=== PATIENT | female | born 1950 | race Caucasian/White ===

== ENCOUNTER → 2019-04-03 11:53 | Outpatient (CLI) | payer MEDICARE, OTHER, SELFPAY ==
--- NOTE | ~2019-04-03 | MM_ITS ---
EXAMINATION: MM screening clemente BI w alonzo HISTORY: Screening mammogram TECHNIQUE: Craniocaudal and mediolateral oblique 3-D tomosynthesis images were obtained and synthetic 2-D images were generated. CAD analysis was submitted and interpreted. COMPARISON: 08/08/2017, 06/14/2016, 12/18/2013 by lateral digital screening mammogram examinations BREAST PARENCHYMAL COMPOSITION: There are scattered areas of fibroglandular density. FINDINGS: There is no evidence of suspicious mass, calcification, or architectural distortion to sugg est malignancy in either breast. There has been no suspicious interval change. IMPRESSION: 1. No mammographic evidence of malignancy. 2. Recommend routine screening mammography in one year. BI-RADS Category 1: Negative Reviewed, dictated and finalized at location A. STFEEDING PEER COUNSELOR
--- NOTE | ~2019-04-03 | DEXA_ITS ---
Bone Density Report Name: Claire Herrera Age: 69 Sex: Female Ethnicity: White Date of : 1950 Indication: osteopenia; monitoring treatment; height loss; hysterectomy; postmenopausal Referring Provider: HANNAH, MATHIEU Study: Bone densitometry was performed. Exam Date: April 03, 2019 Accession number: [id number] Bone Density: Region BMD T-score Z-score Classification AP Spine (L1-L4) 0.882 -1.5 0.7 Osteopenia Femoral Neck (Left) 0.659 -1.7 0.2 Osteopenia Total Hip (Left) 0.811 -1.1 0.5 Osteopenia Femoral Neck (Right) 0.772 -0.7 1.2 Normal Total Hip (Right) 0.858 -0.7 0.9 Normal Total Hip Mean 0.835 -0.9 0.7 Normal World Health Organization criteria for BMD impression classify patients as: Normal (T-score at or above -1.0), Osteopenia (T-score between -1.0 and -2.5), or Osteoporosis (T-score at or below -2.5). 10-year Fracture Risk: FRAX not reported because: Treated for osteoporosis Previous Exams: Region Exam Age BMD T-score BMD Change BMD Change Date g/cm2 vs Baseline vs Previous AP Spine(L1-L4) 04/03/2019 69 0.882 -1.5 0.000 0.000 10/09/2010 60 0.882 -1.5 Total Hip(Left) 04/03/2019 69 0.811 -1.1 -0.032* 0.011 06/14/2016 66 0.800 -1.2 -0.043* -0.004 12/18/2013 63 0.804 -1.1 -0.039* -0.021 10/09/2010 60 0.825 -1.0 -0.018 -0.018 09/13/2007 57 0.843 -0.8 Total Hip(Right) 04/03/2019 69 0.858 -0.7 -0.025 -0.015 06/14/2016 66 0.872 -0.6 -0.010 -0.029* 12/18/2013 63 0.902 -0.3 0.019 0.019 10/09/2010 60 0.883 -0.5 0.000 0.000 09/13/2007 57 0.883 -0.5 *Denotes significance at 95% confidence level, LSC for AP Spine = 0.022 g/cm2, LSC for Total Hip = 0.027 g/cm2 Clinical Information Provided by Patient: Is being treated for osteoporosis Has used the following medications: Evista (i.e. raloxifene), Vitamin D, levothyroxine Has the following medical conditions: Hysterectomy, Stage 3 kidney disease Patient maximum height was 63.0 Menopause Age: 38 No regular weight bearing exercise Drinks caffeinated beverages Onset of menses at age 11 Number of children 2 Impression: The patient has low bone mass, based on the Left Femoral Neck T-score. No significant bone loss was observed. Discussion: PATIENT UNDER TREATMENT WI
== END ==
PROVIDERS: PCP Family Medicine; Visit Provider Nurse Practitioner
DX: Z12.31 Encounter for screening mammogram for malignant neoplasm of breast (principal); M85.88 Other specified disorders of bone density and structure, other site; M85.852 Other specified disorders of bone density and structure, left thigh
CPT/HCPCS: 77063; 77067; 77080

== ENCOUNTER 2019-08-26 12:22 | Emergency (ER) | payer MEDICARE, OTHER, SELFPAY ==
[2019-08-26 12:48] VITALS: BP 139/68; PULSE 89; RESP 20; TEMP 36.8; O2SAT 89
--- NOTE | 2019-08-26 13:17 | ED.WOUNDLAC ---
HPI - Wound/Laceration General Chief Complaint: Wound/Laceration Stated Complaint: cat bite right hand Time Seen by Provider: 08/26/19 13:17 Source: patient Mode of arrival: ambulatory Limitations: no limitations History of Present Illness HPI narrative: Claire Herrera is a 69 yo female with R hand swelling due to cat scratch by own cat on - decreased pain since yesterday but hard to grasp Related Data Home Medications Medication Instructions Recorded Confirmed ergocalciferol (vitamin D2) 1,250 50,000 unit PO 2XW cap 12/28/18 08/26/19 mcg (50,000 unit) capsule gabapentin 600 mg tablet 600 mg PO TID 12/28/18 08/26/19 lovastatin 40 mg tablet 80 mg PO DAILY tablet 12/28/18 08/26/19 melatonin 10 mg capsule PO 12/28/18 metformin 1,000 mg tablet 1,000 mg PO BID tablet 12/28/18 08/26/19 raloxifene 60 mg tablet 60 mg PO DAILY 12/28/18 Allergies Allergy/AdvReac Type Severity Reaction Status Date / Time alendronate sodium Allergy Severe TONGUE Verified 08/26/19 13:26 SWELLING atorvastatin Allergy Unknown Muscle Pain Verified 08/26/19 13:26 fenofibrate Allergy Unknown Muscle Pain Verified 08/26/19 13:26 gemfibrozil Allergy Unknown Muscle Pain Verified 08/26/19 13:26 Penicillins Allergy Unknown Hives Verified 08/26/19 13:26 rosuvastatin Allergy Unknown Muscle Pain Verified 08/26/19 13:26 Review of Systems Review of Systems: Narrative: CONSTITUTIONAL: Denies fever, chills, sweats. EYES: Denies visual changes, redness, discharge. ENT: Denies rhinorrhea, congestion, sore throat, otalgia. CARDIOVASCULAR: Denies chest pain, palpitations, edema. RESPIRATORY: Denies dyspnea, wheezing, cough GASTROINTESTINAL: Denies abdominal pain, nausea, vomiting, diarrhea. GENITOURINARY: Denies dysuria, hematuria, abnormal discharge SKIN: Denies rash or itching. Swollen R hand with redness at sites of puncture NEUROLOGIC: Denies numbness, or focal weakness. PSYCHIATRIC: Denies anxiety or depression. [facility] Past Medical History Medical History CKD (chronic kidney disease), stage III DM renal manif type II Hypertensive chronic kidney disease with stage 1 through stage 4 chronic kidney disease, or unspecified chronic kidney disease Mild episode of recurrent major depressive disorder Mixed hyperlipidemia Mixed hyperlipidemia Transient alteration of awareness UTI (urinary tract infection) Surgical History Surgical History History of bilateral tubal ligation S/P carpal tunnel release S/P cholecystectomy S/P discectomy S/P hysterectomy S/P tonsillectomy Status post Kevin fundoplication Family History Family History Father Family history of obesity Hypertension Family history of allergic disorder Cerebrovascular accident Family history of diabetes mellitus in first degree relative Family history of primary malignant neoplasm of liver Patient's father is Diabetes mellitus Family history of cardiovascular disease Mother Family history of obesity Hypertension Family history of osteoarthritis Patient's mother is in good health Sibling Hypertension Patient's brother is in good health Family history of diabetes mellitus in first degree relative Family history of lymphoma Diabetes mellitus Family history of cardiovascular disease Grandparent Asthma Carcinoma of colon Social History Social History Smoking status: Never smoker Alcohol intake: current Comments At time of signature, I agree with nursing past medical, surgical, social and family history. There is no relevant family history pertinent to the presenting complaint. Exam Narrative: Exam Narrative: GENERAL: This is a well-nourished, well-developed patient, in moderate distress. HEAD: normocephali
[2019-08-26] MEDS: TETANUS,DIPHTHERIA,AC PERTUSSIS ADULT (0.5 ML) BOOSTRIX IM (13:30)
== END 2019-08-26 13:51 | disposition home or self-care (01) ==
PROVIDERS: Emergency Provider Nurse Practitioner; PCP Family Medicine
DX: L08.9 Local infection of the skin and subcutaneous tissue, unspecified (principal); N18.3 Chronic kidney disease, stage 3 (moderate); E11.22 Type 2 diabetes mellitus with diabetic chronic kidney disease; I12.9 Hypertensive chronic kidney disease with stage 1 through stage 4 chronic kidney disease, or unspecified chronic kidney disease; Z79.84 Long term (current) use of oral hypoglycemic drugs; E11.42 Type 2 diabetes mellitus with diabetic polyneuropathy
CPT/HCPCS: 90471; 90715; 99213; G0463

== ENCOUNTER 2019-09-04 12:35 | Outpatient (CLI) | payer MEDICARE, OTHER, SELFPAY ==
--- NOTE | ~2019-09-04 | US_ITS ---
EXAMINATION: US carotid duplex BI DATE: 09/04/2019 14:01 INDICATION: Transient cerebral ischemic attack TECHNIQUE: Grayscale, color Doppler, and pulsed Doppler images of the cervical carotid arteries were obtained. The degree of vessel stenosis is placed in one of the following categories: normal, <50%, 5 0-69%, >=70% but less than near-occlusion, near-occlusion, or total occlusion. Note that percent sten osis relative to normal distal artery lumen diameter is indirectly measured from velocity measurement s as described by Ahmet, et al. Radiology 2003; 229:340-346. Notes: Normal: Peak systolic velocity <125 centimeters/sec and no plaque <50%. Peak systolic velocity <125 ( EDV <40; ICA/CCA PSV ratio <2.0; used these factors only a tandem lesions or low cardiac output or co ntralateral disease) 50-69 %: PSV 125-230 (EDV 40-100; ratio 2-4) >= 70% but less than near occlusion: PSV greater than 230 (EDV > 100; ratio> 4.0) Near Occlusion: PSV that is variable; markedly narrowed lumen Occlusion: Absent flow on color/spectral Doppler and no lumen on carty scale. COMPARISON: None. FINDINGS: RIGHT: The right common carotid artery (CCA) peak systolic velocity (PSV) is 80 cm/s. The right internal car otid artery (ICA) PSV is 200 cm/s. The right ICA end-diastolic velocity (EDV) is 47 cm/s. The right I CA/CCA PSV ratio is 2.5. The external carotid artery (ECA) PSV is 110 cm/s. There is antegrade flow i n the right vertebral artery. LEFT: The left CCA PSV is 100 cm/s. The left ICA PSV is 480 cm/s. The left ICA EDV is 102 cm/s. The left IC A/CCA PSV ratio is 4.8. The ECA PSV is 203 cm/s. There is antegrade flow in the left vertebral arter y. IMPRESSION: 1. 50-69% stenosis in the right internal carotid artery by sonographic criteria. 2. Greater than or equal to 70% stenosis in the left internal carotid artery by sonographic criteria. Reviewed, dictated and finalized at location B. IMPRESSION: 1. 50-69% stenosis in the right internal carotid artery by sonographic criteria . 2. Greater than or equal to 70% stenosis in the left internal carotid artery by sonographic criteria.
--- NOTE | ~2019-09-04 | CT_ITS ---
EXAMINATION: CT brain wo con DATE: 09/04/2019 14:07 INDICATION: Transient alteration of awareness. Dizziness. History of transient ischemic attack 3 week s ago. TECHNIQUE: Computed tomography (CT) of the head was performed without intravenous contrast. The mA wa s adjusted according to patient size. Iterative reconstruction technique was employed. Exam dose: 52 9.67 mGy-cm total exam DLP. COMPARISON: None FINDINGS: No intracranial mass lesion or hemorrhage or cerebrovascular accident. No midline shift or mass effect. No subdural or epidural hematoma. Bilateral carotid siphon internal carotid artery calcifications. There is nonspecific diminished atte nuation of cerebral white matter, likely due to chronic small vessel ischemic changes. No fracture or bone destruction of the cranial vault. The mastoid air cells and included paranasal si nuses are normally developed and aerated. IMPRESSION: Cerebral atherosclerosis and chronic small vessel ischemic changes of the cerebral white matter No acute intracranial finding Reviewed, dictated and finalized at Location A. Reviewed, dictated and finalized at location A.
== END 2019-09-04 12:36 | disposition home or self-care (01) ==
LOC: ANHIMG 12:36
PROVIDERS: PCP Family Medicine; Visit Provider Physician Assistant
DX: R40.4 Transient alteration of awareness (principal); I67.2 Cerebral atherosclerosis; I65.23 Occlusion and stenosis of bilateral carotid arteries
CPT/HCPCS: 70450; 93880

== ENCOUNTER 2019-10-01 01:39 | Outpatient (CLI) | payer MEDICARE, OTHER, SELFPAY ==
[2019-10-01 18:20] LABS: SARS-CoV-2 RNA PCR Negative
== END 2019-10-01 01:40 | disposition home or self-care (01) ==
LOC: ANHCOVIDDT 01:39
PROVIDERS: PCP Family Medicine; Visit Provider Internal Medicine Gastroenterology
DX: Z01.812 Encounter for preprocedural laboratory examination (principal); Z11.59 Encounter for screening for other viral diseases
CPT/HCPCS: 87635; C9803; U0003

== ENCOUNTER 2019-10-03 01:47 | Day surgery (SDC) | payer MEDICARE, OTHER, SELFPAY ==
[2019-09-25 14:56] VITALS: BMI 28.6
[2019-10-03 10:59] VITALS: BP 80/56; PULSE 110; RESP 20; TEMP 36.4; O2SAT 100
--- NOTE | 2019-10-03 11:06 | SUR.PREOP ---
PT AND SPOUSE NOTIFIED THAT DR PRESCOTT WILL BE APPROXIMATELY 1 HR LATE
[2019-10-03 11:24] LABS: Glucose Point of Care 105 (65-105)
[2019-10-03] MEDS: SODIUM CHLORIDE 0.9% IV 500 ML 10 ML IV CONT (11:31)
--- NOTE | 2019-10-03 12:00 | WPDANESEPPF ---
Anes - Initial Pre Proc Eval Procedure: Operation Date: 10/03/19 12:00 Proposed Procedures p Screening Colonoscopy - Lino Castaneda DO Date/Time: 10/03/19 12:00 Surgeon: Lino Castaneda DO Pre Op Diagnosis: Neoplasm Screening Patient Data Age: 69 Gender: F Height: 5 ft 2 in Weight: 69.2 kg Last Vital Signs Temp 97.6 F 10/03/19 10:59 Pulse 110 H 10/03/19 10:59 Resp 20 10/03/19 10:59 BP 80/56 L 10/03/19 10:59 Pulse Ox 100 10/03/19 10:59 Allergies Allergy/AdvReac Type Severity Reaction Status Date / Time alendronate sodium Allergy Severe TONGUE Verified 10/03/19 10:57 SWELLING atorvastatin Allergy Unknown Muscle Pain Verified 10/03/19 10:57 fenofibrate Allergy Unknown Muscle Pain Verified 10/03/19 10:57 gemfibrozil Allergy Unknown Muscle Pain Verified 10/03/19 10:57 Penicillins Allergy Unknown Hives Verified 10/03/19 10:57 rosuvastatin Allergy Unknown Muscle Pain Verified 10/03/19 10:57 Home Medications Medication Instructions Recorded Confirmed Type ergocalciferol (vitamin D2) 1,250 50,000 unit PO [id number] cap 12/28/18 10/03/19 History mcg (50,000 unit) capsule gabapentin 600 mg tablet 600 mg PO TID 12/28/18 10/03/19 History lovastatin 40 mg tablet 80 mg PO DAILY tablet 12/28/18 10/03/19 History melatonin 10 mg capsule 10 mg PO HS 12/28/18 10/03/19 History metformin 1,000 mg tablet 1,000 mg PO BID tablet 12/28/18 10/03/19 History raloxifene 60 mg tablet 60 mg PO DAILY 12/28/18 10/03/19 History bupropion HCl 300 mg 24 hr tablet, 300 mg PO QAM #90 tablet 01/08/19 10/03/19 Rx extended release omeprazole 40 mg capsule,delayed 40 mg PO DAILY #90 cap 02/12/19 10/03/19 Rx release levothyroxine 75 mcg tablet 75 mcg PO DAILY #90 tablet 07/31/19 10/03/19 Rx lisinopril 10 mg tablet 10 mg PO DAILY #90 tablet 07/31/19 10/03/19 Rx lisinopril 5 mg tablet 5 mg PO DAILY #90 tablet 07/31/19 10/03/19 Rx duloxetine 60 mg capsule,delayed See Rx Instructions .ROUTE 08/30/19 10/03/19 Rx release .COMPLEX #90 cap aspirin [Ecotrin] 325 mg PO DAILY 09/25/19 10/03/19 History lactobacillus combination no.8 3,000 mmu cells PO DAILY 09/25/19 10/03/19 History [Adult Probiotic] Laboratory Tests 10/03/19 11:22 POC Capillary Glucose 105 mg/dl mg/dl (65-105) Patient hx anesthesia problems: none Family hx anesthesia problems: none [facility] Past Medical History Medical History (Updated 09/04/19 @ 16:33 by Cheryl Valadez PA-C) Cerebral atherosclerosis CKD (chronic kidney disease), stage III DM renal manif type II Hypertensive chronic kidney disease with stage 1 through stage 4 chronic kidney disease, or unspecified chronic kidney disease Mild episode of recurrent major depressive disorder Mixed hyperlipidemia Mixed hyperlipidemia Transient alteration of awareness UTI (urinary tract infection) Surgical History Surgical History History of bilateral tubal ligation S/P carpal tunnel release S/P cholecystectomy S/P discectomy S/P hysterectomy S/P tonsillectomy Status post Kevin fundoplication Social History Social History Smoking status: Never smoker Alcohol intake: current Anes - Eval Final PreProcedure Day of Procedure 10/03/19 12:00 Patient weight: normal Heart: regular rate and rhythm Lungs: clear to auscultation Airway: Mallampati scale class II Neurological: alert and oriented Last oral intake: >/= 8 hours ASA classification: III Emergent: no Anesthetic plan: proceed Anesthesia type and monitoring: general GIVS and standard monitoring Informed Consent: The patient's anesthetic plan and its attendant risks and benefits were discussed with the patient/family/POA. Questions were solicited and answers provided to the satisfaction of the patient/family/POA.
--- NOTE | 2019-10-03 13:00 | PM.IMHP ---
H&P: [facility] History of Present Illness Date/Time: 10/03/19 13:00 Chief complaint: Neoplasm Screening Narrative: Reason for visit colonoscopy. This very pleasant lady seen in consultation request of the primary. Impression: Your very pleasant lady that has a history of colon polyps. She is here for screening and surveillance colonoscopy. GERD well controlled on medication. Recommendation: Colonoscopy. history: This very pleasant lady's here for screening and surveillance colonoscopy. She has a history of colon polyps. GI review systems negative. Physical examination: General: very pleasant patient in no acute distress. HEENT: Head was normocephalic sclerae is clear mouth without masses neck was supple. Heart: Rate rhythm regular without S3 or S4. Lungs: CTA. Abdomen: Soft with no guarding or rigidity. Bowel sounds were active. Neurologic: Cranial nerves 2 through 12 intact. No focal defects. No clonus. Musculoskeletal system: Revealed no joint tenderness or swelling no muscle atrophy. Extremities: Reveal no significant edema. Skin: Warm and dry with normal turgor. Mental status: intact. Patient is alert and oriented. Review of Systems Review of Systems: All systems reviewed & are unremarkable except as noted in HPI and below [facility] Past Medical History Medical History (Updated 10/03/19 @ 13:00 by Lino Castaneda DO) Adenomatous colon polyp Anxiety Carotid artery disease Cerebral atherosclerosis CKD (chronic kidney disease) CKD (chronic kidney disease), stage III DM renal manif type II GERD (gastroesophageal reflux disease) HTN (hypertension) Hypothyroid Mild episode of recurrent major depressive disorder Mixed hyperlipidemia Transient alteration of awareness UTI (urinary tract infection) Surgical History Surgical History History of bilateral tubal ligation S/P carpal tunnel release S/P cholecystectomy S/P discectomy S/P hysterectomy S/P tonsillectomy Status post Kevin fundoplication Social History Social History Smoking status: Never smoker Alcohol intake: current Meds Home Medications and Allergies Home Medications Medication Instructions Recorded Confirmed Type ergocalciferol (vitamin D2) 1,250 50,000 unit PO [id number] cap 12/28/18 10/03/19 History mcg (50,000 unit) capsule gabapentin 600 mg tablet 600 mg PO TID 12/28/18 10/03/19 History lovastatin 40 mg tablet 80 mg PO DAILY tablet 12/28/18 10/03/19 History melatonin 10 mg capsule 10 mg PO HS 12/28/18 10/03/19 History metformin 1,000 mg tablet 1,000 mg PO BID tablet 12/28/18 10/03/19 History raloxifene 60 mg tablet 60 mg PO DAILY 12/28/18 10/03/19 History bupropion HCl 300 mg 24 hr tablet, 300 mg PO QAM #90 tablet 01/08/19 10/03/19 Rx extended release omeprazole 40 mg capsule,delayed 40 mg PO DAILY #90 cap 02/12/19 10/03/19 Rx release levothyroxine 75 mcg tablet 75 mcg PO DAILY #90 tablet 07/31/19 10/03/19 Rx lisinopril 10 mg tablet 10 mg PO DAILY #90 tablet 07/31/19 10/03/19 Rx lisinopril 5 mg tablet 5 mg PO DAILY #90 tablet 07/31/19 10/03/19 Rx duloxetine 60 mg capsule,delayed See Rx Instructions .ROUTE 08/30/19 10/03/19 Rx release .COMPLEX #90 cap aspirin [Ecotrin] 325 mg PO DAILY 09/25/19 10/03/19 History lactobacillus combination no.8 3,000 mmu cells PO DAILY 09/25/19 10/03/19 History [Adult Probiotic] Allergies Allergy/AdvReac Type Severity Reaction Status Date / Time alendronate sodium Allergy Severe TONGUE Verified 10/03/19 10:57 SWELLING atorvastatin Allergy Unknown Muscle Pain Verified 10/03/19 10:57 fenofibrate Allergy Unknown Muscle Pain Verified 10/03/19 10:57 gemfibrozil Allergy Unknown Muscle Pain Verified 10/03/19 10:57 Penicillins Allergy Unknown Hives Verified 10/03/19 10:57 rosuvastatin Allergy Unknown Muscle Pain Verified 10/03/19 10:57 Vital Sig
[2019-10-03 13:35] VITALS: BP 80/49; PULSE 115; RESP 26; O2SAT 100
[2019-10-03 13:45] VITALS: BP 88/54; PULSE 99; RESP 18; O2SAT 100
[2019-10-03 13:55] VITALS: BP 88/55; PULSE 101; RESP 21; O2SAT 99
== END 2019-10-03 14:04 | disposition home or self-care (01) ==
PROVIDERS: PCP Family Medicine; Visit Provider Internal Medicine Gastroenterology
PROC: 0DJD8ZZ Inspection of Lower Intestinal Tract, Via Natural or Artificial Opening Endoscopic (ICD-10-PCS; CPT 45378; principal; 2019-10-03 12:00)
DX: Z12.11 Encounter for screening for malignant neoplasm of colon (principal); D12.8 Benign neoplasm of rectum; K57.30 Diverticulosis of large intestine without perforation or abscess without bleeding; K21.9 Gastro-esophageal reflux disease without esophagitis; I12.9 Hypertensive chronic kidney disease with stage 1 through stage 4 chronic kidney disease, or unspecified chronic kidney disease; E11.22 Type 2 diabetes mellitus with diabetic chronic kidney disease; N18.3 Chronic kidney disease, stage 3 (moderate); E03.9 Hypothyroidism, unspecified; E78.2 Mixed hyperlipidemia; I25.10 Atherosclerotic heart disease of native coronary artery without angina pectoris; F41.9 Anxiety disorder, unspecified; F33.0 Major depressive disorder, recurrent, mild; Z86.73 Personal history of transient ischemic attack (TIA), and cerebral infarction without residual deficits; Z79.84 Long term (current) use of oral hypoglycemic drugs; Z79.82 Long term (current) use of aspirin
CPT/HCPCS: 45380; 88305; J2704; J7040

== ENCOUNTER 2020-01-08 12:59 | Outpatient (CLI) | payer MEDICARE, OTHER, SELFPAY ==
--- NOTE | ~2020-01-08 | CT_ITS ---
EXAMINATION: CT brain wo con DATE: 01/08/2020 13:45 INDICATION: Left facial droop. History of transient ischemic attack. TECHNIQUE: Computed tomography (CT) of the head was performed without intravenous contrast. The mA wa s adjusted according to patient size. Iterative reconstruction technique was employed. Exam dose: 60 5.33 mGy-cm total exam DLP. COMPARISON: 09/04/2019 CT brain FINDINGS: There are bilateral carotid siphon and supraclinoid internal carotid artery calcifications. There is nonspecific diminished attenuation of the cerebral white matter, likely due to chronic smal l vessel ischemic changes. No intracranial mass lesion or hemorrhage or cerebrovascular accident is evident. There is no midline shift or mass effect. No subdural or epidural hematoma. There is mild to moderate cerebral and cerebellar volume loss. No fracture or bone destruction of the cranial vault. The mastoid air cells and included paranasal si nuses are normally developed and aerated. IMPRESSION: Cerebral atherosclerosis and chronic small vessel ischemic changes of the cerebral white matter Reviewed, dictated and finalized at Location A. Reviewed, dictated and finalized at location B. ICIAN PRACTICE COORDINATOR
--- NOTE | ~2020-01-08 | US_ITS ---
EXAMINATION: US art doppler w press UE BI EXAM DATE: 01/08/2020 13:41 INDICATION: I25.10 - Atherosclerotic heart disease of [place] coronary artery without angina pectoris . Hypertension. Neuropathy, arm numbness. TECHNIQUE: Segmental pressures and plethysmographic and Doppler waveforms of the upper extremity mohit mercedes were obtained. There is no prior study for comparison. FINDINGS: Right and left brachial artery pressures of 123 mm Hg and 89 mm Hg, respectively, are discordant (nor mal difference <= 30 mmHg), could indicate left subclavian arterial stenosis. RIGHT: Right ulnar/brachial arterial Doppler ratio 1.03 (127 mmHg). Right radial/brachial arterial Doppler ratio 1.02 (125 mmHg). Right index finger 120 mmHg. The waveforms are biphasic. LEFT: Left ulnar/brachial arterial Doppler ratio 0.83 (74 mmHg). Left radial/brachial arterial ratio 0.81 (72 mmHg). Left index finger 73 mmHg. The waveforms are monophasic. IMPRESSION: Brachial arterial discrepancy indicating possible left subclavian arterial stenosis. Mon ophasic left-sided waveforms throughout. Reviewed, dictated and finalized at location A. FIC CONTROL FLAGGER IMPRESSION: Brachial arterial discrepancy indicating possible left subclavian arterial stenosis. Monophasic left-sided waveforms throughout.
== END 2020-01-08 13:00 | disposition home or self-care (01) ==
PROVIDERS: PCP Family Medicine; Visit Provider Nurse Practitioner Family
DX: R29.810 Facial weakness (principal); I25.10 Atherosclerotic heart disease of native coronary artery without angina pectoris; R93.1 Abnormal findings on diagnostic imaging of heart and coronary circulation; I67.2 Cerebral atherosclerosis; R09.89 Other specified symptoms and signs involving the circulatory and respiratory systems; R42 Dizziness and giddiness; Z86.73 Personal history of transient ischemic attack (TIA), and cerebral infarction without residual deficits
CPT/HCPCS: 70450; 93923

== ENCOUNTER 2020-01-16 12:19 | Outpatient (CLI) | payer MEDICARE, OTHER, SELFPAY ==
--- NOTE | ~2020-01-16 | CT_ITS ---
EXAMINATION: CTA neck DATE: 01/16/2020 12:54 INDICATION: Subclavian arterial stenosis. TECHNIQUE: Computed tomographic angiography (CTA) of the neck was performed with 100 mL Omnipaque-350 intravenous contrast. Automated exposure control and iterative reconstruction technique were employe d. The dose-length product was 461.41 mGy-cm. Maximum intensity projection 3D-reconstructions were cr eated by the technologist on a separate workstation. COMPARISON: Ultrasound 09/04/2019 FINDINGS: There are no pathologically enlarged lymph nodes. There are nodules in the thyroid measurin g up to 8 mm, likely not clinically significant. There is severe stenosis of proximal left subclavian artery. There is no significant stenosis of the vertebral arteries, which are codominant. There is p laque in the proximal right internal carotid artery. There is 25% stenosis of the proximal right inte rnal carotid artery relative to normal distal artery lumen diameter (NASCET criteria). There are lik jarad changes of left-sided carotid endarterectomy. There is 0% stenosis of the proximal left internal carotid artery relative to normal distal artery lumen diameter. 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 There is severe cervical spondylosis. IMPRESSION: 1. 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 2. 25% stenosis of the proximal right internal carotid artery relative to normal distal artery lumen diameter (NASCET criteria). 3. Left internal carotid artery with changes of endarterectomy and dissecting aneurysm. Reviewed, dictated and finalized at location A. NSTRATOR SALES IMPRESSION: 1. 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 2. 25% stenosis of the proximal right internal carotid artery relative to fernanda l distal artery lumen diameter (NASCET criteria). 3. Left internal carotid artery with changes of endarterectomy and dissecting a neurysm.
[2020-01-16 12:47] LABS: Estimated Glomerular Filt Rate 37
== END 2020-01-16 12:20 | disposition home or self-care (01) ==
PROVIDERS: PCP Family Medicine; Visit Provider Internal Medicine Cardiovascular Disease
DX: I77.1 Stricture of artery (principal); I65.21 Occlusion and stenosis of right carotid artery; Z98.890 Other specified postprocedural states
CPT/HCPCS: 70498; Q9967

== ENCOUNTER 2020-05-07 15:37 | Outpatient (CLI) | payer MEDICARE, OTHER, SELFPAY ==
[2020-05-07 16:10] LABS: Basophils Absolute Auto 0.1 K/mm3 (0.0-0.1); Basophils Percent Auto 0.5 % (0.2-1.2); Eosinophils Absolute Auto 0.3 K/mm3 (0-0.3); Eosinophils Percent Auto 2.7 % (0-4.4); Hematocrit 34.4 % (37.0-47.0); Hemoglobin 10.3 g/dL (12.0-15.0); Immature Granulocyte Absolute 0.03 K/mm3 (0.00-0.031); Immature Granulocyte Percent A 0.3 % (0-0.5); Lymphocytes Absolute Auto 2.33 K/mm3 (0.9-3.2); Lymphocytes Percent Auto 23.6 % (18.3-44.2); Mean Corpuscular HGB Conc 29.9 g/dl (32-36); Mean Corpuscular Hemoglobin 22.4 pg (26-34); Mean Corpuscular Volume 74.9 fl (80-100); Mean Platelet Volume 9.2 fl (7.4-10.4); Monocytes Absolute Auto 0.9 K/mm3 (0.1-0.6); Monocytes Percent Auto 8.7 % (2.6-8.5); Neutrophils Absolute Auto 6.4 K/mm3 (1.3-6.7); Neutrophils Percent Auto 64.2 % (45.5-73.1); Platelet Count Result 270 k/mm3 (150-375); Red Blood Count 4.59 M/mm3 (4.2-5.4); Red Cell Distribution Width 17.5 % (11.5-14.5); White Blood Count 9.9 K/mm3 (4.5-10.0)
[2020-05-07 16:19] LABS: Prothrombin Time 13.8 Seconds (11.1-14.7)
[2020-05-07 16:24] LABS: Alanine Aminotransferase 15 U/L (4-35); Albumin Level 4.4 g/dL (3.5-5.1); Alkaline Phosphatase 80 U/L (38-126); Anion Gap 8 mmol/L (8-16); Aspartate Amino Transferase 31 U/L (14-36); Bilirubin,Total 0.2 mg/dL (0.2-1.3); Blood Urea Nitrogen 19 mg/dL (7-17); Calcium 9.5 mg/dL (8.4-10.2); Carbon Dioxide 25 mmol/L (22-30); Chloride 107 mmol/L (98-107); Estimated Glomerular Filt Rate 24; Glucose 93 mg/dL (65-105); Potassium 3.8 mmol/L (3.4-5.0); Sodium 140 mmol/L (137-145)
[2020-05-07 16:43] LABS: Platelet Estimate Adequate (Adequate)
[2020-05-07 16:44] LABS: Anisocytosis 2+ (NORMAL); Hypochromasia 1+ (NORMAL)
== END 2020-05-07 15:38 | disposition home or self-care (01) ==
PROVIDERS: PCP Family Medicine; Visit Provider Internal Medicine Cardiovascular Disease
DX: Z01.810 Encounter for preprocedural cardiovascular examination (principal); G45.8 Other transient cerebral ischemic attacks and related syndromes
CPT/HCPCS: 36415; 80053; 85025; 85610

== ENCOUNTER 2020-09-17 14:05 | Outpatient (CLI) | payer MEDICARE, OTHER, SELFPAY ==
--- NOTE | ~2020-09-17 | XR_ITS ---
EXAMINATION: XR abdomen/kub 1V INDICATION: Fecal incontinence TECHNIQUE: Supine views of the abdomen were obtained on 2 radiographs. COMPARISON: None FINDINGS: A large volume of colonic stool is present. There are no dilated loops of bowel. Phlebolith s are noted in the pelvis. There is mild osteoarthritis of the hips. IMPRESSION: 1. Constipation. Reviewed, dictated and finalized at location A. IMPRESSION: 1. Constipation.
== END 2020-09-17 14:06 | disposition home or self-care (01) ==
LOC: ANHIMG 14:10
PROVIDERS: PCP Family Medicine; Visit Provider Physician Assistant
DX: R15.9 Full incontinence of feces (principal); K56.609 Unspecified intestinal obstruction, unspecified as to partial versus complete obstruction
CPT/HCPCS: 74018

== ENCOUNTER 2021-01-26 13:56 | Outpatient (CLI) | payer MEDICARE, OTHER, SELFPAY ==
--- NOTE | ~2021-01-26 | US_ITS ---
EXAMINATION: US carotid duplex BI DATE: 01/26/2021 16:25 INDICATION: Carotid atherosclerosis and stenosis TECHNIQUE: Grayscale, color Doppler, and pulsed Doppler images of the cervical carotid arteries were obtained. The degree of vessel stenosis is placed in one of the following categories: normal, <50%, 5 0-69%, >=70% but less than near-occlusion, near-occlusion, or total occlusion. Note that percent sten osis relative to normal distal artery lumen diameter is indirectly measured from velocity measurement s as described by Ahmet, et al. Radiology 2003; 229:340-346. COMPARISON: 09/04/2019 FINDINGS: RIGHT: The right common carotid artery (CCA) peak systolic velocity (PSV) is 89 cm/s. The right internal car otid artery (ICA) PSV is 221 cm/s. The right ICA end-diastolic velocity (EDV) is 57 cm/s. The right I CA/CCA PSV ratio is 2.5. Grayscale and color Doppler images yield an estimate of 50-69% diameter redu ction from plaque in the ICA. The external carotid artery (ECA) PSV is 120 cm/s. There is antegrade f low in the right vertebral artery. LEFT: The left CCA PSV is 106 cm/s. The left ICA PSV is 98 cm/s. The left ICA EDV is 32 cm/s. The left ICA/ CCA PSV ratio is 0.9. Grayscale and color Doppler images yield an estimate of <50% diameter reduction from plaque in the ICA. The ECA PSV is 98 cm/s. There is retrograde flow in the left vertebral arter y. IMPRESSION: 1. 50-69% stenosis in the right internal carotid artery. 2. <50% stenosis in the left internal carotid artery. 3. Retrograde flow in the left vertebral artery consistent with severe stenosis versus occlusion in t he left subclavian artery proximal to the takeoff of the vertebral artery. A near complete occlusion stenosis seen at this location on prior CT dated 01/16/2020 . Reviewed, dictated and finalized at location B. WEIGH OPERATOR IMPRESSION: 1. 50-69% stenosis in the right internal carotid artery. 2. <50% stenosis in the left internal carotid artery. 3. Retrograde flow in the left vertebral artery consistent with severe stenosis versus occlusion in the left subclavian artery proximal to the takeoff of the vertebral artery. A near complete occlusion stenosis seen at this location on p rior CT dated 01/16/2020 .
[2021-01-26 14:33] LABS: Estimated Glomerular Filt Rate 22
== END 2021-01-26 13:57 | disposition home or self-care (01) ==
PROVIDERS: PCP Family Medicine; Visit Provider Internal Medicine Cardiovascular Disease
DX: I65.23 Occlusion and stenosis of bilateral carotid arteries (principal)
CPT/HCPCS: 93880

== ENCOUNTER 2021-02-19 10:44 | Outpatient (CLI) | payer MEDICARE, OTHER, SELFPAY ==
--- NOTE | ~2021-02-19 | US_ITS ---
EXAMINATION: US renal BI EXAM DATE: 02/19/2021 11:09 INDICATION: CKD Stage 3 . TECHNIQUE: Multiple grayscale and Doppler images of the kidneys were obtained (by a technologist who performed the scan) and subsequently reviewed. Comparison is made to prior examination from 11/02/2013 . FINDINGS: Right kidney: There is normal contour and echogenicity. It measures 7.8 x 3.4 x 3.7 centimeters. Ane choic lesion consistent with cyst measuring 2 cm. There is no hydronephrosis. Left kidney: There is normal contour and echogenicity. It measures 9.2 x 4.1 x 5.4 centimeters. The re are no focal renal lesions identified. There is no hydronephrosis. Bladder unremarkable. Bilateral ureteral jets were confirmed. IMPRESSION: 1. Development of mild right renal atrophy. Reviewed, dictated and finalized at location A. T BAILIFF
== END 2021-02-19 10:45 | disposition home or self-care (01) ==
LOC: ANHIMG 10:48
PROVIDERS: PCP Family Medicine; Visit Provider Internal Medicine Nephrology
DX: N18.32 Chronic kidney disease, stage 3b (principal); N26.1 Atrophy of kidney (terminal)
CPT/HCPCS: 76775

== ENCOUNTER 2021-08-05 14:32 | Outpatient (CLI) | payer MEDICARE, SELFPAY ==
--- NOTE | ~2021-08-05 | XR_ITS ---
EXAMINATION: XR ankle LT min 3V DATE: 08/05/2021 15:01 INDICATION: Left ankle pain and swelling. Fall. TECHNIQUE: 4 views of left ankle were obtained. COMPARISON: Left foot radiographs 05/05/2021 FINDINGS: There are transverse fractures of the bases of the second-fourth metatarsals better seen on today's foot radiographs. There is mild ankle joint osteoarthritis. There is an enthesophyte at plan tar aspect of calcaneal tuberosity. Ankle soft tissue swelling is noted. IMPRESSION: 1. Transverse fractures of the bases of the second-fourth metatarsals better seen on today's foot rad iographs. Reviewed, dictated and finalized at location B. IMPRESSION: 1. Transverse fractures of the bases of the second-fourth metatarsals better se en on today's foot radiographs.
--- NOTE | ~2021-08-05 | XR_ITS ---
EXAMINATION: XR foot LT min 3V DATE: 08/05/2021 15:01 INDICATION: Left foot pain. TECHNIQUE: 4 views of left foot were obtained. COMPARISON: None. FINDINGS: There is a transverse fracture of base of second metatarsal in near-anatomic alignment. The re is a transverse fracture of base of third metatarsal with 3 mm lateral displacement of the distal fracture fragment. There is a transverse fracture of base of fourth metatarsal with 2 mm lateral disp lacement of the distal fracture fragment. There is severe osteoarthritis of first metatarsophalangeal joint. There is moderate to moderate osteoarthritis of some of the midfoot joints and interphalangea l joints. There is severe osteoarthritis of second and third tarsometatarsal joints. There is an enth esophyte at plantar aspect of calcaneus. IMPRESSION: 1. Transverse fractures of the bases of the second-fourth metatarsals. 2. Polyarticular osteoarthritis. Reviewed, dictated and finalized at location B.
== END 2021-08-05 14:33 | disposition home or self-care (01) ==
PROVIDERS: PCP Family Medicine; Visit Provider Nurse Practitioner Family
DX: M19.072 Primary osteoarthritis, left ankle and foot (principal)
CPT/HCPCS: 73610; 73630

== ENCOUNTER 2021-09-17 14:41 | Outpatient (CLI) | payer MEDICARE, SELFPAY ==
--- NOTE | ~2021-09-17 | CT_ITS ---
EXAMINATION: CT brain wo con DATE: 09/17/2021 15:01 INDICATION: Dizziness TECHNIQUE: Computed tomography (CT) of the head was performed without intravenous contrast. The dose- length product was 529.67 mGy-cm. Automated exposure control and iterative reconstruction technique w ere employed. COMPARISON: CT dated 01/08/2020 FINDINGS: Mild generalized atrophy. There are scattered mild periventricular and subcortical white ma tter changes, most likely related to small vessel ischemic disease (microangiopathy). There is intrac ranial atherosclerosis. Paranasal sinuses and mastoids are pneumatized. No depressed skull fractures. IMPRESSION: 1. No acute intracranial abnormality. 2: Chronic age-related findings. Reviewed, dictated and finalized at location A.
== END 2021-09-17 14:42 | disposition home or self-care (01) ==
PROVIDERS: PCP Family Medicine; Visit Provider Physician Assistant
DX: R42 Dizziness and giddiness (principal); R41.0 Disorientation, unspecified; G45.9 Transient cerebral ischemic attack, unspecified; W19.XXXA Unspecified fall, initial encounter
CPT/HCPCS: 70450

== ENCOUNTER 2021-10-30 13:56 | Outpatient (CLI) | payer MEDICARE, SELFPAY ==
--- NOTE | ~2021-10-30 | CT_ITS ---
EXAMINATION: CTA brain carotid DATE: 10/30/2021 15:22 INDICATION: Dizziness. TECHNIQUE: Computed tomographic angiography (CTA) of the head was performed without and with 100 mL O mnipaque-350 intravenous contrast. CTA of the neck was performed with intravenous contrast. Automated exposure control and iterative reconstruction technique were employed. The dose-length product was 1 495.68 mGy-cm. Maximum intensity projection and volume rendered 3D-reconstructions were created by elinor flood technologist on a separate workstation. COMPARISON: Head CT 09/17/2021, neck CTA 01/16/20 FINDINGS: HEAD CTA: There are scattered areas of low attenuation in the cerebral white matter, which is within normal limits for the patient's age. There is no intracranial hemorrhage, acute infarction, or abnorm al intracranial mass lesion. The ventricles are normal in size. There are likely changes of ocular le ns replacement surgeries. There is mild mucosal thickening in the ethmoid sinuses. The mastoid air ce lls are normal. Right vertebral artery is dominant. There is no significant stenosis of basilar arter y or the posterior cerebral arteries. The posterior communicating arteries are normal. There is no si gnificant stenosis of the intracranial internal carotid arteries or anterior or middle cerebral arter ies. Anterior communicating artery is normal. There is no aneurysm. NECK CTA: There are nodules in the thyroid measuring up to 5 mm, likely not clinically significant. T here are no pathologically enlarged lymph nodes. There is a stent in proximal left subclavian artery. There is crimping of the stent resulting in moderate to severe stenosis. There is no significant hayde nosis of the vertebral arteries. There is plaque in the proximal internal carotid arteries. There are surgical clips around left cervical carotid artery, likely from carotid endarterectomy. There is 14% stenosis of the proximal right internal carotid artery relative to normal distal artery lumen diamet er (NASCET criteria). There is 0% stenosis of the proximal left internal carotid artery relative to n ormal distal artery lumen diameter. There is severe cervical spondylosis. IMPRESSION: 1. Normal aging brain. 2. No aneurysm or significant intracranial arterial stenosis. 3. 14% stenosis of the proximal right internal carotid artery relative to normal distal artery lumen diameter (NASCET criteria). 4. 0% stenosis of the proximal left internal carotid artery relative to normal distal artery lumen di ameter. 5. Stent in proximal left subclavian artery with crimping of the stent resulting in moderate to sever e stenosis. Reviewed, dictated and finalized at location A. IMPRESSION: 1. Normal aging brain. 2. No aneurysm or significant intracranial arterial stenosis. 3. 14% stenosis of the proximal right internal carotid artery relative to fernanda l distal artery lumen diameter (NASCET criteria). 4. 0% stenosis of the proximal left internal carotid artery relative to normal distal artery lumen diameter. 5. Stent in proximal left subclavian artery with crimping of the stent resultin g in moderate to severe stenosis.
[2021-10-30 15:04] LABS: Estimated Glomerular Filt Rate 34
== END 2021-10-30 13:57 | disposition home or self-care (01) ==
PROVIDERS: PCP Family Medicine; Visit Provider Psychiatry & Neurology Neurology
DX: R42 Dizziness and giddiness (principal); I65.21 Occlusion and stenosis of right carotid artery; Z95.828 Presence of other vascular implants and grafts
CPT/HCPCS: 70496; 70498; Q9967

== ENCOUNTER 2021-12-10 09:00 | Outpatient (CLI) | payer MEDICARE, SELFPAY ==
--- NOTE | 2021-12-10 11:30 | NEURO_ITS ---
Impression: # Complains of numbness of lower extremities. # Asymmetrical sensory neuropathy. # Normal needle/EMG exam. # Clinical correlation recommended. Nerve Conduction Studies Anti Sensory Summary Table Stim Site NR Peak (ms) P-T Amp (?V) Site1 Site2 Delta-P (ms) Dist (cm) Jhonny (m/s) Left Sup Fibular Anti Sensory (Ant Lat Mall) 14 cm 3.7 7.6 14 cm Ant Lat Mall 3.7 16.0 43 Right Sup Fibular Anti Sensory (Ant Lat Mall) NO RESPONSE 14 cm NR 14 cm Ant Lat Mall 16.0 Left Sural Anti Sensory (Lat Mall) Calf 3.9 7.9 Calf Lat Mall 3.9 16.0 41 Right Sural Anti Sensory (Lat Mall) Calf 3.4 4.8 Calf Lat Mall 3.4 16.0 47 Motor Summary Table Stim Site NR Onset (ms) O-P Amp (mV) Site1 Site2 Delta-0 (ms) Dist (cm) Jhonny (m/s) Left Peroneal Motor (Vastus Med) Ankle 4.1 0.9 Popit Ankle 8.4 37.0 44 Popit 12.5 0.8 Right Peroneal Motor (Vastus Med) Ankle 4.2 1.5 Popit Ankle 7.2 33.0 46 Popit 11.4 1.1 Left Tibial Motor (Abd Ro Brev) Ankle 4.5 0.8 Knee Ankle 8.8 38.0 43 Knee 13.3 0.9 Right Tibial Motor (Abd Ro Brev) Ankle 4.4 3.7 Knee Ankle 8.5 38.0 45 Knee 12.9 2.4 F Wave Studies NR F-Lat (ms) L-R F-Lat (ms) Left Peroneal (Mrkrs) (EDB) 52.90 0.39 Right Peroneal (Mrkrs) (EDB) 53.28 0.39 Left Tibial (Mrkrs) (Abd Hallucis) 52.97 0.94 Right Tibial (Mrkrs) (Abd Hallucis) 53.91 0.94 EMG Side Muscle Nerve Root Ins Act Fibs Amp Dur Recrt Comment Right AntTibialis Dp Br Fibular L4-5 Nml Nml Nml Nml Nml Right Gastroc Tibial S1-2 Nml Nml Nml Nml Nml Right Fibularis Long Sup Br Fibular L5-S1 Nml Nml Nml Nml Nml Right Flex Dig Long Tibial L5-S2 Nml Nml Nml Nml Nml Right Ext Dig Brev Dp Br Fibular L5, S1 Nml Nml Nml Nml Nml Left AntTibialis Dp Br Fibular L4-5 Nml Nml Nml Nml Nml Left Gastroc Tibial S1-2 Nml Nml Nml Nml Nml Left Fibularis Long Sup Br Fibular L5-S1 Nml Nml Nml Nml Nml Left Flex Dig Long Tibial L5-S2 Nml Nml Nml Nml Nml Left Ext Dig Brev Dp Br Fibular L5, S1 Nml Nml Nml Nml Nml MTDD
== END 2021-12-10 09:01 | disposition home or self-care (01) ==
PROVIDERS: PCP Family Medicine; Visit Provider Psychiatry & Neurology Neurology
DX: R42 Dizziness and giddiness (principal); W19.XXXA Unspecified fall, initial encounter; G62.9 Polyneuropathy, unspecified
CPT/HCPCS: 95886; 95910

== ENCOUNTER → 2021-12-11 10:07 | Outpatient (CLI) | payer MEDICARE, SELFPAY ==
--- NOTE | ~2021-12-11 | DEXA_ITS ---
Bone Density Report Name: SHAHZAD GHOSH Age: 71 Sex: Female Ethnicity: White Date of : 1950 Indication: osteopenia; height loss; hysterectomy; Referring Provider: Keith Foreman Study: Bone densitometry was performed. Exam Date: December 11, 2021 Accession number: [id number] Bone Density: Region BMD T-score Z-score Classification AP Spine (L1-L4) 0.862 -1.7 0.6 Osteopenia Femoral Neck (Left) 0.633 -1.9 0.1 Osteopenia Total Hip (Left) 0.785 -1.3 0.4 Osteopenia Femoral Neck (Right) 0.703 -1.3 0.7 Osteopenia Total Hip (Right) 0.787 -1.3 0.4 Osteopenia Total Hip Mean 0.786 -1.3 0.4 Osteopenia World Health Organization criteria for BMD impression classify patients as: Normal (T-score at or above -1.0), Osteopenia (T-score between -1.0 and -2.5), or Osteoporosis (T-score at or below -2.5). 10-year Fracture Risk(1): Major Osteoporotic Fracture 13% Hip Fracture 2.9% Reported Risk Factors: [place] (), Neck BMD=0.633, BMI=25.2 (1) FRAX(R) Version 3.08. Fracture probability calculated for an untreated patient. Fracture probability may be lower if the patient has received treatment. Previous Exams: Region Exam Age BMD T-score BMD Change BMD Change Date g/cm2 vs Baseline vs Previous AP Spine(L1-L4) 12/11/2021 71 0.862 -1.7 -0.020 -0.020 04/03/2019 69 0.882 -1.5 0.000 0.000 10/09/2010 60 0.882 -1.5 Total Hip(Left) 12/11/2021 71 0.785 -1.3 -0.058* -0.026 04/03/2019 69 0.811 -1.1 -0.032* 0.011 06/14/2016 66 0.800 -1.2 -0.043* -0.004 12/18/2013 63 0.804 -1.1 -0.039* -0.021 10/09/2010 60 0.825 -1.0 -0.018 -0.018 09/13/2007 57 0.843 -0.8 Total Hip(Right) 12/11/2021 71 0.787 -1.3 -0.095* -0.071* 04/03/2019 69 0.858 -0.7 -0.025 -0.015 06/14/2016 66 0.872 -0.6 -0.010 -0.029* 12/18/2013 63 0.902 -0.3 0.019 0.019 10/09/2010 60 0.883 -0.5 0.000 0.000 09/13/2007 57 0.883 -0.5 *Denotes significance at 95% confidence level, LSC for AP Spine = 0.022 g/cm2, LSC for Total Hip = 0.027 g/cm2 Clinical Information Provided by Patient: Has used the following medications: Vitamin D, levothyroxine Has the following medical conditions: Hysterectomy, Stage 3 kidney disease Patient maximum height was 63.0 Menopause Age: 38 No
== END ==
PROVIDERS: PCP Family Medicine; Visit Provider Family Medicine
DX: Z78.0 Asymptomatic menopausal state (principal); M85.88 Other specified disorders of bone density and structure, other site; M85.852 Other specified disorders of bone density and structure, left thigh; M85.851 Other specified disorders of bone density and structure, right thigh
CPT/HCPCS: 77080

== ENCOUNTER 2022-01-02 14:28 | Emergency (ER) | payer MEDICARE, SELFPAY ==
[2022-01-02 14:34] VITALS: BP 164/72; PULSE 88; RESP 18; TEMP 37.2; O2SAT 100
--- NOTE | 2022-01-02 14:41 | ED.URI ---
HPI - URI/Sore Throat General Chief Complaint: Upper Respiratory Infection Stated Complaint: cough,shortness of breath Time Seen by Provider: 01/02/22 14:41 Source: patient, RN notes reviewed and old records reviewed Mode of arrival: ambulatory Limitations: no limitations History of Present Illness HPI Narrative: 71-year-old female presents to [facility] with complaints of cough and intermittent shortness of breath for at least 1 week most likely 10 days. Patient denies fevers. Patient has a history of AFib and diabetes. MD elicited complaint: cough Related Data Home Medications Medication Instructions Recorded Confirmed melatonin 10 mg capsule 10 mg PO HS 12/28/18 01/02/22 metformin 1,000 mg tablet See Rx Instructions .Route .COMPLEX 10/19/21 01/02/22 tramadol 50 mg tablet 50 mg PO Q6H PRN Pain 10/19/21 01/02/22 lisinopril 10 mg tablet 10 mg PO DAILY 01/02/22 01/02/22 Allergies Allergy/AdvReac Type Severity Reaction Status Date / Time alendronate sodium Allergy Severe TONGUE Verified 10/19/21 10:51 SWELLING atorvastatin Allergy Unknown Muscle Pain Verified 10/19/21 10:51 fenofibrate Allergy Unknown Muscle Pain Verified 10/19/21 10:51 gemfibrozil Allergy Unknown Muscle Pain Verified 10/19/21 10:51 Penicillins Allergy Unknown Hives Verified 10/19/21 10:51 rosuvastatin Allergy Unknown Muscle Pain Verified 10/19/21 10:51 Review of Systems Review of Systems: All systems reviewed & are unremarkable except as noted in HPI and below Constitutional: Constitutional: Reports no additional constitutional complaints, Denies chills and Denies fever(s) Eyes: Eyes: Reports no additional eye complaints ENT: Reports system reviewed and no additional complaints, except as documented Cardiovascular: Cardiovascular: Reports no additional cardiovascular complaints Respiratory: Respiratory: Reports as per HPI, Reports chest congestion and Reports cough Gastrointestinal: Gastrointestinal: Reports no additional gastrointestinal complaints Musculoskeletal: Musculoskeletal: Reports no additional musculoskeletal complaints Integumentary/Breasts: Skin/Breast: Reports system reviewed and no additional complaints, except as docu Neurologic: Reports system reviewed and no additional complaints, except as documented Psychiatric: Psychiatric: Reports no additional psychiatric complaints Allergic/Immunologic: Allergic/Immunologic: Reports no additional allergic/immunologic complaints PMFSH Past Medical History Medical History Adenomatous colon polyp Anxiety Arthritis Carotid artery disease Cerebral atherosclerosis CKD (chronic kidney disease), stage III 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 bone of left foot Fx metatarsal-closed GERD (gastroesophageal reflux disease) HTN (hypertension) Hypothyroid Mild episode of recurrent major depressive disorder Mixed hyperlipidemia Sleep apnea Subclavian artery stenosis, left s/p stent UTI (urinary tract infection) Surgical History Surgical History History of bilateral tubal ligation S/P carotid endarterectomy L-sided S/P carpal tunnel release S/P cholecystectomy S/P discectomy S/P hysterectomy S/P tonsillectomy Status post Kevin fundoplication Family History Family History Father Family history of obesity Hypertension Family history of allergic disorder Cerebrovascular accident Family history of diabetes mellitus in first degree relative Family history of primary malignant neoplasm of liver Patient's father is Diabetes mellitus Family history of cardiovascular disease Mother Family history of obesity Hypertension Family history of osteoarthritis Patient's mother is in good health Sibling Hypertension Patient's brother is in good health Family
== END 2022-01-02 15:00 | disposition home or self-care (01) ==
PROVIDERS: Emergency Provider Nurse Practitioner; PCP Family Medicine
DX: J40 Bronchitis, not specified as acute or chronic (principal); M19.90 Unspecified osteoarthritis, unspecified site; I25.10 Atherosclerotic heart disease of native coronary artery without angina pectoris; I13.10 Hypertensive heart and chronic kidney disease without heart failure, with stage 1 through stage 4 chronic kidney disease, or unspecified chronic kidney disease; E11.22 Type 2 diabetes mellitus with diabetic chronic kidney disease; N18.30 Chronic kidney disease, stage 3 unspecified; Z79.84 Long term (current) use of oral hypoglycemic drugs; K21.9 Gastro-esophageal reflux disease without esophagitis; E03.9 Hypothyroidism, unspecified; E78.2 Mixed hyperlipidemia; G47.30 Sleep apnea, unspecified
CPT/HCPCS: 99213; G0463

== ENCOUNTER 2022-01-21 11:10 | Outpatient (CLI) | payer MEDICARE, SELFPAY ==
[2022-01-21 21:02] LABS: Appearance Urine Cloudy (Clear); Bilirubin Urine Negative (Negative); Blood Urine Trace-intact (Negative); Color Urine Yellow (Yellow); Glucose Urine UA Negative (Negative); Ketones Urine Negative (Negative); Leukocyte Esterase Ur 2+ LEU/UL (NEGATIVE); Nitrate Urine Negative (Negative); Protein Urine 2+ mg/dL (Negative); Specific Grav Ur 1.025 (1.001-1.035); Urobilinogen Urine 0.2 mg/dL (<2.0)
[2022-01-21 21:08] LABS: Add Urine Microscopic? YES; Bacteria Urine Trace /hpf; Calcium Oxalate Crystals Urine Present /hpf; Mucus Urine Few /lpf; RBC Urine 21-50 /hpf (0-2); Squamous Epithelial Cell Urine Few /hpf (Few); WBC Urine >75 /hpf (0-3)
[2022-01-22 08:24] LABS: Basophils Percent Auto 0.3 % (0.2-1.2); Eosinophils Absolute Auto 0.2 K/mm3 (0-0.3); Eosinophils Percent Auto 1.2 % (0-4.4); Hematocrit 36.1 % (37.0-47.0); Hemoglobin 9.9 g/dL (12.0-15.0); Immature Granulocyte Absolute 0.04 K/mm3 (0.00-0.031); Immature Granulocyte Percent A 0.3 % (0-0.5); Lymphocytes Absolute Auto 2.08 K/mm3 (0.9-3.2); Lymphocytes Percent Auto 14.3 % (18.3-44.2); Mean Corpuscular HGB Conc 27.4 g/dl (32-36); Mean Corpuscular Hemoglobin 22.2 pg (26-34); Mean Corpuscular Volume 80.9 fl (80-100); Neutrophils Absolute Auto 11.2 K/mm3 (1.3-6.7); Neutrophils Percent Auto 76.9 % (45.5-73.1); Platelet Count Result 236 k/mm3 (150-375); Red Blood Count 4.46 M/mm3 (4.2-5.4); White Blood Count 14.5 K/mm3 (4.5-10.0)
[2022-01-22 08:34] LABS: Iron 48 ug/dL (37-170)
[2022-01-22 08:37] LABS: Hemoglobin A1C 6.1 % (<5.7)
[2022-01-22 08:45] LABS: Percent Iron Saturation 10 % (20-50)
[2022-01-22 09:05] LABS: Thyroid Stimulating Hormone 0.026 uIU/mL (0.465-4.680)
[2022-01-22 09:14] LABS: Ferritin 9.59 ng/mL (11.1-264)
== END 2022-01-21 11:11 | disposition home or self-care (01) ==
LOC: ANHLAB 11:11
PROVIDERS: PCP Family Medicine; Visit Provider Physician Assistant
DX: E78.2 Mixed hyperlipidemia (principal); E11.29 Type 2 diabetes mellitus with other diabetic kidney complication; E11.21 Type 2 diabetes mellitus with diabetic nephropathy; E03.9 Hypothyroidism, unspecified; D64.9 Anemia, unspecified; N18.30 Chronic kidney disease, stage 3 unspecified
CPT/HCPCS: 36415; 81001; 82728; 83036; 83540; 83550; 84443; 85025

== ENCOUNTER 2022-01-22 11:24 | Emergency (ER) | payer MEDICARE, SELFPAY ==
--- NOTE | ~2022-01-22 | XR_ITS ---
XR chest 2V DATE: 01/22/2022 12:09 INDICATION: Cough. Leukocytosis. TECHNIQUE: PA and lateral views COMPARISON: None FINDINGS: Normal heart size. Aortic arch calcification. No hilar or mediastinal enlargement. The lungs are moderately hyperinflated. No pulmonary infiltrate or consolidation, pleural effusion or pulmonary vascular congestion or pneumothorax. Mild levoscoliosis of the thoracic spine. IMPRESSION: No active cardiopulmonary disease Aortic atherosclerosis Reviewed, dictated and finalized at location B. USION DIE REPAIR MANAGER
[2022-01-22 11:32] VITALS: BP 100/48; PULSE 98; RESP 18; TEMP 37.2; O2SAT 100
[2022-01-22] MEDS: SODIUM CHLORIDE 0.9% IV 1,000 ML 999 ML IV CONT (12:43)
[2022-01-22 13:02] LABS: Basophils Percent Auto 0.2 % (0.2-1.2); Eosinophils Absolute Auto 0.1 K/mm3 (0-0.3); Eosinophils Percent Auto 1.2 % (0-4.4); Hematocrit 31.1 % (37.0-47.0); Hemoglobin 9.1 g/dL (12.0-15.0); Immature Granulocyte Absolute 0.03 K/mm3 (0.00-0.031); Immature Granulocyte Percent A 0.3 % (0-0.5); Immature Platelet Fraction Pct 5.6 % (0.9-11.2); Lymphocytes Absolute Auto 2.05 K/mm3 (0.9-3.2); Lymphocytes Percent Auto 18.4 % (18.3-44.2); Mean Corpuscular HGB Conc 29.3 g/dl (32-36); Mean Corpuscular Hemoglobin 22.7 pg (26-34); Mean Corpuscular Volume 77.6 fl (80-100); Mean Platelet Volume 10.9 fl (7.4-10.4); Monocytes Absolute Auto 0.9 K/mm3 (0.1-0.6); Monocytes Percent Auto 8.3 % (2.6-8.5); Neutrophils Percent Auto 71.6 % (45.5-73.1); Platelet Count Result 178 k/mm3 (150-375); Red Blood Count 4.01 M/mm3 (4.2-5.4); Red Cell Distribution Width 18.3 % (11.5-14.5); White Blood Count 11.1 K/mm3 (4.5-10.0)
[2022-01-22 13:05] LABS: Anion Gap 11 mmol/L (8-16); Blood Urea Nitrogen 30 mg/dL (7-17); Calcium 9.8 mg/dL (8.4-10.2); Carbon Dioxide 20 mmol/L (22-30); Chloride 107 mmol/L (98-107); Estimated CRCL calculation 22 ml/min; Estimated Glomerular Filt Rate 29; Glucose 102 mg/dL (65-110); Potassium 3.5 mmol/L (3.4-5.0); Sodium 138 mmol/L (137-145)
--- NOTE | 2022-01-22 13:15 | ED.RECABL ---
HPI - Recheck/Abnormal Lab/Rx General Chief Complaint: Recheck/Abnormal Lab/Rx Stated Complaint: sent in for PCP, elevated WBC Time Seen by Provider: 01/22/22 12:02 History of Present Illness HPI narrative: Patient is a 72-year-old female who presents ER at the recommendation of her PCP. She had outpatient labs drawn yesterday and she was told that she was dehydrated and had abnormal labs that she should come to the ER. It appears there is no BMP ordered so it is possible it hemolyzed. Patient also had an elevated white blood cell count of 14,000. Patient recently treated for bronchitis with doxycycline but no steroids. She has no fevers or chills or sweats. No chest pain or chest pressure. Reports she has had some fatigue for several weeks associated with cough. She denies any urinary frequency urgency or dysuria. No abdominal discomfort or diarrhea. She is without nausea or vomiting. Related Data Home Medications Medication Instructions Recorded Confirmed melatonin 10 mg capsule 10 mg PO HS 12/28/18 01/21/22 metformin 1,000 mg tablet See Rx Instructions .Route .COMPLEX 10/19/21 01/21/22 tramadol 50 mg tablet 50 mg PO Q6H PRN Pain 10/19/21 01/21/22 lisinopril 10 mg tablet 10 mg PO DAILY 01/02/22 01/21/22 aspirin 81 mg tablet,delayed 81 mg PO DAILY 01/21/22 01/21/22 release rosuvastatin 40 mg tablet 40 mg PO DAILY 01/21/22 01/21/22 Allergies Allergy/AdvReac Type Severity Reaction Status Date / Time alendronate sodium Allergy Severe TONGUE Verified 01/22/22 11:25 SWELLING atorvastatin Allergy Unknown Muscle Pain Verified 01/22/22 11:25 fenofibrate Allergy Unknown Muscle Pain Verified 01/22/22 11:25 gemfibrozil Allergy Unknown Muscle Pain Verified 01/22/22 11:25 Penicillins Allergy Unknown Hives Verified 01/22/22 11:25 rosuvastatin Allergy Unknown Muscle Pain Verified 01/22/22 11:25 Review of Systems Review of Systems: All systems reviewed & are unremarkable except as noted in HPI and below Constitutional: Constitutional: Denies chills, Reports fatigue and Denies fever(s) ENT: Denies nasal congestion and Denies sore throat Cardiovascular: Cardiovascular: Denies chest pain and Denies rapid heart rate Respiratory: Respiratory: Reports cough, Denies dyspnea and Denies wheezing Gastrointestinal: Gastrointestinal: Denies abdominal pain, Denies diarrhea, Denies nausea and Denies vomiting Genitourinary: Genitourinary: Denies nocturia, Denies dysuria and Denies flank pain PMF Past Medical History Medical History Adenomatous colon polyp Anxiety Arthritis Carotid artery disease Cerebral atherosclerosis CKD (chronic kidney disease), stage III 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 bone of left foot Fx metatarsal-closed GERD (gastroesophageal reflux disease) HTN (hypertension) Hypothyroid Mild episode of recurrent major depressive disorder Mixed hyperlipidemia Sleep apnea Subclavian artery stenosis, left s/p stent UTI (urinary tract infection) Surgical History Surgical History History of bilateral tubal ligation S/P carotid endarterectomy L-sided S/P carpal tunnel release S/P cholecystectomy S/P discectomy S/P hysterectomy S/P tonsillectomy Status post Kevin fundoplication Family History Family History Father Family history of obesity Hypertension Family history of allergic disorder Cerebrovascular accident Family history of diabetes mellitus in first degree relative Family history of primary malignant neoplasm of liver Patient's father is Diabetes mellitus Family history of cardiovascular disease Mother Family history of obesity Hypertension Family history of osteoarthritis Patient's mother is in good health Sibling Hypertension Patient's brother is in good health Fami
== END 2022-01-22 15:09 | disposition home or self-care (01) ==
PROVIDERS: Emergency Provider Emergency Medicine; PCP Family Medicine
DX: N39.0 Urinary tract infection, site not specified (principal); I25.10 Atherosclerotic heart disease of native coronary artery without angina pectoris; E11.22 Type 2 diabetes mellitus with diabetic chronic kidney disease; I12.9 Hypertensive chronic kidney disease with stage 1 through stage 4 chronic kidney disease, or unspecified chronic kidney disease; N18.30 Chronic kidney disease, stage 3 unspecified; E03.9 Hypothyroidism, unspecified; E78.2 Mixed hyperlipidemia; I67.2 Cerebral atherosclerosis; G47.30 Sleep apnea, unspecified; K21.9 Gastro-esophageal reflux disease without esophagitis; M19.90 Unspecified osteoarthritis, unspecified site; F41.9 Anxiety disorder, unspecified; F33.9 Major depressive disorder, recurrent, unspecified; Z95.5 Presence of coronary angioplasty implant and graft; Z86.010 Personal history of colon polyps; Z90.710 Acquired absence of both cervix and uterus; Z79.84 Long term (current) use of oral hypoglycemic drugs; I70.0 Atherosclerosis of aorta
CPT/HCPCS: 36415; 71046; 80048; 85025; 85055; 96360; 99283; J7030

== ENCOUNTER 2022-05-02 16:23 | Emergency (ER) | payer MEDICARE, SELFPAY ==
[2022-05-02] VITALS (7 sets, daily range): BP systolic 98–163; BP diastolic 58–88; PULSE 85–97; RESP 16–22; TEMP 37.3–38.1; O2SAT 99–100
--- NOTE | ~2022-05-02 | XR_ITS ---
Clinical Indication: Shortness of breath PA and lateral views of the chest: Comparison: 01/22/2022 Findings: The lungs are clear, without evidence of focal consolidation or pleural effusion. Cardiome diastinal silhouette is within normal limits. Stable vascular stent oriented vertically just superior to the aortic arch. Bones and soft tissues are unremarkable. Impression: Clear lungs. Stable vascular stent, as above. Reviewed, dictated and finalized at location M. Impression: Clear lungs. Stable vascular stent, as above.
--- NOTE | 2022-05-02 16:38 | ECG_ITS ---
Measurements Intervals [place] Rate: 90 P: 37 AK: 158 QRS: 25 QRSD: 82 T: 62 QT: 390 QTc: 479 Interpretive Statements SINUS RHYTHM POSSIBLE LEFT ATRIAL ENLARGEMENT DELAYED PRECORDIAL R/S TRANSITION BORDERLINE ST-T WAVE ABNORMALITY- LAT/HIGH LAT LEADS BORDERLINE ECG NO PREVIOUS ECG AVAILABLE FOR COMPARISON Electronically Signed On 05-02-2022 20:33:27 CDT by Gilberto Soares D.O.
[2022-05-02 17:15] LABS: Basophils Percent Auto 0.1 % (0.2-1.2); Eosinophils Absolute Auto 0.1 K/mm3 (0-0.3); Eosinophils Percent Auto 1.2 % (0-4.4); Hematocrit 34.9 % (37.0-47.0); Hemoglobin 11.2 g/dL (12.0-15.0); Immature Granulocyte Absolute 0.02 K/mm3 (0.00-0.031); Immature Granulocyte Percent A 0.2 % (0-0.5); Lymphocytes Absolute Auto 0.84 K/mm3 (0.9-3.2); Mean Corpuscular HGB Conc 32.1 g/dl (32-36); Mean Corpuscular Hemoglobin 25.5 pg (26-34); Mean Corpuscular Volume 79.5 fl (80-100); Mean Platelet Volume 10.2 fl (7.4-10.4); Monocytes Absolute Auto 1.1 K/mm3 (0.1-0.6); Neutrophils Absolute Auto 8.5 K/mm3 (1.3-6.7); Neutrophils Percent Auto 80.5 % (45.5-73.1); Platelet Count Result 197 k/mm3 (150-375); Red Blood Count 4.39 M/mm3 (4.2-5.4); White Blood Count 10.5 K/mm3 (4.5-10.0)
[2022-05-02 17:24] LABS: Alanine Aminotransferase 23 U/L (6-35); Albumin Level 4.3 g/dL (3.5-5.1); Alkaline Phosphatase 81 U/L (38-126); Anion Gap 11 mmol/L (8-16); Aspartate Amino Transferase 36 U/L (14-36); Bilirubin,Total 0.5 mg/dL (0.2-1.3); Blood Urea Nitrogen 17 mg/dL (7-17); Calcium 9.7 mg/dL (8.4-10.2); Carbon Dioxide 19 mmol/L (22-30); Chloride 104 mmol/L (98-107); Estimated CRCL calculation 30 ml/min; Estimated Glomerular Filt Rate 44; Glucose 100 mg/dL (65-110); Potassium 3.9 mmol/L (3.4-5.0); Sodium 134 mmol/L (137-145)
[2022-05-02 17:52] LABS: Influenza A QL RT-PCR Negative (Negative); Influenza B QL RT-PCR Negative (Negative); SARS-CoV-2 RNA PCR Positive
--- NOTE | 2022-05-02 20:46 | ED.SOB ---
HPI - SOB/Dyspnea General Chief Complaint: Shortness of Breath/Dyspnea <Cecilia Pabon PA-C - Last Filed: 05/02/22 21:43> Stated Complaint: SOB, covid + at home <Cecilia Pabon PA-C - Last Filed: 05/02/22 21:43> Time Seen by Provider: 05/02/22 20:28 <Cecilia Pabon PA-C - Last Filed: 05/02/22 21:43> History of Present Illness HPI Narrative: Patient is a 72-year-old female here with her 's over concerns of being positive for COVID. Patient states that her only complaint was being restless last night. She took a COVID test because her tested positive and she was positive at home. She states that she was not sure what to do so she came to the ED. She denies any shortness of breath, cough or congestion, fevers or chills, nausea or vomiting. She has been in contact with her primary care doctor who advised her to stay in the ER. No history of respiratory issues. <NIELS Allen Last Filed: 05/02/22 21:43> Related Data Home Medications: Home Medications Medication Instructions Recorded Confirmed melatonin 10 mg capsule 10 mg PO HS 12/28/18 04/13/22 tramadol 50 mg tablet 50 mg PO Q6H PRN Pain 10/19/21 04/13/22 aspirin 81 mg tablet,delayed 81 mg PO DAILY 01/21/22 04/13/22 release rosuvastatin 40 mg tablet 40 mg PO DAILY 01/21/22 04/13/22 amlodipine 10 mg tablet 10 mg PO DAILY 03/15/22 04/13/22 carvedilol 6.25 mg tablet 6.25 mg PO Q12H 03/15/22 04/13/22 <INELS Allen Last Filed: 05/02/22 21:43> Allergies/Adverse Reactions: Allergies Allergy/AdvReac Type Severity Reaction Status Date / Time alendronate sodium Allergy Severe TONGUE Verified 05/02/22 16:25 SWELLING atorvastatin Allergy Unknown Muscle Pain Verified 05/02/22 16:25 fenofibrate Allergy Unknown Muscle Pain Verified 05/02/22 16:25 gemfibrozil Allergy Unknown Muscle Pain Verified 05/02/22 16:25 Penicillins Allergy Unknown Hives Verified 05/02/22 16:25 rosuvastatin Allergy Unknown Muscle Pain Verified 05/02/22 16:25 <Cecilia Pabon PA-C - Last Filed: 05/02/22 21:43> Review of Systems Review of Systems: Gen.: Reports restlessness Eyes: Denies eye pain or visual change ENT: Denies congestion Respiratory: Denies shortness of breath or cough CV: Denies chest pain or palpitations GI: Denies abdominal pain nausea, emesis or diarrhea denies burning, urgency, frequency or hematuria Musculoskeletal: Denies back pain or muscle pain Neuro: Denies numbness, tingling, weakness or focal weakness Skin: Denies rash Except as documented, all other systems reviewed and negative <Cecilia Pabon PA-C - Last Filed: 05/02/22 21:43> [facility] Past Medical History Medical History: Medical History Adenomatous colon polyp Anxiety Arthritis Carotid artery disease Cerebral atherosclerosis CKD (chronic kidney disease), stage III 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 bone of left foot Fx metatarsal-closed GERD (gastroesophageal reflux disease) HTN (hypertension) Hypothyroid Mild episode of recurrent major depressive disorder Mixed hyperlipidemia Sleep apnea Subclavian artery stenosis, left s/p stent UTI (urinary tract infection) <Cecilia Pabon PA-C - Last Filed: 05/02/22 21:43> Surgical History Surgical History: Surgical History History of bilateral tubal ligation S/P carotid endarterectomy L-sided S/P carpal tunnel release S/P cholecystectomy S/P discectomy S/P hysterectomy S/P tonsillectomy Status post Kevin fundoplication <Cecilia Pabon PA-C - Last Filed: 05/02/22 21:43> Family History Family History: Family History Father Family history of obesity Hypertension Family history of allergic diso
[2022-05-02] MEDS: ACETAMINOPHEN 325 MG TABLET 650 MG PO (20:54)
== END 2022-05-02 22:20 | disposition home or self-care (01) ==
PROVIDERS: Emergency Medicine; Emergency Provider Physician Assistant; PCP Family Medicine
DX: U07.1 COVID-19 (principal); I12.9 Hypertensive chronic kidney disease with stage 1 through stage 4 chronic kidney disease, or unspecified chronic kidney disease; E11.22 Type 2 diabetes mellitus with diabetic chronic kidney disease; N18.30 Chronic kidney disease, stage 3 unspecified; E03.9 Hypothyroidism, unspecified; E78.2 Mixed hyperlipidemia; I25.10 Atherosclerotic heart disease of native coronary artery without angina pectoris
CPT/HCPCS: 36415; 71046; 80053; 85025; 87636; 93005; 99283; A9270

== ENCOUNTER 2022-05-06 15:58 | Inpatient (IN) | payer MEDICARE, SELFPAY ==
[2022-05-06] VITALS (27 sets, daily range): BP systolic 110–153; BP diastolic 63–111; PULSE 65–112; RESP 12–26; TEMP 35.6–36.1; O2SAT 93–100; BMI 21.9
--- NOTE | ~2022-05-06 | CT_ITS ---
EXAMINATION: CT chest abdomen pelvis wo con DATE: 05/06/2022 18:47 CDT INDICATION: Altered mental status. History of stage III kidney disease. Patient unresponsive. TECHNIQUE: Computed tomography (CT) of the chest, abdomen, and pelvis was performed without intraveno us contrast. The dose-length product was 660.07 mGy-cm. Automated exposure control and iterative jerri nstruction technique were employed. COMPARISON: Ultrasound dated 02/19/2021 FINDINGS: CHEST CT: There is atherosclerosis of the aorta and coronary arteries. No thoracic lymphadenopathy. No signific ant pleural or pericardial effusion. Heart size is normal. No focal airspace consolidation. Mildly elevated left diaphragm. Left basilar atelectasis. No focal p neumonia. No pneumothorax. No suspicious pulmonary nodules or masses. No endobronchial lesions. ABDOMEN/PELVIS CT: There is a 2.8 cm right renal cyst. There is a small subcentimeter exophytic lesion of the left kidne y, too small to characterize, although statistically most likely benign cysts. The liver, spleen, cosby creas, adrenal glands are unremarkable. Gallbladder is not visualized, possibly surgically absent. No abnormal pelvic masses or fluid collections. There is atherosclerosis of the aorta without aneurysm. No free air or free fluid. There is moderate-severe lower lumbar spondylosis with grade 1 spondyloli sthesis at L5-S1. There is levoscoliosis of the lumbar spine. IMPRESSION: 1. No acute abnormality of the chest, abdomen or pelvis. Reviewed, dictated and finalized at location A.
--- NOTE | ~2022-05-06 | XR_ITS ---
XR chest 1V portable 05/06/2022 17:04 Indication: Covid infection Procedure: AP portable chest Comparison: 05/02/2022 Findings: Borderline heart size. Vascular stent position is stable. No focal air space disease, pulmo nary edema, pleural effusion or suspected pneumothorax. No acute osseous abnormality. Impression: 1: No acute cardiopulmonary disease. Reviewed, dictated and finalized at location A. Impression: 1: No acute cardiopulmonary disease.
--- NOTE | ~2022-05-06 | MR_ITS ---
EXAMINATION: MR brain/brain stem wo/w con DATE: 05/07/2022 12:32 INDICATION: Altered mental status. TECHNIQUE: Magnetic resonance imaging (MRI) of the brain and brainstem was performed without and with 11 mL MultiHance intravenous contrast. COMPARISON: Head CT 05/06/2022 FINDINGS: There are scattered areas of nonspecific increased T2-weighted signal intensity in the cere bral white matter. There is a small old infarct in left occipital lobe. There is no intracranial hemo rrhage, acute infarction, or abnormal intracranial mass lesion. The ventricles are normal in size. Th ere is mucosal thickening in the paranasal sinuses and dependent fluid in the maxillary sinuses. The orbits are normal. The mastoid air cells are normal. IMPRESSION: 1. 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 2. Mild nonspecific cerebral white matter disease, which likely represents chronic small vessel ische mode disease. Reviewed, dictated and finalized at location A. IMPRESSION: 1. 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 2. 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
--- NOTE | ~2022-05-06 | CT_ITS ---
EXAMINATION: CT brain wo con DATE: 05/06/2022 17:35 INDICATION: Altered mental status TECHNIQUE: Computed tomography (CT) of the head was performed without intravenous contrast. The dose- length product was 1362.00 mGy-cm. Automated exposure control and iterative reconstruction technique were employed. COMPARISON: CT dated 10/30/2021 FINDINGS: Study limited by motion artifact. Mild generalized atrophy. There are scattered mild perive ntricular and subcortical white matter changes, most likely related to small vessel ischemic disease (microangiopathy). There is air-fluid levels with mucosal thickening in the maxillary, frontal and et hmoid sinuses. Mastoids are pneumatized. No depressed skull fractures. No acute intracranial hemorrha ge, infarction, mass or mass effect. No ventriculomegaly or midline shift. Basilar cisterns are paten t. IMPRESSION: 1. No acute intracranial abnormality. 2: Moderate sinusitis, likely acute. Reviewed, dictated and finalized at location A.
--- NOTE | 2022-05-06 16:03 | ECG_ITS ---
Measurements Intervals [place] Rate: 83 P: 42 IN: 164 QRS: 48 QRSD: 96 T: 24 QT: 438 QTc: 515 Interpretive Statements SINUS RHYTHM NONSPECIFIC ST & T-WAVE ABNORMALITY- DIFFUSE LEADS PROLONGED QT INTERVAL BASELINE ARTIFACT- I, II, III, AVR, AVL, V3-V6 ABNORMAL ECG COMPARED TO ECG 05/02/2022 16:44:17 PROLONGED QT INTERVAL NOW PRESENT Electronically Signed On 05-06-2022 16:16:16 CDT by Gilberto Soares D.O.
--- NOTE | 2022-05-06 16:05 | ED.AMS ---
HPI - Altered Mental Status General Chief Complaint: Altered Mental Status Stated Complaint: altered , found on floor Time Seen by Provider: 05/06/22 16:03 Source: EMS Mode of arrival: EMS Limitations: altered mental status and clinical condition History of Present Illness HPI narrative: Patient is a 72-year-old female with a history of hypertension, hyperlipidemia, hypothyroidism, type 2 diabetes, presenting to the emergency department for evaluation of altered mental status. Patient reportedly with recent COVID diagnosis per who called EMS. Patient was found next to bed, with altered mental status, minimally responsive. Patient transported via EMS with stable vital signs including glucose 143. At the time of my assessment, patient is confused, unable to state her name. She is moving all extremities spontaneously, sitting up and then falling back down onto the bed. History is limited secondary to her confusion. Per , he last saw his act normally on Tuesday, 05/02. Patient did have a prescription for ativan filled by her PCP and was told to take half a tablet daily. Patient's daughter states that each day she would call and she would state she was tired on the phone and would want to get off the phone. Yesterday, patient's daughter states that she was sleeping peacefully. Today, patient's daughter found her confused, laying on the ground next to the bed. Patient's daughter states that last week patient had an episode of manic behavior per family. Patient's daughter states that they took the lorazepam pill bottle yesterday afternoon so she did not have access to those today. Related Data Home Medications Medication Instructions Recorded Confirmed melatonin 10 mg capsule 10 mg PO HS 12/28/18 04/13/22 tramadol 50 mg tablet 50 mg PO Q6H PRN Pain 10/19/21 04/13/22 aspirin 81 mg tablet,delayed 81 mg PO DAILY 01/21/22 04/13/22 release amlodipine 10 mg tablet 10 mg PO DAILY 03/15/22 04/13/22 carvedilol 6.25 mg tablet 6.25 mg PO Q12H 03/15/22 04/13/22 Allergies Allergy/AdvReac Type Severity Reaction Status Date / Time alendronate sodium Allergy Severe TONGUE Verified 05/02/22 16:25 SWELLING atorvastatin Allergy Unknown Muscle Pain Verified 05/02/22 16:25 fenofibrate Allergy Unknown Muscle Pain Verified 03/12/23 16:25 gemfibrozil Allergy Unknown Muscle Pain Verified 05/02/22 16:25 Penicillins Allergy Unknown Hives Verified 05/02/22 16:25 rosuvastatin Allergy Unknown Muscle Pain Verified 05/02/22 16:25 Review of Systems Review of Systems: ROS unobtainable: Yes unobtainable due to medical condition and unobtainable due to mental status PMFSH Past Medical History Medical History Adenomatous colon polyp Anxiety Arthritis Carotid artery disease Cerebral atherosclerosis CKD (chronic kidney disease), stage III 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 bone of left foot Fx metatarsal-closed GERD (gastroesophageal reflux disease) HTN (hypertension) Hypothyroid Mild episode of recurrent major depressive disorder Mixed hyperlipidemia Sleep apnea Subclavian artery stenosis, left s/p stent UTI (urinary tract infection) Surgical History Surgical History History of bilateral tubal ligation S/P carotid endarterectomy L-sided S/P carpal tunnel release S/P cholecystectomy S/P discectomy S/P hysterectomy S/P tonsillectomy Status post Kevin fundoplication Family History Family History Father Family history of obesity Hypertension Family history of allergic disorder Cerebrovascular accident Family history of diabetes mellitus in first degree relative Family history of primary malignant neoplasm of liver Patient's father is Diabetes mellitus Family history of cardiovascular disease Mother
[2022-05-06] MEDS: LORazepam INJ (*CRX) 2 MG/ML VIAL 1 MG IV PUSH ×2 (16:26→19:17)
[2022-05-06] MEDS: diphenhydrAMINE HCl INJ 50 MG/ML VIAL IV PUSH (16:27)
[2022-05-06] MEDS: SODIUM CHLORIDE 0.9% IV 1,000 ML 999 ML IV CONT ×3 (16:28→18:59)
[2022-05-06] MEDS: MAGNESIUM SULF 2 GM/WATER 50ML 2 GM/50 ML BAG IVPB (16:29)
[2022-05-06 16:43] LABS: Alveolar/Arterial O2 Gradient 10.8 mmHg; Device ROOM AIR; Fractional Inspired Oxygen 21 %; HCO3 ABG 23.4 mEq/l (22.0-26.0); Modified Allen's Test Pass; Oxygen Content ABG 16.1 %vol (16.0-22.0); Oxygen Saturation ABG 96.4 % (95.0-100.0); Oxyhemoglobin 92.3 % THb (90.0-100.0); PCO2 ABG 42.5 mmHg (35.0-45.0); PO2 FiO2 Ratio Arterial Blood 4.19 %; Site Drawn RIGHT RADIAL; Total Hemoglobin 12.3 g/dL (12.0-18.0); pH ABG 7.359 (7.350-7.450)
[2022-05-06 16:48] LABS: Basophils Percent Auto 0.2 % (0.2-1.2); Eosinophils Absolute Auto 0.3 K/mm3 (0-0.3); Eosinophils Percent Auto 2.5 % (0-4.4); Hematocrit 40.7 % (37.0-47.0); Hemoglobin 12.9 g/dL (12.0-15.0); Immature Granulocyte Absolute 0.03 K/mm3 (0.00-0.031); Immature Granulocyte Percent A 0.3 % (0-0.5); Lymphocytes Absolute Auto 3.03 K/mm3 (0.9-3.2); Lymphocytes Percent Auto 30.8 % (18.3-44.2); Mean Corpuscular HGB Conc 31.7 g/dl (32-36); Mean Corpuscular Hemoglobin 24.9 pg (26-34); Mean Corpuscular Volume 78.6 fl (80-100); Mean Platelet Volume 9.8 fl (7.4-10.4); Monocytes Absolute Auto 0.9 K/mm3 (0.1-0.6); Monocytes Percent Auto 8.9 % (2.6-8.5); Neutrophils Absolute Auto 5.6 K/mm3 (1.3-6.7); Neutrophils Percent Auto 57.3 % (45.5-73.1); Platelet Count Result 265 k/mm3 (150-375); Red Blood Count 5.18 M/mm3 (4.2-5.4); Red Cell Distribution Width 22.2 % (11.5-14.5); White Blood Count 9.8 K/mm3 (4.5-10.0)
--- NOTE | 2022-05-06 16:50 | PC.NURSE ---
pt still agitated after given 1mg of Ativan and 50mg of Benadryl. EDGregg Galindo made aware. gave 2mg of Haldol per CAROLINA Galindo. VORB.
[2022-05-06] MEDS: HALOPERIDOL LACTATE 5 MG/ML VIAL 2 MG IV PUSH (16:54)
[2022-05-06 16:58] LABS: Lactic Acid Reflex 2.6 mmol/L (0.7-2.0)
[2022-05-06 16:59] LABS: Partial Thromboplastin Time 25.1 SECONDS (22.3-36.8); Prothrombin Time 12.7 Seconds (11.1-14.7)
[2022-05-06 17:01] LABS: Glucose Point of Care 170 mg/dl (65-105)
[2022-05-06 17:02] LABS: Appearance Urine Clear (Clear); Bilirubin Urine Negative (Negative); Blood Urine Negative (Negative); Color Urine Yellow (Yellow); Glucose Urine UA Negative (Negative); Ketones Urine Negative (Negative); Leukocyte Esterase Ur Negative LEU/UL (Negative); Nitrate Urine Negative (Negative); Protein Urine Negative (Negative); Specific Grav Ur 1.011 (1.001-1.035); Urobilinogen Urine 0.2 mg/dL (<2.0)
[2022-05-06 17:04] LABS: Anisocytosis 1+ (NORMAL); Ovalocytes 1+ (NORMAL); Platelet Estimate Adequate (Adequate); Schistocytes None Seen (NORMAL)
[2022-05-06 17:06] LABS: Alanine Aminotransferase 20 U/L (6-35); Albumin Level 4.5 g/dL (3.5-5.1); Alkaline Phosphatase 96 U/L (38-126); Anion Gap 15 mmol/L (8-16); Aspartate Amino Transferase 37 U/L (14-36); Bilirubin,Total 0.5 mg/dL (0.2-1.3); Blood Urea Nitrogen 31 mg/dL (7-17); Calcium 9.7 mg/dL (8.4-10.2); Carbon Dioxide 23 mmol/L (22-30); Chloride 101 mmol/L (98-107); Creatine Kinase 32 U/L (30-135); Estimated CRCL calculation 23 ml/min; Estimated Glomerular Filt Rate 29; Glucose 158 mg/dL (65-110); Magnesium 2.1 mg/dL (1.6-2.3); Phosphorus 4.8 mg/dL (2.5-4.5); Potassium 3.6 mmol/L (3.4-5.0); Sodium 139 mmol/L (137-145)
[2022-05-06 17:11] LABS: Add Urine Microscopic? NO
--- NOTE | 2022-05-06 17:15 | PC.NURSE ---
pt taken to CT scan. pt still agitated and will not remain still for scan. EDP Josie made aware. 2mg of Ativan given IV per Dr. Galindo. VORB.
[2022-05-06 17:17] LABS: Acetaminophen < 10 ug/mL (10-30); Ethanol < 10 mg/dL (<10); Salicylate < 1.0 mg/dL (2-20)
[2022-05-06 17:18] LABS: Troponin I < 0.012 ng/mL (0.000-0.034)
[2022-05-06] MEDS: LORazepam INJ (*CRX) 2 MG/ML VIAL IV PUSH (17:20)
[2022-05-06 17:24] LABS: Amphetamine Screen Urine Negative (Negative); Barbiturate Screen Urine Negative (Negative); Benzodiazepines Screen Urine Positive (Negative); Cannabinoid Screen Urine Negative (Negative); Cocaine Screen Urine Negative (Negative); Methadone Screen Urine Negative (Negative); Opiate Screen Urine Negative (Negative); Phencyclidine Screen Urine Negative (Negative)
[2022-05-06 17:37] LABS: Thyroid Stimulating Hormone 0.236 uIU/mL (0.465-4.680)
[2022-05-06 18:14] LABS: Ammonia < 9 umol/L (9-30)
--- NOTE | 2022-05-06 19:15 | PC.NURSE ---
CAROLINA Galindo at bedside for lumbar puncture. pt agitated. gave 1mg of Ativan per CAROLINA Galindo. VORB.
[2022-05-06 19:42] LABS: Reflex Lactic Acid Yes or No Add Lactic
--- NOTE | 2022-05-06 20:03 | PM.IMHP ---
H&P: HPI History of Present Illness Date/Time: 05/06/22 20:03 Chief Complaint: Altered mental status Narrative: This is a 72-year-old female patient who has a history of hypertension, hyperlipidemia hypothyroidism diabetes type 2. The patient came to the emergency room with altered mental status. She and her were recently diagnosed with COVID this last week. The patient was found next to the bed and was minimally responsive. The patient was transported to the emergency room and her blood sugar was found to be 143. The patient was confused and combative. Her stated that she was acting normally on Tuesday which was 05/02. The daughter would check in on her and the patient was stated that she is tired and needed to get off the phone. Yesterday the patient's daughter stated that the patient was sleeping peacefully. However today the patient was more confused and was laying on the ground next to the bed. The patient does take lorazepam at home and the daughter feared that the patient would take too much so the daughter took the pill bottle yesterday afternoon so that the patient would not have access to it. According to the the patient has not been acting herself the last year since her mother has . The patient was given IV fluids, magnesium, Ativan, Benadryl, Haldol, cefepime, and vancomycin. ABGs were performed which were within normal limits. BUN is 31 creatinine 1.7 previously her creatinine was 1.2 and 1.67. Her blood sugar 170 lactic acid was 2.6 now 1.2. Troponin nonreactive x2. Urine was negative. Tylenol level was negative patient was positive for benzodiazepines but she does take Ativan at home. The patient had a positive COVID test on 05/02/2022. Chest abdominal pelvis CT was read as no acute abnormality of the chest abdomen or pelvis. Head CT was read as no acute intracranial abnormality moderate sinusitis likely acute. Chest x-ray read as no acute cardiopulmonary disease. Neurology has been consulted. Lumbar puncture was performed in the emergency room. The patient is being admitted to inpatient status on the date of service of 05/06/2022. Review of Systems Review of Systems: Patient unable to answer due to her confusion All systems reviewed & are unremarkable except as noted in HPI and below Constitutional: Constitutional: Reports as per HPI and Reports no additional constitutional complaints Eyes: Eyes: Reports as per HPI and Reports no additional eye complaints ENT: Reports system reviewed and no additional complaints, except as documented and Reports Normal hearing present Cardiovascular: Cardiovascular: Reports no additional cardiovascular complaints Respiratory: Respiratory: Reports no additional respiratory complaints and Reports no additional respiratory complaints Gastrointestinal: Gastrointestinal: Reports as per HPI and Reports no additional gastrointestinal complaints Musculoskeletal: Musculoskeletal: Reports no additional musculoskeletal complaints Integumentary/Breasts: Skin/Breast: Reports system reviewed and no additional complaints, except as docu and Reports as per HPI Neurologic: Reports system reviewed and no additional complaints, except as documented, Reports as per HPI and Reports Normal hearing present Psychiatric: Psychiatric: Reports no additional psychiatric complaints and Reports as per HPI Endocrine: Endocrine: Reports no additional endocrine complaints Hematologic/Lymphatic: Hematologic/Lymphatic: Reports no additional hematologic/lymphatic complaints Allergic/Immunologic: Allergic/Immunologic: Reports no additional allergic/immunologic complaints [facility] Past Medical History Medical History Adenomatous colon polyp Anxiety Arthritis Carotid artery disease Cerebral atherosclerosis CKD (chronic kidney disease), stage III 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
--- NOTE | 2022-05-06 21:00 | PC.NURSE ---
patient woke up 2100 rolling around in the bed, she was able to state her name and that she needed to pee, but would not used the bed cosby patient continued to roll in the bed. bedside with patient until able to admit
[2022-05-06 21:01] LABS: Lactic Acid 1.2 mmol/L (0.7-2.0)
[2022-05-06 21:14] LABS: Troponin I < 0.012 ng/mL (0.000-0.034)
--- NOTE | 2022-05-06 22:07 | ADMGEN ---
This patient, Claire Herrera, was admitted to IMU Room 205-02. Patient/family oriented to hospital policies and general routines including ID bracelet, bed and alarms, visiting hours, pain management, procedures, bathroom and other care routines, personal items, smoking policy, room service/diet, and visiting hours. Information on how to activate the Rapid Response Team has been discussed. Patient/Family are encouraged to report perceived risks to care and to ask questions if they do not understand what they are told or what they should do.
[2022-05-07] VITALS (13 sets, daily range): BP systolic 112–152; BP diastolic 53–78; PULSE 61–84; RESP 14–18; TEMP 36.1–36.4; O2SAT 98–100
[2022-05-07 00:15] LABS: Glucose Point of Care 292 mg/dl (65-105)
[2022-05-07] MEDS: INSULIN ASPART (*BKC) 100 UNITS/ML SUB-Q (00:30)
[2022-05-07] MEDS: LACTATED RINGERS 1,000 ML 75 ML IV CONT ×2 (02:54→23:34)
[2022-05-07 05:11] LABS: Basophils Percent Auto 0.1 % (0.2-1.2); Eosinophils Absolute Auto 0.1 K/mm3 (0-0.3); Eosinophils Percent Auto 1.1 % (0-4.4); Hematocrit 37.4 % (37.0-47.0); Hemoglobin 11.6 g/dL (12.0-15.0); Immature Granulocyte Absolute 0.03 K/mm3 (0.00-0.031); Immature Granulocyte Percent A 0.4 % (0-0.5); Lymphocytes Absolute Auto 1.44 K/mm3 (0.9-3.2); Lymphocytes Percent Auto 20.5 % (18.3-44.2); Mean Corpuscular Hemoglobin 25.2 pg (26-34); Mean Corpuscular Volume 81.3 fl (80-100); Mean Platelet Volume 9.8 fl (7.4-10.4); Monocytes Absolute Auto 0.7 K/mm3 (0.1-0.6); Monocytes Percent Auto 10.1 % (2.6-8.5); Neutrophils Absolute Auto 4.7 K/mm3 (1.3-6.7); Neutrophils Percent Auto 67.8 % (45.5-73.1); Platelet Count Result 223 k/mm3 (150-375); Red Cell Distribution Width 21.2 % (11.5-14.5)
[2022-05-07 05:32] LABS: Ammonia < 9 umol/L (9-30)
[2022-05-07 05:34] LABS: Estimated CRCL calculation 38 ml/min; Estimated Glomerular Filt Rate 54
[2022-05-07 05:37] LABS: Alanine Aminotransferase 20 U/L (6-35); Albumin Level 3.9 g/dL (3.5-5.1); Alkaline Phosphatase 71 U/L (38-126); Anion Gap 8 mmol/L (8-16); Aspartate Amino Transferase 35 U/L (14-36); Bilirubin,Total 0.4 mg/dL (0.2-1.3); Blood Urea Nitrogen 18 mg/dL (7-17); Calcium 8.7 mg/dL (8.4-10.2); Carbon Dioxide 24 mmol/L (22-30); Chloride 111 mmol/L (98-107); Estimated CRCL calculation 38 ml/min; Estimated Glomerular Filt Rate 54; Glucose 62 mg/dL (65-110); Lactate Dehydrogenase 246 U/L (120-246); Magnesium 2.9 mg/dL (1.6-2.3); Potassium 3.3 mmol/L (3.4-5.0); Sodium 143 mmol/L (137-145)
[2022-05-07 06:07] LABS: Hemoglobin A1C 5.6 % (<5.7)
[2022-05-07] MEDS: LEVOTHYROXINE SODIUM INJ 100 MCG/5 ML VIAL 44 MCG IV PUSH (06:53)
[2022-05-07 10:21] LABS: Total Triiodothyronine (T3) 0.85 NG/ML (0.97-1.69)
[2022-05-07] MEDS: POTASSIUM CHLORIDE 20 MEQ TABLET 40 MEQ PO (10:45)
[2022-05-07] MEDS: FAMOTIDINE 20 MG/2 ML VIAL IV PUSH ×2 (10:46→21:01)
[2022-05-07] MEDS: ASPIRIN 81 MG ENTERIC TABLET PO (10:59)
--- NOTE | 2022-05-07 11:52 | WPDNEURCNPN ---
Assessment and Plan Assessment and plan (1) Altered mental status: Code(s): R41.82 - Altered mental status, unspecified Status: Acute (2) Polypharmacy: Code(s): Z79.899 - Other mcc (current) drug therapy Status: Acute Plan Claire Herrera is a 72 year old female with a history of hypertension, hyperlipidemia, hypothyroidism, diabetes mellitus presenting due to encephalopathy. MRI brain was negative. Patient reports she is back to baseline and her agrees as well. AMS was likely due to medication effect. No further neurological work-up needed unless there are recurrent changes in mental status. Consult date: 05/07/22 Reason for consult: Altered mental status HPI: Claire Herrera is a 72 year old female with a history of hypertension, hyperlipidemia, hypothyroidism, diabetes mellitus presenting due to encephalopathy. Patient was recently diagnosed with COVID in the past week. Patient was found yesterday minimally responsive, on the ground next to her bed. Patient was taken to [place] ED where she was confused and combative. Patient took 's Ativan on 05/02 due to stress surrounding her son. The daughter had some concerns that patient had been taking too much Ativan, so she took the bottle from her over 12 hours before presentation. In the ED patient had a CT head that was negative. UDS was positive for benzodiazepine. Her UA was not concerning for infection. Labs were significant for DANETTE. Lumbar puncture was attempted in the ED but unsuccessful due to history of prior lumbar surgery with hardware. Patient was given Ativan, Benadryl, Haldol, and antibiotics in the ED. Patient feels that she is back to baseline. Her MRI brain is normal. Review of Systems Constitutional: Constitutional: Reports no additional constitutional complaints Eyes: Eyes: Reports no additional eye complaints ENT: Reports system reviewed and no additional complaints, except as documented Cardiovascular: Cardiovascular: Reports no additional cardiovascular complaints Respiratory: Respiratory: Reports no additional respiratory complaints Gastrointestinal: Gastrointestinal: Reports diarrhea Genitourinary: Genitourinary: Reports no additional female genitourinary complaints Musculoskeletal: Musculoskeletal: Reports arthralgias Integumentary/Breasts: Skin/Breast: Reports system reviewed and no additional complaints, except as docu Neurologic: Reports as per HPI and Reports confusion Psychiatric: Psychiatric: Reports anxiety and Reports confusion [facility] Past Medical History Medical History Adenomatous colon polyp Anxiety Arthritis Carotid artery disease Cerebral atherosclerosis CKD (chronic kidney disease), stage III 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 bone of left foot Fx metatarsal-closed GERD (gastroesophageal reflux disease) HTN (hypertension) Hypothyroid Mild episode of recurrent major depressive disorder Mixed hyperlipidemia Sleep apnea Subclavian artery stenosis, left s/p stent UTI (urinary tract infection) Surgical History Surgical History History of bilateral tubal ligation S/P carotid endarterectomy L-sided S/P carpal tunnel release S/P cholecystectomy S/P discectomy S/P hysterectomy S/P tonsillectomy Status post Kevin fundoplication Family History Family History Father Family history of obesity Hypertension Family history of allergic disorder Cerebrovascular accident Family history of diabetes mellitus in first degree relative Family history of primary malignant neoplasm of liver Patient's father is Diabetes mellitus Family history of cardiovascular disease Mother Family history of obesity Hypertension Family history of osteoarthritis Patient's mother is in good h
[2022-05-07 13:29] LABS: Glucose Point of Care 116 mg/dl (65-105)
[2022-05-07] MEDS: CEFEPIME 1 GM in DEXTROSE 5% IN WATER 50 ML IVPB (17:45)
[2022-05-07 17:53] LABS: Glucose Point of Care 93 mg/dl (65-105)
--- NOTE | 2022-05-07 18:06 | PM.IMPN ---
Progress Note: A&P Assessment and Plan (1) Delirium due to general medical condition: Code(s): F05 - Delirium due to known physiological condition Status: Acute Assessment and Plan: The patient was given Ativan multiple times in the emergency room. The last time she was seen as normal was on Tuesday05/02/2022 per her . The patient was taking Ativan at home and was fearful that the patient may have been taking too much. Her daughter took the bottle yesterday so that she could not get herself anymore Ativan. A spinal tap was performed in the emergency room. The patient was empirically started on vancomycin and cefepime. The patient did test positive on Tuesday for COVID as well as her . The patient has been combative today. She also got Haldol in the emergency room. CT scan shows no acute intracranial abnormality. The patient may just be confused due to COVID. Toxicology was only positive for the benzodiazepines. She had been taking Ativan at home that was prescribed to her. Neurology has been consulted MRI of the brain has been ordered. Labs are pending from her spinal tap. The patient was empirically started on vancomycin and cefepime per ED provider wean off of antibiotics when feasible 05/07/2022 interval history: 72-year-old female presented with complaint shortness of breath and encephalopathy most likely secondary COVID, MRI of the brain is essentially normal, patient's is CC feeling much better compared to when she arrived, her is present in the room and states patient is now her baseline mentally and not requiring any oxygen on room air will continue to monitor (2) Acute kidney injury: Code(s): N17.9 - Acute kidney failure, unspecified Status: Acute Assessment and Plan: Her creatinine is 1.7 Tuesday was 1.2 but previously was 1.67. GFR is 29 previously it had been 44 in 32. The patient has been on IV fluids. I did decrease her rate is she does have COVID. Consider taking her IV fluids off when she is more awake and able to tolerate p.o. fluids. (3) Anxiety: Code(s): F41.9 - Anxiety disorder, unspecified Status: Acute Assessment and Plan: IV Ativan. (4) Osteopenia: Code(s): M85.80 - Other specified disorders of bone density and structure, unspecified site Status: Acute Assessment and Plan: Patient is NPO at this time and will not be taking any medications. (5) TIA (transient ischemic attack): Code(s): G45.9 - Transient cerebral ischemic attack, unspecified Status: Acute Assessment and Plan: May consider rectal aspirin as she had been on p.o. aspirin. CT of the brain shows nothing acute MRI has been ordered Neurology has been consulted. (6) Type 2 diabetes with nephropathy: Code(s): E11.21 - Type 2 diabetes mellitus with diabetic nephropathy Status: Acute Assessment and Plan: Accu-Cheks every 6 hours with sliding scale insulin and hypoglycemic protocol. Check A1c. (7) Mixed hyperlipidemia: Code(s): E78.2 - Mixed hyperlipidemia Status: Acute Assessment and Plan: The patient is NPO at this time (8) Hypothyroidism, unspecified: Code(s): E03.9 - Hypothyroidism, unspecified Status: Acute Assessment and Plan: The patient is given half of the oral dose per IV. Subjective Date/time seen: 05/07/22 18:06 HPI-Narrative: This is a 72-year-old female patient who has a history of hypertension, hyperlipidemia hypothyroidism diabetes type 2.? The patient came to the emergency room with altered mental status.? She and her were recently diagnosed with COVID this last week.? The patient was found next to the bed and was minimally responsive.? The patient was transported to the emergency room and her blood sugar was found to be 143.? The patient was confused and combative.? Her stated that she was acting normally on Tuesday which was 05/02.? The daughter paramjit
[2022-05-07 21:21] LABS: Glucose Point of Care 101 mg/dl (65-105)
[2022-05-08] VITALS (11 sets, daily range): BP systolic 128–187; BP diastolic 43–92; PULSE 78–134; RESP 14–17; TEMP 36.4–37.1; O2SAT 98–100
--- NOTE | 2022-05-08 03:05 | PC.NURSE ---
Patient took keyboard action assembler off. Refused to put it back on, stated there is nothing wrong with her, We have been here for 6 hours. I want to go home. The only reason we are here is he is afraid he is going to . Patient states she went home from the hospital last night. She states she was at Dr. Villarreal office today and he said she was fine. terminal clerk memory intact. Called daughter, America, who states patient called family members earlier in the evening saying things that weren't true. Mrs. Herrera talked to her daughter on the phone and was more cooperative. sports analyst put back on.
[2022-05-08] MEDS: LEVOTHYROXINE SODIUM INJ 100 MCG/5 ML VIAL 44 MCG IV PUSH (06:06)
[2022-05-08 07:30] LABS: Estimated CRCL calculation 38 ml/min; Estimated Glomerular Filt Rate 54
[2022-05-08 08:27] LABS: Glucose Point of Care 115 mg/dl (65-105)
[2022-05-08] MEDS: ASPIRIN 81 MG ENTERIC TABLET PO (08:39)
[2022-05-08] MEDS: FAMOTIDINE 20 MG/2 ML VIAL IV PUSH ×2 (08:39→20:02)
--- NOTE | 2022-05-08 11:00 | PM.IMPN ---
Progress Note: A&P Assessment and Plan (1) Delirium due to general medical condition: Code(s): F05 - Delirium due to known physiological condition Status: Acute Assessment and Plan: The patient was given Ativan multiple times in the emergency room. The last time she was seen as normal was on Tuesday05/02/2022 per her . The patient was taking Ativan at home and was fearful that the patient may have been taking too much. Her daughter took the bottle yesterday so that she could not get herself anymore Ativan. A spinal tap was performed in the emergency room. The patient was empirically started on vancomycin and cefepime. The patient did test positive on Tuesday for COVID as well as her . The patient has been combative today. She also got Haldol in the emergency room. CT scan shows no acute intracranial abnormality. The patient may just be confused due to COVID. Toxicology was only positive for the benzodiazepines. She had been taking Ativan at home that was prescribed to her. Neurology has been consulted MRI of the brain has been ordered. Labs are pending from her spinal tap. The patient was empirically started on vancomycin and cefepime per ED provider wean off of antibiotics when feasible 05/08/2022 interval history: 72-year-old female presented with complaint shortness of breath and encephalopathy most likely secondary COVID, MRI of the brain was essentially normal, patient's is feeling much better compared to when she arrived, her is present in the room and states patient is now her baseline mentally and not requiring any oxygen on room air, plan was to discharge patient today however patient became agitated and aggressive toward her and staff, will give the patient Zyprexa 5 mg IM x1 will monitor patient overnight and further recommendation to follow. (2) Acute kidney injury: Code(s): N17.9 - Acute kidney failure, unspecified Status: Acute Assessment and Plan: Her creatinine is 1.7 Tuesday was 1.2 but previously was 1.67. GFR is 29 previously it had been 44 in 32. The patient has been on IV fluids. I did decrease her rate is she does have COVID. Consider taking her IV fluids off when she is more awake and able to tolerate p.o. fluids. (3) Anxiety: Code(s): F41.9 - Anxiety disorder, unspecified Status: Acute Assessment and Plan: IV Ativan. (4) Osteopenia: Code(s): M85.80 - Other specified disorders of bone density and structure, unspecified site Status: Acute Assessment and Plan: Patient is NPO at this time and will not be taking any medications. (5) TIA (transient ischemic attack): Code(s): G45.9 - Transient cerebral ischemic attack, unspecified Status: Acute Assessment and Plan: May consider rectal aspirin as she had been on p.o. aspirin. CT of the brain shows nothing acute MRI has been ordered Neurology has been consulted. (6) Type 2 diabetes with nephropathy: Code(s): E11.21 - Type 2 diabetes mellitus with diabetic nephropathy Status: Acute Assessment and Plan: Accu-Cheks every 6 hours with sliding scale insulin and hypoglycemic protocol. Check A1c. (7) Mixed hyperlipidemia: Code(s): E78.2 - Mixed hyperlipidemia Status: Acute Assessment and Plan: The patient is NPO at this time (8) Hypothyroidism, unspecified: Code(s): E03.9 - Hypothyroidism, unspecified Status: Acute Assessment and Plan: The patient is given half of the oral dose per IV. Subjective Date/time seen: 05/08/22 11:00 The patient was given Ativan multiple times in the emergency room. The last time she was seen as normal was on Tuesday05/02/2022 per her . The patient was taking Ativan at home and was fearful that the patient may have been taking too much. Her daughter took the bottle yesterday so that she could not get herself anymore Ativan. A spinal tap was performed in
--- NOTE | 2022-05-08 11:50 | PC.NURSE ---
Pt informed of discharge plan for tomorrow and started yelling at staff and . Pt became very aggressive both verbally and physically and was exhibiting nonsensical speech. Pt then began to throw objects and yelling at . Informed MD of change in status, order for Zyprexa placed.
[2022-05-08] MEDS: OLANZapine 10 MG INJ VIAL 5 MG IM ×2 (12:20→17:52)
[2022-05-08] MEDS: LORazepam INJ (*CRX) 2 MG/ML VIAL 1 MG IV PUSH ×2 (15:27→22:28)
[2022-05-08 17:07] LABS: Glucose Point of Care 110 mg/dl (65-105)
[2022-05-08] MEDS: CEFEPIME 1 GM in DEXTROSE 5% IN WATER 50 ML IVPB (17:49)
[2022-05-08] MEDS: QUEtiapine FUMARATE 25 MG TABLET PO (20:02)
--- NOTE | 2022-05-08 21:13 | PC.NURSE ---
This patient, Claire Herrera, was transferred to room 246 on 05/08/22 at 2113. Personal belongings sent with patient. Report given to SHANKAR Barrientos. Appropriate documentation sent with patient.
--- NOTE | 2022-05-08 21:15 | PC.NURSE ---
05/08/22 @ 2108- Unsuccessful attempts x2 to reinsert 16F bautista catheter. After second attempt Pt refused staff to continue to try to continue to reinsert bautista.
[2022-05-08 23:33] LABS: Glucose Point of Care 134 mg/dl (65-105)
[2022-05-09] MEDS: OLANZapine 5 MG, WATER, STERILE FOR INJECTION 2.1 ML IM (01:03)
[2022-05-09] MEDS: OLANZapine 10 MG, WATER, STERILE FOR INJECTION 2.1 ML IM (01:03)
[2022-05-09 05:50] VITALS: BP 136/65; PULSE 123; RESP 20; TEMP 36.8; O2SAT 96
[2022-05-09 08:14] LABS: Glucose Point of Care 112 mg/dl (65-105)
[2022-05-09] MEDS: ASPIRIN 81 MG ENTERIC TABLET PO (08:52)
[2022-05-09] MEDS: FAMOTIDINE 20 MG/2 ML VIAL IV PUSH (08:54)
[2022-05-09 12:23] LABS: Glucose Point of Care 123 mg/dl (65-105)
--- NOTE | 2022-05-09 12:43 | PM.DS ---
DS: Admitting Diagnosis Discharge Date 05/09/2022 Admitting Diagnosis AMS DS: Discharge Diagnosis Discharge Diagnosis (1) Delirium due to general medical condition: Code(s): F05 - Delirium due to known physiological condition Status: Acute Assessment and Plan: The patient was given Ativan multiple times in the emergency room. The last time she was seen as normal was on Tuesday05/02/2022 per her . The patient was taking Ativan at home and was fearful that the patient may have been taking too much. Her daughter took the bottle yesterday so that she could not get herself anymore Ativan. A spinal tap was performed in the emergency room. The patient was empirically started on vancomycin and cefepime. The patient did test positive on Tuesday for COVID as well as her . The patient has been combative today. She also got Haldol in the emergency room. CT scan shows no acute intracranial abnormality. The patient may just be confused due to COVID. Toxicology was only positive for the benzodiazepines. She had been taking Ativan at home that was prescribed to her. Neurology has been consulted MRI of the brain has been ordered. Labs are pending from her spinal tap. The patient was empirically started on vancomycin and cefepime per ED provider wean off of antibiotics when feasible 05/08/2022 interval history: 72-year-old female presented with complaint shortness of breath and encephalopathy most likely secondary COVID, MRI of the brain was essentially normal, patient's is feeling much better compared to when she arrived, her is present in the room and states patient is now her baseline mentally and not requiring any oxygen on room air, plan was to discharge patient today however patient became agitated and aggressive toward her and staff, will give the patient Zyprexa 5 mg IM x1 will monitor patient overnight and further recommendation to follow. (2) Acute kidney injury: Code(s): N17.9 - Acute kidney failure, unspecified Status: Acute Assessment and Plan: Her creatinine is 1.7 Tuesday was 1.2 but previously was 1.67. GFR is 29 previously it had been 44 in . The patient has been on IV fluids. I did decrease her rate is she does have COVID. Consider taking her IV fluids off when she is more awake and able to tolerate p.o. fluids. (3) Anxiety: Code(s): F41.9 - Anxiety disorder, unspecified Status: Acute Assessment and Plan: IV Ativan. (4) Osteopenia: Code(s): M85.80 - Other specified disorders of bone density and structure, unspecified site Status: Acute Assessment and Plan: Patient is NPO at this time and will not be taking any medications. (5) TIA (transient ischemic attack): Code(s): G45.9 - Transient cerebral ischemic attack, unspecified Status: Acute Assessment and Plan: May consider rectal aspirin as she had been on p.o. aspirin. CT of the brain shows nothing acute MRI has been ordered Neurology has been consulted. (6) Type 2 diabetes with nephropathy: Code(s): E11.21 - Type 2 diabetes mellitus with diabetic nephropathy Status: Acute Assessment and Plan: Accu-Cheks every 6 hours with sliding scale insulin and hypoglycemic protocol. Check A1c. (7) Mixed hyperlipidemia: Code(s): E78.2 - Mixed hyperlipidemia Status: Acute Assessment and Plan: The patient is NPO at this time (8) Hypothyroidism, unspecified: Code(s): E03.9 - Hypothyroidism, unspecified Status: Acute Assessment and Plan: The patient is given half of the oral dose per IV. DS: Summary Hospital Course Reason for hospitalization: Altered mental status Narrative: This is a 72-year-old female patient who has a history of hypertension, hyperlipidemia hypothyroidism diabetes type 2.? The patient came to the emergency room with altered mental status.? She and her were recently diagnosed with C
== END 2022-05-09 13:25 | disposition home or self-care (01) | DRG 178 ==
LOC: ANHED 19:24 → ANHIMU 21:08 → ANH2MED 05-08 21:29
PROVIDERS: Nurse Practitioner; Admitting Provider Internal Medicine; Emergency Provider Emergency Medicine; PCP Family Medicine; Visit Provider Family Medicine
DX: U07.1 COVID-19 (principal); F05 Delirium due to known physiological condition; N17.9 Acute kidney failure, unspecified; G93.49 Other encephalopathy; E03.9 Hypothyroidism, unspecified; E78.2 Mixed hyperlipidemia; E11.21 Type 2 diabetes mellitus with diabetic nephropathy; M85.80 Other specified disorders of bone density and structure, unspecified site; F41.9 Anxiety disorder, unspecified; Z79.899 Other long term (current) drug therapy
CPT/HCPCS: 36415; 36600; 62270; 70450; 70553; 71045; 71250; 74176; 80053; 80307; 81003; 82140; 82550; 82565; 82805; 82948; 83036; 83605; 83615; 83735; 84100; 84439; 84443; 84480; 84484; 85025; 85610; 85730; 87040; 93005; 96365; 96375; 96376; 99285; A9270; A9577; J0692; J1200; J1630; J1815; J2060; J3370; J3411; J3475; J7030; J7120; J7121

== ENCOUNTER 2022-06-17 01:07 | Day surgery (SDC) | payer MEDICARE, SELFPAY ==
[2022-06-10 15:45] VITALS: BMI 39.3
--- NOTE | 2022-06-16 20:29 | PM.HPGS ---
History of Present Illness History of Present Illness Consent: Risks, benefits, and alternatives have been discussed and questions answered. Patient agrees to proceed with procedure. Chief complaint: anemia, rectal bleed Narrative: Claire Herrera is a 72 year old female who was found to be nemic, Hbg 11.6 with heme + stool during recent hospitalization. Her Hg was as low as 8.7 in the past 12 months. She does not see blood her stools. She has taking iron but only for a few weeks. Review of Systems Review of Systems: All systems reviewed & are unremarkable except as noted in HPI and below PMFSH Past Medical History Medical History Adenomatous colon polyp Anxiety Arthritis Carotid artery disease Cerebral atherosclerosis CKD (chronic kidney disease), stage III 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 bone of left foot Fx metatarsal-closed GERD (gastroesophageal reflux disease) HTN (hypertension) Hypothyroid Mild episode of recurrent major depressive disorder Mixed hyperlipidemia Sleep apnea Subclavian artery stenosis, left s/p stent UTI (urinary tract infection) Surgical History Surgical History History of bilateral tubal ligation S/P carotid endarterectomy L-sided S/P carpal tunnel release S/P cholecystectomy S/P discectomy S/P hysterectomy S/P tonsillectomy Status post Kevin fundoplication Family History Family History Father Family history of obesity Hypertension Family history of allergic disorder Cerebrovascular accident Family history of diabetes mellitus in first degree relative Family history of primary malignant neoplasm of liver Patient's father is Diabetes mellitus Family history of cardiovascular disease Mother Family history of obesity Hypertension Family history of osteoarthritis Patient's mother is in good health Sibling Hypertension Patient's brother is in good health Family history of diabetes mellitus in first degree relative Family history of lymphoma Diabetes mellitus Family history of cardiovascular disease Grandparent Asthma Carcinoma of colon Social History Social History Social History: The patient is and has 2 children. She retired from [employer] Code status full code Smoking status: Never smoker Second hand tobacco smoke exposure: Yes Alcohol intake: current Drinks per week: 3 Alcohol use details: BEERS Substance use: never Substance use type: does not use Lack of Transportation: No Lack of Food: Never True Current Housing: I Have Housing Concerned About Future Housing: No Difficulty Paying Gas/Electric Bills: No Difficulty Paying for Meds: No Currently Unemployed: No Education: High School Diploma/GED Difficulty w/ Childcare or Family Care: No Living arrangements: with family Occupation/Education: retired Gender identity (if verbalized by the patient): Female Sexual Orientation (if Verbalized by the Patient): Straight or Heterosexual Spiritual care concerns: No Meds Home Medications and Allergies Home Medications Medication Instructions Recorded Confirmed Type melatonin 10 mg capsule 10 mg PO HS 12/28/18 06/10/22 History blood sugar diagnostic (Contour #100 ea 02/29/20 06/08/22 Rx Next Test Strips) blood-glucose meter (Contour Meter #1 ea 02/29/20 06/08/22 Rx kit) lancets #200 ea 02/29/20 06/08/22 Rx blood-glucose meter (Blood Glucose #1 ea 03/06/20 06/08/22 Rx Monitoring kit) clopidogrel 75 mg tablet (Plavix) 75 mg PO DAILY #1 tablet 07/09/20 06/17/22 Rx levothyroxine 88 mcg tablet 88 mcg PO DAILY #90 tabs 12/07/21 06/10/22 Rx aspirin 81 mg tablet,delayed 81 mg PO HS 01/21/22 06/10/22 History release am
[2022-06-17 11:05] VITALS: BP 111/65; PULSE 87; RESP 20; TEMP 36.6; O2SAT 100
--- NOTE | 2022-06-17 11:16 | WPDANESEPPF ---
Anes - Initial Pre Proc Eval Procedure: Operation Date: 06/17/22 12:30 Proposed Procedures p Esophagogastroduodenoscopy & Colonoscopy - Seth Mendosa MD Date/Time: 06/17/22 11:16 Surgeon: Seth Mendosa MD Pre Op Diagnosis: anemia, rectal bleed Patient Data Age: 72 Gender: F Height: 1.6 m Weight: 53.9 kg Last Vital Signs Temp 36.6 C 06/17/22 11:05 Pulse 87 06/17/22 11:05 Resp 20 06/17/22 11:05 BP 111/65 06/17/22 11:05 Pulse Ox 100 06/17/22 11:05 O2 Del Method Room Air 06/17/22 11:05 Allergies Allergy/AdvReac Type Severity Reaction Status Date / Time alendronate sodium Allergy Severe TONGUE Verified 06/17/22 11:03 SWELLING Penicillins Allergy Severe Hives Verified 06/17/22 11:03 atorvastatin Allergy Intermediate Muscle Pain Verified 06/17/22 11:03 fenofibrate Allergy Intermediate Muscle Pain Verified 06/17/22 11:03 gemfibrozil Allergy Intermediate Muscle Pain Verified 06/17/22 11:03 rosuvastatin Allergy Intermediate Muscle Pain Verified 06/17/22 11:03 Home Medications Medication Instructions Recorded Confirmed Type melatonin 10 mg capsule 10 mg PO HS 12/28/18 06/10/22 History blood sugar diagnostic (Contour #100 ea 02/29/20 06/08/22 Rx Next Test Strips) blood-glucose meter (Contour Meter #1 ea 02/29/20 06/08/22 Rx kit) lancets #200 ea 02/29/20 06/08/22 Rx blood-glucose meter (Blood Glucose #1 ea 03/06/20 06/08/22 Rx Monitoring kit) clopidogrel 75 mg tablet (Plavix) 75 mg PO DAILY #1 tablet 07/09/20 06/17/22 Rx levothyroxine 88 mcg tablet 88 mcg PO DAILY #90 tabs 12/07/21 06/10/22 Rx aspirin 81 mg tablet,delayed 81 mg PO HS 01/21/22 06/10/22 History release amlodipine 10 mg tablet 10 mg PO HS 03/15/22 06/10/22 History carvedilol 6.25 mg tablet 6.25 mg PO Q12H 03/15/22 06/10/22 History icosapent ethyl 1 gram capsule 2 g PO BID 30 days #120 caps 03/30/22 06/10/22 Rx (Vascepa) omeprazole 40 mg capsule,delayed 40 mg PO DAILY #90 caps 04/19/22 06/10/22 Rx release gabapentin 600 mg tablet 600 mg PO QHS #90 tabs 06/08/22 06/10/22 Rx midodrine 5 mg tablet 5 mg PO TID #90 tabs 06/08/22 06/10/22 Rx buspirone 15 mg tablet 15 mg PO HS 06/10/22 06/10/22 History diphenhydramine 25 1 tablet PO HS 06/10/22 06/10/22 History mg-acetaminophen 500 mg tablet (Tylenol PM Extra Strength) metformin 1,000 mg tablet 1,000 mg PO DAILY 06/10/22 06/10/22 History rosuvastatin 40 mg tablet 40 mg PO HS 06/10/22 06/10/22 History Patient hx anesthesia problems: none Family hx anesthesia problems: none Results Review: All pre-operative results and documents have been reviewed as part of the pre-operative evaluation. [facility] Past Medical History Medical History Adenomatous colon polyp Anxiety Arthritis Carotid artery disease Cerebral atherosclerosis CKD (chronic kidney disease), stage III 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 bone of left foot Fx metatarsal-closed GERD (gastroesophageal reflux disease) HTN (hypertension) Hypothyroid Mild episode of recurrent major depressive disorder Mixed hyperlipidemia Sleep apnea Subclavian artery stenosis, left s/p stent UTI (urinary tract infection) Surgical History Surgical History History of bilateral tubal ligation S/P carotid endarterectomy L-sided S/P carpal tunnel release S/P cholecystectomy S/P discectomy S/P hysterectomy S/P tonsillectomy Status post Kevin fundoplication Family History Family History Father Family history of obesity Hypertension Family history of allergic disorder Cerebrovascular accident Family history of diabetes mellitus in first degree relative Family history of primary malignant neoplasm of liver Patient's father is Diabetes mellitus Family history of cardi
[2022-06-17] MEDS: LACTATED RINGERS 1,000 ML 150 ML IV CONT (11:25)
[2022-06-17 11:28] LABS: Glucose Point of Care 78 mg/dl (65-105)
--- NOTE | 2022-06-17 12:15 | SUR.OPER ---
EGD: START 1209, END 1212. COLONOSCOPY: START 1229
[2022-06-17 12:33] VITALS: BP 103/49; PULSE 78; RESP 18; O2SAT 100
[2022-06-17 12:43] VITALS: BP 108/52; PULSE 73; RESP 15; O2SAT 100
[2022-06-17 12:53] VITALS: BP 123/60; PULSE 79; RESP 18; O2SAT 100
== END 2022-06-17 13:04 | disposition home or self-care (01) ==
PROVIDERS: PCP Family Medicine; Visit Provider Internal Medicine Gastroenterology
PROC: 0DJ08ZZ Inspection of Upper Intestinal Tract, Via Natural or Artificial Opening Endoscopic (ICD-10-PCS; CPT 43235; principal; 2022-06-17 12:30)
DX: R19.5 Other fecal abnormalities (principal); D50.9 Iron deficiency anemia, unspecified; K57.30 Diverticulosis of large intestine without perforation or abscess without bleeding; K21.9 Gastro-esophageal reflux disease without esophagitis; I12.9 Hypertensive chronic kidney disease with stage 1 through stage 4 chronic kidney disease, or unspecified chronic kidney disease; E11.22 Type 2 diabetes mellitus with diabetic chronic kidney disease; N18.30 Chronic kidney disease, stage 3 unspecified; I25.10 Atherosclerotic heart disease of native coronary artery without angina pectoris; E78.2 Mixed hyperlipidemia; G47.30 Sleep apnea, unspecified; F33.0 Major depressive disorder, recurrent, mild; F41.9 Anxiety disorder, unspecified; Z79.02 Long term (current) use of antithrombotics/antiplatelets; Z79.82 Long term (current) use of aspirin; Z79.84 Long term (current) use of oral hypoglycemic drugs
CPT/HCPCS: 45378; 43239; 82948; 87081; 88305; J2704; J7120

== ENCOUNTER 2023-02-03 15:49 | Outpatient (CLI) | payer MEDICARE, SELFPAY ==
--- NOTE | ~2023-02-03 | XR_ITS ---
EXAMINATION: XR chest 2V DATE: 02/03/2023 16:08 INDICATION: Cough. Upper back pain. TECHNIQUE: Frontal and lateral views of the chest were obtained. COMPARISON: Chest single view 05/06/2022 FINDINGS: There is no pneumonia, pleural effusion, or pneumothorax. The heart size is normal. IMPRESSION: 1. No acute cardiopulmonary disease. Reviewed, dictated and finalized at location A. UNITY PLANNING TECHNICIAN
[2023-02-03 16:57] LABS: Influenza A QL RT-PCR Negative (Negative); Influenza B QL RT-PCR Negative (Negative); RSV RNA, RT-PCR Positive (Negative); SARS-CoV-2 RNA PCR Negative (Negative)
== END 2023-02-03 15:50 | disposition home or self-care (01) ==
PROVIDERS: PCP Family Medicine; Visit Provider Physician Assistant
DX: R05.9 Cough, unspecified (principal); Z20.822 Contact with and (suspected) exposure to COVID-19
CPT/HCPCS: 71046; 87637

== ENCOUNTER → 2023-03-21 10:09 | Outpatient (CLI) | payer MEDICARE, SELFPAY ==
--- NOTE | ~2023-03-21 | MR_ITS ---
MRI of the lumbar spine Clinical History: Radiculopathy Technique: Axial T2-weighted images, and sagittal T1-weighted, T2-weighted, and T2 fat-sat images wer e acquired. Findings: No acute fracture seen. There is 5 mm retrolisthesis of L2 over L3, with reactive marrow si gnal changes about this disc space. There are probable bilateral L5 pars interarticularis defects, wi th 7 mm anterolisthesis of L5 over S1. At L1-L2, there is minimal disc bulge and minimal facet arthropathy. No central canal stenosis or def inite neural foraminal narrowing. At L2-L3, there is severe degenerative disc narrowing. Disc bulge and facet arthropathy result in mod erate to severe spinal canal stenosis/thecal sac compression. There is moderate left neural foraminal narrowing, and severe right neural foraminal narrowing. At L3-L4, there is diffuse disc bulge with mild facet arthropathy. There is mild central canal stenos is. There is mild bilateral neural foraminal narrowing. At L4-L5, there is advanced degenerative disc narrowing. There is mild disc bulge with moderate facet arthropathy. No central canal stenosis. There is no significant neural foraminal narrowing. At L5-S1, there is diffuse disc bulge/uncovering with moderate to advanced facet arthropathy. No cent ral canal stenosis. There is severe bilateral neural foraminal compromise. Paravertebral soft tissues are unremarkable. Impression: Bilateral L5 pars interarticularis defects, with 7 mm anterolisthesis of L5 over S1. 5 mm retrolisthesis of L2 over L3. Severe degenerative spondylosis at L2-L3, as detailed above. Moderate to severe degenerative spondylosis at L5-S1, as detailed above. Additional mild degenerative changes, as above. Reviewed, dictated and finalized at [facility]. 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 5 mm retrolisthesis of L2 over L3. Severe degenerative spondylosis at L2-L3, as detailed above. Moderate to severe degenerative spondylosis at L5-S1, as detailed above. Additional mild degenerative changes, as above.
--- NOTE | ~2023-03-21 | XR_ITS ---
XR sacroiliac joints min 3V DATE: 03/21/2023 10:56 INDICATION: Pain. Sacroiliitis. TECHNIQUE: AP and bilateral oblique views COMPARISON: 05/06/2022 CT chest abdomen pelvis FINDINGS: The pubic symphysis and sacroiliac joints are intact. No erosive change or ankylosis is not ed at the sacroiliac joints. Prominent degenerative disc disease and anterolisthesis of L5-S1, based upon correlation with CT ches t abdomen pelvis examination. IMPRESSION: No significant abnormality of sacroiliac joints Degenerative disc disease and anterolisthesis at L5-S1 Reviewed, dictated and finalized at [facility]. Reviewed, dictated and finalized at location [facility]. 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
--- NOTE | ~2023-03-21 | XR_ITS ---
XR hip RT min 2V DATE: 03/21/2023 10:55 INDICATION: Right hip pain TECHNIQUE: AP and lateral views COMPARISON: None FINDINGS: No fracture or dislocation, avascular necrosis or bone destruction is detected. Right hip j oint space appears relatively well preserved. The pubic symphysis and right sacroiliac joint are included and appear unremarkable. Mild rotatory levoscoliosis and degenerative change of the lumbar spine. IMPRESSION: No significant abnormality of the right hip Reviewed, dictated and finalized at location [facility]. 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
== END ==
PROVIDERS: PCP Family Medicine; Visit Provider Anesthesiology Pain Medicine
DX: M46.1 Sacroiliitis, not elsewhere classified (principal); M25.551 Pain in right hip; M54.9 Dorsalgia, unspecified; M54.16 Radiculopathy, lumbar region; M51.37 Other intervertebral disc degeneration, lumbosacral region; M43.17 Spondylolisthesis, lumbosacral region
CPT/HCPCS: 72148; 72202; 73502

== ENCOUNTER 2023-03-23 12:30 | Outpatient (RCR) | payer MEDICARE, SELFPAY ==
--- NOTE | 2023-02-23 10:48 | OPREHPOC ---
Outpatient Therapy Plan of Care This is a Multidisciplinary Plan of Care that may contain components documented by all disciplines (PT, OT, and ST.) PT Problem 1 PT Problem #1 Knowledge Deficit PT Goal 1 Goal Pt to be IND with issued HEP Target Visit 4 PT Problem 2 PT Problem #2 Pain PT Goal 1 Goal Pt to report pain no greater than 3/10 in the last week Target Visit 4 PT Problem 3 PT Problem #3 Impaired Functional Mobil PT Goal 1 Goal Pt to be able to lift 20lb from ground level without an increase in pain Target Visit 4 PT Goal 2 Goal Pt to be able to stand for 1 hour without an increase in pain PT Problem 4 PT Problem #4 Impaired Functional Mobil PT Goal 1 Goal Pt to be able to vacuum without an increase in pain Target Visit 4
--- NOTE | 2023-02-23 10:48 | PTOPEVAL1 ---
Assessment and note entered by Juana Tristan, PT, DPT Evaluation Information Assessment Status Evaluation Diagnosis R sided lumbar radiculopathy Onset June Subjective Information Pt states her hip started hurting in June, she states since then it feels like she is falling apart she states she knows it is her sciatic nerve. She reports not having any pain currently but states she is taking hydrocodone and just finished a round of prednisone. She states she has the most pain when she is carrying something heavy , she states she does not notice per pain when prolonged sitting or standing. She states she has limited her morbility to avoid causing pain. Pt has had a discectomy in the past. Reported Pain Level Pain Score 0: Self Report Assessment PT Clinical Summary Claire presents to therapy today for her initial evaluation with a diagnosis of R lumbar radiculopathy. Today she demonstrates lumbar mobility, impaired body mechanics with functional mobility, gait deviations, and felipe hip strength. Skilled therapy services are indicated to address the deficits noted above, to manage pain , and to improve functionale mobility. Plan of Care Interventions Electrical Stimulation,Gait Training,Hot Pack/Cold Pack,Manual Therapy,Neuro Re-education,Patient/ Caregiver Educati,Therapeutic Activities, Therapeutic Exercise PT Services Indicated Yes Treatment Frequency and 1x/wk for 4 visits Duration These treatments will address the objective and functional deficits as defined above. The patient will be advanced safely and appropriately in order for the patient to progress towards his/her prior level of function. Additional exercises will be introduced and as well as a comprehensive home exercise program upon discharge, if needed, ?to ensure carryover of functional gains achieved in the clinic. This treatment plan has been reviewed and agreement upon by the patient.
--- NOTE | 2023-03-10 15:08 | PCPTNOTE ---
Patient did not show up for scheduled appointment this date. Called and LVM with next appointment times.
--- NOTE | 2023-03-23 16:39 | PTOPPROG ---
Assessment and note entered by Juana Tristan, PT, DPT Evaluation Information Assessment Status Progress Diagnosis R sided lumbar radiculopathy Onset May Subjective Information Pt states she has not seen any favorable changes since starting therapy. She states she is pretty sore after therapy and it takes almost the whole evening to feel better. She states her sciatic nerve has not been bothering her like if used to. She feels like maybe her back is getting more mobile, but she also feels like she is moving really guarded. Assessment PT Clinical Summary Claire presents to therapy today for her progress report following 5 visits of skilled therapy to treat her diagnosis of R lumbar radiculopathy. Today she demonstrates improve LE strength, improved body awareness, and better lifting mechanics. She is making progress towards her therapy goals. Pt would like to continue her HEP and follow up in one month. Plan of Care Interventions Electrical Stimulation,Gait Training,Hot Pack/Cold Pack,Manual Therapy,Neuro Re-education,Patient/ Caregiver Educati,Therapeutic Activities, Therapeutic Exercise PT Services Indicated Yes Treatment Frequency and follow up in 1 month Duration These treatments will address the objective and functional deficits as defined above. The patient will be advanced safely and appropriately in order for the patient to progress towards his/her prior level of function. Additional exercises will be introduced and as well as a comprehensive home exercise program upon discharge, if needed, ?to ensure carryover of functional gains achieved in the clinic. This treatment plan has been reviewed and agreement upon by the patient.
--- NOTE | 2023-04-25 10:15 | PTOPDC ---
Assessment and note entered by Juana Tristan, PT, DPT Evaluation Information Assessment Status Discharge - Pt Not Present Diagnosis R sided lumbar radiculopathy Onset May Subjective Information Called and follow-up with pt. It has been a month that she has been working on her exercises IND. She states she is continuing to improve and notices herself being able to tolerant more activity. She states she does not need additional therapy at this time. Assessment PT Clinical Summary Claire completed 5 visits of skilled therapy from 02/23/23 to 03/23/23. She will be discharged at this time per pt request.
== END 2023-04-25 10:28 | disposition home or self-care (01) ==
LOC: ANHGOSHPT 12:30
PROVIDERS: PCP Family Medicine; Visit Provider Anesthesiology Pain Medicine
DX: M25.551 Pain in right hip (principal); M54.9 Dorsalgia, unspecified; M54.16 Radiculopathy, lumbar region
CPT/HCPCS: 97110; 97140; 97161; 97530; 99199

== ENCOUNTER 2023-06-16 13:58 | Outpatient (CLI) | payer MEDICARE, SELFPAY ==
--- NOTE | ~2023-06-16 | XR_ITS ---
EXAMINATION: XR chest 2V 06/16/2023 16:12 INDICATION: Hypertension. Chronic kidney disease stage I. PROCEDURE: 2 view chest COMPARISON: Comparison to multiple prior studies sequentially, with oldest reviewed study dated 03/2021. FINDINGS: The lungs are clear. The cardiomediastinal silhouette is within normal limits. There are no pleural effusions. There is no pneumothorax suspected. IMPRESSION: 1: NO ACUTE CARDIOPULMONARY DISEASE. Reviewed, dictated and finalized at location [facility].
[2023-06-16 14:25] LABS: Hematocrit 34.8 % (37.0-47.0); Hemoglobin 10.8 g/dL (12.0-15.0); Mean Corpuscular Hemoglobin 27.8 pg (26-34); Mean Corpuscular Volume 89.5 fl (80-100); Mean Platelet Volume 10.7 fl (7.4-10.4); Platelet Count Result 190 k/mm3 (150-375); Red Blood Count 3.89 M/mm3 (4.2-5.4); Red Cell Distribution Width 13.2 % (11.5-14.5); White Blood Count 6.4 K/mm3 (4.5-10.0)
[2023-06-16 14:36] LABS: INR 0.9; Prothrombin Time 12.8 Seconds (11.1-14.7)
[2023-06-16 14:40] LABS: Alanine Aminotransferase 16 U/L (6-35); Albumin Level 4.4 g/dL (3.5-5.1); Alkaline Phosphatase 118 U/L (38-126); Anion Gap 8 mmol/L (4-12); Aspartate Amino Transferase 30 U/L (14-36); Bilirubin,Total 0.4 mg/dL (0.2-1.3); Blood Urea Nitrogen 28 mg/dL (7-17); Calcium 9.5 mg/dL (8.4-10.2); Carbon Dioxide 25 mmol/L (22-30); Chloride 107 mmol/L (98-107); Estimated Glomerular Filt Rate 27; Glucose 102 mg/dL (65-110); Potassium 4.8 mmol/L (3.4-5.0); Sodium 140 mmol/L (137-145)
--- NOTE | 2023-06-16 14:52 | ECG_ITS ---
SEE SCANNED COPY FOR CONFIRMED REPORT MTDD
== END 2023-06-16 13:59 | disposition home or self-care (01) ==
LOC: ANHLAB 14:05
PROVIDERS: PCP Family Medicine; Visit Provider Anesthesiology Pain Medicine
DX: I67.2 Cerebral atherosclerosis (principal); I65.22 Occlusion and stenosis of left carotid artery; D64.9 Anemia, unspecified; Z79.01 Long term (current) use of anticoagulants; M48.062 Spinal stenosis, lumbar region with neurogenic claudication; E11.21 Type 2 diabetes mellitus with diabetic nephropathy; I12.9 Hypertensive chronic kidney disease with stage 1 through stage 4 chronic kidney disease, or unspecified chronic kidney disease
CPT/HCPCS: 36415; 71046; 80053; 85027; 85610; 93005

== ENCOUNTER 2023-06-23 13:43 | Outpatient (CLI) | payer MEDICARE, SELFPAY ==
[2023-06-23 14:29] LABS: Partial Thromboplastin Time 26.3 Seconds (22.3-36.8)
== END 2023-06-23 13:44 | disposition home or self-care (01) ==
LOC: ANHSURGERY 13:52
PROVIDERS: Anesthesiology; PCP Family Medicine; Visit Provider Anesthesiology Pain Medicine
DX: Z01.818 Encounter for other preprocedural examination (principal); N18.32 Chronic kidney disease, stage 3b
CPT/HCPCS: 36415; 85730

== ENCOUNTER 2023-06-27 00:26 | Day surgery (SDC) | payer MEDICARE, SELFPAY ==
[2023-06-23 10:51] VITALS: BMI 22.5
--- NOTE | 2023-06-23 11:05 | PC.NURSE ---
PRE-OP INSTRUCTIONS, PLEASE READ CAREFULLY Report to the Outpatient Waiting Room, entrance under the green pavilion located off [facility], at time _1130_ on date _06/27/23_. Planned Procedure Time: _1:30 PM_. Time changes happen often and if your time is changed the preop area will call you the afternoon before. - You and your visitor will be asked to self-screen and do not enter if you have any COVID symptoms. - A mask is optional within the hospital at this time. Patients may have clear liquids (water, carbonated beverages, clear teas, apple juice) until 3 hours prior to surgery (1030 AM) with a maximum of 20 ounces. - No food from midnight until time of surgery Take the following medications with a SIP of water the morning of surgery: _BUPROPION, BUSPIRONE, CARVEDILOL, LEVOTHYROXINE, MIDODRINE_ DO NOT STOP ANY OF YOUR OTHER PRESCRIPTION MEDICATIONS PRIOR TO SURGERY ?EXCEPT THE FOLLOWING Medications to discontinue - _PT STATES MAY CONTINUE ASPIRIN PER DR. SALINAS & TO STOP PLAVIX 7 DAYS PRIOR TO SURGERY, Date to take last dose 06/19/23 (CONFIRMED WITH PATIENT)_ Please no make-up, nail ivorian, hairspray, perfume, deodorant, or body powder the day of surgery. No jewelry (including any body piercings) or valuables the day of surgery, leave them at home. Please take a shower or bath the night before, or the morning of, surgery with an antibacterial soap. Wear comfortable, loose fitting clothing. - Jewelry must be removed prior to entering the operating room. Rings and piercings that are not removed may be cut off. - The hospital will not accept responsibility for valuables. - Please leave all valuables, including medications, at home the day of surgery. If you are going home after surgery, a licensed petrol tanker driver must drive you home. - NO public transportation without another adult if you receive anesthesia. - We recommend that an adult stay with you for 24 hours following discharge. - We also recommend that you do not drive, make important decision, drink alcoholic beverages, or take any drugs that were not prescribed by your health care provider for at least 24 hours after your discharge time. Follow any additional instructions given to you from your surgeon. If you or anyone in your household have experienced Covid symptoms in the past week, please notify your surgeon or the nurse liaison at the phone number below for possible testing. Telephone instructions given to _PATIENT_and asked if any additional questions and then verbalized understanding. Patient advised to call surgeon office or pre surgery nurse liaison [phone] if any additional questions.
--- NOTE | 2023-06-23 11:55 | PC.NURSE ---
PRE-OP INSTRUCTIONS, PLEASE READ CAREFULLY Report to the Outpatient Waiting Room, entrance under the green pavilion located off [facility], at time _1130_ on date _06/27/23_. Planned Procedure Time: _1:30PM_. Time changes happen often and if your time is changed the preop area will call you the afternoon before. - You and your visitor will be asked to self-screen and do not enter if you have any COVID symptoms. - A mask is optional within the hospital at this time. No food/fluids from midnight until time of surgery Take the following medications with a SIP of water the morning of surgery: _BUPROPION, BUSPIRONE, CARVEDILOL, LEVOTHYROXINE, MIDODRINE_ DO NOT STOP ANY OF YOUR OTHER PRESCRIPTION MEDICATIONS PRIOR TO SURGERY ?EXCEPT THE FOLLOWING Medications to discontinue per - _PATIENT STATES MAY CONTINUE ASPIRIN PER DR. SALINAS & TO STOP PLAVIX 7 DAYS PRIOR TO SURGERY, Date to take last dose 06/19/23 (CONFIRMED WITH PT)_ Please no make-up, nail namibian, hairspray, perfume, deodorant, or body powder the day of surgery. No jewelry (including any body piercings) or valuables the day of surgery, leave them at home. Please take a shower or bath the night before, or the morning of, surgery with an antibacterial soap. Wear comfortable, loose fitting clothing. - Jewelry must be removed prior to entering the operating room. Rings and piercings that are not removed may be cut off. - The hospital will not accept responsibility for valuables. - Please leave all valuables, including medications, at home the day of surgery. If you are going home after surgery, a licensed road train driver must drive you home. - NO public transportation without another adult if you receive anesthesia. - We recommend that an adult stay with you for 24 hours following discharge. - We also recommend that you do not drive, make important decision, drink alcoholic beverages, or take any drugs that were not prescribed by your health care provider for at least 24 hours after your discharge time. Follow any additional instructions given to you from your surgeon. If you or anyone in your household have experienced Covid symptoms in the past week, please notify your surgeon or the nurse liaison at the phone number below for possible testing. Telephone instructions given to _PATIENT_and asked if any additional questions and then verbalized understanding. Patient advised to call surgeon office or pre surgery nurse liaison [phone] if any additional questions.
[2023-06-27] VITALS (9 sets, daily range): BP systolic 92–163; BP diastolic 51–96; PULSE 57–66; RESP 14–22; TEMP 36.7; O2SAT 97–100; BMI 23.8
--- NOTE | ~2023-06-27 | XR_ITS ---
EXAMINATION: XR fluoroscopy no charge DATE: 06/27/2023 13:22 INDICATION: Lumbar decompression. TECHNIQUE: 23 intraoperative fluoroscopic views of the lumbar spine were obtained. I was not present. Fluoroscopy exposure time was 5 minutes 33 seconds. COMPARISON: Lumbar spine MRI 03/21/2023 FINDINGS: There is severe lumbar spondylosis. Images demonstrate instruments overlying the posterior elements at multiple locations in lower lumbar spine. IMPRESSION: 1. Severe lumbar spondylosis. Reviewed, dictated and finalized at location A.
[2023-06-27] MEDS: LACTATED RINGERS 1,000 ML 30 ML IV CONT ×2 (10:50→14:04)
--- NOTE | 2023-06-27 11:03 | WPDANESEPPF ---
Anes - Initial Pre Proc Eval Procedure: Operation Date: 06/27/23 12:00 Proposed Procedures p Minimally Invasive Lumbar Decompression Bilaterally at L2-3, L3-4 Under Fluoroscopic Guidance with Possible Epidurogram - Deven Tomlin MD Date/Time: 06/27/23 11:03 Surgeon: Deven Tomlin MD Pre Op Diagnosis: Spinal Stenosis Lumbar Region with Patient Data Age: 73 Gender: F Height: 1.59 m Weight: 56.81 kg Allergies Allergy/AdvReac Type Severity Reaction Status Date / Time alendronate sodium Allergy Severe TONGUE Verified 06/27/23 10:59 SWELLING Penicillins Allergy Severe Hives - Verified 06/27/23 10:59 AGE 18 atorvastatin Allergy Intermediate Muscle Pain Verified 06/27/23 10:59 fenofibrate Allergy Intermediate Muscle Pain Verified 06/27/23 10:59 gemfibrozil Allergy Intermediate Muscle Pain Verified 06/27/23 10:59 rosuvastatin Allergy Intermediate Muscle Pain Verified 06/27/23 10:59 Home Medications Medication Instructions Recorded Confirmed Type melatonin 10 mg capsule 10 mg PO HS 12/28/18 06/23/23 History blood sugar diagnostic (Contour #100 ea 02/29/20 06/23/23 Rx Next Test Strips) blood-glucose meter (Contour Meter #1 ea 02/29/20 06/23/23 Rx kit) lancets #200 ea 02/29/20 06/23/23 Rx blood-glucose meter (Blood Glucose #1 ea 03/06/20 06/23/23 Rx Monitoring kit) clopidogrel 75 mg tablet (Plavix) 75 mg PO DAILY #1 tablet 07/09/20 06/23/23 Rx aspirin 81 mg tablet,delayed 81 mg PO HS 01/21/22 06/23/23 History release carvedilol 6.25 mg tablet 6.25 mg PO Q12H 03/15/22 06/23/23 History midodrine 5 mg tablet 5 mg PO TID #90 tabs 06/08/22 06/23/23 Rx diphenhydramine 25 1 tablet PO HS 06/10/22 06/23/23 History mg-acetaminophen 500 mg tablet (Tylenol PM Extra Strength) gabapentin 600 mg tablet 600 mg PO QHS #90 tabs 09/21/22 06/23/23 Rx metformin 1,000 mg tablet 1,000 mg PO DAILY #90 tabs 12/21/22 06/23/23 Rx omeprazole 40 mg capsule,delayed 40 mg PO DAILY #90 caps 01/24/23 06/23/23 Rx release bupropion HCl 150 mg 24 hr tablet, 150 mg PO QAM #90 tabs 03/17/23 06/23/23 Rx extended release ergocalciferol (vitamin D2) 1,250 See Rx Instructions .Route 04/05/23 06/23/23 Rx mcg (50,000 unit) capsule .COMPLEX #10 caps buspirone 10 mg tablet 10 mg PO TID #90 tabs 04/25/23 06/23/23 Rx icosapent ethyl 1 gram capsule 2 g PO BID 30 days #120 caps 05/27/23 06/23/23 Rx (Vascepa) levothyroxine 75 mcg tablet 75 mcg PO DAILY #30 tabs 06/11/23 06/23/23 Rx rosuvastatin 40 mg tablet 40 mg PO DAILY #90 tabs 06/24/23 Rx Patient hx anesthesia problems: none Family hx anesthesia problems: none Results Review: All pre-operative results and documents have been reviewed as part of the pre-operative evaluation. [facility] Past Medical History Medical History Adenomatous colon polyp Arthritis Carotid artery disease Cerebral atherosclerosis COVID-19 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 bone of left foot Fx metatarsal-closed GERD (gastroesophageal reflux disease) HTN (hypertension) Hypothyroid Mild episode of recurrent major depressive disorder Mixed hyperlipidemia Sleep apnea Subclavian artery stenosis, left s/p stent UTI (urinary tract infection) Surgical History Surgical History History of bilateral tubal ligation S/P carotid endarterectomy L-sided S/P carpal tunnel release S/P cholecystectomy S/P discectomy S/P hysterectomy S/P tonsillectomy Status post Kevin fundoplication Family History Family History Father Family history of obesity Hypertension Family history of allergic disorder Cerebrovascular accident Family history of diabetes mellitus in first degree relative Family history of primary malignant neoplasm of liver Patient's father is Diabetes mellitus
[2023-06-27 11:22] LABS: Glucose Point of Care 89 mg/dl (65-105)
--- NOTE | 2023-06-27 11:54 | PM.HPGS ---
History of Present Illness History of Present Illness Consent: Risks, benefits, and alternatives have been discussed and questions answered. Patient agrees to proceed with procedure. Chief complaint: Spinal Stenosis Lumbar Region with Narrative: Claire Herrera is a 73 year old female with chronic, recalcitrant and disabling low back and lower extremity pain secondary to degenerative spondylosis, spinal stenosis with ligamentum flavum hypertrophy and intermittent neurogenic claudication with failure to respond to aggressive conservative measures including PT, oral and topical analgesics, opioid and nonopioid analgesics, rest, time and activity/behavioral modification over the past 1-2 years who presents for minimally invasive lumbar decompression bilaterally at L2-3, L3-4 under fluoroscopic guidance. Review of Systems Review of Systems: Patient denies any new infectious, allergic, cardiopulmonary, neurologic or constitutional symptoms or changes in activity tolerance or exercise capacity including new or progressive SOB/ARGUETA, peripheral edema, productive cough, dysuria, nausea/vomiting, diarrhea, weight change, fevers/chills/night sweats, new or progressive neurologic deficit, cognitive or mood changes since last seen, except as documented in the HPI. All systems reviewed & are unremarkable except as noted in HPI and below PMFSH Past Medical History Medical History Adenomatous colon polyp Arthritis Carotid artery disease Cerebral atherosclerosis COVID-19 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 bone of left foot Fx metatarsal-closed GERD (gastroesophageal reflux disease) HTN (hypertension) Hypothyroid Mild episode of recurrent major depressive disorder Mixed hyperlipidemia Sleep apnea Subclavian artery stenosis, left s/p stent UTI (urinary tract infection) Surgical History Surgical History History of bilateral tubal ligation S/P carotid endarterectomy L-sided S/P carpal tunnel release S/P cholecystectomy S/P discectomy S/P hysterectomy S/P tonsillectomy Status post Kevin fundoplication Family History Family History Father Family history of obesity Hypertension Family history of allergic disorder Cerebrovascular accident Family history of diabetes mellitus in first degree relative Family history of primary malignant neoplasm of liver Patient's father is Diabetes mellitus Family history of cardiovascular disease Mother Family history of obesity Hypertension Family history of osteoarthritis Patient's mother is in good health Sibling Hypertension Patient's brother is in good health Family history of diabetes mellitus in first degree relative Family history of lymphoma Diabetes mellitus Family history of cardiovascular disease Grandparent Asthma Carcinoma of colon Social History Social History Social History: The patient is and has 2 children. She retired from [employer] Code status full code Smoking status: Never smoker Second hand tobacco smoke exposure: No Alcohol intake: former Drinks per week: 3 Alcohol use details: STATES VERY SELDOME DRANK AND JUST STOPPED 2021~ Substance use: never Substance use type: does not use Do You Feel Safe in your Home?: Yes Lack of Transportation: No Lack of Food: Never True Current Housing: I Have Housing Concerned About Future Housing: No Difficulty Paying Gas/Electric Bills: No Difficulty Paying for Meds: No Currently Unemployed: No Education: High School Diploma/GED Difficulty w/ Childcare or Family Care: No Living arrangements: alone Occupation/Education: retired Gender identity (if verbalized by the patient): Female Sexual Orientatio
--- NOTE | 2023-06-27 11:59 | WPDHPUPDATE1 ---
History and Physical Update Update Date/Time: 06/27/23 11:59 History and Physical has been reviewed, including an updated exam of the patient. There are NO changes in the patient's condition. Risks, benefits, and alternatives have been discussed and questions answered. Patient agrees to proceed with procedure.
--- NOTE | 2023-06-27 12:00 | WPDHPUPDATE1 ---
History and Physical Update Update Date/Time: 06/27/23 12:00 History and Physical has been reviewed, including an updated exam of the patient. There are NO changes in the patient's condition. Risks, benefits, and alternatives have been discussed and questions answered. Patient agrees to proceed with procedure.
--- NOTE | 2023-06-27 12:01 | W.PM.PROC2 ---
Procedure Note - Detailed Date of Procedure 06/27/23 Pre-op Diagnosis Spinal Stenosis Lumbar Region with INC. Chronic Pain Post-op Diagnosis Same Procedure Performed Minimally Invasive Lumbar Decompression (MILD) bilateally at L2-3, L3-4 under fluoroscopic guidance. Surgeon Deven Tomlin MD Anesthesia MAC and Local Description of Procedure INFORMED CONSENT: Risks, benefits, and alternatives to the procedure were discussed in detail with the patient who expressed explicit understanding and consent to proceed. Risks discussed with the patient included but were not limited to risk of serious local or systemic infection, bleeding/bruising, epidural hematoma, dural puncture or tear resulting in CSF leak and acute or chronic post-dural puncture headache, scarring/deformity, immediate or delayed allergic reaction, decreased mobility, failure to treat pain, inadvertent neurologic injury resulting in increased pain, weakness/paralysis or numbness, inadvertent organ injury, need for additional surgery, allergic reaction, heart attack, stroke, seizure, coma, . Anesthetic risks were also briefly discussed by myself and the rod welder. The patient expressed understanding and consent to proceed, agreeing that potential benefits outweigh risk of harm. All materials required for the procedure were immediately available prior to procedure start. Site and side were confirmed with the patient, compared carefully to the patient chart and consent, and marked prior to transport to the operating room. Appropriate time out procedure was performed per protocol prior to procedure start. PROCEDURE IN DETAIL: The patient was brought to the operative suite and placed in the prone position. Appropriate ASA standard monitors were attached. Anesthesia was initiated without difficulty or event. Eyes were protected. Pressure points were padded with joints in neutral position. When appropriate, breasts and genitals were evaluated and protected. Eyes were checked and were free from undue pressure. Skin overlying the procedure site was marked with sterile marker. Surgical area was prepared in a typical sterile fashion with ChloraPrep and allowed to dry for at least 3 minutes prior to sterilely draping the surgical site. The lumbar spine was identified in the AP fluoroscopic view with slight cephalad tilt perfectly aligning the endplates at the targeted levels with spinous processes bisecting the transpedicular plane. After identifying the intended incision site approximately 1.5 levels inferior to the level of interest, the area was anesthetized by infiltration with no more than 10ml of a 1:1 admixture of 0.5% PF bupivacaine with epinephrine and 2% PF lidocaine with epinepherine via a 27-gauge needle after negative aspiration. A 22-gauge spinal needle was used to provide additional and adequate local anesthesia to the level of the interspinous ligament, ligamentum flavum and the periosteum of the lamina at the intended treatment levels. In the AP view, a #11 scalpel blade was used to create a single stab incision at the intended incision site on the targeted side. The Vertos MILD kit was opened and the included cannula and trocar assembly was advanced through the incision to contact the midportion of the right lamina just adjacent to the spinous process at L4. Once seated, the lateral view was used to gauge depth demonstrating the most anterior tip of the trocar posterior to the epidural space at all times. The finishing area operator-provided cannula stabilizer was placed over the trocar flush to the patient's lumbar flank. Cannula obturator with handle was removed. Included depth guide was then attached to the insertion port on the cannula and set to an intial depth of 15 mm. The bone rongeur was advanced to the depth of the lumbar lamina at the targeted level. Depth gauge was then adjusted allowing rongeur tip to advance in the contralateral oblique view to the anterior border of the superi
[2023-06-27] MEDS: ceFAZolin 2 GM/D5W 50 ML 2 GM/50 ML BAG IVPB (12:33)
[2023-06-27] MEDS: BUPIVACAINE/EPINEPHRINE 0.5% 50 ML VIAL 10 ML INFILTRATE (12:47)
[2023-06-27] MEDS: LIDOCAINE HCL 1% LOCAL INJ 20 ML VIAL 10 ML INFILTRATE (12:48)
[2023-06-27] MEDS: fentaNYL CITRATE INJ (*CRX) 100 MCG/2 ML VIAL 25 MCG IV PUSH ×7 (13:34→13:54)
[2023-06-27 13:58] LABS: Glucose Point of Care 97 mg/dl (65-105)
[2023-06-27] MEDS: HYDROmorphone HCL INJ (*CRX) 1 MG/ML SYR 0.5 MG IV PUSH ×3 (14:02→14:43)
[2023-06-27] MEDS: KETOROLAC 30 MG/ML VIAL (*BKC) IV PUSH (15:19)
[2023-06-27] MEDS: dexAMETHasone SOD PHOS INJ 10 MG/ML 1 ML VIAL IV PUSH (15:27)
[2023-06-27] MEDS: ONDANSETRON INJ 4 MG/2 ML VIAL IV PUSH (15:32)
[2023-06-27] MEDS: HYDROcodone/acetaminophen (*CRX) 5-325 MG TABLET 1 TAB PO (16:38)
== END 2023-06-27 16:50 | disposition home or self-care (01) ==
PROVIDERS: PCP Family Medicine; Visit Provider Anesthesiology Pain Medicine
DX: M48.062 Spinal stenosis, lumbar region with neurogenic claudication (principal); G89.29 Other chronic pain; Z00.6 Encounter for examination for normal comparison and control in clinical research program; I25.10 Atherosclerotic heart disease of native coronary artery without angina pectoris; I67.2 Cerebral atherosclerosis; E11.9 Type 2 diabetes mellitus without complications; K21.9 Gastro-esophageal reflux disease without esophagitis; I10 Essential (primary) hypertension; E03.9 Hypothyroidism, unspecified; F33.9 Major depressive disorder, recurrent, unspecified; E78.2 Mixed hyperlipidemia; G47.30 Sleep apnea, unspecified; I77.1 Stricture of artery; Z79.02 Long term (current) use of antithrombotics/antiplatelets; Z79.82 Long term (current) use of aspirin; Z79.84 Long term (current) use of oral hypoglycemic drugs; Z98.890 Other specified postprocedural states; Z90.49 Acquired absence of other specified parts of digestive tract; Z95.5 Presence of coronary angioplasty implant and graft; Z86.010 Personal history of colon polyps; Z80.0 Family history of malignant neoplasm of digestive organs; Z80.7 Family history of other malignant neoplasms of lymphoid, hematopoietic and related tissues; Z82.49 Family history of ischemic heart disease and other diseases of the circulatory system
CPT/HCPCS: 0275T; 36415; 82948; 85730; 99199; A9270; C1889; J0690; J1100; J1170; J1885; J2250; J2371; J2405; J2704; J3010; J7120; Q9965

== ENCOUNTER 2023-08-02 09:36 | Day surgery (SDC) | payer MEDICARE, SELFPAY ==
[2023-07-22 14:25] VITALS: BMI 23.8
--- NOTE | ~2023-08-02 | XR_ITS ---
EXAMINATION: XR fluoroscopy no charge DATE: 08/02/2023 11:20 CDT INDICATION: DIAG/THERAP INTRA-ARTICULAR STEROID INJ,RIGHT SI JT . TECHNIQUE: 4 fluoroscopic images of the right SI joint were obtained during diagnostic/therapeutic ri ght SI joint injection, performed by Deven Tomlin MD. I was not present during the procedure. Flu oroscopy exposure time was 7.3 seconds. Air Kerma 1.64 mGy. COMPARISON: None FINDINGS/IMPRESSION: Fluoroscopic documentation of diagnostic/therapeutic right SI joint injection. Please refer to the op erative note for complete procedural details . Reviewed, dictated and finalized at location K.
[2023-08-02 10:25] VITALS: BP 186/103; PULSE 71; RESP 15; O2SAT 100
--- NOTE | 2023-08-02 11:10 | WPDHPUPDATE1 ---
History and Physical Update Update Date/Time: 08/02/23 11:10 History and Physical has been reviewed, including an updated exam of the patient. There are NO changes in the patient's condition. Risks, benefits, and alternatives have been discussed and questions answered. Patient agrees to proceed with procedure.
--- NOTE | 2023-08-02 11:11 | W.PM.PROC2 ---
Procedure Note - Detailed Date of Procedure 08/02/23 Pre-op Diagnosis Sacroiliitis, Chronic Low Back Pain Post-op Diagnosis Same Procedure Performed right Sacroiliac Joint Steroid Injection under Fluoroscopic Guidance and with Contrast Control. Surgeon Deven Tomlin MD Anesthesia Local Description of Procedure INFORMED CONSENT: Risks, benefits and alternatives to the procedure were discussed in detail with the patient who expressed explicit understanding and consent to proceed. Patient was informed verbally and in written form regarding the risks associated with the procedure including the low risk of serious infection, bleeding/bruising, allergic reaction, nerve or organ injury, paralysis, procedural site pain or discomfort, worsening pain and/or mobility, failure to treat and/or disfigurement. The patient expressed explicit understanding and consent to proceed. All materials required for the procedure were available prior to procedure start. Site and side were marked prior to procedure and confirmed in the presence of the patient. PROCEDURE IN DETAIL: The patient was brought to the procedural suite and placed in the prone position. Patient was made comfortable with use of pillows under the head/chest, hips and ankles. Skin overlying the injection site on the affected side(s) was prepared broadly with ChloraPrep applicator and draped in a sterile manner. Aseptic technique was used throughout. The SI joint was identified in the AP view and contralateral oblique angulation with caudal tilt was utilized to optimize visualization of the inferior and medial joint line representing the posterior portion of the joint. Local anesthesia was established by infiltration with approximately 5 mL of 2% lidocaine via a 1-1/2 inch 27-gauge needle. A 22-gauge 3.5 inch Quincke spinal needle was advanced until the needle entered the inferior third of the joint space approximately 1cm cephalad from its most inferior point. In the AP view, 0.5 mL of Omnipaque 300 contrast medium was injected after negative aspiration for CSF, blood or other bodily fluid, showing appropriate intra-articular spread of contrast without evidence of intravascular, perineural or intrathecal placement. A 1.5 mL solution containing 6 mg of betamethasone in 0.5% PF bupivacaine was injected after repeat negative aspiration. Appropriate spread of the injectate was confirmed with washout of previous injected contrast. No parasthesias were elicited. Needle was removed completely intact without difficulty. Images were saved and documented in the patient chart. Patient's skin was cleansed and sterile bandage applied. The patient tolerated the procedure well. The patient was transported to the recovery area in stable condition where they were observed for an appropriate amount of time prior to discharge, without evidence of complication. The patient was instructed to avoid excessive activity for the next 48 hours, including climbing and frequent use of stairs. Showers only for 48 hours. They were instructed not to drive or operate heavy machinery for 24 hours. They are to monitor for severe headaches, fevers, chills, night sweats, erythema/swelling at the site or any other signs of infection, bleeding/bruising, bowel or bladder changes as well as new pain, weakness or numbness in the upper or lower extremity. Should they notice these changes, they are instructed to call our office immediately or report directly to the nearest Emergency Department if no answer or if after posted office hours. COMPLICATIONS: None COMMENTS: None CONTRAST WASTED: 29.5mL Omnipaque 300. Complications No immediate complications Condition Stable Disposition Same day [facility] Billing Surgery - Charge Forward: Surgery Billing
[2023-08-02 11:24] VITALS: BP 187/87; PULSE 72; RESP 11; O2SAT 100
[2023-08-02] MEDS: LIDOCAINE HCL 1% PF INJ 5 ML VIAL 1 ML INFILTRATE (11:31)
[2023-08-02] MEDS: BETAMETHASONE SODIUM PHOSPHATE PF INJ 6 MG/ML VIAL INFILTRATE (11:33)
[2023-08-02] MEDS: BUPivacaine HCL 0.5% 10 ML AMP INFILTRATE (11:33)
[2023-08-02 11:36] VITALS: BP 170/95; PULSE 70; RESP 20; O2SAT 100
== END 2023-08-02 11:47 | disposition home or self-care (01) ==
PROVIDERS: PCP Family Medicine; Visit Provider Anesthesiology Pain Medicine
PROC: (CPT 27096; principal; 2023-08-02 10:30)
DX: M46.1 Sacroiliitis, not elsewhere classified (principal); M54.59 Other low back pain
CPT/HCPCS: 27096; 99199; G0260

== ENCOUNTER 2023-10-14 10:43 | Outpatient (CLI) | payer MEDICARE, SELFPAY ==
--- NOTE | ~2023-10-14 | MM_ITS ---
EXAMINATION: MM screening clemente BI w alonzo HISTORY: Screening TECHNIQUE: Craniocaudal and mediolateral oblique 3-D tomosynthesis images were obtained and synthetic 2-D images were generated. CAD analysis was submitted and interpreted. COMPARISON: Comparison to multiple prior studies sequentially, with oldest reviewed study dated 11/22. BREAST PARENCHYMAL COMPOSITION: Not dense: There are scattered areas of fibroglandular density. FINDINGS: There is no evidence of suspicious mass, calcification, or architectural distortion to sugg est malignancy in either breast. There has been no suspicious interval change. IMPRESSION: 1. No mammographic evidence of malignancy. 2. Recommend routine screening mammography in one year. BI-RADS Category 1: Negative Reviewed, dictated and finalized at location B.
== END 2023-10-14 10:44 ==
LOC: MICIMG 10:44
PROVIDERS: PCP Family Medicine; Visit Provider Family Medicine
DX: Z12.31 Encounter for screening mammogram for malignant neoplasm of breast (principal)
CPT/HCPCS: 77063; 77067

== ENCOUNTER 2023-10-19 10:44 | Outpatient (CLI) | payer MEDICARE, SELFPAY ==
--- NOTE | ~2023-10-19 | XR_ITS ---
EXAMINATION: XR toe 1st RT min 2V DATE: 10/19/2023 11:04 INDICATION: Pain in unspecified toe. Injury. TECHNIQUE: 4 views of right great toe were obtained. COMPARISON: Right foot radiographs 06/23/2006 FINDINGS: There is a nondisplaced oblique intra-articular fracture of first distal phalanx. There is severe osteoarthritis of first tarsometatarsal joint and first metatarsophalangeal joint and mild ost eoarthritis of first interphalangeal joint. IMPRESSION: 1. Nondisplaced intra-articular fracture of first distal phalanx. 2. Polyarticular osteoarthritis. Reviewed, dictated and finalized at location A.
== END 2023-10-19 10:45 | disposition home or self-care (01) ==
LOC: ANHIMG 10:47
PROVIDERS: PCP Family Medicine; Visit Provider Family Medicine
DX: S92.534A Nondisplaced fracture of distal phalanx of right lesser toe(s), initial encounter for closed fracture (principal); M15.9 Polyosteoarthritis, unspecified; T14.90XA Injury, unspecified, initial encounter
CPT/HCPCS: 73660

== ENCOUNTER 2023-12-06 06:06 | Day surgery (SDC) | payer MEDICARE, SELFPAY ==
--- NOTE | ~2023-12-06 | XR_ITS ---
EXAMINATION: XR fluoroscopy no charge DATE: 12/06/2023 08:54 INDICATION: Lumbosacral spondylosis. TECHNIQUE: 74 intraoperative fluoroscopic views of the lumbar spine were obtained. I was not present. Fluoroscopy exposure time was 48 seconds. COMPARISON: None. FINDINGS: There is severe lumbar spondylosis. Multiple needles overlie the spine bilaterally. IMPRESSION: 1. Severe lumbar spondylosis. Reviewed, dictated and finalized at location A.
--- NOTE | 2023-12-06 06:17 | WPDHPUPDATE1 ---
History and Physical Update Update Date/Time: 12/06/23 06:17 History and Physical has been reviewed, including an updated exam of the patient. There are NO changes in the patient's condition. Risks, benefits, and alternatives have been discussed and questions answered. Patient agrees to proceed with procedure.
--- NOTE | 2023-12-06 06:18 | W.PM.PROC2 ---
Procedure Note - Detailed Date of Procedure 12/06/23 Pre-op Diagnosis Lumbosacral Spondylosis Post-op Diagnosis Same Procedure Performed Diagnostic bilateral Lumbar Medial Branch/Dorsal Ramus Blocks at L2, L3, L4, L5 Treating the bilateral L3-4, L4-5, L5-S1 Facet Joints Under Fluoroscopic Guidance and with Contrast Control. ( 6 levels blocked). Surgeon Deven Tomlin MD Mapping Supervisor None. Anesthesia Local Description of Procedure INFORMED CONSENT: Risks, benefits and alternatives to the procedure were discussed in detail with the patient who expressed explicit understanding and consent to proceed. Patient was informed verbally and in written form regarding the risks associated with the procedure including the low risk of serious infection, bleeding/bruising, allergic reaction, nerve or organ injury, paralysis, procedural site pain or discomfort, worsening pain and/or mobility, failure to treat and/or disfigurement. The patient expressed explicit understanding and consent to proceed. All materials required for the procedure were available prior to procedure start. Site and side were marked prior to procedure and confirmed in the presence of the patient. PROCEDURE IN DETAIL: The patient was brought to the procedural suite and placed in the prone position. Patient was made comfortable with use of pillows under the head/chest, hips and ankles. Skin overlying the injection site on the affected side(s) was prepared broadly with ChloraPrep applicator and draped in a sterile manner. Aseptic technique was used throughout. The endplates of the vertebral bodies at the site(s) of interest were aligned in the AP view. Ipsilateral oblique angulation was utilized to optimize visualization of the intersection between the superior articulating process and transverse process at each target site. Local anesthesia was established by infiltration with approximately 5 mL of 1% lidocaine via a 1-1/2 inch 27-gauge needle. A 25-gauge 3.5 inch Quincke spinal needle was advanced until the needle tip contacted periosteum at the target site, right L2. Lateral view was utilized to confirm the appropriate placement of the needle tip just anterior to the facet line and superior to the pedicle. In the Lateral view, 0.25 mL of Omnipaque 300 contrast medium was injected after negative aspiration for CSF, blood or other bodily fluid, showing appropriate extra-articular spread of contrast without evidence of intravascular, foraminal or intrathecal placement. A 0.5 mL solution of 0.5% PF bupivacaine was injected after negative repeat aspiration. Appropriate spread of the injectate was confirmed with washout of previously injected contrast. No parasthesias were elicited. Needle was removed completely intact without difficulty. The same exact procedure was repeated for all remaining levels on the ipsilateral side, right L3, L4, L5 medial branches/ dorsal ramus, modified as necessary to accommodate for the new target location with identical findings and results and no evidence of complication. The same exact procedure was repeated for all remaining levels on the contralateral side, left L2, L3, L4, L5 medial branches/dorsal ramus, modified as necessary to accommodate for the new target location with identical findings and results and no evidence of complication. Images were saved and documented in the patient chart. Patient's skin was cleaned and sterile bandage applied. The patient tolerated the procedure well. The patient was transported to the recovery area in stable condition where they were observed for an appropriate amount of time prior to discharge, without evidence of complication. Patient was instructed on the appropriate completion of a pain diary over the next 12-24 hours. The patient was instructed to avoid excessive activity for the next 48 hours, including climbing and frequent use of stairs. Showers only for 48 hours. They were instructed not to drive or operate heavy machinery for
[2023-12-06 08:03] VITALS: BP 139/66; PULSE 73; RESP 15; TEMP 36.8; O2SAT 100
[2023-12-06 08:35] VITALS: BP 140/63; PULSE 71; RESP 12; O2SAT 99
[2023-12-06 08:40] VITALS: BP 127/60; PULSE 70; RESP 14; O2SAT 98
[2023-12-06 08:45] VITALS: BP 137/61; PULSE 68; RESP 12; O2SAT 97
[2023-12-06] MEDS: BUPivacaine HCL 0.5% 10 ML AMP 5 ML INFILTRATE (08:50)
[2023-12-06] MEDS: LIDOCAINE HCL 1% PF INJ 5 ML VIAL INFILTRATE (08:51)
[2023-12-06 08:56] VITALS: BP 158/83; PULSE 76; RESP 16; O2SAT 100
== END 2023-12-06 09:11 | disposition home or self-care (01) ==
PROVIDERS: PCP Family Medicine; Visit Provider Anesthesiology Pain Medicine
PROC: (CPT 64493; principal; 2023-12-06 08:30)
DX: M47.817 Spondylosis without myelopathy or radiculopathy, lumbosacral region (principal)
CPT/HCPCS: 64493 ×2; 64494 ×2; 64495 ×2; 99199

== ENCOUNTER 2024-04-16 11:55 | Outpatient (CLI) | payer MEDICARE, SELFPAY ==
[2024-04-16 12:44] LABS: Influenza A QL RT-PCR Negative (Negative); Influenza B QL RT-PCR Negative (Negative); RSV RNA, RT-PCR Negative (Negative); SARS-CoV-2 RNA PCR Negative (Negative)
--- OUTSIDE RECORDS SUMMARY | 2024-04-16 13:42 | XMS_ITS | CONTINUITY OF CARE DOCUMENT ---
Author Name yudelka jha Address Unknown Organization [facility] Address [address] [place] [address] Phone [phone] Care Team Providers Care Group Home Manager Name Role Phone Braeden RODGERS, Britta Unavailable GRISEL UNGER MD Unavailable GRISEL UNGER MD Unavailable [phone] PROBLEMS Condition Status Date Provider Notes HYPOTHYROIDISM active ? Noe Urena MD HYPERCHOLESTEROLEMIA active ? Noe Urena MD HTN ESSENTIAL-12/01 ECHO EF 60 active ? Saman portillo RN ABNORMAL ELECTROCARDIOGRAM active ? Noe garcia MD SHORTNESS OF BREATH active Noe Urena MD ENCOUNTERS Date Type Provider Location Encounter Diag nosis - In-person encounter Office Visit Noe Urena MD [facility] - In-person encounter Office Visit Noe Urean MD [facility] HYPOTHYROIDISMHYPERCHOLESTEROLEMIAHTN ESSENTIAL-12/01 ECHO EF 60ABNORMAL ELECTROCARDIOGRAMSHORTNESS OF BREATH VITAL SIGNS Date Observation Value Provider blood pressure, diastolic 68 mm[Hg] Jessica Duvall blood pressure, systolic 124 mm[Hg] Saman Johnson RN pulse rate 86 /min John Duvall oxygen saturation, oximetry 98 % John Duvall respiratory rate E&M 16 /min John Duvall weight E&M 173 [lb_av] John Duvall blood pressure, diastolic 100 mm[Hg] Jl Johnson RN blood pressure, systolic 158 mm[Hg] Saman Johnson RN pulse rate 95 /min Saman Johnson RN oxygen saturation, oximetry 96 % Saman Johnson RN respiratory rate E&M 18 /min Saman Anne pabon RN weight E&M 168 [lb_av] Saman Johnson RN RESULTS Date Observation Value Provider Reference Range Interpretation Location prothrombin time (patient) 10.6 s Alissa Linares PTT patient 30 s Alissa Linares international normalized ratio (INR) 1.0 Alissa Linares albumin/globulin ratio, serum 1.6 [facility] protein, total, serum 7.0 g/dL [facility] albumin, serum 4.3 g/dL [facility] bilirubin, serum, total 0.3 mg/dL [facility] alkaline phosphatase, serum 77 1/L [facility] alanine aminotransferase (SGPT), serum 23 1/L [facility] aspartate aminotransferase (SGOT), serum 25 1/L [facility] calcium, serum 9.3 mg/dL [facility] blood glucose, fasting 102 mg/dL [facility] creatinine, serum 1.12 mg/dL [facility] urea nitrogen, blood 18 mg/dL [facility] carbon dioxide, serum, total 21 mmol/L [facility] chloride, serum 107 mmol/L [facility] potassium, serum 4.4 mmol/L [facility] sodium, serum 139 mmol/L [facility] globulins, serum, total 2.7 g/dL [facility] thyroid stimulating hormone, serum 3.84 u[IU]/mL [facility] Estimated Glomerular Filtration Rate (calc) 53 mL/min/{1 .73_m2} [facility] cholesterol/HDL ratio, serum 3.5 Alissa Linares triglyceride, serum, fasting 161 mg/dL Alissa Linares HDL cholesterol, serum 44 mg/dL Alissa Linares LDL cholesterol, serum 104 mg/dL Alissa Linares cholesterol, serum 190 mg/dL Alissa Linares platelet count 183 10*3/uL Alissa Linares red blood cell distribution width 14.0 % Alissa Linares mean corpuscular hemoglobin concentration, RBC 34.1 g/dL Alissa Linares mean corpuscular hemoglobin, RBC 31.6 pg Alissa Linares mean corpuscular volume, RBC 93.3 fL Alissa Linares hematocrit, blood 41.7 % Alissa Linares hemoglobin, blood 14.2 g/dL Alissa Linares erythrocyte (RBC) count 4.47 10*6/mm3 Alissa Linares leukocyte count, blood 8.9 10*3/mm3 Alissa Linares HISTORY OF MEDICATION USE Medication Status Instructions Dates Provider Indications Com ments DICLOFENAC SODIUM 75 MG ORAL TABLET DELAYED RELEASE active 1 tablet by moutht wice daily as needed John Duvall HYDROCODONE-ACETA MINOPHEN 5-325 MG ORAL TABLET active 1-2 tablets by mouth every 4 hours as needed John Duvall METHOCARBAMOL 750 MG ORAL TABLET active 1 tablet by mouth ever 6 hours as needed John Duvall COREG 6.25 MG ORAL TABLET completed ONE TAB. TWICE DAILY - 1 John Duvall MELATONIN 3 MG ORAL TABLET active 3-5 tablets by mouth at bedtime John Duvall IBUPROFEN PM 200-38 MG ORAL TABLET active 2 tablets by mouth at bedtime John Duvall VITAMIN D (ERGOCALCIFEROL) 99565 UNIT ORAL CAPSULE active 1 capsule by mouth once per week John Duvall ESTRADIOL 1 MG ORAL TABLET active 1 tablet by mouth daily John Duvall LOVASTATIN 20 MG ORAL TABLET active 1 ablet by mouth daily John Duvall CELEBREX 200 MG ORAL CAPSULE active 1 capsule by mouth daily John Duvall LEVOTHYROXINE SODIUM 75 MCG ORAL TABLET active 1 tablet by mouth daily John Duvall SOCIAL HISTORY Date Observation Value Provider social history reviewed E&M reviewed Saman Johnson RN social history E&M L naif with family/friends E thnicity: Saman Johnson RN social history reviewed E&M reviewed Saman Johnson RN physical exercise, f requency, days per week yes [employer] caffeine use, averag e drinks per day yes [employer] alcohol use, average drinks per day social basis only [employer] number of years as a smoker less than 10 years [employer] smoking status Quit [facility] MENTAL STATUS Date Observation Value Provider assessment of judgme nt and insight E&M Alert and oriented to time, place and person. Mood and affect are normal. Saman Johnson RN assessment of judgme nt and insight E&M Alert and oriented to time, place and person. Mood and affect are normal. Saman Johnson RN INSURANCE PROVIDERS Payer name Policy type / Coverage type [place] [employer] ID [facility] [id number] TREATMENT PLAN Date Name Performer Follow-up on Echo re sult: H er updated medication list for this problem includes: Levothyroxine Sodium 75 Mcg Tabs (Levothyroxine sodium) ..... 1 tablet by mouth daily Labs Reviewed: TSH: 3.84 (11/23/2010) C hol: 190 (11/23/2010) HDL: 44 (11/23/2010) LDL: 104 (11/23/2010) T (11/23/2010) Noe Urena MD Follow-up on Echo re sult: H er updated medication list for this problem includes: Lovastatin 20 Mg Tabs (Lovastatin) ..... 1 ablet by mouth daily BP today: 112/68 Prior BP: 158/100 (11/26/2010) C HOL: 190 (11/23/2010) LDL: 104 (11/23/2010) HDL: 44 (11/23/2010) T (11/23/2010) Noe Urena MD Follow-up on Echo re sult: T he following medications were removed from the medication list: Coreg 6.25 Mg Tabs (Carvedilol) ..... One tab. twice daily BP today: 112/68 P rior BP: 158/100 (11/26/2010) Labs Reviewed: C reat: 1.12 (11/23/2010) C hol: 190 (11/23/2010) HDL: 44 (11/23/2010) LDL: 104 (11/23/2010) T (11/23/2010) Noe Urena MD Follow-up on Echo re sult: T he following medications were removed from the medication list: Coreg 6.25 Mg Tabs (Carvedilol) ..... One tab. twice daily BP today: 112/68 Prior BP: 158/100 (11/26/2010) H gb: 14.2 (11/23/2010) HCT: 41.7 (11/23/2010) RBC: 4.47 (11/23/2010) WBC: 8.9 (11/23/2010) B UN: 18 (11/23/2010) Creat: 1.12 (11/23/2010) Glucose: 102 (11/23/2010) N a+: 139 (11/23/2010) K+: 4.4 (11/23/2010) Cl: 107 (11/23/2010) Calcium: 9.3 (11/23/2010) TSH: 3.84 (11/23/2010) Echocardiogram: Normal left ventricular systolic function. Normal left ventricular size. Normal left ventricular wall thickness. There is E to A wave reversal consistent with impaired LV relaxation. Normal E/E` 12.0. Left ventricular ejection fraction is estimated at 60%. There is mild enlargement of the left atrium. There is non-specific thickening of the mitral valve leaflets. There is trace physiologic mitral valve regurgitation. - GC (12/02/2010) Noe Urena MD Follow-up on Echo re sult: T he following medications were removed from the medication list: Coreg 6.25 Mg Tabs (Carvedilol) ..... One tab. twice daily BP today: 112/68 Prior BP: 158/100 (11/26/2010) E chocardiogram: Normal left ventricular systolic function. Normal left ventricular size. Normal left ventricular wall thickness. There is E to A wave reversal consistent with impaired LV relaxation. Normal E/E` 12.0. Left ventricular ejection fraction is estimated at 60%. There is mild enlargement of the left atrium. There is non-specific thickening of the mitral valve leaflets. There is trace physiologic mitral valve regurgitation. - GC (12/02/2010) H gb: 14.2 (11/23/2010) HCT: 41.7 (11/23/2010) RBC: 4.47 (11/23/2010) WBC: 8.9 (11/23/2010) B UN: 18 (11/23/2010) Creat: 1.12 (11/23/2010) Glucose: 102 (11/23/2010) N a+: 139 (11/23/2010) K+: 4.4 (11/23/2010) Cl: 107 (11/23/2010) SGOT (AST): 25 (11/23/2010) SGPT (ALT): 23 (11/23/2010) TSH: 3.84 (11/23/2010) Noe Urena MD surgical clearance : has prolonged qt s he is clear to have her back surgery and is low risk w ill however check an echo to ensure her lv function is fine as she c/o sob on exertion. Noe Urena MD surgical clearance : Please adjust cholesterol medication to keep LDL less than 70 and HDL greater than 50 H er updated medication list for this problem includes: Lovastatin 20 Mg Tabs (Lovastatin) ..... 1 ablet by mouth daily Noe Urena MD surgical clearance : H er updated medication list for this problem includes: Levothyroxine Sodium 75 Mcg Tabs (Levothyroxine sodium) ..... 1 tablet by mouth daily Noe Urena MD Date Name Complete Echo
--- OUTSIDE RECORDS SUMMARY | 2024-04-16 13:43 | XMS_ITS | Referral Summary ---
Author Organization [facility] [employer] Address [address] [address] Care Team Providers Care Product Development Technician Name Role Phone Robert Donaldson Source Comments [facility],non-owned Affiliates and Associated Physician Practices is amultiple site organization consisting of ambulatory clinics and hospital sitesin [place], [place], [place] and [place]. This disclosure is being madepursuant to the Care Everywhere program and may not contain all information available regarding this patient. Last updated 17.[facility] [employer] Allergies Active Allergy Reactions Criticality Noted Date Comments Penicillins Rash Low 11/16/2010 Medications * Be aware that medications may not be up to date on this document. Alwaysverify current medications with the patient. Medication Sig Dispensed Refills Start Date End Date Status levothyroxine (SYNTHROID) 75 MCG tablet once daily. Active lovastatin (MEVACOR) 20 MG tablet 20 mg at bedtime. Activ e estradiol (ESTRACE) 1 MG tablet once daily. Active vitamin D2 (ERGOCALCIFEROL) 85187 UNIT capsule every 7 days. Act claritza carvedilol (COREG) 6.25 MG tablet Take 6.25 mg by mouth 2 times daily with breakfast and dinner. Active methocarbamol (ROBAXIN) 750 MG tablet Take 1 Tab by mouth every 6 hours as needed for Muscle Spasms. 40 Tab 1 12/08/2010 Active fentaNYL (DURAGESIC) 12 MCG/HR patch Apply 1 Patch to skin every 3 days. 10 Patch 0 02/17/2011 Active oxycodone, immediate release, (ROXICODONE) 5 MG tablet Take 1 Tab by mouth every 6 hours as needed for Pain. 30 Tab 0 02/17/2011 Active oxyCODONE CR 12hr (OXYCONTIN) 40 MG tablet Take 1 Tab by mouth every 12 hours. 120 0 02/17/2011 Active ibuprofen (MOTRIN) 600 MG tablet Take 1 Tab by mouth 3 times daily. 30 Tab 0 02/17/2011 Active diazepam (VALIUM) 5 MG tablet Take 1 Tab by mouth 3 times daily as needed for Anxiety. Prn for anxiety and muscle spasms. 30 Tab 0 02/17/2011 Active citalopram (CELEXA) 20 MG tablet Take 1 Tab by mouth once daily. 30 0 02/17/2011 Active bisacodyl (DULCOLAX) 10 MG suppository Insert 1 Suppository into the rectum once daily as needed for Constipation. 30 0 02/17/2011 Active polyethylene glycol 3350 (MIRALAX) packet Take 17 g by mouth 2 times daily as needed for Constipation. 7 Packet 1 02/17/2011 Active senna-docusate (SENOKOT-S) 8.6-50 MG tablet Take 1 Tab by mouth 2 times daily. 30 Tab 0 02/17/2011 Active baclofen (LIORESAL) 10 MG tablet Take 1 Tab by mouth at bedtime. 30 Tab 0 02/17/2011 Active baclofen (LIORESAL) 10 MG tablet Take 0.5 Tabs by mouth 2 times daily as needed (for muscle spasm/pain). 30 Tab 0 02/17/2011 Active omeprazole (PRILOSEC) 20 MG capsule Take 1 Cap by mouth daily before breakfast. 30 Cap 0 02/17/2011 Active Active Problems Problem Noted Date Diagnosed Date Follow-up examination, following other surgery 1 02/27/2010 Displacement of lumbar inter vertebral disc without myelopathy 11/17/2010 Social History Tobacco Use Types Packs/Day Years Used Date Smoking Tobacco: Former Smokeless Tobacco: Never Tobacco Cessation:Counseling Given: No Comments:quit 15 yrs ago Alcohol Use Standard Drinks/Week Comments Yes 0 (1 standard drink = 0.6 oz pur e alcohol) occasional Sex and Gender Information Value Date Recorded Sex Assigned at Not on file Gender Identity Not on file Sexual Orientation Not on file Last Filed Vital Signs Vital Sign Reading Time Taken Comments Blood Pressure 90/46 02/17/2011 3:50 PM [employer] Pulse 63 02/17/2011 3:50 PM [employer] Temperature 36.8 C (98.3 F) 02/17/2011 3:50 PM [employer] Respiratory Rate 18 02/17/2011 3:50 PM [employer] Oxygen Saturation 97% 02/17/2011 3:50 PM [employer] Inhaled Oxygen Concentration - - Weight 70.3 kg (155 lb) 03/24/2011 10:09 AM [employer] Height 160 cm (5' 3 ) 03/24/2011 10:09 AM [employer] Body Mass Index 27.46 03/24/2011 10:09 AM [employer] Plan of Treatment Not on file Advance Directives * FULL RESUSCITATION (Latest Code Status on File) Date Activated Date Inactivated Comments 01/30/2011 4:53 PM 02/18/2011 5:21 AM * FULL RESUSCITATION Date Activated Date Inactivated Comments 01/30/2011 4:24 PM 01/30/2011 4:53 PM * FULL RESUSCITATION Date Activated Date Inactivated Comments 12/08/2010 2:39 PM 12/09/2010 11:23 PM Care Teams Product Development Technician Relationship Specialty Start Date End Date Robret Donaldson [address] [id number] Orthopedic 11/16/10
--- OUTSIDE RECORDS SUMMARY | 2024-04-16 13:43 | XMS_ITS | Clinical Summary ---
Author Organization [facility] Address [address], [address] [address] Phone Care Team Providers Care Packing Floor Worker Name Role Phone Keith Foreman MD Primary Care Provider Delphine Hahn MD Unavailable [phone] Pihl Rosales MD Unavailable [phone] Lino Castaneda DO Unavailable [phone] Allergies Active Allergy Reactions Criticality Noted Date Comments Ciprofloxacin Vomiting 08/29/2009 Penicillins Unknown 07/11/2015 Medications polyethylene glycol (MIRALAX) Powder Mix the entire bottle with 64 oz of a clear liquid. Use as directed by the office for colonoscopy prep. 255 g 0 6 Active Additional Information Patient not taking.Reported on 09/13/2019 buPROPion (WELLBUTRIN) 75 MG Tablet Take 75 mg by mouth daily. 2 TABS Active DULoxetine (CYMBALTA) [address] Particles Take 60 mg by mouth daily. Active levothyroxine (SYNTHROID) 75 MCG Tablet Take 75 mcg by mouth daily. Active lovastatin (MEVACOR) 40 MG Tablet Take 40 mg by mouth daily. Active metFORMIN (GLUCOPHAGE) 1000 MG Tablet Take 1,000 mg by mouth 2 times daily (with meals). Active pioglitazone (ACTOS) 30 MG Tablet Take 30 mg by mouth every morning. Active metoprolol Succinate (TOPROL-XL) 50 MG TABLET SR 24 HR Take 50 mg by mouth nightly. Active Cholecalciferol (VITAMIN D PO) Take 50,000 Units by mouth once a week. Tuesday Active cyclobenzaprine (FLEXERIL) 10 MG Tablet Take 10 mg by mouth 3 times daily as needed for Muscle spasms. Active melatonin 3 MG TabletIndicatio ns:Insomnia Take 10 mg by mouth nightly. 10MG HS PRN Indications: Trouble Sleeping Active Multiple Vitamin (MULTI-VITAMIN) Tablet Take 1 Tab by mouth daily. Active lisinopril (PRINIVIL, ZESTRIL) 5 MG Tablet TK 1 T PO D. TK WITH 10MG T 0 Active lisinopril (PRINIVIL, ZESTRIL) 10 MG Tablet TK 1 T PO Q DAY 9 Active GABAPENTIN PO Take by mouth. Take by mouth Active Probiotic Product (PROBIOTIC-10 PO) Take by mouth. Activ e RALOXIFENE HCL PO Take by mouth. Activ e OMEPRAZOLE PO Take by mouth. 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 Immunizations Immunization Administration Dates Next Due Covid-19, Mrna, Lnp-s, PF, 1 00 mcg/0.5 mL Dose (Moderna) 04/25/2020,03/28/2020 Influenza, high-dose, trivalent, PF 12/18/2018 Family History Medical History Relation Name Comments Colon Cancer Brother Cancer Father liver Colon Cancer Other niece 15 yo Colon Cancer Paternal Aunt Colon Cancer Paternal Grandmother Relation Name Status Comments Brother Father Alive Mother Alive Other Paternal Aunt Paternal Grandmother Social History Tobacco Use Types Packs/Day Years Used Date Smoking Tobacco: Never Smokeless Tobacco: Never Tobacco Cessation:Counseling Given: No Alcohol Use Standard Drinks/Week Comments Yes 0 (1 standard drink = 0.6 oz pur e alcohol) on occasion Comments No Sex and Gender Information Value Date Recorded Sex Assigned at Not on file Legal Sex Female 8:59 PM CDT Gender Identity Not on file Sexual Orientation Not on file Occupation Industry Job Start Date Job End Date Retired Not on file Not on file Not on file Last Filed Vital Signs Vital Sign Reading Time Taken Comments Blood Pressure 122/74 09/13/2019 12:35 PM CDT Pulse 93 09/13/2019 12:35 PM CDT Temperature 36 C (96.8 F) 09/13/2019 12:35 PM CDT Respiratory Rate 18 09/13/2019 12:35 PM CDT Oxygen Saturation 96% 09/13/2019 12:35 PM CDT Inhaled Oxygen Concentration - - Weight 69.4 kg (153 lb) 09/13/2019 12:35 PM CDT Height 157.5 cm (5' 2 ) 09/13/2019 12:35 PM CDT Body Mass Index 27.98 09/13/2019 12:35 PM CDT Plan of Treatment Health Maintenance Due Date Last Done Comments DEXA Bone Density 1948 Diabetes: Eye Exam 1948 Diabetes: Foot Exam 1948 Diabetes: Hemoglobin A1c 1950 Hepatitis C Virus (HCV) Screening 1950 TdaP Immunization 1950 Diabetes: Nephropathy Screening 01/22/1966 Zoster Immunization (1 of 2) 01/22/1998 Pneumococcal Immunization (50+ years) (2 of 2 - PPSV23) 03/29/2016 02/02/2016 Respiratory Syncytial Virus (RSV) Immunization (Adult) (1 - 1-dose 75+ series) 01/22/2023 Influenza Immunization (#1) 10/23/202301/21, 12/18/2018, 10/31/2017, Additional history exists SARS-COV-2 Immunization ( season) 2023 07/28/2021, 12/24/2020, 04/25/2020, Additional history exists Pneumococcal Immunization Combined Discontinued 02/02/2016 Colonoscopy High Risk Discontinued 10/03/2019, 016 Colonoscopy Discontinued 10/03/2019, 07/11/2015 Colorectal Cancer Screening Discontinued Cologuard Discontinued Hepatitis B Immunization Aged Out No longer eligible based on patient's age to complete this topic Immunochemical Fecal Occult Blood Discontinued Meningococcal Immunization (ACWY) Aged Out No longer eligible based on patient's age to complete this topic Rotavirus Immunization Aged Out No lo nger eligible based on patient's age to complete this topic Procedures Procedure Name Priority Date/Time Associated Diagnosis Comments HM COLONOSCOPY Routine 10/03/2019 from Last 3 Months or Most Recently Relevant to Health Maintenance Results * HM COLONOSCOPY (10/03/2019) Lino Castaneda DO PROCEDURE/MINOR SURGICAL ORDERA BLES Final Result from Last 3 Months or Most Recently Relevant to Health Maintenance Insurance MEDICARE Care Teams Packing Floor Worker Relationship Specialty Start Date End Date Keith Foreman MD [address] [place] [address] PCP - General Family Medicine 07/31/19 Delphine Hahn MD [address] [place] [address] Obstetrics & Gynecology 09/13/19 Phil Rosales MD [address] [place] [address] Consulting Physician Nephrology 09/13/19 Lino Castaneda DO [address] [address] Consulting Physician Gastroenterology 09/13/19
--- OUTSIDE RECORDS SUMMARY | 2024-04-16 13:43 | XMS_ITS | Patient Health Summary ---
Author Organization [facility] Address [address] [place] [address] Care Team Providers Care Pig Machine Crane Operator Name Role Phone Robert Donaldson Note from [facility],non-owned Affiliates and Associated Physician Practices is amultiple site organization consisting of ambulatory clinics and hospital sitesin [place], [place], [place] and [place]. This disclosure is being madepursuant to the Care Everywhere program and may not contain all information available regarding this patient. Last updated 17.[facility] Allergies * Penicillins(Rash) -Low Criticality Medications * Be aware that medications may not be up to date on this document. Alwaysverify current medications with the patient. * levothyroxine (SYNTHROID) 75 MCG tablet once daily. * lovastatin (MEVACOR) 20 MG tablet 20 mg at bedtime. * estradiol (ESTRACE) 1 MG tablet once daily. * vitamin D2 (ERGOCALCIFEROL) 28637 UNIT capsule every 7 days. * carvedilol (COREG) 6.25 MG tablet Take 6.25 mg by mouth 2 times daily with breakfast and dinner. * methocarbamol (ROBAXIN) 750 MG tablet(Started 12/08/2010) Take 1 Tab by mouth every 6 hours as needed for Muscle Spasms. 1 refill left * fentaNYL (DURAGESIC) 12 MCG/HR patch(Started 02/17/2011) Apply 1 Patch to skin every 3 days. * oxycodone, immediate release, (ROXICODONE) 5 MG tablet(Started 02/17/2011) Take 1 Tab by mouth every 6 hours as needed for Pain. * oxyCODONE CR 12hr (OXYCONTIN) 40 MG tablet(Started 02/17/2011) Take 1 Tab by mouth every 12 hours. * ibuprofen (MOTRIN) 600 MG tablet(Started 02/17/2011) Take 1 Tab by mouth 3 times daily. * diazepam (VALIUM) 5 MG tablet(Started 02/17/2011) Take 1 Tab by mouth 3 times daily as needed for Anxiety. Prn for anxiety and muscle spasms. * citalopram (CELEXA) 20 MG tablet(Started 02/17/2011) Take 1 Tab by mouth once daily. * bisacodyl (DULCOLAX) 10 MG suppository(Started 02/17/2011) Insert 1 Suppository into the rectum once daily as needed for Constipation. * polyethylene glycol 3350 (MIRALAX) packet(Started 02/17/2011) Take 17 g by mouth 2 times daily as needed for Constipation. 1 refill left * senna-docusate (SENOKOT-S) 8.6-50 MG tablet(Started 02/17/2011) Take 1 Tab by mouth 2 times daily. * baclofen (LIORESAL) 10 MG tablet(Started 02/17/2011) Take 1 Tab by mouth at bedtime. * baclofen (LIORESAL) 10 MG tablet(Started 02/17/2011) Take 0.5 Tabs by mouth 2 times daily as needed (for muscle spasm/pain). * omeprazole (PRILOSEC) 20 MG capsule(Started 02/17/2011) Take 1 Cap by mouth daily before breakfast. Active Problems Problem Noted Date Diagnosed Date [...] Comments Blood Pressure 90/46 02/17/2011 3:50 PM DRY CELL ASSEMBLY SUPERVISOR Pulse 63 02/17/2011 3:50 PM DRY CELL ASSEMBLY SUPERVISOR Temperature 36.8 C (98.3 F) 02/17/2011 3:50 PM DRY CELL ASSEMBLY SUPERVISOR Respiratory Rate 18 02/17/2011 3:50 PM DRY CELL ASSEMBLY SUPERVISOR Oxygen Saturation 97% 02/17/2011 3:50 PM DRY CELL ASSEMBLY SUPERVISOR Inhaled Oxygen Concentration - - Weight 70.3 kg (155 lb) 03/24/2011 10:09 AM DRY CELL ASSEMBLY SUPERVISOR Height 160 cm (5' 3 ) 03/24/2011 10:09 AM DRY CELL ASSEMBLY SUPERVISOR Body Mass Index 27.46 03/24/2011 10:09 AM DRY CELL ASSEMBLY SUPERVISOR Procedures * MRI LUMBAR SPINE WWO CONTRAST(Performed 03/24/2011) Performed for Other postoperative infection * CREATININE BLOOD - POINT OF CARE (IP)(Performed 03/24/2011) * CK + CKMB PANEL(Performed 02/17/2011) * BASIC METABOLIC PANEL (CALCIUM TOTAL)(Performed 02/16/2011) * CBC W AUTO DIFFERENTIAL(Performed 02/16/2011) * BASIC METABOLIC PANEL (CALCIUM TOTAL)(Performed 02/16/2011) * CBC W AUTO DIFFERENTIAL(Performed 02/16/2011) * BASIC METABOLIC PANEL (CALCIUM TOTAL)(Performed 02/15/2011) * CBC W AUTO DIFFERENTIAL(Performed 02/15/2011) * BASIC METABOLIC PANEL (CALCIUM TOTAL)(Performed 02/14/2011) * CBC W AUTO DIFFERENTIAL(Performed 02/14/2011) * BASIC METABOLIC PANEL (CALCIUM TOTAL)(Performed 02/13/2011) * CBC W AUTO DIFFERENTIAL(Performed 02/13/2011) * CK + CKMB PANEL(Performed 02/13/2011) * IP CONSULT TO HOME HEALTH CARE(Performed 02/12/2011) * BASIC METABOLIC PANEL (CALCIUM TOTAL)(Performed 02/12/2011) * CBC W AUTO DIFFERENTIAL(Performed 02/12/2011) * BASIC METABOLIC PANEL (CALCIUM TOTAL)(Performed 02/11/2011) * CBC W AUTO DIFFERENTIAL(Performed 02/11/2011) * BASIC METABOLIC PANEL (CALCIUM TOTAL)(Performed 02/10/2011) * CBC W AUTO DIFFERENTIAL(Performed 02/10/2011) * MRI LUMBAR SPINE WWO CONTRAST(Performed 02/09/2011) Performed for Low back pain, Lumbar back pain, Displacement of lumbar intervertebral disc without myelopathy, Bacteremia, Follow-up examination, following other surgery * CBC W AUTO DIFFERENTIAL(Performed 02/08/2011) * BASIC METABOLIC PANEL (CALCIUM TOTAL)(Performed 02/08/2011) * CBC W AUTO DIFFERENTIAL(Performed 02/07/2011) * BASIC METABOLIC PANEL (CALCIUM TOTAL)(Performed 02/07/2011) * BASIC METABOLIC PANEL (CALCIUM TOTAL)(Performed 02/06/2011) * CBC W AUTO DIFFERENTIAL(Performed 02/06/2011) * MAGNESIUM BLOOD(Performed 02/05/2011) * BASIC METABOLIC PANEL (CALCIUM TOTAL)(Performed 02/05/2011) * BASIC METABOLIC PANEL (CALCIUM TOTAL)(Performed 02/05/2011) * CBC W AUTO DIFFERENTIAL(Performed 02/05/2011) * XR CHEST 1VW(Performed 02/04/2011) Performed for Status post PICC central line placement * IP CONSULT TO VASCULAR ACCESS NURSE(Performed 02/04/2011) * CK + CKMB PANEL(Performed 02/04/2011) * C-REACTIVE PROTEIN(Performed 02/04/2011) * BASIC METABOLIC PANEL (CALCIUM TOTAL)(Performed 02/04/2011) * CBC W AUTO DIFFERENTIAL(Performed 02/04/2011) * VANCOMYCIN LEVEL TROUGH(Performed 02/03/2011) * BASIC METABOLIC PANEL (CALCIUM TOTAL)(Performed 02/03/2011) * CBC W AUTO DIFFERENTIAL(Performed 02/03/2011) * CULTURE BLOOD(Performed 02/02/2011) * MRI HIP RIGHT WO CONTRAST(Performed 02/02/2011) Performed for Lumbar back pain * MRI LUMBAR SPINE WWO CONTRAST(Performed 02/02/2011) Performed for Lumbar back pain * ECHOCARDIOGRAM 2D WITH DOPPLER(Performed 02/02/2011) Performed for Lumbar back pain * BASIC METABOLIC PANEL (CALCIUM TOTAL)(Performed 02/02/2011) * CBC W AUTO DIFFERENTIAL(Performed 02/02/2011) * CT ABDOMEN PELVIS W CONTRAST(Performed 02/02/2011) Performed for Low back pain, Lumbar back pain, Bacteremia * BASIC METABOLIC PANEL (CALCIUM TOTAL)(Performed 02/01/2011) Performed for Low back pain * CBC W AUTO DIFFERENTIAL(Performed 02/01/2011) Performed for Low back pain * XR CHEST 1VW PORTABLE(Performed 01/31/2011) Performed for Displacement of lumbar intervertebral disc without myelopathy * ERYTHROCYTE SEDIMENTATION RATE(Performed 01/31/2011) Performed for Low back pain * C-REACTIVE PROTEIN(Performed 01/31/2011) Performed for Low back pain * TSH(Performed 01/31/2011) Performed for Hypothyroidism * BASIC METABOLIC PANEL (CALCIUM TOTAL)(Performed 01/31/2011) Performed for Displacement of lumbar intervertebral disc without myelopathy * CBC W AUTO DIFFERENTIAL(Performed 01/31/2011) Performed for Displacement of lumbar intervertebral disc without myelopathy * CULTURE BLOOD(Performed 01/31/2011) Performed for Low back pain * CULTURE BLOOD(Performed 01/31/2011) Performed for Low back pain * URINALYSIS REFLEX MICROSCOPIC REFLEX CULTURE(Performed 01/31/2011) Performed for Displacement of lumbar intervertebral disc without myelopathy * COMPREHENSIVE METABOLIC PANEL(Performed 01/30/2011) Performed for Displacement of lumbar intervertebral disc without myelopathy * CBC W AUTO DIFFERENTIAL(Performed 01/30/2011) Performed for Displacement of lumbar intervertebral disc without myelopathy * XR LUMBAR SPINE 2 OR 3VW(Performed 01/30/2011) Performed for Low back pain * XR SPINE 1 VIEW(Performed 12/08/2010) Performed for Pain Results * MRI SPINE LUMBAR WITH AND WITHOUT CONTRAST (03/24/2011 11:11 AM DRY CELL ASSEMBLY SUPERVISOR) Only the most recent of3 resultswithin the time period is included. Anatomical Region Laterality Modality Spine Magnetic Resonan ce Angiography 03/24/2011 1:02 PM DRY CELL ASSEMBLY SUPERVISOR Impressions 03/24/2011 1:02 PM DRY CELL ASSEMBLY SUPERVISOR Increased vertebral body and disc space signal change and enhancement at L4-L5 however decreased epidural enhancement and mass effect. No encroachment upon neural canal. Narrative 03/24/2011 1:02 PM DRY CELL ASSEMBLY SUPERVISOR MRI Lumbar spine with and without contrast Clinical: Followup lumbar osteomyelitis Technique: Multiplanar and multisequential images were obtained through the lumbar spine with and without 20cc omniscan Findings: Comparison is made with 02/09/2011. Signal abnormality and enhancement involving the inferior aspect of L4 in the superior aspect of L5 has increased slightly. There is no vertebral body compression. Abnormal signal and enhancement in the right epidural region is less pronounced. The neural canal at this level is widely patent. Left-sided ligamentum flavum hypertrophy and mild disc bulging persists narrowing the space around the left L5 nerve root as it exit the thecal sac but there is no significant nerve compression. Remainder of the lumbar vertebral bodies are unchanged. Scattered hemangiomas are present. Alignment is normal. Mild degenerative changes throughout the remainder of the lumbar spine are stable. The conus appears normal. Procedure Note Teresa Jerome MD - 03/24/2011 MRI Lumbar spine with and without contrast Clinical: Followup lumbar osteomyelitis Technique: Multiplanar and multisequential images were obtained through the lumbar spine with and without 20cc omniscan Findings: Comparison is made with 02/09/2011. Signal abnormality and enhancement involving the inferior aspect of L4 in the superior aspect of L5 has increased slightly. There is no vertebral body compression. Abnormal signal and enhancement in the right epidural region is less pronounced. The neural canal at this level is widely patent. Left-sided ligamentum flavum hypertrophy and mild disc bulging persists narrowing the space around the left L5 nerve root as it exit the thecal sac but there is no significant nerve compression. Remainder of the lumbar vertebral bodies are unchanged. Scattered hemangiomas are present. Alignment is normal. Mild degenerative changes throughout the remainder of the lumbar spine are stable. The conus appears normal. IMPRESSION Increased vertebral body and disc space signal change and enhancement at L4-L5 however decreased epidural enhancement and mass effect. No encroachment upon neural canal. Anjelica Walton MD MR ORDERABLES * CREATININE BLOOD - POINT OF CARE (IP) (03/24/2011 10:08 AM DRY CELL ASSEMBLY SUPERVISOR) Creatinine POCT 0.97 0.7 - 1.2 mg/dL [facility] POCT TEST[facility] QC Verified y Yes [facility] POC T TESTING Blood specimen (specimen) BLOOD SPECIMEN / Unknown 03/24/2011 10:08 AM DRY CELL ASSEMBLY SUPERVISOR Anjelica Walton MD LAB - POINT OF CARE ORDERABLES [place] [address] * CK + CKMB PANEL (02/17/2011 6:15 AM DRY CELL ASSEMBLY SUPERVISOR) Only the most recent of3 resultswithin the time period is included. CK 88 35 - 232 U/L [facility] CK-MB 1.5 0.0 - 5.0 ng/mL [facility] Blood specimen (specimen) BLOOD SPECIMEN / Unknown 02/17/2011 6:15 AM DRY CELL ASSEMBLY SUPERVISOR 02/17/2011 6:19 AM DRY CELL ASSEMBLY SUPERVISOR Anjelica Walton MD LAB - CHEMISTRY ORDE RABLES Performing Organization Address City/[facility]/ZIP Co de Phone Number [facility] [address] [place] [address] * (ABNORMAL) CBC W AUTO DIFFERENTIAL (02/16/2011 9:45 PM DRY CELL ASSEMBLY SUPERVISOR) Only the most recent of18 resultswithin the time period is included. WBC 13.8(DH) 4.0 - 10.0 K/CUMM [facility] RBC 4.37 3.80 - 5.80 M/CUMM [facility] Hemoglobin 12.8 12.0 - 16.0 gm/dL [facility] Hematocrit 37.9 37.0 - 47.0 % [facility] MCV 86.7(DE) 80.0 - 100.0 fl [facility] MCH 29.3 26.0 - 34.0 pg [facility] MCHC 33.8 31.0 - 37.0 gm/dL [facility] Platelet Count 389 150 - 400 K/CUMM [facility] RDW 12.6 11.5 - 14.5 % [facility] Granulocytes % 77.8(DH) 50 - 70 % [facility] Lymphocytes % 15.8(DL) 20 - 40 % [facility] Monocytes % 5.7 0 - 12 % [facility] Eosinophils % 0.1(DE) 0 - 5 % [facility] Basophils % 0.2(DE) 0 - 2 % [facility] Granulocytes Absolute 10.73(H) 2.00 - 7.00 x1000/cmm [facility] Lymphocytes Absolute 2.18 0.80 - 4.00 x1000/cmm [facility] Monocytes Absolute 0.79 0.00 - 1.20 x1000/cmm [facility] Eosinophils Absolute 0.02 0.00 - 0.50 x1000/cmm [facility] Basophils Absolute 0.03 0.00 - 0.20 x1000/cmm [facility] Blood specimen (specimen) BLOOD SPECIMEN / Unknown 02/16/2011 9:45 PM DRY CELL ASSEMBLY SUPERVISOR 02/16/2011 9:49 PM DRY CELL ASSEMBLY SUPERVISOR Candido Barber MD LAB - HEMATOLOGY ABI LIRA [facility] [address] [place] [address] * (ABNORMAL) BASIC METABOLIC PANEL (CALCIUM TOTAL) (02/16/2011 9:45 PM DRY CELL ASSEMBLY SUPERVISOR) Only the most recent of18 resultswithin the time period is included. Sodium 135(DL) 136 - 145 mmol/L [facility] Potassium 3.6 3.5 - 5.1 mmol/L [facility] Chloride 99 98 - 107 mmol/L [facility] BUN 14 7 - 21.0 mg/dl [facility] Creatinine 0.74 0.5 - 1.3 mg/dl [facility] Glucose 132(H) 65 - 105 mg/dl [facility] CO2 26 22 - 30 mmol/L [facility] Calcium 9.3 8.5 - 10.1 mg/dl [facility] eGFR by MDRD >60 >60 mL/min/1.7 3m2 [facility] Comment eGFR [facility] Comment: The eGFR does not apply to patients who are younger than 18 or older than 70. Blood specimen (specimen) BLOOD SPECIMEN / Unknown 02/16/2011 9:45 PM DRY CELL ASSEMBLY SUPERVISOR 02/16/2011 9:49 PM DRY CELL ASSEMBLY SUPERVISOR Candido Barber MD LAB - CHEMISTRY LILY MANN [facility] Organization Address City/State/[facility] Co de Phone Number [facility] [address] [place] [address] * IP CONSULT TO HOME CARE (02/12/2011 5:43 PM DRY CELL ASSEMBLY SUPERVISOR) Narrative Caroline Parson LPN - 02/12/2011 5:43 PM DRY CELL ASSEMBLY SUPERVISOR Caroline aPrson LPN 02/12/2011 5:43 PM Home care orders received. Spoke with patient to verify information and patient agrees to allow [facility] to follow upon discharge. If patient discharges over the weekend, please call [facility] Home Care's after hours/weekend line, ,option 1, PRIOR to discharge. Thank you for this referral. Caroline Parson LPN, Senior Office Support Assistant Sosa, Procedure Note Caroline Parson LPN - 02/12/2011 5:42 PM CST Home care orders received. Spoke with patient to verify information andpatient agrees to allow [facility] to follow upon discharge. If patientdischarges over the weekend, please call [facility] Home Care's afterhours/weekend line, ,option 1, PRIOR to discharge. Thank youfor this referral. Caroline Parson LPN, Senior Office Support Assistant Sosa, Candido Barber MD INPATIENT ANCILLARY CONSULT * MAGNESIUM BLOOD (02/05/2011 3:20 PM DRY CELL ASSEMBLY SUPERVISOR) Magnesium 2.4 1.6 - 2.6 mg/dl [facility] Blood specimen (specimen) BLOOD SPECIMEN / Unknown 02/05/2011 3:20 PM DRY CELL ASSEMBLY SUPERVISOR 02/05/2011 4:27 PM DRY CELL ASSEMBLY SUPERVISOR Candido Barber MD LAB - CHEMISTRY LILY MANN [facility] Organization Address City/State/[facility] Co de Phone Number [facility] [address] [place] [address] * XR CHEST PA OR AP (02/04/2011 10:44 AM DRY CELL ASSEMBLY SUPERVISOR) Anatomical Region Laterality Modality Chest Radio Fluoroscop y 02/04/2011 10:4 2 AM DRY CELL ASSEMBLY SUPERVISOR Impressions 02/04/2011 10:42 AM DRY CELL ASSEMBLY SUPERVISOR 1. Right upper extremity PICC placement per above. Narrative 02/04/2011 10:42 AM DRY CELL ASSEMBLY SUPERVISOR HISTORY: PICC placement. AP chest 02/04/2011 at 1031 hours. FINDINGS: Since 01/31/2011, a right upper extremity PICC is in place with the tip ending near the inferior cavoatrial junction. Recommend withdrawal of the picc 4.0 to 5.0 cm. The lungs are clear. The heart size is unchanged. The mediastinum and bony thorax are unremarkable. Procedure Note Mauricio Reynolds MD - 02/04/2011 HISTORY: PICC placement. AP chest 02/04/2011 at 1031 hours. FINDINGS: Since 01/31/2011, a right upper extremity PICC is in place with the tip ending near the inferior cavoatrial junction. Recommend withdrawal of the picc 4.0 to 5.0 cm. The lungs are clear. The heart size is unchanged. The mediastinum and bony thorax are unremarkable. IMPRESSION 1. Right upper extremity PICC placement per above. Kenji Sheppard MD DIAGNOSTIC IMAGING O RDERABLES * IP CONSULT TO VASCULAR ACCESS NURSE (02/04/2011 8:44 AM DRY CELL ASSEMBLY SUPERVISOR) Mono Dacosta RN - 02/04/2011 8:44 AM DRY CELL ASSEMBLY SUPERVISOR Mono Gomez RN 02/04/2011 8:[address] per request. See doc flowsheet for details. Kenji Sheppard MD INPATIENT ANCILLARY CONSULT * (ABNORMAL) C-REACTIVE PROTEIN (02/04/2011 6:15 AM DRY CELL ASSEMBLY SUPERVISOR) Only the most recent of2 resultswithin the time period is included. Pathologist [facility] [place] C-Reactive Protein 11.0(H) 0.000 - 0.500 mg/dl [facility] Blood specimen (specimen) BLOOD SPECIMEN / Unknown 02/04/2011 6:15 AM DRY CELL ASSEMBLY SUPERVISOR 02/04/2011 6:23 AM DRY CELL ASSEMBLY SUPERVISOR Candido Barber MD LAB - CHEMISTRY LILY MANN Performing Organization Address City/[facility] Co de Phone Number [facility] [address] [place] [id number] * VANCOMYCIN LEVEL TROUGH (02/03/2011 2:30 PM DRY CELL ASSEMBLY SUPERVISOR) Pathologist [facility] [place] Vancomycin Trough 12.2 5.0 - 15.0 ug/ml [facility] Blood specimen (specimen) BLOOD SPECIMEN / Unknown 02/03/2011 2:30 PM DRY CELL ASSEMBLY SUPERVISOR 02/03/2011 2:33 PM DRY CELL ASSEMBLY SUPERVISOR Candido Barber MD LAB - CHEMISTRY LILY MANN Performing Organization Address City/[facility] Co de Phone Number [facility] [address] [place] [address] * CULTURE BLOOD (02/02/2011 5:25 PM DRY CELL ASSEMBLY SUPERVISOR) Only the most recent of3 resultswithin the time period is included. Result [facility] Comment: Final No growth No growth Blood specimen (specimen) PERIPHERAL BLOOD / Unknown 02/02/2011 5:25 PM DRY CELL ASSEMBLY SUPERVISOR 02/02/2011 5:37 PM DRY CELL ASSEMBLY SUPERVISOR Narrative Resulting Agency Comment Performed By [facility];[address];[place] [address] Anjelica Walton MD LAB - MICROBIOLOGY O RDERABLES [facility] [address] [place] [address] * MRI HIP WO CONT RIGHT (02/02/2011 2:25 PM DRY CELL ASSEMBLY SUPERVISOR) Anatomical Region Laterality Modality Magnetic Resonan ce 02/02/2011 4:32 PM DRY CELL ASSEMBLY SUPERVISOR Impressions 02/02/2011 4:46 PM DRY CELL ASSEMBLY SUPERVISOR Normal right hip. Narrative 02/02/2011 4:46 PM DRY CELL ASSEMBLY SUPERVISOR MRI right hip, noncontrast Date: 02/02/2011. INDICATION: Hip pain. Intrinsic abnormality versus radiculopathy. Prior lumbar laminectomy. Technique: Multiplanar, multisequence nonenhanced MRI through the hips and portions of the sacrum. The patient could not tolerate the enhanced portion of the exam due to discomfort. FINDINGS: The hips are symmetric and unremarkable. Joint spaces are preserved and without effusion, mass or avascular necrosis. There is no fracture. The acetabulae and rami are symmetric and normal. There is no bursa effusion. The visualized portions of the sacrum and iliac bones are unremarkable. Procedure Note Angelia Webber MD - 02/02/2011 MRI right hip, noncontrast Date: 02/02/2011. INDICATION: Hip pain. Intrinsic abnormality versus radiculopathy. Prior lumbar laminectomy. Technique: Multiplanar, multisequence nonenhanced MRI through the hips and portions of the sacrum. The patient could not tolerate the enhanced portion of the exam due to discomfort. FINDINGS: The hips are symmetric and unremarkable. Joint spaces are preserved and without effusion, mass or avascular necrosis. There is no fracture. The acetabulae and rami are symmetric and normal. There is no bursa effusion. The visualized portions of the sacrum and iliac bones are unremarkable. IMPRESSION Normal right hip. Candido Barber MD MR ORDERABLES * ECHOCARDIOGRAM 2D WITH DOPPLER (02/02/2011 8:09 AM DRY CELL ASSEMBLY SUPERVISOR) 02/02/2011 8:09 AM DRY CELL ASSEMBLY SUPERVISOR Narrative [facility] - 02/03/2011 8:[address] [address] Transthoracic Echocardiogram 2D, M-mode, Doppler, and Color Doppler Patient: SHAHZAD GHOSH MR number: [id number] Height: 63 in Weight: 169.6 lb BSA: 1.8 m Study date: 02-Feb-2011 : 1950 Age: 61 years Gender: Female Race: Referring Physician: Kenji Sung MD Chemical Unit Operator: Hung Gill [facility] Reading Physician: Luis Mckenna MD Summary: - Clinical question: - LUMBAR BACK PAIN, INFECTION - History: - S/P BACK SURGERY, BLADDER DISEASE, HYOOTHYROID - Left ventricle: - Systolic function was normal. Ejection fraction was estimated in the range of 55 % to 65 %. - There were no regional wall motion abnormalities. - Wall thickness was mildly increased. Indications: LUMBAR BACK PAIN, INFECTION History: Prior history: S/P BACK SURGERY, BLADDER DISEASE, HYOOTHYROID Procedure: The procedure was performed in the echo lab. This was a routine study. ECHO COMPLETE AT 0845 The transthoracic approach was used. The study included complete 2D imaging, M-mode, complete spectral Doppler, and color Doppler. Systolic blood pressure was 135 mmHg. Diastolic blood pressure was 70 mmHg. Images were obtained from the parasternal, apical, subcostal, and suprasternal notch acoustic windows. Left ventricle: Size was normal. Systolic function was normal. Ejection fraction was estimated in the range of 55 % to 65 %. There were no regional wall motion abnormalities. Wall thickness was mildly increased. Doppler: There was an increased relative contribution of atrial contraction to ventricular filling. Aortic valve: The valve was trileaflet. Leaflets exhibited normal thickness and normal cuspal separation. Doppler: There was no stenosis. There was no regurgitation. Aorta: The root exhibited normal size. Mitral valve: Valve structure was normal. There was normal leaflet separation. Doppler: The transmitral velocity was within the normal range. There was no evidence for stenosis. There was no regurgitation. Left atrium: Size was normal. Right ventricle: The size was normal. Systolic function was normal. Wall thickness was normal. Pulmonic valve: Leaflets exhibited normal thickness, no calcification, and normal cuspal separation. Doppler: There was no regurgitation. Pulmonary artery: The size was normal. Doppler: Systolic pressure was within the normal range. Tricuspid valve: The valve structure was normal. There was normal leaflet separation. Doppler: The transtricuspid velocity was within the normal range. There was no evidence for tricuspid stenosis. There was no regurgitation. Right atrium: Size was normal. Pericardium: The pericardium was normal in appearance. System measurement tables 2D IVSd: 1 cm LVOT Diam: 2.1 cm LA Diam: 3 cm LVIDd: 4.5 cm LVIDs: 2.9 cm LVPWd: 1 cm LAESV A-L A2C: 41.9 ml LAESV A-L A4C: 27.9 ml LAESV MOD A2C: 41.8 ml LAESV MOD A4C: 26.6 ml CW AV maxP.7 mmHg AV meanP.8 mmHg AV Vmax: 1.5 m/s PW LEVAR (VTI): 3.1 cm2 LEVAR Vmax: 2.3 cm2 LVOT Vmax: 0.9 m/s LVOT meanP.8 mmHg MV E/A Ratio: 0.5 MV PHT: 125.5 ms Prepared and signed by Luis Mckenna MD Signed 03-Feb-2011 08:48:03 Procedure Note 02/03/2011 [place] [id number] Transthoracic Echocardiogram 2D, M-mode, Doppler, and Color Doppler Patient: SHAHZAD GHOSH MR number: [id number] Height: 63 in Weight: 169.6 lb BSA: 1.8 m Study date: 02-Feb-2011 : 1950 Age: 61 years Gender: Female Race: Referring Physician: Kenji Sung MD Chemical Unit Operator: Hung Gill IRMA Reading Physician: Luis Mckenna MD Summary: - Clinical question: - LUMBAR BACK PAIN, INFECTION - History: - S/P BACK SURGERY, BLADDER DISEASE, HYOOTHYROID - Left ventricle: - Systolic function was normal. Ejection fraction was estimated in the range of 55 % to 65 %. - There were no regional wall motion abnormalities. - Wall thickness was mildly increased. Indications: LUMBAR BACK PAIN, INFECTION History: Prior history: S/P BACK SURGERY, BLADDER DISEASE, HYOOTHYROID Procedure: The procedure was performed in the echo lab. This was a routine study. ECHO COMPLETE AT 0845 The transthoracic approach was used. The study included complete 2D imaging, M-mode, complete spectral Doppler, and color Doppler. Systolic blood pressure was 135 mmHg. Diastolic blood pressure was 70 mmHg. Images were obtained from the parasternal, apical, subcostal, and suprasternal notch acoustic windows. Left ventricle: Size was normal. Systolic function was normal. Ejection fraction was estimated in the range of 55 % to 65 %. There were no regional wall motion abnormalities. Wall thickness was mildly increased. Doppler: There was an increased relative contribution of atrial contraction to ventricular filling. Aortic valve: The valve was trileaflet. Leaflets exhibited normal thickness and normal cuspal separation. Doppler: There was no stenosis. There was no regurgitation. Aorta: The root exhibited normal size. Mitral valve: Valve structure was normal. There was normal leaflet separation. Doppler: The transmitral velocity was within the normal range. There was no evidence for stenosis. There was no regurgitation. Left atrium: Size was normal. Right ventricle: The size was normal. Systolic function was normal. Wall thickness was normal. Pulmonic valve: Leaflets exhibited normal thickness, no calcification, and normal cuspal separation. Doppler: There was no regurgitation. Pulmonary artery: The size was normal. Doppler: Systolic pressure was within the normal range. Tricuspid valve: The valve structure was normal. There was normal leaflet separation. Doppler: The transtricuspid velocity was within the normal range. There was no evidence for tricuspid stenosis. There was no regurgitation. Right atrium: Size was normal. Pericardium: The pericardium was normal in appearance. System measurement tables 2D IVSd: 1 cm LVOT Diam: 2.1 cm LA Diam: 3 cm LVIDd: 4.5 cm LVIDs: 2.9 cm LVPWd: 1 cm LAESV A-L A2C: 41.9 ml LAESV A-L A4C: 27.9 ml LAESV MOD A2C: 41.8 ml LAESV MOD A4C: 26.6 ml CW AV maxP.7 mmHg AV meanP.8 mmHg AV Vmax: 1.5 m/s PW LEVAR (VTI): 3.1 cm2 LEVAR Vmax: 2.3 cm2 LVOT Vmax: 0.9 m/s LVOT meanP.8 mmHg MV E/A Ratio: 0.5 MV PHT: 125.5 ms Prepared and signed by Luis Mckenna MD Signed 03-Feb-2011 08:48:03 Candido Barber MD ECHO ORDERABLES [facility] [address] [place] [address] * CT ABDOMEN AND PELVIS WITH IV CONTRAST (02/02/2011 12:08 AM DRY CELL ASSEMBLY SUPERVISOR) Anatomical Region Laterality Modality Abdomen, Pelvis Computed Tomogra phy 02/02/2011 8:27 AM DRY CELL ASSEMBLY SUPERVISOR Impressions 02/02/2011 8:27 AM DRY CELL ASSEMBLY SUPERVISOR Right L4 laminectomy changes with findings as above suggesting postsurgical abscess. Further evaluation with contrast enhanced MRI of the lumbar spine is recommended. Narrative 02/02/2011 8:27 AM DRY CELL ASSEMBLY SUPERVISOR CT abdomen with contrast CT pelvis with contrast Date: 02/02/2011 History: Lower back pain and elevated white blood cell count. Recent lumbar discectomy performed in November. Technique: Multislice helical. Contrast: 100 cc Omnipaque 350 Abdomen: No prior CT scans are available for comparison. A simple right renal cyst measuring 9 mm is present. The liver, gallbladder, spleen, pancreas, left kidney and adrenal glands are normal. The bowel shows a normal caliber and configuration. No free intraperitoneal air or fluid is seen Limited views through the lung bases reveal bilateral dependent atelectasis. Pelvis: Postsurgical changes associated with a right laminectomy of L4 are seen. Hyperdense material is noted in the central canal at this level with extension to the right paraspinal structures. The central canal appears narrowed evaluation is limited on a CT scan. A subtle rim-enhancing fluid collection measuring 2.3 x 0.7 cm extends along the spinous process of L3 near the surgical site. The pelvic viscera are normal. The urinary bladder is unremarkable. No free pelvic fluid is present. Procedure Note Carroll Riggins MD - 02/02/[address] abdomen with contrast CT pelvis with contrast Date: 02/02/2011 History: Lower back pain and elevated white blood cell count. Recent lumbar discectomy performed in November. Technique: Multislice helical. Contrast: 100 cc Omnipaque 350 Abdomen: No prior CT scans are available for comparison. A simple right renal cyst measuring 9 mm is present. The liver, gallbladder, spleen, pancreas, left kidney and adrenal glands are normal. The bowel shows a normal caliber and configuration. No free intraperitoneal air or fluid is seen Limited views through the lung bases reveal bilateral dependent atelectasis. Pelvis: Postsurgical changes associated with a right laminectomy of L4 are seen. Hyperdense material is noted in the central canal at this level with extension to the right paraspinal structures. The central canal appears narrowed evaluation is limited on a CT scan. A subtle rim-enhancing fluid collection measuring 2.3 x 0.7 cm extends along the spinous process of L3 near the surgical site. The pelvic viscera are normal. The urinary bladder is unremarkable. No free pelvic fluid is present. IMPRESSION Right L4 laminectomy changes with findings as above suggesting postsurgical abscess. Further evaluation with contrast enhanced MRI of the lumbar spine is recommended. Anjelica Walton MD CT ORDERABLES * XR CHEST 1VW PORTABLE (01/31/2011 10:45 AM DRY CELL ASSEMBLY SUPERVISOR) Anatomical Region Laterality Modality Chest Radio Fluoroscop y 01/31/2011 1:41 PM DRY CELL ASSEMBLY SUPERVISOR Impressions 01/31/2011 1:41 PM DRY CELL ASSEMBLY SUPERVISOR Cardiomegaly. Narrative 01/31/2011 1:41 PM DRY CELL ASSEMBLY SUPERVISOR Exam: Chest AP portable Date: 01/31/2011 at 1045 History: Displacement of the lumbar intervertebral disc Findings: The heart is enlarged. No focal lung opacity, pneumothorax, or pleural effusion is seen. Procedure Note Carroll Riggins MD - 01/31/2011 Exam: Chest AP portable Date: 01/31/2011 at 1045 History: Displacement of the lumbar intervertebral disc Findings: The heart is enlarged. No focal lung opacity, pneumothorax, or pleural effusion is seen. IMPRESSION Cardiomegaly. Bud Estrada PALLET STONE POSITIONER-AIR CARGO AGENT DIAGNOSTIC IMAG ING ORDERABLES * (ABNORMAL) SED RATE WESTERGREN AUTO (01/31/2011 4:23 AM DRY CELL ASSEMBLY SUPERVISOR) Erythrocyte Sedimentation Rate Westergren 46(H) 0 - 30 mm/Hr [facility] Hematocrit 38.9 37.0 - 47.0 % [facility] Blood specimen (specimen) BLOOD SPECIMEN / Unknown 01/31/2011 4:23 AM DRY CELL ASSEMBLY SUPERVISOR 01/31/2011 4:45 AM DRY CELL ASSEMBLY SUPERVISOR Bud [facility] LAB - HEMATOLOG Y ORDERABLES Performing Organization Address [facility] Co de Phone Number [facility] [address] [place] [id number] * TSH (01/31/2011 4:23 AM DRY CELL ASSEMBLY SUPERVISOR) Pathologist [facility] [place] TSH 3.32 0.358 - 3.74 uIU/ml [facility] Blood specimen (specimen) BLOOD SPECIMEN / Unknown 01/31/2011 4:23 AM DRY CELL ASSEMBLY SUPERVISOR 01/31/2011 4:45 AM DRY CELL ASSEMBLY SUPERVISOR Bud Estrada [facility] - CHEMISTRY ORDERABLES Performing Organization Address [facility] de Phone Number [facility] [address] [place] [id number] * (ABNORMAL) URINALYSIS ROUTINE W/REFLEX TO CULTURE (01/31/2011 12:00 AM DRY CELL ASSEMBLY SUPERVISOR) Pathologist [facility] [place] Source Catheter [facility] Color UA Yellow [facility] Character UA Clear [facility] Glucose UA NEGATIVE NEGATIVE mg/dl [facility] Bilirubin UA NEGATIVE NEGATIVE [facility] Ketone UA NEGATIVE NEGATIVE mg/dl [facility] Specific [place] UA >=1.030(H) 1.003 - 1.030 [facility] Blood UA NEGATIVE NEGATIVE [facility] pH UA 5.5 5.0 - 9.0 [facility] Protein UA NEGATIVE NEGATIVE-TR AZALEA mg/dl [facility] Urobilinogen UA 0.2 0.2 - 1.0 Obi Units/dl [facility] Nitrite UA NEGATIVE NEGATIVE [facility] Leukocyte UA NEGATIVE NEGATIVE [facility] Urine Culture Culture is not indicated per protocol. [facility] Urine specimen (specimen) URINE SPECIMEN COLLECTION, CATHETERIZED / Unknown 01/31/2011 01/31/2011 1:26 AM DRY CELL ASSEMBLY SUPERVISOR Bud Estrada PALLET STONE POSITIONER-AIR CARGO AGENT LAB - URINALYSI S ORDERABLES Performing Organization Address City/State/[facility] Co de Phone Number [facility] [address] [place] [address] * (ABNORMAL) COMPREHENSIVE METABOLIC PANEL (01/30/2011 5:29 PM DRY CELL ASSEMBLY SUPERVISOR) Sodium 138 136 - 145 mmol/L [facility] Potassium 3.9 3.5 - 5.1 mmol/L [facility] Chloride 103 98 - 107 mmol/L [facility] BUN 16 7 - 21.0 mg/dl [facility] Creatinine 0.77 0.5 - 1.3 mg/dl [facility] Glucose 119(H) 65 - 105 mg/dl [facility] Calcium 8.7 8.5 - 10.1 mg/dl [facility] Alkaline Phosphatase 57 38 - 126 U/L [facility] AST 45(H) 5.0 - 40 U/L [facility] Bilirubin Total 0.4 0.2 - 1.0 mg/dl [facility] Protein Total 7.4 6.4 - 8.2 gm/dl [facility] Albumin 3.2(L) 3.4 - 5.0 gm/dl [facility] CO2 23 22 - 30 mmol/L [facility] ALT 73 12.0 - 78.0 U/L [facility] eGFR by MDRD >60 >60 mL/min/1.7 3m2 [facility] Comment eGFR [facility] Comment: The eGFR does not apply to patients who are younger than 18 or older than 70. Blood specimen (specimen) BLOOD SPECIMEN / Unknown 01/30/2011 5:29 PM DRY CELL ASSEMBLY SUPERVISOR 01/30/2011 5:41 PM DRY CELL ASSEMBLY SUPERVISOR Bud Estrada PALLET STONE POSITIONER-AIR CARGO AGENT LAB - CHEMISTRY ORDERABLES [facility] [address] [place] [address] * XR LUMBAR SPINE TRAUMA 2 OR 3 VW (01/30/2011 9:56 AM DRY CELL ASSEMBLY SUPERVISOR) Anatomical Region Laterality Modality Spine Radiographic Sophia ging 01/30/2011 10:1 3 AM DRY CELL ASSEMBLY SUPERVISOR Narrative 01/30/2011 10:13 AM DRY CELL ASSEMBLY SUPERVISOR Three-view lumbar spine HISTORY: Back pain There is a degenerative change loss of intervertebral disc base height at L4-L5 and L5-S1. No fracture or subluxation or bone destruction is seen. The pedicles are normal. Procedure Note Robert Llanes MD - 01/30/2011 Three-view lumbar spine HISTORY: Back pain There is a degenerative change loss of intervertebral disc base height at L4-L5 and L5-S1. No fracture or subluxation or bone destruction is seen. The pedicles are normal. Alexey Quijano MD DIAGNOSTIC IMAGING ORDERABLES * XR SPINE 1 VIEW (12/08/2010 11:50 AM CDT) Anatomical Region Laterality Modality Spine Radio Fluoroscop y 12/08/2010 12:1 6 PM CDT Narrative 12/08/2010 12:16 PM CDT Single intraoperative view of the lumbar spine HISTORY: Spine surgery There is intraoperative localization posteriorly between the spinous processes of L4 and L5. Procedure Note Robert Llanes MD - 12/08/2010 Single intraoperative view of the lumbar spine HISTORY: Spine surgery There is intraoperative localization posteriorly between the spinous processes of L4 and L5. Kenji Sheppard MD DIAGNOSTIC IMAGING O RDERABLES Care Teams Pig Machine Crane Operator Relationship Specialty Start Date End Date Robert Donaldson [address] [place] [address] Orthopedic 11/16/10
--- OUTSIDE RECORDS SUMMARY | 2024-04-16 13:43 | XMS_ITS | Clinical Summary ---
Author Organization [facility] [employer] Address [address] [place] [address] Care Team Providers Care Electro Mechanical Engineer Name Role Phone Robert Donaldson Source Comments [facility] [employer],non-owned Affiliates and Associated Physician Practices is amultiple site organization consisting of ambulatory clinics and hospital sitesin [place], [place], [place] and [place]. This disclosure is being madepursuant to the Care Everywhere program and may not contain all information available regarding this patient. Last updated 17.[facility] [employer] Allergies Active Allergy Reactions Criticality Noted Date [...] tablet once daily. Active vitamin D2 (ERGOCALCIFEROL) 78869 UNIT capsule every 7 days. 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 11/17/2010 Family History Medical History Relation Name Comments Cancer Father Liver Relation Name Status Comments Father Mother Alive Social History Tobacco Use Types Packs/Day Years [...] Comments Blood Pressure 90/46 02/17/2011 3:50 PM PLATE GLASS INSTALLER Pulse 63 02/17/2011 3:50 PM PLATE GLASS INSTALLER Temperature 36.8 C (98.3 F) 02/17/2011 3:50 PM PLATE GLASS INSTALLER Respiratory Rate 18 02/17/2011 3:50 PM PLATE GLASS INSTALLER Oxygen Saturation 97% 02/17/2011 3:50 PM PLATE GLASS INSTALLER Inhaled Oxygen Concentration - - Weight 70.3 kg (155 lb) 03/24/2011 10:09 AM PLATE GLASS INSTALLER Height 160 cm (5' 3 ) 03/24/2011 10:09 AM PLATE GLASS INSTALLER Body Mass Index 27.46 03/24/2011 10:09 AM PLATE GLASS INSTALLER Plan of Treatment Health Maintenance Due Date Last Done Comments BONE DENSITY TESTING 1950 MEDICARE AWV 12 MONTHS 1950 HEPATITIS C SCREENING 01/18/1966 DTAP/TDAP/TD VACCINES (1 - Tdap) 01/22/1967 PNEUMOCOCCAL VACCINE 50+ (1 of 1 - PCV) 01/22/1998 ZOSTER VACCINE (1 of 2) 01/22/1998 Respiratory Syncytial Virus (RSV) Vaccine Pt: or over 60 yrs (1 - 1-dose 75+ series) 01/22/2023 COVID-19 VACCINE ( - 2023-2 5 season) 2023 INFLUENZA VACCINE (#1) 2023 DEPRESSION SCREENING 02/22/2024 MEDICARE AWV CALENDAR YEAR 2024 HEPATITIS B VACCINE Aged Out No longe r eligible based on patient's age to complete this topic HIB VACCINE Aged Out No longer eligi ble based on patient's age to complete this topic HPV VACCINE Aged Out No longer eligi ble based on patient's age to complete this topic MENINGOCOCCAL (Group B) VACCINE Aged Out No longer eligible based on patient's age to complete this topic MENINGOCOCCAL VACCINE Aged Out No connor roland eligible based on patient's age to complete this topic Advance Directives * FULL RESUSCITATION (Latest Code Status on File) Date Activated Date Inactivated Comments 01/30/2011 4:53 PM 02/18/2011 5:21 AM * FULL RESUSCITATION Date Activated Date Inactivated Comments 01/30/2011 4:24 PM 01/30/2011 4:53 PM * FULL RESUSCITATION Date Activated Date Inactivated Comments 12/08/2010 2:39 PM 12/09/2010 11:23 PM Care Teams Electro Mechanical Engineer Relationship Specialty Start Date End Date Robert Donaldson [address] [place] [address] Orthopedic 11/16/10
--- OUTSIDE RECORDS SUMMARY | 2024-04-16 13:43 | XMS_ITS | Clinical Summary ---
Author Organization [facility] Address [address] [place] [address] Care Team Providers Care Tile Grader Name Role Phone Keith Foreman MD Primary Care Provider [phone] Salinas Brothers MD Unavailable Allergies Active Allergy Reactions Criticality Noted Date Comments Ciprofloxacin Nausea and Vomiting,Vomiting 10/2009 Penicillins Rash,Unknown Low 08/29/2009 Medications VITAMIN D, ERGOCALCIFEROL, OR Take 50,000 Units by mouth every 14 (fourteen) days. Active gabapentin 600 MG tablet Take 1 tablet by mouth 2 (two) times a day. Active omeprazole 40 MG capsule Take 1 capsule by mouth daily. 05/08/2018 Active raloxifene 60 MG tablet Take 1 tablet by mouth daily. 09/21/2019 Active metFORMIN 1000 MG tablet Take 1 tablet by mouth 2 (two) times a day. 07/26/2019 Active Melatonin 10 MG Cap Take 1 tablet by mouth daily. Active lovastatin 40 MG tablet Take 1 tablet by mouth daily. 12/24/2015 Active lisinopril 10 MG tablet Take 1 tablet by mouth daily. 07/31/2019 Active levothyroxine 75 MCG tablet Take 1 tablet by mouth daily. 02/22/2018 Active ibuprofen 600 MG tablet Take 600 mg by mouth every 6 (six) hours as needed. 02/17/2011 Active DULoxetine 60 MG capsule Take 1 capsule by mouth daily. 08/30/2019 Active buPROPion 75 MG tablet Take 1 tablet by mouth daily. 10/25/2013 Active Probiotic Product (PROBIOTIC ADVANCED) Cap Take 1 tablet by mouth daily. Active Active Problems Problem Noted Date Diagnosed Date Left carotid artery stenosis 11/05/2019 Social History Tobacco Use Types Packs/Day Years Used Date Smoking Tobacco: Never Smokeless Tobacco: Never Alcohol Use Standard Drinks/Week Comments Not Currently 0 (1 standard drink = 0.6 oz pur e alcohol) Comments No Sex and Gender Information Value Date Recorded Sex Assigned at Not on file Legal Sex Female 4:26 PM CDT Gender Identity Not on file Sexual Orientation Not on file Last Filed Vital Signs Vital Sign Reading Time Taken Comments Blood Pressure 145/75 11/07/2019 3:00 AM CDT Pulse 89 11/06/2019 3:45 PM CDT Temperature 36.8 C (98.2 F) 11/07/2019 3:00 AM CDT Respiratory Rate 18 11/07/2019 3:00 AM CDT Oxygen Saturation 95% 11/07/2019 3:00 AM CDT Inhaled Oxygen Concentration - - Weight 69.9 kg (154 lb 1.6 oz) 11/06/2019 6:00 A M CDT Height 158.8 cm (5' 2.5 ) 11/05/2019 12:40 PM CD T Body Mass Index 27.74 11/05/2019 12:40 PM CDT Plan of Treatment Health Maintenance Due Date Last Done Comments Hepatitis C 01/22/1966 DTaP, Tdap and Td Vaccines ( 1 - Tdap) 01/22/1967 Zoster Vaccines (1 of 2) 01/22/1998 Annual Medicare Wellness Visit 01/22/2013 Dexa Scan (General) 01/22/2013 Pneumococcal Vaccine: 65+ Years (2 of 2 - PPSV23 or PCV20) 02/01/2017 02/02/2016, 01/22/2013 RSV Immunization or 60+ Years (1 - 1-dose 75+ series) 01/22/2023 COVID-19 Vaccine ( - 2023-2 5 season) 2023 Influenza Adult (#1) 2023 12/18/2018, 10/31/2017, 11/27/2016 Meningococcal B Vaccine Aged Out No l onger eligible based on patient's age to complete this topic Meningococcal Vaccine Aged Out No connor roland eligible based on patient's age to complete this topic RSV Immunizations Under 20 Months Aged Out No longer eligible b ased on patient's age to complete this topic Medical Devices Implanted Type Area Rehabilitation Engineer Device Identifier Shelf Expiration Date Model / Serial / Lot Patch Cv Thk.36mm; Ulthn; Taper 6x.3in Knit; - [id number] Implanted:Qty: 1 on 11/05/2019 by Alexey Zelaya MD at [facility] Left: Carotid [employer] 07/21/2024 [id number] / / [id number] Description:LEFT CAROTID ART SOLIS Insurance MEDICARE [facility] Advance Directives * Full Code (Latest Code Status on File) Date Activated Date Inactivated Comments 11/06/2019 12:25 PM 11/07/2019 12:06 PM Care Teams Tile Grader Relationship Specialty Start Date End Date Keith Foreman MD [address] [place] [address] PCP - General FAMILY PRACTICE 10/30/19 Salinas Brothers MD [address] [facility] [address] [place] [address] CARDIOVASCULAR DISEASE 10/30/19
--- OUTSIDE RECORDS SUMMARY | 2024-04-16 13:43 | XMS_ITS | Encounter Summary ---
Author Organization [facility] Address [address] [place] [address] Care Team Providers Care Electronic Warfare Operator Name Role Phone Keith Foreman MD Primary Care Provider [phone] Salinas Brothers MD Unavailable Encounter Details Date Type Department Care Team (Late st Contact Info) Description 11/02/2019 Prep for Procedure [facility] [place] [address] Alexey Zelaya MD [address] [place] [id number] Social History Tobacco Use Types Packs/Day Years Used Date Smoking Tobacco: Never Smokeless Tobacco: Never Alcohol Use Standard Drinks/Week Comments Not Currently 0 (1 standard drink = 0.6 oz pur e alcohol) Comments No Sex and Gender Information Value Date Recorded Sex Assigned at Not on file Legal Sex Female 4:26 PM CDT Gender Identity Not on file Sexual Orientation Not on file COVID-19 Exposure Response Date Recorded In the last month, have you been in contact with someone who was confirmed or suspected to have Coronavirus / COVID-19? No / Unsure 11/05/2019 5:30 AM CDT documented as of this encounter Functional Status documented as of this encounter Mental Status * Question Answer Entry Date Author Status Because of a physical, mental, or emotional condition, do you have serious difficulty concentrating, remembering, or making decisions? No 11/05/2019 12:53 PM CDT Peri Corley RN Active documented in this encounter Plan of Treatment Not on file documented as of this encounter Results * PRE-SURGICAL/PRE-PROCEDURE CORONAVIRUS (COVID 19) (11/02/2019 12:35 PM CDT) CORONAVIRUS SARS COV 2 PCR (RESP) NOT DETECTED NOT DETECTED 11/03/2019 8:51 PM CDT [facility] Comment: A Not Detected (negative) test result for this test means that SARS- CoV-2 RNA was not present in the specimen above the limit of detection. A negative result does not rule out the possibility of COVID-19 and should not be used as the sole basis for treatment or patient management decisions. If COVID-19 is still suspected, based on exposure history together with other clinical findings, re-testing should be considered in consultation with public health authorities. Laboratory test results should always be considered in the context of clinical observations and epidemiological data in making a final diagnosis and patient management decisions. Please review the Fact Sheets and FDA authorized labeling available for health care providers and patients using the following websites: [email or web address] Vanilla/[email or web address]-19/HCP/QuestIVD/fact- sheet.html [email or web address]://www.[email or web address] Vanilla/home/Covid-19/Patients/ QuestIVD/fact-sheet.html This test has been authorized by the FDA under an Emergency Use Authorization (EUA) for use by authorized laboratories. Due to the current public health emergency, [facility] is receiving a high volume of samples from a wide variety of swabs and media for COVID-19 testing. In order to serve patients during this public health crisis, samples from appropriate clinical sources are being tested. Negative test results derived from specimens received in non-commercially manufactured viral collection and transport media, or in media and sample collection kits not yet authorized by FDA for COVID-19 testing should be cautiously evaluated and the patient potentially subjected to extra precautions such as additional clinical monitoring, including collection of an additional specimen. Methodology: Nucleic Acid Amplification Test (NAAT) includes PCR or TMA Additional information about COVID-19 can be found at the [facility] website: [email or web address] Vanilla/Covid19. Test performed at [facility] [address] [address] Director: NHAN SALCEDO DO,MPH FIRST TEST NO 11/02/2019 2:44 PM CDT [facility] EMPLOYED IN HEALTHCARE NO 11/02/2019 2:44 PM CDT [facility] SYMPTOMATIC DEFINED BY CDC NO 11/02/2019 2:44 PM CDT [facility] DATE OF SYMPTOM ONSET UNKNOWN 11/02/2019 2:47 PM CDT [facility] HOSPITALIZATION STATUS NO 11/02/2019 2:44 PM CDT [facility] PATIENT IN ICU NO 11/02/2019 2:44 PM CDT [facility] NO 11/02/2019 2:44 PM CDT [facility] UNKNOWN 11/02/2019 2:47 PM CDT [facility] PATIENT'S RACE WHITE OR 11/02/2019 2:44 PM CDT [facility] ETHNICITY NONHISPANIC 11/02/2019 2:44 PM CDT [facility] SOURCE (QST) NASOPHARYNGEAL SWAB 11/02/2019 2:44 PM CDT [facility] NASOPHARYNGEAL SWAB / Unknown 11/02/2019 12:35 PM CDT us Alexey Zelaya MD MICROBIOLOGY - GENERAL ORDERABLE S Final Result [facility] [address] [place] [address], [facility] [address] [place], [place] [address] documented in this encounter Visit Diagnoses Diagnosis Preop examination- Primary Preoperative examination, unspecified documented in this encounter Additional Health Concerns Infection Onset Date Last Indicated Resolved Time COVID-19 Rule Out 11/02/2019 11/02/2019 11/03/2019 8:51 PM CDT documented as of this encounter Care Teams Electronic Warfare Operator Relationship Specialty Start Date End Date Keith Foreman MD [address] [place] [address] PCP - General FAMILY PRACTICE 10/30/19 Salinas Brothers MD [address] [place] [address] CARDIOVASCULAR DISEASE 10/30/19 documented as of this encounter
--- OUTSIDE RECORDS SUMMARY | 2024-04-16 13:43 | XMS_ITS | Clinical Summary ---
Author Organization [facility] [address] Address [address] [place] [address] Care Team Providers Care Scooter Mechanic Name Role Phone Keith Foreman MD Primary Care Provider Margo Leon Unavailable Unavailable Allergies Active Allergy Reactions Criticality Noted Date Comments Ciprofloxacin Nausea And Vomiting Low 08/29/2009 Penicillins Rash Medium 08/29/2009 Moderate, immediate reactions: PCN allergy form completed. Has taken PCN on 08/2019 without rash. PCN allergy form filled out Medications melatonin 10 mg capsule Take 10 mg by mouth nightly Active icosapent ethyL (VASCEPA) 1 gram capsule Take 2 capsules (2 g total) by mouth 2 (two) times a day Active omeprazole (PriLOSEC) 40 mg capsule Take 1 capsule (40 mg total) by mouth daily Active rosuvastatin (CRESTOR) 40 mg tablet Take 1 tablet (40 mg total) by mouth daily 03/24/2021 Active busPIRone (BUSPAR) 15 mg tablet Take 1 tablet (15 mg total) by mouth nightly at bedtime 11/11/2021 Active gabapentin 300 mg (9)- 600 mg (24) tablet, Ext Rel 24hr dose pack 03/02/2021 Active levothyroxine (SYNTHROID) 88 mcg tablet Take 1 tablet (88 mcg total) by mouth daily 12/07/2021 Active metFORMIN (GLUCOPHAGE) 1,000 mg tablet Take 1 tablet (1,000 mg total) by mouth nightly 03/02/2021 Active diphenhydrAMINE -acetaminophen (TYLENOL PM) 25-500 mg tablet 03/02/2021 Active aspirin (ASPIR-81 ORAL) 02/09/2022 Act claritza carvediloL (COREG) 6.25 mg tablet TAKE 1 TABLET(6.25 MG) BY MOUTH TWICE DAILY WITH MEALS 60 tablet 11 06/06/2023 Active buPROPion XL (WELLBUTRIN XL) 150 mg 24 hr tablet Take 1 tablet (150 mg total) by mouth every morning 06/28/2023 Active chlorhexidine (PERIDEX) 0.12 % solution 05/04/2023 Active ergocalciferol (VITAMIN D) 50,000 unit capsule TAKE 1 CAPSULE BY MOUTH EVERY 2 WEEKS 06/24/2023 Active HYDROcodone-radha taminophen (NORCO) 5-325 mg per tablet 06/27/2023 Activ e gabapentin (NEURONTIN) 600 mg tablet Take 1 tablet (600 mg total) by mouth 3 (three) times a day Active midodrine (PROAMATINE) 5 mg tablet TAKE 1 TABLET(5 MG) BY MOUTH THREE TIMES DAILY 90 tablet 3 09/23/2023 Active clopidogreL (PLAVIX) 75 mg tablet TAKE 1 TABLET(75 MG) BY MOUTH DAILY 30 tablet 11 11/21/2023 Active Active Problems Problem Noted Date Diagnosed Date S/P angioplasty 04/28/2021 Overview (04/28/2021): Added automatically from request for surgery [id number] HTN (hypertension) 01/29/2021 HLD (hyperlipidemia) 01/29/2021 Stage 3 chronic kidney disease 01/29/2021 DM (diabetes mellitus) 01/29/2021 Hypothyroid 01/29/2021 Anxiety 01/29/2021 Depression 01/29/2021 Vitamin D deficiency 01/29/2021 Neuropathy 01/29/2021 Stenosis of left subclavian artery (CMS/HCC) 08/2020 Overview (01/27/2021): Added automatically from request for surgery [id number] Small bowel obstruction (CMS/HCC) 06/17/2020 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 04/16/2020 Overview (04/16/2020): Added automatically from request for surgery [id number] Osteoarthritis 03/15/2014 Resolved Problems Problem Noted Date Diagnosed Date Resolved Date Iron deficiency anemia 06/18/202001/29 DANETTE (acute kidney injury) ([facility]/HCC) 06/18/2020 01/29/2021 Vocal fold paralysis, 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 1 04/01/2020 Overview (04/02/2020): Added automatically from request for surgery [id number] Dysphonia 02/27/2020 01/29/2021 Overview (02/27/2020): Added automatically from request for surgery [id number] Dysphagia 02/27/2020 01/29/2021 Overview (02/27/2020): Added automatically from request for surgery [id number] Arthralgia of multiple joints 03/17/2014 01/29/2021 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 Surgical History Surgery Date Site/Laterality Comments CHOLECYSTECTOMY CAROTID ENARTERECTOMYY Left GASTRIC FUNDOPLICATION BUNIONECTOMY TONSILLECTOMY SKIN GRAFT Right upper thigh VOCAL CORD INJECTION Left botox DILATION AND CURETTAGE OF UTERUS HYSTERECTOMY + bladder sling; prolapsed uterus BALLOON ANGIOPLASTY, ARTERY Medical History Medical History Date Comments Hypertension Thyroid disease Hyperlipidemia Diabetes mellitus (HCC) Syncope Stroke (HCC) no residual Arthritis Anxiety Type 2 diabetes mellitus (HCC) Hypothyroidism Left carotid stenosis Chronic kidney disease stage 3 History of blood transfusion Cough Back pain Family History Medical History Relation Name Comments Cancer Brother Family history of malignant neoplasm - (Added by TW Conv) Cancer Father Family history of malignant neoplasm - (Added by TW Conv) Diabetes Father Family history of diabetes mellitus - (Added by TW Conv) Gout Father Family history of gout - (Added by TW Conv) Heart disease Father Family history of cardiac disorder - (Added by TW Conv) Hypertension Father Family history of hypertension - (Added by TW Conv) Arthritis Mother Family history of arthritis - (Added by TW Conv) Gout Mother Family history of gout - (Added by TW Conv) Heart disease Mother Family history of cardiac disorder - (Added by TW Conv) Hypertension Mother Family history of hypertension - (Added by TW Conv) Stroke Mother Family history of cerebrovascular accident - (Added by TW Conv) Relation Name Status Comments Brother Father Mother Alive Social History Tobacco Use Types Packs/Day Years Used Date Smoking Tobacco: Never Smokeless Tobacco: Never Tobacco Cessation:Counseling Given: Not Answered Alcohol Use Standard Drinks/Week Comments Never 0 (1 standard drink = 0.6 oz pur e alcohol) AUDIT-C Answer Date Recorded Q1: How often do you have a drink containing alc ohol? Monthly or less 05/26/2021 Q2: How many drinks containi ng alcohol do you have on a typical day when you are drinking? 1 or 2 05/26/2021 Q3: How often do you have si x or more drinks on one occasion? Never 05/26/2021 Comments No Sex and Gender Information Value Date Recorded Sex Assigned at Not on file Legal Sex Female 5:12 AM SHOTBLASTER Gender Identity Not on file Sexual Orientation Not on file Obstetrics History Last Filed Vital Signs Vital Sign Reading Time Taken Comments Blood Pressure 128/80 07/20/2023 9:41 AM CDT Pulse 72 07/20/2023 9:41 AM CDT Temperature 36.8 C (98.2 F) 12/28/2021 11:10 AM SHOTBLASTER Respiratory Rate 12 12/28/2021 11:10 AM SHOTBLASTER Oxygen Saturation 96% 07/20/2023 9:41 AM CDT Inhaled Oxygen Concentration - - Weight 60.1 kg (132 lb 6.4 oz) 07/20/2023 9:41 A M CDT Height 157.5 cm (5' 2 ) 07/20/2023 9:41 AM CDT Body Mass Index 24.22 07/20/2023 9:41 AM CDT Plan of Treatment Health Maintenance Due Date Last Done Comments Albumin Creatinine Ratio, Urine 1948 Depression Screening 1950 Hemoglobin A1C 1948 Hepatitis C Screening 1950 Osteoporosis Screening-Bone Density Scan 1948 Dilated Eye Exam 1948 Foot Exam 1950 DTaP/Tdap/Td Vaccine (1 - Tdap) 01/22/1959 Hepatitis B Screening 01/22/1966 Zoster Vaccine (1 of 2) 01/22/1998 Well Visit 65+ 01/22/2013 Pneumococcal vaccine 65+ (2 of 2 - PPSV23) 03/29/2016 02/02/2016, 01/22/2013 Fall Risk Assessment 05/29/2022 05/29/2021, 10/01/19 20 eGFR 05/29/2022 05/29/2021, 030 02/2021, 02/24/2021, Additional history exists Lipid Panel 09/16/2023 09/15/2022, 03/0 10/2021, 01/21/2021, Additional history exists Covid-19 Vaccine (2023-2 5 season) 2023 12/24/2020, 04/25/2020, 03/28/2020 Influenza Vaccine (#1) 2023 , 02/01/2020, 12/18/2018, Additional history exists Medical Devices Implanted Type Area Front Office Spec Device Identifier Shelf Expiration Date Model / Serial / Lot Medtronic Inc Visi-Pro 7mm 27mm 135cm Radiopaque Balloon Expand Radial Strength - [id number] Implanted:Qty: 1 on 05/08/2020 by Salinas Brothers MD at [facility] Stent Left: Subclavian Medtronic Inc 04/15/2022 [id number] / / [id number] [employer] Rao [id number] Device Closure Angio-Seal Vip Bondek-Plus Polyglyd L70 Cm Od6 Fr Odsec.035 In Vascular - [id number] Implanted:Qty: 1 on 05/08/2020 by Salinas Brothers MD at [facility] Right: Groin [employer] Aro 01/20/2021 [id number] / / [id number] Bard Peripheral Vascular [id number] Lifestream 7mm 26mm 80cm Balloon Expandable Low Profile Cover - [id number] Implanted:Qty: 1 on 05/29/2021 by Salinas Brothers MD at [facility] Peripheral Vascular 01/20/2022 [id number] / / Procedures Procedure Name Priority Date/Time Associated Diagnosis Comments LIPID PANEL Routine 09/15/2022 3:42 PM CDT EGFR Routine 05/29/2021 7:02 AM CDT from Last 3 Months or Most Recently Relevant to Health Maintenance Results * Lipid panel (09/15/2022 3:42 PM CDT) Blood us Historical Provider LAB BLOOD ORDERABLES Zenobia l Result * eGFR (05/29/2021 7:02 AM CDT) eGFR 34 mL/min/1. 73 m2 [facility] Comment: Interpretive Data Reference Interval Normal >/= 90 mL/min/1.73m2 Mildly decreased* 60 - 89 mL/min/1.73m2 Mildly to moderately decreased 45 - 59 mL/min/1.73m2 Moderately to severely decreased 30 - 44 mL/min/1.73m2 Severely decreased 15 - 29 mL/min/1.73m2 Kidney Failure < 15 mL/min/1.73m2 *Relative to young adult level Estimated glomerular filtration rate is determined by the 2020 CKD-EPI equation recommended by the National Kidney Foundation (A Unifying Approach to GFR Estimation: Recommendations of the NKF-ASK Task Force on Reassessing the Inclusion of Race in Diagnosing Kidney Disease, JASN 2020). The CKD-EPI equation should not be used for patients with unstable renal function and has not been validated in children and those over 70. Current interpretive data was last reviewed 2020. Blood 05/29/2021 7:02 AM CDT 05/29/2021 7:12 AM CDT Salinas Brothers MD LAB BLOOD ORDERABLES Final Resul t [facility] [id number] Department [place] [address] from Last 3 Months or Most Recently Relevant to Health Maintenance Insurance MEDICARE SOLUTIONS [facility] Address: [address] [address] [place] [address] [facility] Address: [facility] [address] [place] [address] MEDICARE SOLUTIONS [place] [address] Advance Directives For more information, please contact: [phone] * Full Code (Latest Code Status on File) Date Activated Date Inactivated Comments 06/17/2020 1:01 PM 06/21/2020 7:49 PM Care Teams Scooter Mechanic Relationship Specialty Start Date End Date Keith Foreman MD [address] [facility] [address] [place] [address] PCP - General 06/09/17 Margo Leon Occupational Therapist Occupational Therapy 08/26/17
--- OUTSIDE RECORDS SUMMARY | 2024-04-16 13:43 | XMS_ITS | Referral Summary ---
Author Organization [facility] [address] Address [address] [place] [address] Care Team Providers Care Carriage Operator Name Role Phone Keith Foreman MD [...] (04/28/2021): Added automatically from request for surgery [id number] HTN (hypertension) 01/29/2021 HLD (hyperlipidemia) 01/29/2021 Stage 3 chronic kidney disease 01/29/2021 DM (diabetes mellitus) 01/29/2021 Hypothyroid 01/29/2021 Anxiety 01/29/2021 Depression 01/29/2021 Vitamin D deficiency 01/29/2021 Neuropathy 01/29/2021 Stenosis of left subclavian artery (CMS/HCC) 08/2020 Overview (01/27/2021): Added automatically from request for surgery [id number] Small bowel obstruction (CMS/HCC) 06/17/2020 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 04/16/2020 Overview (04/16/2020): Added automatically from request for surgery [id number] Osteoarthritis 03/15/2014 Resolved Problems Problem Noted Date Diagnosed Date Resolved Date Iron deficiency anemia 06/18/202001/29 DANETTE (acute kidney injury) ([facility]) 06/18/2020 01/29/2021 Vocal fold paralysis, 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 1 04/01/2020 Overview (04/02/2020): Added automatically from request for surgery [id number] Dysphonia 02/27/2020 01/29/2021 Overview (02/27/2020): Added automatically from request for surgery [id number] Dysphagia 02/27/2020 01/29/2021 Overview (02/27/2020): Added automatically from request for surgery [id number] Arthralgia of multiple joints 03/17/2014 01/29/2021 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 Social History Tobacco Use Types Packs/Day Years [...] on file Legal Sex Female 5:12 AM ELECTRICAL EQUIPMENT ASSEMBLER Gender Identity Not on file Sexual Orientation Not on file Last Filed Vital Signs Vital Sign Reading Time Taken Comments Blood Pressure 128/80 07/20/2023 9:41 AM CDT Pulse 72 07/20/2023 9:41 AM CDT Temperature 36.8 C (98.2 F) 12/28/2021 11:10 AM ELECTRICAL EQUIPMENT ASSEMBLER Respiratory Rate 12 12/28/2021 11:10 AM ELECTRICAL EQUIPMENT ASSEMBLER Oxygen Saturation 96% 07/20/2023 9:41 AM CDT Inhaled Oxygen Concentration - - Weight 60.1 kg (132 lb 6.4 oz) 07/20/2023 9:41 A M CDT Height 157.5 cm (5' 2 ) 07/20/2023 9:41 AM CDT Body Mass Index 24.22 07/20/2023 9:41 AM CDT Plan of Treatment Not on file Medical Devices Implanted Type Area Potato Bucker Device Identifier Shelf Expiration Date Model / Serial / Lot Medtronic Inc Visi-Pro 7mm 27mm 135cm Radiopaque Balloon Expand Radial Strength - [id number] Implanted:Qty: 1 on 05/08/2020 by Salinas Brothers MD at [facility] Stent Left: Subclavian Medtronic Inc 04/15/2022 [id number] / / [id number] [employer]ao [id number] Device Closure Angio-Seal Vip Bondek-Plus Polyglyd L70 Cm Od6 Fr Odsec.035 In Vascular - [id number] Implanted:Qty: 1 on 05/08/2020 by Salinas Brothers MD at [facility] Right: Groin [employer] Rao 01/20/2021 [id number] / / [id number] [employer] Peripheral Vascular [id number] Lifestream 7mm 26mm 80cm Balloon Expandable Low Profile Cover - [id number] Implanted:Qty: 1 on 05/29/2021 by Salinas Brothers MD at [facility] Peripheral Vascular 01/20/2022 [id number] / / Procedures Procedure Name Priority [...] 7:02 AM CDT 05/29/2021 7:12 AM CDT us Salinas Brothers MD LAB BLOOD ORDERABLES Final Resul t [facility] [address] Department of Laboratories [place] [phone] from Last 3 Months or Most Recently Relevant to Health Maintenance Insurance MEDICARE SOLUTIONS Member Subscriber Plan / Payer (Ef fective 2021-Present) Name:Claire Herrera Relation to Subscriber:Self Name:Claire Herrera Payer ID:[id number] (NAIC) Type:UHC MEDICARE Address: [place] [id number] MEDICARE SOLUTIONS Member Subscriber Plan / Payer (Ef fective 2022-Present) Name:Claire Herrera Relation to Subscriber:Self Name:Claire Herrera Payer ID:[id number] (NAIC) Type:UHC MEDICARE Address: [place] [id number] [place] [id number] Advance Directives For more information, please contact: [phone] * Full Code (Latest Code Status on File) Date Activated Date Inactivated Comments 06/17/2020 1:01 PM 06/21/2020 7:49 PM Care Teams Carriage Operator Relationship Specialty Start Date End Date Keith Foreman MD [address] [facility] [address] [place] [address] PCP - General 06/09/17 Margo Leon Occupational Therapist Occupational Therapy 08/26/17
--- OUTSIDE RECORDS SUMMARY | 2024-04-16 13:43 | XMS_ITS | Clinical Summary ---
Author Organization [facility] Address [address] [place] [id number] Phone Care Team Providers Care Smoke Room Operator Name Role Phone Keith Foreman MD Primary Care Provider [phone] Allergies Active Allergy Reactions Criticality Noted Date Comments Ciprofloxacin Nausea And Vomiting,Vomiting Low 08/29/2009 Penicillins Rash,Unknown Medium 08/29/2009 Moderate, immediate reactions: PCN allergy form completed. Has taken PCN on 08/2019 without rash. Medications Medication Sig Dispensed Refills Start Date End Date Status aspirin 325 MG tablet 1 at dinner with niacin 05/29/2014 Active ergocalciferol (VITAMIN D-2) 63264 units capsule 1 capsule (50,000 units) orally every 2 weeks 4 10/13/2017 Active gabapentin (NEURONTIN) 600 MG tablet TK 1 T PO QAM AND 2 TS PO QHS 1 03/06/2018 Active omeprazole (PriLOSEC) [address] capsule TK 1 C PO QD BEFORE A MEAL 2 05/08/2018 Active Vascepa 1 g capsule Take 2 capsules by mouth 2 (two) times a day 04/28/2020 Active metFORMIN (GLUCOPHAGE) 1000 MG tablet Take 1,000 mg by mouth 2 (two) times a day 05/01/2020 Active rosuvastatin (CRESTOR) 40 MG tablet Take 40 mg by mouth 1 (one) time each day 07/09/2020 Active senna-docusate (Senokot S) 8.6-50 MG per tablet Take 2 tablets by mouth 02/17/2011 Active Melatonin 10 MG capsule Take 10 mg by mouth daily Active ezetimibe (ZETIA) 10 MG tablet 01/21/2021 Active clopidogrel (PLAVIX) 75 MG tablet 04/24/2021 Active busPIRone (BUSPAR) 15 MG tablet Take 15 mg by mouth every night 11/11/2021 Active levothyroxine (SYNTHROID) 88 MCG tablet 12/07/2021 Active lisinopril (PRINIVIL) 10 MG tablet Take 1 tablet (10 mg total) by mouth 1 (one) time each day 30 tablet 11 12/09/2021 Active Active Problems Problem Noted Date Diagnosed Date Type 2 diabetes mellitus without complication Stage 3b chronic kidney disease 05/29/2014 Other fatigue 02/04/2014 Essential (primary) hypertension 10/29/2013 Pain in joint 10/29/2013 Other and unspecified hyperlipidemia 10/29/2013 Overview (05/06/2018): Converted unresolved ICD9, potential mismatch. Immunizations Name Administration Dates Next Due Influenza Split High Dose Pr eservative Free IM 12/18/2018 Influenza TIV (IM) 12/24/2020 Moderna Sars-cov-2 Vaccination 12/24/2020,2020,03/28/2020 Pneumococcal Conjugate 13-Valent 01/22/2013 Family History Medical History Relation Comments Heart disease Father Malignant neoplastic disease Father Dyslipidemia Mother Hypertensive disorder Mother Diabetes mellitus Sibling Dyslipidemia Sibling Heart disease Sibling Hypertensive disorder Sibling Malignant neoplastic disease Sibling Cerebrovascular accident Neg Hx Kidney disease Neg Hx Kidney stone Neg Hx Relation Status Comments Father Mother Sibling Social History Tobacco Use Types Packs/Day Years Used Date Smoking Tobacco: Never Smokeless Tobacco: Never Sex and Gender Information Value Date Recorded Sex Assigned at Not on file Gender Identity Not on file Sexual Orientation Not on file Last Filed Vital Signs Vital Sign Reading Time Taken Comments Blood Pressure 144/86 12/09/2021 11:07 AM CDT Pulse 84 12/09/2021 11:07 AM CDT Temperature 36.3 C (97.4 F) 12/09/2021 11:07 AM CDT Respiratory Rate - - Oxygen Saturation - - Inhaled Oxygen Concentration - - Weight 63 kg (139 lb) 12/09/2021 11:07 AM CDT Height 160 cm (5' 3 ) 12/09/2021 11:07 AM CDT Body Mass Index 24.62 12/09/2021 11:07 AM CDT Plan of Treatment Health Maintenance Due Date Last Done Comments Pneumococcal PPSV23/PCV13 65 + Years / High and Highest Risk (2 of 4 - PPSV23 or PCV20) 03/19/2013 01/22/2013 Pneumococcal PPSV23/PCV13 65 + Years / Low and Medium Risk (2 of 3 - PPSV23 or PCV20) 01/22/2014 01/22/2013 COVID-19 Vaccine ( season) 2023 12/24/2020, 04/25/2020, 03/28/2020 Influenza Vaccine (#1) 2023 12/24/2020 Care Teams Smoke Room Operator Relationship Specialty Start Date End Date Keith Foreman MD [address] [place] [id number] PCP - General Internal Medicine 05/10/18
== END 2024-04-16 11:56 | disposition home or self-care (01) ==
LOC: ANHLAB 11:56
PROVIDERS: PCP Family Medicine; Visit Provider Family Medicine
DX: J06.9 Acute upper respiratory infection, unspecified (principal)
CPT/HCPCS: 87637

== ENCOUNTER 2024-10-17 11:41 | Inpatient (IN) | payer MEDICARE, SELFPAY ==
--- NOTE | ~2024-10-17 | XR_ITS ---
EXAMINATION: XR chest 2V, 10/17/2024 16:34 CDT HISTORY: cough, poss mass COMPARISON: No comparisons available. Technique: 2 views obtained. Findings: The lungs are clear, no effusion. No pneumothorax. Heart is normal size. Mediastinal and hilar contours are within normal limits. Bony thorax no acute abnormality. Impression: No acute cardiopulmonary abnormality. Reviewed, dictated and finalized at location A. Impression: No acute cardiopulmonary abnormality.
--- NOTE | ~2024-10-17 | US_ITS ---
US renal BI 10/18/2024 14:53 Procedure: Realtime transabdominal ultrasound of the kidneys and bladder. Indication: Acute renal insufficiency Comparison: Ultrasound dated 02/19/2021 Findings: Renal echotexture is normal bilaterally without hydronephrosis, contour deforming mass or renal calculus. There is a right renal cyst measuring 3.9 cm. The right kidney measures 9.3 cm and left kidney measures 9.4 cm. Bladder within normal limits. Impression: 1: Right renal cyst measuring 3.9 cm. Reviewed, dictated and finalized at location O. Impression: 1: Right renal cyst measuring 3.9 cm.
--- NOTE | ~2024-10-17 | CT_ITS ---
EXAMINATION: CT abdomen pelvis wo con DATE: 10/17/2024 13:23 INDICATION: Renal failure, liver failure and weight loss. TECHNIQUE: Computed tomography (CT) of the abdomen and pelvis was performed without intravenous contrast. Automated exposure control and iterative reconstruction technique were employed. The dose-length product was 463.33 mGy-cm. COMPARISON: None FINDINGS: Mild dependent atelectasis in bilateral lower lobes. Heart size is normal. No pericardial or pleural effusion. Mild dilation the common bile duct measuring up to 11 mm in diameter likely related to prior cholecystectomy. Liver is normal with no evident intrahepatic biliary ductal dilation. Spleen, pancreas, left kidney and bilateral adrenal glands are normal. 3.3 cm right renal cyst. There is mild colonic diverticulosis with a sigmoid predominance. There is no adjacent inflammatory change to suggest diverticulitis. Small bowel and appendix are normal. Bladder is normal. The uterus is not identified and has likely been surgically resected. No free intraperitoneal gas or fluid. No pathologically e nlarged abdominal or pelvic lymphadenopathy. L5 spondylolysis with bilateral pars interarticularis defects and 7 mm anterolisthesis on S1. Severe lumbar spondylosis with prominent sclerotic Modic type III degenerative endplate changes at L2-L3. IMPRESSION: 1. No acute intra-abdominal/pelvic process. Reviewed, dictated and finalized at location A.
--- NOTE | ~2024-10-17 | US_ITS ---
US abdomen limited INDICATION: Elevated liver enzymes PROCEDURE: Realtime right upper abdominal ultrasound. COMPARISON: No prior studies for comparison. FINDINGS: The pancreas is normal without focal mass or pancreatic ductal dilation. Liver echotexture is increased, consistent with fatty infiltration. No focal hepatic masses. There is normal directional flow in the portal vein. Gallbladder is surgically absent. Common bile duct measures 9 mm. No sonographic Lynch's sign. There is a right renal cyst at the upper pole measuring 4.4 cm. IMPRESSION: 1: Fatty infiltration of the liver. Reviewed, dictated and finalized at location O.
[2024-10-17 11:49] VITALS: BP 110/52; PULSE 60; RESP 16; TEMP 36.6; O2SAT 98
--- OUTSIDE RECORDS SUMMARY | 2024-10-17 11:54 | XMS_ITS | Clinical Summary ---
Author Organization [facility] Address [address], [address] [address] Phone Care Team Providers Care Mold Builder Name Role Phone Keith Foreman MD Primary Care Provider Delphine Hahn MD Unavailable Phil Rosales MD Unavailable [phone] Lino Castaneda DO Unavailable [phone] Allergies Active Allergy Reactions Criticality Noted Date [...] 12:35 PM CDT Height 157.5 cm (5' 2) 09/13/2019 12:35 PM CDT Body Mass Index 27.98 09/13/2019 12:35 PM CDT Plan of Treatment Health Maintenance Due Date Last Done Comments Diabetes: Eye Exam 1950 Diabetes: Foot Exam 1950 Diabetes: Hemoglobin A1c 1950 Hepatitis C Virus (HCV) Screening 1950 TdaP Immunization 1950 Diabetes: Nephropathy Screening 01/22/1966 Zoster Immunization (1 of 2) 01/22/1998 Pneumococcal Immunization (50+ years) (2 of 2 - PPSV23, PCV20, or PCV21) 03/29/2016 02/02/2016 Respiratory Syncytial Virus (RSV) Immunization (Adult) (1 - 1-dose 75+ series) 01/22/2023 SARS-COV-2 Immunization ( season) 2023 07/28/2021, 12/24/2020, 04/25/2020, Additional history exists Influenza Immunization (#1) 10/22/202401/21, 12/18/2018, 10/31/2017, Additional history exists Pneumococcal Immunization Combined Discontinued 02/02/2016 Colonoscopy Discontinued 10/03/2019, 07/11/2015 Colorectal Cancer Screening Discontinued Cologuard Discontinued Hepatitis B Immunization Aged Out No longer eligible based on patient's age to complete this topic Human Papillomavirus (HPV) Immunization Aged Out No longer eligible based on patient's age to complete this topic Immunochemical Fecal Occult Blood Discontinued Meningococcal Immunization (ACWY) Aged Out No longer eligible based on patient's age to complete this topic Rotavirus Immunization Aged Out No lo nger eligible based on patient's age to complete this topic Procedures Procedure Name Priority Date/Time Associated Diagnosis Comments COLONOSCOPY Routine 10/03/2019 from Last 3 Months or Most Recently Relevant to Health Maintenance Results * HM COLONOSCOPY (10/03/2019) Lino Castaneda DO PROCEDURE/MINOR SURGICAL ORDERA BLES Final Result from Last 3 Months or Most Recently Relevant to Health Maintenance Insurance MEDICARE Care Teams Mold Builder Relationship Specialty Start Date End Date Keith Foreman MD [address] [place] [address] PCP - General Family Medicine 07/31/19 Delphine Hahn MD [address] [place] [address] Obstetrics & Gynecology 09/13/19 Phil Rosales MD [address] [place] [address] Consulting Physician Nephrology 09/13/19 Lino Castaneda, [address] [address] Consulting Physician Gastroenterology 09/13/19
--- OUTSIDE RECORDS SUMMARY | 2024-10-17 11:54 | XMS_ITS | Clinical Summary ---
Author Organization [facility] Address [address], [place] [address] Phone Care Team Providers Care Janitor And Cleaner Name Role Phone Keith Foreman MD Primary Care Provider [phone] Allergies Active Allergy Reactions Criticality Noted Date Comments Ciprofloxacin Nausea And Vomiting,Vomiting Low 08/29/2009 Penicillins Rash,Unknown Medium 08/29/2009 Moderate, immediate reactions: PCN allergy form completed. Has taken PCN on 08/2019 without rash. Medications aspirin 325 MG tablet 1 at dinner with niacin 05/29/2014 Active ergocalciferol (VITAMIN D-2) 63676 units capsule 1 capsule (50,000 units) orally [...] (05/06/2018): Converted unresolved ICD9, potential mismatch. Immunizations Immunization Administration Dates Next Due Influenza Split High [...] Date Smoking Tobacco: Never Smokeless Tobacco: Never Comments Unknown Sex and Gender Information Value Date Recorded Sex Assigned at Not on file Legal Sex Female 8:31 AM [facility] Gender Identity Not on file Sexual Orientation [...] 11:07 AM CDT Height 160 cm (5' 3) 12/09/2021 11:07 AM CDT Body Mass Index 24.62 12/09/2021 11:07 AM CDT Plan of Treatment Health Maintenance Due Date Last Done Comments Pneumococcal PPSV23/PCV13 65 + Years / Low and Medium Risk (2 of 3 - PCV20 or PCV21) 01/22/2014 01/22/2013 COVID-19 Vaccine (4 - season) 2023 12/24/2020, 04/25/2020, 03/28/2020 Influenza Vaccine (#1) 2024 12/24/2020 Insurance [employer] [place] [address] Care Teams Janitor And Cleaner Relationship Specialty Start Date End Date Keith Foreman MD [address] [place] [address] PCP - General Internal Medicine 05/10/18
--- OUTSIDE RECORDS SUMMARY | 2024-10-17 11:54 | XMS_ITS | Clinical Summary ---
Author Organization [facility] Address [address] [place] [address] Care Team Providers Care Pipe Threader Name Role Phone Robert Donaldson Source Comments [facility],non-owned Affiliates and Associated Physician Practices is amultiple site organization consisting of ambulatory clinics and hospital sitesin [place], [place], [place] and [place]. This disclosure is being madepursuant to the Care Everywhere program and may not contain all information available regarding this patient. Last updated 17.[facility] Allergies Active Allergy Reactions Criticality Noted Date Comments Penicillins Rash Low 11/16/2010 Medications * Be aware that medications may not be up to date on this document. Alwaysverify current medications with the patient. levothyroxine (SYNTHROID) 75 MCG tablet once daily. Active lovastatin (MEVACOR) 20 MG tablet 20 mg at bedtime. Active estradiol (ESTRACE) 1 MG tablet once daily. Active vitamin D2 (ERGOCALCIFEROL) 24773 UNIT capsule every 7 days. Active carvedilol (COREG) 6.25 MG tablet Take 6.25 mg by mouth 2 times daily with breakfast and dinner. Active methocarbamol (ROBAXIN) 750 MG tablet Take 1 Tab by mouth every 6 hours as needed for Muscle Spasms. 40 Tab 1 1 Active fentaNYL (DURAGESIC) 12 MCG/HR patch Apply 1 Patch to skin every 3 days. 10 Patch 0 1 Active oxycodone, immediate release, (ROXICODONE) 5 MG tablet Take 1 Tab by mouth every 6 hours as needed for Pain. 30 Tab 0 1 Active oxyCODONE CR 12hr (OXYCONTIN) 40 MG tablet Take 1 Tab by mouth every 12 hours. 120 0 1 Active ibuprofen (MOTRIN) 600 MG tablet Take 1 Tab by mouth 3 times daily. 30 Tab 0 1 Active diazepam (VALIUM) 5 MG tablet Take 1 Tab by mouth 3 times daily as needed for Anxiety. Prn for anxiety and muscle spasms. 30 Tab 0 1 Active citalopram (CELEXA) 20 MG tablet Take 1 Tab by mouth once daily. 30 0 1 Active bisacodyl (DULCOLAX) 10 MG suppository Insert 1 Suppository into the rectum once daily as needed for Constipation. 30 0 1 Active polyethylene glycol 3350 (MIRALAX) packet Take 17 g by mouth 2 times daily as needed for Constipation. 7 Packet 1 1 Active senna-docusate (SENOKOT-S) 8.6-50 MG tablet Take 1 Tab by mouth 2 times daily. 30 Tab 0 1 Active baclofen (LIORESAL) 10 MG tablet Take 1 Tab by mouth at bedtime. 30 Tab 0 1 Active baclofen (LIORESAL) 10 MG tablet Take 0.5 Tabs by mouth 2 times daily as needed (for muscle spasm/pain). 30 Tab 0 1 Active omeprazole (PRILOSEC) 20 MG capsule Take 1 Cap by mouth daily before breakfast. 30 Cap 0 1 Active Active Problems Problem Noted Date Diagnosed [...] = 0.6 oz pur e alcohol) occasional Comments Unknown Sex and Gender Information Value Date Recorded Sex Assigned at Not on file Legal Sex Female 5:51 AM [facility] [employer] [facility] Gender Identity Not on file Sexual Orientation Not on file Last Filed Vital Signs Vital Sign Reading Time Taken Comments Blood Pressure 90/46 02/17/2011 3:50 PM [facility] Pulse 63 02/17/2011 3:50 PM [facility] [employer] Temperature 36.8 C (98.3 F) 02/17/2011 3:50 PM [facility] [facility] Respiratory Rate 18 02/17/2011 3:50 PM [facility] [facility] Oxygen Saturation 97% 02/17/2011 3:50 PM [facility] Inhaled Oxygen Concentration - - Weight 70.3 kg (155 lb) 03/24/2011 10:09 AM [facility] [facility] Height 160 cm (5' 3) 03/24/2011 10:09 AM [facility] [facility] Body Mass Index 27.46 03/24/2011 10:09 AM [facility] Plan of Treatment Health Maintenance Due Date Last Done Comments BONE DENSITY TESTING 1950 HEPATITIS C SCREENING 01/18/1966 DTAP/TDAP/TD VACCINES (1 - Tdap) 01/22/1967 PNEUMOCOCCAL VACCINE 50+ (1 of 1 - PCV) 01/22/1998 ZOSTER VACCINE (1 of 2) 01/22/1998 Respiratory Syncytial Virus (RSV) Vaccine Pt: or over 60 yrs (1 - 1-dose 75+ series) 01/22/2023 COVID-19 VACCINE ( - 2023-2 5 season) 2023 DEPRESSION SCREENING 02/22/2024 INFLUENZA VACCINE (#1) 2024 HEPATITIS B VACCINE Aged Out No longe r eligible based on patient's age to complete this topic HIB VACCINE Aged Out No longer eligi ble based on patient's age to complete this topic HPV VACCINE Aged Out No longer eligi ble based on patient's age to complete this topic MENINGOCOCCAL (Group B) VACC INE SHARED DECISION-MAKING Aged Out No longer eligibl e based on patient's age to complete this topic MENINGOCOCCAL GROUPS A/C/Y/W VACCINE Aged Out No longer eligible b ased on patient's age to complete this topic Insurance MEDICARE [facility] [facility] MANAGED MEDICARE ADV [facility] Advance Directives * FULL RESUSCITATION (Latest Code Status on File) Date Activated Date Inactivated Comments 01/30/2011 4:53 PM 02/18/2011 5:21 AM * FULL RESUSCITATION Date Activated Date Inactivated Comments 01/30/2011 4:24 PM 01/30/2011 4:53 PM * FULL RESUSCITATION Date Activated Date Inactivated Comments 12/08/2010 2:39 PM 12/09/2010 11:23 PM Care Teams Pipe Threader Relationship Specialty Start Date End Date Robert Donaldson [address] [place] [address] Orthopedic 11/16/10
--- OUTSIDE RECORDS SUMMARY | 2024-10-17 11:54 | XMS_ITS | Clinical Summary ---
Author Organization [facility] [address] Address [address] [place] [address] Care Team Providers Care Nurse Practitioner Physicians Assistant Name Role Phone Keith Foreman MD Primary [...] by mouth nightly at bedtime 11/11/2021 Active levothyroxine (SYNTHROID) 88 mcg tablet Take [...] 09/23/2023 Active clopidogreL (PLAVIX) 75 mg tablet Take 1 tablet (75 mg total) by mouth daily 90 tablet 3 07/02/2024 Active empagliflozin (JARDIANCE) 10 mg tablet Take 1 tablet (10 mg total) by mouth daily Active LORazepam (ATIVAN) 0.5 mg tablet Take 1 tablet (0.5 mg total) by mouth every 6 (six) hours as needed for anxiety 30 tablet 08/13/2024 Active Active Problems Problem Noted Date Diagnosed Date Bilateral carotid artery stenosis 08/16/2024 Assessment & Plan (08/16/2024 11:44 AM CDT): Status post left CEA in 2019. Bilateral internal carotid arteries with now with moderate 50-69% stenosis. Discussed findings with the patient and her family member. I have recommended continued risk factor modification with ASA statin therapy and good blood pressure control. Follow up in 6 months repeat carotid duplex. S/P angioplasty 04/28/2021 Overview (04/28/2021): Added automatically from request for surgery [id number] HTN (hypertension) 01/29/2021 Assessment & Plan (08/16/2024 11:45 AM CDT): Stable continue Coreg HLD (hyperlipidemia) 01/29/2021 Assessment & Plan (08/16/2024 11:45 AM CDT): Stable continue Crestor Stage 3 chronic kidney disease 01/29/2021 DM (diabetes mellitus) 01/29/2021 Hypothyroid 01/29/2021 Anxiety 01/29/2021 Depression 01/29/2021 Vitamin D deficiency 01/29/2021 Neuropathy 01/29/2021 Stenosis of left subclavian artery 01/27/2021 Overview (01/27/2021): Added automatically from request for surgery [id number] Small bowel obstruction 06/17/2020 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 Encounters Date Type Department Care Team Description 08/15/2024 9:45 AM CDT Office Visit [facility] Vascular at [address] [place] [address] Alton Ely MD Bilateral carotid artery stenosis (Primary Dx); History of left-sided carotid endarterectomy; Mixed hyperlipidemia; Primary hypertension 08/15/2024 Orders Only [facility] Vascular at [address] [place] [address] Alton Ely MD Bilateral carotid artery stenosis (Primary Dx) 08/13/2024 7:51 PM CDT - 08/14/2024 Emergency [facility] Emergency Department [address] [place] [address] Barry Soliman MD Chest pain, unspecified type (Primary Dx); Other insomnia; Anxiety about health Discharge Disposition: Discharge to home or self care 08/01/2024 9:00 AM CDT Ancillary Procedure [facility] Cardiology at [address] [place] [phone] Precordial pain 07/27/2024 11:00 AM CDT Ancillary Procedure [facility] Vascular and Vein Surgery at [address] [place] [phone] Stenosis of left subclavian artery; Status post angioplasty with stent 07/27/2024 Results Follow-Up [facility] Cardiology [address] [facility] [address] [place] [phone] Salinas Jose MD US Arterial Doppler Upper Extremity Bilateral, NM MPI SPECT (Rest and/or Stress) Multiple Studies 07/25/2024 10:30 AM CDT Office Visit [facility] Cardiology [address] [facility] [address] [place] [phone] Salinas Jose MD Precordial pain (Primary Dx); Stenosis of left subclavian artery; Status post angioplasty with stent; Hypertension associated with diabetes (HCC); Bilateral carotid artery stenosis; History of left-sided carotid endarterectomy; Lipid screening from Last 3 Months Surgical History Surgery Date Site/Laterality Comments CHOLECYSTECTOMY CAROTID ENARTERECTOMYY Left GASTRIC FUNDOPLICATION BUNIONECTOMY TONSILLECTOMY SKIN GRAFT Right upper thigh VOCAL CORD INJECTION Left botox DILATION AND CURETTAGE OF UTERUS HYSTERECTOMY + bladder sling; prolapsed uterus BALLOON ANGIOPLASTY, ARTERY Medical History Medical History Date Comments Hypertension Thyroid disease Hyperlipidemia Diabetes mellitus (HCC) Syncope Stroke (HCC) no residual Arthritis Anxiety Type 2 diabetes mellitus Hypothyroidism Left carotid stenosis Chronic kidney disease [...] history of cerebrovascular accident - (Added by Conv) Relation Name Status Comments Brother Father [...] more drinks on one occasion? Never 05/26/2021 Personal Safety Answer Date Recorded Have you ever been in or are you currently in a harmful physical or emotional relationship or is someone making you feel afraid or unsafe? Denies 08/13/2024 Comments No Sex and Gender Information Value Date Recorded Sex Assigned at Not on file Legal Sex Female 5:12 AM [employer] Gender Identity Not on file Sexual Orientation Not on file Obstetrics History Last Filed Vital Signs Vital Sign Reading Time Taken Comments Blood Pressure 116/87 08/15/2024 10:17 AM CDT Pulse 95 08/15/2024 10:17 AM CDT Temperature 36.9 C (98.4 F) 08/13/2024 3:41 PM CDT Respiratory Rate 15 08/13/2024 11:30 PM CDT Oxygen Saturation 100% 08/13/2024 11:30 PM CDT Inhaled Oxygen Concentration - - Weight 59 kg (130 lb) 08/15/2024 10:17 AM CDT Height 160 cm (5' 3) 08/15/2024 10:17 AM CDT Body Mass Index 23.03 08/15/2024 10:17 AM CDT Plan of Treatment Health Maintenance [...] Pneumococcal vaccine 65+ (2 of 2 - PPSV23, PCV20, or PCV21) 03/29/2016 02/02/2016, 01/22/2013 Fall Risk Assessment 05/29/2022 05/29/2021, 10/01/19 20 Covid-19 Vaccine (4 - 2023-2 5 season) 2023 12/24/2020, 04/25/2020, 03/28/2020 Influenza Vaccine (#1) 2024 , 02/01/2020, 12/18/2018, Additional history exists Lipid Panel 07/25/2025 07/25/2024, 07/2 07/2022, 04/29/2021, Additional history exists eGFR 08/13/2025 08/13/2024, 04/0 09/2021, 04/21/2021, Additional history exists Medical Devices Implanted Type Area Manager Underwriting Device Identifier Shelf Expiration Date Model / Serial / Lot Med[employer]onic Inc Visi-Pro 7mm 27mm 135cm Radiopaque Balloon Expand Radial Strength - [id number] Implanted:Qty: 1 on 05/08/2020 by Salinas Jose MD at [facility] Stent Left: Subclavian Med[employer] Inc 04/15/2022 [id number] / / [id number] Daig Rao [id number] Device Closure Angio-Seal Vip Bondek-Plus Polyglyd L70 Cm Od6 Fr Odsec.035 In Vascular - [id number] Implanted:Qty: 1 on 05/08/2020 by Salinas Jose MD at [facility] Right: Groin [employer] 01/20/2021 [id number] / / [id number] [place] [facility] [id number] Lifestream 7mm 26mm 80cm Balloon Expandable Low Profile Cover - [id number] Implanted:Qty: 1 on 05/29/2021 by Salinas Jose MD at [facility] 01/20/2022 [id number] / / Procedures Procedure Name Priority Date/Time Associated Diagnosis Comments POCT GLUCOSE DEVICE Routine 08/13/2024 1 0:22 PM CDT NAZARIO QUALITATIVE WITH REFLEX TO NAZARIO QUANTITATIVE STAT 08/13/2024 10:[address] CERVICAL SPINE WO CONTRAST ED 08/13/2024 9:[address] HEAD WO CONTRAST ED 08/13/2024 9 :59 PM CDT TROPONIN T HIGH-SENSITIVITY 4-HR Timed 08/13/2024 8:15 PM CDT TROPONIN T HIGH-SENSITIVITY 2-HOUR Timed 08/13/2024 5:36 PM CDT XR CHEST PA LATERAL 2 VIEWS ED 08/13/2024 4:00 PM CDT ERYTHROCYTE SEDIMENTATION RATE STAT 08/13/2024 3:52 PM CDT RHEUMATOID FACTOR STAT 08/13/2024 3:5 2 PM CDT THYROID FUNCTION CASCADE Add-On 08/13/2024 3:52 PM CDT EGFR STAT 08/13/2024 3:52 PM CDT DIFFERENTIAL AUTO STAT 08/13/2024 3:5 2 PM CDT TROPONIN T HIGH-SENSITIVITY SERIES (BASELINE, 2HR, 4HR, 6HR) STAT 08/13/2024 3:52 PM CDT COMPREHENSIVE METABOLIC PANEL STAT 08/13/2024 3:52 PM CDT CBC WITH AUTO DIFFERENTIAL STAT 08/13/2024 3:52 PM CDT ECG 12-LEAD STAT 08/13/2024 3:46 PM CDT NM MPI SPECT (REST AND/OR STRESS) MULTIPLE STUDIES Schedule Routine, Read Routine (OP Routine) 08/01/2024 11:44 AM CDT Precordial pain US ARTERIAL DOPPLER UPPER EXTREMITY BILATERAL Schedule Routine, Read Routine (OP Routine) 07/27/2024 11:43 AM CDT Stenosis of left subclavian artery Status post angioplasty with stent POCT LIPID PANEL Routine 07/25/2024 10:4 4 AM CDT Lipid screening from Last 3 Months Results * POCT glucose (08/13/2024 10:22 PM CDT) Glucose, POC 85 70 - 199 mg/dL Blood 08/13/2024 10:2 2 PM CDT 08/13/2024 10:22 PM CDT Barry Soliman MD LAB POCT ORDERABLES - DEVIC E Final Result Performing Organization Address City/State/[facility] Co de Phone Number [facility] [place] [address] [facility] [place] [address] * NAZARIO ab ql w/rflx to NAZARIO qn (08/13/2024 10:18 PM CDT) NAZARIO Negative Comment: Interpretive Data Normal range for NAZARIO Qualitative Antibody = Negative. 1. NAZARIO is performed using indirect immunofluorescence against HEp-2 cells 2. NAZARIO titers are performed on all positive qualitative results. 3. A significantly positive NAZARIO result is defined as a positive nuclear fluorescence at a titer of 1:80 or greater. 4. 15% of normal people above age 65 have significantly positive NAZARIO results. 5% or less of normal people age 65 or under have significantly positive NAZARIO results. Current interpretive data was last revised on 2019. Testing performed by: [facility], [address] [place] [address] Blood 08/13/2024 10:1 8 PM CDT 08/14/2024 10:09 AM CDT us Barry Soliman MD LAB BLOOD ORDERABLES Final Result [facility] ([place]) 1 [facility] [place] [address] * CT Cervical Spine WO Contrast (08/13/2024 9:59 PM CDT) Anatomical Region Laterality Modality Spine N/A Computed Tomogra phy 08/13/2024 10:5 9 PM CDT Narrative 08/13/2024 11:21 PM CDT EXAM DESCRIPTION: CT CERVICAL SPINE WO CONTRAST REASON FOR STUDY: Neck pain, acute, no red flags Patient complains of fatigue for several days, patient denied headache, neck pain, dizziness, or blurry vision at this time, patient denied any recent falls. TECHNIQUE: Axial images through the cervical spine with sagittal and coronal reformatted images. Automated exposure control was used as a dose optimization technique for this examination. COMPARISON: None FINDINGS: ALIGNMENT: 2 mm anterolisthesis C3 on C4 and C4 on C5 is likely due to facet arthropathy. VERTEBRAE: No fracture. Vertebral body heights well-maintained. DISCS: Moderate disc space narrowing C5-6 and C6-7. Small marginal osteophytes C3 through C7. Degenerative change involving all of the articular facets. HARDWARE: None in the spine. INDIVIDUAL DISC LEVELS: No significant osseous spinal canal or neural foraminal stenosis. UPPER THORACIC: Incompletely imaged. No significant osseous spinal stenosis or osseous neural foraminal stenosis. SKULL BASE: No significant finding. LUNG APICES: No significant abnormality. NECK SOFT TISSUES: No significant abnormality. OTHER: No other significant findings. IMPRESSION: Multilevel degenerative change in the cervical spine. No CT evidence of cervical spine fracture. THIS IS AN ELECTRONICALLY VERIFIED FINAL REPORT 08/13/2024 11:21 PM - Electronically signed by Ravinder Arnold M.D. KT: PB Report ID: [id number] Reading Location: [id number] Procedure Note Ravinder Arnold MD - 08/13/2024 EXAM DESCRIPTION: CT CERVICAL SPINE WO CONTRAST REASON FOR STUDY: Neck pain, acute, no red flags Patient complains of fatigue for several days, patient denied headache,neck pain, dizziness, or blurry vision at this time, patient denied any recent falls. TECHNIQUE: Axial images through the cervical spine with sagittal andcoronal reformatted images. Automated exposure control was used as a doseoptimization technique for this examination. COMPARISON: None FINDINGS: ALIGNMENT: 2 mm anterolisthesis C3 on C4 and C4 on C5 is likely due to facet arthropathy. VERTEBRAE: No fracture. Vertebral body heights well-maintained. DISCS: Moderate disc space narrowing C5-6 and C6-7. Small marginal osteophytes C3 through C7. Degenerative change involving all of thearticular facets. HARDWARE: None in the spine. INDIVIDUAL DISC LEVELS: No significant osseous spinal canal or neural foraminal stenosis. UPPER THORACIC: Incompletely imaged. No significant osseous spinalstenosis or osseous neural foraminal stenosis. SKULL BASE: No significant finding. LUNG APICES: No significant abnormality. NECK SOFT TISSUES: No significant abnormality. OTHER: No other significant findings. IMPRESSION: Multilevel degenerative change in the cervical spine. No CT evidence of cervical spine fracture. THIS IS AN ELECTRONICALLY VERIFIED FINAL REPORT 08/13/2024 11:21 PM - Electronically signed by Ravinder Arnold M.D. KT: PB Report ID: [id number] Reading Location: [id number] us Barry Soliman MD IMG CT PROCEDURES Final Res ult * CT Head WO Contrast (08/13/2024 9:59 PM CDT) Anatomical Region Laterality Modality Head and Neck N/A Computed Tomogra phy 08/13/2024 10:5 6 PM CDT Narrative 08/13/2024 10:59 PM CDT EXAM DESCRIPTION: CT HEAD WO CONTRAST REASON FOR STUDY: Headache, no red flags Patient complains of fatigue for several days, patient denied headache, neck pain, dizziness, or blurry vision at this time, patient denied any recent falls. TECHNIQUE: Axial images acquired through the brain without intravenous contrast. Images stored on PACS. Automated exposure control was used as a dose optimization technique for this examination. COMPARISON: None FINDINGS: BRAIN: No hemorrhage, edema or mass effect. No recent infarct. Generalized atrophy and periventricular microvascular white matter ischemic change. Old infarct with encephalomalacia left occipital lobe. EXTRA-AXIAL SPACES: No fluid collections. No masses. CALVARIUM: No fracture. SINUSES/MASTOIDS: No fluid or mucosal thickening. ORBITS: No significant abnormality. OTHER: No other significant abnormality. IMPRESSION: No acute intracranial findings. THIS IS AN ELECTRONICALLY VERIFIED FINAL REPORT 08/13/2024 10:59 PM - Electronically signed by Ravinder Arnold M.D. KT: PB Report ID: [id number] Reading Location: [id number] Procedure Note Ravinder Arnold MD - 08/13/2024 EXAM DESCRIPTION: CT HEAD WO CONTRAST REASON FOR STUDY: Headache, no red flags Patient complains of fatigue for several days, patient denied headache,neck pain, dizziness, or blurry vision at this time, patient denied any recent falls. TECHNIQUE: Axial images acquired through the brain without intravenous contrast. Images stored on PACS. Automated exposure control was used asa dose optimization technique for this examination. COMPARISON: None FINDINGS: BRAIN: No hemorrhage, edema or mass effect. No recent infarct. Generalized atrophy and periventricular microvascular white matterischemic change. Old infarct with encephalomalacia left occipital lobe. EXTRA-AXIAL SPACES: No fluid collections. No masses. CALVARIUM: No fracture. SINUSES/MASTOIDS: No fluid or mucosal thickening. ORBITS: No significant abnormality. OTHER: No other significant abnormality. IMPRESSION: No acute intracranial findings. THIS IS AN ELECTRONICALLY VERIFIED FINAL REPORT 08/13/2024 10:59 PM - Electronically signed by Ravinder Arnold M.D. KT: KT Report ID: [id number] Reading Location: [place] [address] Barry Soliman MD IMG CT PROCEDURES Final Res ult * Troponin T high-sensitivity 4-hour (08/13/2024 8:15 PM CDT) Trop T hs 13 <=14 ng/L Comment: Interpretive Data For further hscTnT resources including the diagnostic algorithm and an aid in interpretation, copy and paste this link: [email or web address]/show/[email or web address] Current Interpretive Data last revised 2019. Trop T hs delta 0 ng/L [facility] ([facility]) Trop T hs interp Insignificant [facility] ([facility]) Blood 08/13/2024 8:15 PM CDT 08/13/2024 8:18 PM CDT Barry Soliman MD LAB BLOOD ORDERABLES Final Result [facility] ([place]) 1 [facility] [place] [address] * Troponin T high-sensitivity 2-hour (08/13/2024 5:36 PM CDT) Trop T hs 13 <=14 ng/L Comment: Interpretive Data For further hscTnT resources including the diagnostic algorithm and an aid in interpretation, copy and paste this link: [email or web address]/[email or web address] Current Interpretive Data last revised 2019. Trop T hs delta 0 ng/L [facility] ([facility]) Trop T hs interp Insignificant [facility] ([facility]) Blood 08/13/2024 5:36 PM CDT 08/13/2024 5:39 PM CDT us Barry Soliman MD LAB BLOOD ORDERABLES Final Result [facility] [place]) 7 [facility] Department [place] [address] * XR Chest PA Lateral 2 Views (08/13/2024 4:00 PM CDT) Anatomical Region Laterality Modality Body, Chest N/A Computed Radiogr aphy 08/13/2024 5:21 PM CDT Narrative 08/13/2024 5:22 PM CDT EXAM DESCRIPTION: XR CHEST PA LATERAL 2 VIEWS REASON FOR STUDY: chest pain c/o SOB and chest tightness for the last few days Hx of stroke, DM, HTN Non smoker TECHNIQUE: 2 radiographic view(s) of the chest. COMPARISON: 06/17/2020 FINDINGS: LUNGS: No focal opacity, pleural effusion, or pneumothorax. HEART/MEDIASTINUM: Cardiac silhouette normal in size. Mediastinal and hilar contours appear normal. Vascular stent overlies the left side of the superior mediastinum. LINES/TUBES: None. BONES: No acute osseous abnormality. IMPRESSION: No acute cardiopulmonary abnormality. THIS IS AN ELECTRONICALLY VERIFIED FINAL REPORT 08/13/2024 5:22 PM - Electronically signed by Ravinder Arnold M.D. KT: PB Report ID: [id number] Reading Location: [id number] Procedure Note Ravinder Arnold MD - 08/13/2024 EXAM DESCRIPTION: XR CHEST PA LATERAL 2 VIEWS REASON FOR STUDY: chest pain c/o SOB and chest tightness for the last few days Hx of stroke, DM, HTNNon smoker TECHNIQUE: 2 radiographic view(s) of the chest. COMPARISON: 06/17/2020 FINDINGS: LUNGS: No focal opacity, pleural effusion, or pneumothorax. HEART/MEDIASTINUM: Cardiac silhouette normal in size. Mediastinal andhilar contours appear normal. Vascular stent overlies the left side of the superior mediastinum. LINES/TUBES: None. BONES: No acute osseous abnormality. IMPRESSION: No acute cardiopulmonary abnormality. THIS IS AN ELECTRONICALLY VERIFIED FINAL REPORT 08/13/2024 5:22 PM - Electronically signed by Ravinder Arnold M.D. KT: PB Report ID: [id number] Reading Location: [place] [address] [place] Barry Soliman MD IMG XR PROCEDURES Final Res ult * Troponin T high-sensitivity series (baseline, 2hr, 4hr, 6hr) (08/13/2024 3:52 PM CDT) Trop T hs 13 <=14 ng/L Comment: Interpretive Data For further hscTnT resources including the diagnostic algorithm and an aid in interpretation, copy and paste this link: [email or web address].[email or web address]/show/[email or web address] Current Interpretive Data last revised 2019. Blood 08/13/2024 3:52 PM CDT 08/13/2024 3:56 PM CDT us Barry Soliman MD LAB BLOOD ORDERABLES Final Result [facility] [place]) 1 [facility] [place] [address] * (ABNORMAL) eGFR (08/13/2024 3:52 PM CDT) eGFR 33(L) >=60 mL/min/1. 73 m2 Comment: Interpretive Data Reference Interval Normal >/= [...] interpretive data was last reviewed 2020. Blood 08/13/2024 3:52 PM CDT 08/13/2024 3:56 PM CDT us Barry Soliman MD LAB BLOOD ORDERABLES Final Result [facility] ([place]) 1 [facility] Department [place] [address] * (ABNORMAL) Differential, auto (08/13/2024 3:52 PM CDT) Neutrophil abs 6.63(H) 1.50 - 6.50 K/cumm Imm gran abs 0.03 0.00 - 0.10 K/cumm [facility] ([facility]) Lymphocyte abs 2.62 0.80 - 3.30 K/cumm [facility] ([place]) Monocyte abs 0.85(H) 0.20 - 0.80 K/cumm [facility] ([place]) Eosinophil abs 0.04 0.00 - 0.50 K/cumm [facility] ([place]) Basophil abs 0.03 0.00 - 0.10 K/cumm [facility] ([place]) Neutrophil pct 65.0 % [facility] ([place]) Comment: Interpretive Data Percent cell count reference ranges are not reported, since discordance with absolute values may lead to misinterpretation of CBC data. Current Interpretive Data was last revised on 2017. Imm gran pct 0.3 % [facility] ([place]) Comment: Interpretive Data Percent cell count reference ranges are not reported, since discordance with absolute values may lead to misinterpretation of CBC data. Current Interpretive Data was last revised on 2017. Lymphocyte pct 25.7 % [facility] ([facility]) Comment: Interpretive Data Percent cell count reference ranges are not reported, since discordance with absolute values may lead to misinterpretation of CBC data. Current Interpretive Data was last revised on 2017. Monocyte pct 8.3 % [facility] ([place]) Comment: Interpretive Data Percent cell count reference ranges are not reported, since discordance with absolute values may lead to misinterpretation of CBC data. Current Interpretive Data was last revised on 2017. Eosinophil pct 0.4 % [facility] ([place]) Comment: Interpretive Data Percent cell count reference ranges are not reported, since discordance with absolute values may lead to misinterpretation of CBC data. Current Interpretive Data was last revised on 2017. Basophil pct 0.3 % [facility] ([place]) Comment: Interpretive Data Percent cell count reference ranges are not reported, since discordance with absolute values may lead to misinterpretation of CBC data. Current Interpretive Data was last revised on 2017. Blood 08/13/2024 3:52 PM CDT 08/13/2024 3:55 PM CDT Barry Soliman MD LAB BLOOD ORDERABLES Final Result Performing Organization Address City/[facility]/ZIP Co de Phone Number [facility]URI G[facility]MAN ([place]) 1 [facility] [place] [address] * Thyroid Function Bryan (08/13/2024 3:52 PM CDT) Pathologist [facility] TSH 3.63 0.30 - 4.20 mcIUnit/mL Blood 08/13/2024 3:52 PM CDT 08/13/2024 10:17 PM CDT Barry Soliman MD LAB BLOOD ORDERABLES Final Result Performing Organization Address City/[facility]/ZIP Co de Phone Number LAURI GUSMAN ([place]) 1 [facility] [place] [address] * (ABNORMAL) CBC with auto differential (08/13/2024 3:52 PM CDT) WBC 10.20(H) 3.80 - 9.90 K/cumm Hgb 13.7 11.9 - 15.5 g/dL [facility] ([facility]) Hct 42.4 35.6 - 45.5 % [facility] ([place]) Plt 239 150 - 400 K/cumm [facility] ([place]) MPV 9.8 9.1 - 12.3 fL [facility] ([place]) RBC 4.80 3.90 - 5.20 M/cumm [facility] ([place]) MCV 88.3 81.3 - 96.4 fL [facility] ([place]) MCH 28.5 27.1 - 33.3 pg [facility] ([place]) MCHC 32.3 32.3 - 35.7 g/dL [facility] ([place]) RDW CV 13.8 11.1 - 14.9 % [facility] ([place]) RDW SD 44.8 35.7 - 48.1 fL [facility] NRBC abs 0.00 0.00 - 0.01 K/cumm [facility] Blood Venous blood specimen / Unknown 08/13/2024 3:52 PM CDT 08/13/2024 3:55 PM CDT Barry Soliman MD LAB BLOOD ORDERABLES Final Result LA[facility] ([place]) 1 [facility] [employer] [place] [place] [address] * Erythrocyte sedimentation rate (08/13/2024 3:52 PM CDT) Pathologist [facility] Erythrocyte sedimentation rate 7 1 - 30 mm/hr Blood 08/13/2024 3:52 PM CDT 08/13/2024 10:17 PM CDT Barry Soliman MD LAB BLOOD ORDERABLES Final Result [facility] ([place]) 1 [facility] [place] [address] * Rheumatoid factor (08/13/2024 3:52 PM CDT) Rheumatoid factor, quant <10 <=15 IUnits/mL Comment:Testing performed by : [facility], [address] [place] [address], [place]., [address] Blood 08/13/2024 3:52 PM CDT 08/14/2024 9:28 AM CDT Barry Soliman MD LAB BLOOD ORDERABLES Final Result [facility] ([facility]) 1 [facility] [place] [address] * (ABNORMAL) Comprehensive metabolic panel (08/13/2024 3:52 PM CDT) Sodium 133(L) 135 - 145 mmol/L Potassium, pl 4.2 3.3 - 4.9 mmol/L [facility] ([facility]) Chloride 97 97 - 110 mmol/L [facility] ([facility]) CO2 15(L) 22 - 32 mmol/L [facility] ([facility]) Anion gap 21(H) 2 - 15 mmol/L [facility] ([facility]) BUN 26(H) 6 - 25 mg/dL [facility] ([facility]) Creatinine 1.59(H) 0.60 - 1.10 mg/dL [facility] ([facility]) Glucose 94 70 - 199 mg/dL [facility] ([facility]) Comment: Interpretive Data Fasting glucose >/= 126 mg/dl is diagnostic for diabetes. Fasting is defined as no caloric intake for at least 8 hours. Fasting glucose between 100 mg/dl to 125 mg/dl is diagnostic of prediabetes. In a patient with classic symptoms of hyperglycemia or hyperglycemic crisis, a random glucose >/= 200 mg/dl is diagnostic for diabetes. In the absence of unequivocal hyperglycemia, results should be confirmed by repeat testing. The classification and Diagnosis of Diabetes Diabetes Care 2021; 46: S19-S40. Current interpretive data was last revised 2022. Calcium 10.1 8.5 - 10.3 mg/dL [facility] ([facility]) Bilirubin, total 0.4 0.1 - 1.2 mg/dL [facility] ([facility]) Protein, pl 7.4 6.5 - 8.5 g/dL [facility] ([facility]) Albumin 4.4 3.5 - 5.0 g/dL [facility] ([facility]) Alk phos 106 40 - 130 Units/L [facility] ([facility]) ALT 19 7 - 45 Units/L [facility] ([facility]) AST 37 10 - 45 Units/L [facility] ([facility]) Blood 08/13/2024 3:52 PM CDT 08/13/2024 3:56 PM CDT Barry Soliman MD LAB BLOOD ORDERABLES Final Result [facility] ([facility]) 1 [facility] [place] [address] * NM MPI SPECT (Rest and/or Stress) Multiple Studies (08/01/2024 11:44 AM CDT) Anatomical Region Laterality Modality Body N/A Electrocardiogra phy 08/01/2024 10:1 0 AM CDT Narrative 08/01/2024 2:09 PM CDT [facility] [address] [facility] [address] [address] [address] [facility] [address], [place] [address] [address] [place] [address] P:[phone] P:[phone] MPI Imaging Report Patient Name: SHAHZAD HERRERA L : 1950 Study Date: 08/01/2024 10:10:00 AM Gender: F Tech: JOSE [facility] Location: [facility] Provider: SALINAS JOSE Height(Cm): 157 BSA: Weight(Kg): 68.95 BMI: 27.97 Order Provider: SALINAS JOSE PHYSICIAN: Primary Care Physician: Dr. Foreman. [facility] Physician: [place] Jose M.D., OliverAFranchescaCFranchescaCFranchesca Stress Supervision: Blayne Tran M.D.,F.A.C.CFranchesca Stress Interpreting Physician: Blayne Tran M.D.,Matilde Image Interpreting Physician: Blayne Tran M.D.,Matilde PROCEDURES: Pharmacologic SPECT Report: Myocardial perfusion imaging with Tc99M Sestamibi SPECT at rest and stress post regadenoson (Lexiscan) infusion. INDICATIONS: Coronary Artery Disease, Hypertension, Diabetes, Family Hx CAD, High Cholesterol, and R07.2 Precordial pain. FINDINGS: Procedural Findings: One day rest/stress was used. Tc99m Sestamibi injected IV at rest was 9.0 millicuries 26.3 millicuries of Tc99M Sestamibi injected IV during Lexiscan stress Lexiscan 0.4mg given IV over 10 seconds with low level exercise: 1.2 MPH Patient had no symptoms during stress test. Baseline heart rate was 65 BPM Maximum Heart Rate Achieved was: 92 BPM Baseline blood pressure was 150/92 mmHg Post Stress Blood Pressure was 144/80 mmHg Termination: Protocol complete. Resting ECG: Sinus rhythm, normal ECG. Post ECG: No diagnostic ST changes. Perfusion Findings: Normal perfusion imaging. No definite fixed or reversible defects. A TID of 0.77 was automatically calculated. LV Function: Global left ventricular function is normal. Left ventricular ejection fraction is 70 %. CONCLUSIONS: Sinus rhythm, normal ECG. No diagnostic ST changes. Global left ventricular function is normal. Left ventricular ejection fraction is 70 %. Normal perfusion imaging. No definite fixed or reversible defects. A TID of 0.77 was automatically calculated. Electronically Signed By: Blayne Tran MD, [facility] 08/01/2024 1:29:06 PM CDT Electronically Signed By: Blayne Tran MD, [facility] 08/01/2024 1:29:06 PM CDT Procedure Note Blayne Tran MD - 08/01/2024 [facility] Cardiology [address] [place] [address] [address] [facility] [address], [place] [address], [place] [address] P:[phone] P:[phone] MPI Imaging Report Patient Name: SHAHZAD HERRERA L : 1950 Study Date: 08/01/2024 10:10:00 AM Gender: F Tech: [facility] Location: [facility] Provider: SALINAS JOSE Height(Cm): 157 BSA: Weight(Kg): 68.95 BMI: 27.97 Order Provider: SALINAS JOSE PHYSICIAN: Primary Care Physician: Dr. Foreman. [facility] Physician: [place] Jose M.D., F.A.C.C. Stress Supervision: Blayne Tran M.D.,F.A.C.C. Stress Interpreting Physician: Blayne Tran M.D.,F.A.C.C. Image Interpreting Physician: Blayne Tran M.D.,F.A.C.C. PROCEDURES: Pharmacologic SPECT Report: Myocardial perfusion imaging with Tc99M Sestamibi SPECT at rest and stresspost regadenoson (Lexiscan) infusion. INDICATIONS: Coronary Artery Disease, Hypertension, Diabetes, Family Hx CAD, HighCholesterol, and R07.2 Precordial pain. FINDINGS: Procedural Findings: One day rest/stress was used. Tc99m Sestamibi injected IV at rest was 9.0 millicuries 26.3 millicuries of Tc99M Sestamibi injected IV during Lexiscan stress Lexiscan 0.4mg given IV over 10 seconds with low level exercise: 1.2MPH Patient had no symptoms during stress test. Baseline heart rate was 65 BPM Maximum Heart Rate Achieved was: 92 BPM Baseline blood pressure was 150/92 mmHg Post Stress Blood Pressure was 144/80 mmHg Termination: Protocol complete. Resting ECG: Sinus rhythm, normal ECG. Post ECG: No diagnostic ST changes. Perfusion Findings: Normal perfusion imaging. No definite fixed or reversible defects. A TIDof 0.77 was automatically calculated. LV Function: Global left ventricular function is normal. Left ventricular ejectionfraction is 70 %. CONCLUSIONS: Sinus rhythm, normal ECG. No diagnostic ST changes. Global left ventricular function is normal. Left ventricular ejectionfraction is 70 %. Normal perfusion imaging. No definite fixed or reversible defects. A TIDof 0.77 was automatically calculated. Electronically Signed By: Blayne Tran MD, [facility] 08/01/2024 1:29:06 PM CDT Electronically Signed By: Blayne Tran MD, [facility] 08/01/2024 1:29:06 PM CDT us Sailnas Jose MD [facility] PROCED[facility] Final Result * US Arterial Doppler Upper Extremity Bilateral (07/27/2024 11:43 AM CDT) Anatomical Region Laterality Modality Vascular Bilateral Ultrasound 07/27/2024 11:0 2 AM CDT Narrative 07/27/2024 12:09 PM CDT V[facility] Ve[facility] Surgery [place] [address] Upper Extremity Arterial Report Patient Name: SHAHZAD HERRERA L : 1950 (74y 6m) Gender: F Study Date: 07/27/2024 11:02:00 AM Executive Compensation Analyst: Valery Alejandro RVT Location: [facility] Order Provider: SALINAS JOSE Quality: Adequate Ref Provider: SALINAS JOSE PROCEDURES: Arterial Report: A non-invasive vascular physiologic study of the bilateral upper extremity arteries was performed using CW Doppler. INDICATIONS: S/P BA/stent Lt SCA 05/29/21 S/P BA Lt SCA 04/24/21 S/P PROCESS STRIPPER/stent Lt SCA 05/08/20. HISTORY: HTN. HLD. DM. TIA. S/P Lt CEA 11/05/2019. COMPARISONS: No previous exams. MEASUREMENTS: Right Value Left Value Rt Brachial Pressure 177 mmHg Lt Brachial Pressure 173 mmHg Rt Radial Pressure 162 mmHg Lt Radial Pressure 171 mmHg Rt Ulnar Pressure 166 mmHg Lt Ulnar Pressure 165 mmHg Rt Digit Pressure 162 mmHg Lt Digit Pressure 167 mmHg Rt Radial Index 0.92 Lt Radial Index 0.97 Rt Ulnar Index 0.94 Lt Ulnar Index 0.93 Rt WBI 0.94 Lt WBI 0.97 Rt DBI 0.92 Lt DBI 0.94 FINDINGS: Right: Triphasic waveforms in the right subclavian artery, brachial artery, radial artery and ulnar artery. The right digital PPG waveform is normal. The right WBI is 0.94. The right DBI is 0.92. Left: Triphasic waveforms in the left subclavian artery, brachial artery, radial artery and ulnar artery. The left digital PPG waveform is normal. The left WBI is 0.97. The left DBI is 0.94. CONCLUSIONS: 1. Wrist-brachial index of 0.9-1.3 is within normal limits in the bilateral upper extremities. 2. There is no evidence of arterial insufficiency in the right upper extremity. 3. There is no evidence of arterial insufficiency in the left upper extremity. ATTESTATION: I have reviewed and interpreted the pertinent images and measurements of this study. I attest to the conclusions in the final report that is provided above. Electronically Signed By: Alton Ely MD 07/27/2024 12:08:17 PM CDT Procedure Note Alton Ely MD - 07/27/2024 Vascular [facility] Vein Surgery [address] [place] [address]. [place] [address] Upper Extremity Arterial Report Patient Name: SHAHZAD HERRERA L : 1950 (74y 6m) Gender: F Study Date: 07/27/2024 11:02:00 AM Executive Compensation Analyst: Vaelry Alejandro RVT Location: [facility] Order Provider: SALINAS JOSE Quality: Adequate Ref Provider: SALINAS JOSE PROCEDURES: Arterial Report: A non-invasive vascular physiologic study of thebilateral upper extremity arteries was performed using CW Doppler. INDICATIONS: S/P BA/stent Lt SCA 05/29/21 S/P BA Lt SCA 04/24/21 S/P PROCESS STRIPPER/stent Lt SCA 05/08/20. HISTORY: HTN. HLD. DM. TIA. S/P Lt CEA 11/05/2019. COMPARISONS: No previous exams. MEASUREMENTS: Right Value Left Value Rt Brachial Pressure 177 mmHg Lt Brachial Pressure 173 mmHg Rt Radial Pressure 162 mmHg Lt Radial Pressure 171 mmHg Rt Ulnar Pressure 166 mmHg Lt Ulnar Pressure 165 mmHg Rt Digit Pressure 162 mmHg Lt Digit Pressure 167 mmHg Rt Radial Index 0.92 Lt Radial Index 0.97 Rt Ulnar Index 0.94 Lt Ulnar Index 0.93 Rt WBI 0.94 Lt WBI 0.97 Rt DBI 0.92 Lt DBI 0.94 FINDINGS: Right: Triphasic waveforms in the right subclavian artery, brachialartery, radial artery and ulnar artery. The right digital PPG waveform is normal. The right WBIis 0.94. The right DBI is 0.92. Left: Triphasic waveforms in the left subclavian artery, brachial artery,radial artery and ulnar artery. The left digital PPG waveform is normal. The left WBI is0.97. The left DBI is 0.94. CONCLUSIONS: 1. Wrist-brachial index of 0.9-1.3 is within normal limits in thebilateral upper extremities. 2. There is no evidence of arterial insufficiency in the right upperextremity. 3. There is no evidence of arterial insufficiency in the left upperextremity. ATTESTATION: I have reviewed and interpreted the pertinent images and measurements ofthis study. I attest to the conclusions in the final report that is provided above. Electronically Signed By: Alton Ely MD 07/27/2024 12:08:17 PM CDT Result [facility] Salinas Jose MD IM US PROCEDURES Final Result * POCT lipid panel (07/25/2024 10:44 AM CDT) [facility] Signature Cholesterol, POC 128 <200 MG/DL HDL, POC 45 >=40 mg/dL Triglycerides, POC 89 <=149 mg/dL LDL Cholesterol POC 65 <=129 mg/dL Chol/HDL Ratio, POC 1.5 NONE Non-HDL Cholesterol, POC 83 NONE mg/dL Cholesterol Total, POC 128 30 - 199 mg/dL Capillary blood 07/25/2024 1 0:44 AM CDT Salinas Jose MD POINT OF CARE TEST ORDERABLES Fi nal Result from Last 3 Months Insurance [employer] MEDICARE ADVANTAGE [facility] Address: [place] [address] [facility] Address: [place] [address] [employer] MEDICARE ADVANTAGE [facility] Address: [address] [address] [place] [address] Advance Directives For more information, please contact: [phone] * Full Code (Latest Code Status on File) Date Activated Date Inactivated Comments 06/17/2020 1:01 PM 06/21/2020 7:49 PM Care Teams Nurse Practitioner Physicians Assistant Relationship Specialty Start Date End Date Keith Foreman MD [address] [facility] [address] [place] [address] PCP - General 06/09/17 Margo Leon Occupational Therapist Occupational Therapy 08/26/17
--- NOTE | 2024-10-17 13:12 | ECG_ITS ---
Test Date: 2024-10-17 13:39:29 Measurements Intervals [place] Rate: 59 P: 35 FL: 180 QRS: 8 QRSD: 88 T: 31 QT: 433 QTc: 431 Interpretive Statements SINUS BRADYCARDIA CONSIDER INFERIOR INFARCT, AGE INDETERMINATE BASELINE ARTIFACT- I, III, AVR, AVL ABNORMAL ECG No previous ECG available for comparison Electronically Signed On 10-17-2024 14:34:45 CDT by Gilberto Soares D.O.
--- NOTE | 2024-10-17 13:14 | ED_ITS ---
HPI - Recheck/Abnormal Lab/Rx General Chief Complaint: Recheck/Abnormal Lab/Rx Stated Complaint: ABN LABS Time Seen by Provider: 10/17/24 12:49 History of Present Illness HPI narrative: This is a 74-year-old female with history of CAD status post stent, hypothyroidism, GERD who presents to the ED for abnormal labs. Patient states that she went to her PCP today for routine labs and was found to be in liver and kidney failure so she was sent here for further evaluation. Patient denies any abdominal pain, chest pain, shortness breath, nausea, vomiting, diarrhea, constipation. She does note approximately 15 lb weight loss in the past month without trying. Does note that her a couple years ago so she was planning on that. She has had a decreased appetite. Related Data Home Medications ?Medication ?Instructions ?Recorded ?Confirmed ?Last Taken ?Type melatonin 10 mg capsule 10 mg PO HS 12/28/18 5 05/05/22 21:00 History aspirin 81 mg tablet,delayed 81 mg PO HS 01/21/2209/2212/02/23 History release Allergies Allergy/AdvReac Type Severity Reaction Status Date / Time alendronate sodium Allergy Severe TONGUE Verified 10/17/24 11:53 SWELLING Penicillins Allergy Severe Hives - Verified 10/17/24 11:53 AGE 18 atorvastatin Allergy Intermediate Muscle Pain Verified 10/17/24 11:53 fenofibrate Allergy Intermediate Muscle Pain Verified 10/17/24 11:53 gemfibrozil Allergy Intermediate Muscle Pain Verified 10/17/24 11:53 Review of Systems 2 Review of Systems: Gen.: Denies fevers or chills Eyes: Denies eye pain or visual change ENT: Denies congestion Respiratory: Denies shortness of breath or cough CV: Denies chest pain or palpitations GI: Denies abdominal pain nausea, emesis or diarrhea denies burning, urgency, frequency or hematuria Musculoskeletal: Denies back pain or muscle pain Neuro: Denies numbness, tingling, weakness or focal weakness Skin: Denies rash Except as documented, all other systems reviewed and negative PMFSH Past Medical History Medical History CKD (chronic kidney disease) stage 4, GFR 15-29 ml/min COVID-19 Arthritis Fracture of metatarsal bone of left foot Fx metatarsal-closed Subclavian artery stenosis, left s/p stent Facial paralysis on left side Sleep apnea HTN (hypertension) GERD (gastroesophageal reflux disease) Hypothyroid Adenomatous colon polyp Carotid artery disease Cerebral atherosclerosis Mixed hyperlipidemia DM renal manif type II UTI (urinary tract infection) Mild episode of recurrent major depressive disorder Surgical History Surgical History S/P carotid endarterectomy L-sided History of bilateral tubal ligation S/P carpal tunnel release S/P cholecystectomy S/P tonsillectomy Status post Kevin fundoplication S/P discectomy S/P hysterectomy Family History Family History Father Family history of obesity Hypertension Family history of allergic disorder Cerebrovascular accident Family history of diabetes mellitus in first degree relative Family history of primary malignant neoplasm of liver Patient's father is Diabetes mellitus Family history of cardiovascular disease Mother Family history of obesity Hypertension Family history of osteoarthritis Patient's mother is in good health Sibling Hypertension Patient's brother is in good health Family history of diabetes mellitus in first degree relative Family history of lymphoma Diabetes mellitus Family history of cardiovascular disease Grandparent Asthma Carcinoma of colon Social History Social History Social History: The patient is and has 2 children. She retired from [employer] Code status full code Smoking status: Never smoker Second hand tobacco smoke exposure: Yes Alcohol intake: former Drinks per week: 3 Alcohol use details: STATES VERY SELDOME DRANK AND JUST STOPPED 2021~ Substance use: never Substance use type: does not use Do You Feel Safe in your Home?: Yes Lack of Transportation: No Lack of Food: Never True Current Housing: I Have Housing Concerned About Future Housing: No Difficulty Paying Gas/Electric Bills: No Difficulty Paying for Meds: No Currently Unemployed: No Education: Trade/Vocational Certificate Difficulty w/ Childcare or Family Care: No Living arrangements: with family Occupation/Education: retired Gender identity (if verbalized by the patient): Female Sexual Orientation (if Verbalized by the Patient): Straight or Heterosexual Spiritual care concerns: No Exam 2 Narrative: APPEARANCE: No acute distress, nontoxic, resting in bed EYES: EOMI HEENT: Normocephalic, atraumatic, OMM RESPIRATORY: No respiratory distress Clear to auscultation bilaterally with no rhonchi wheezing or rales. CARDIOVASCULAR: Regular rate and rhythm without murmurs rubs or gallops. ABDOMINAL: Soft, nontender, nondistended, no rebound or guarding MUSCULOSKELETAl: Moves all extremities. No clubbing, cyanosis or edema. NEURO: Awake and alert. Following commands, speech normal, no focal deficits SKIN:: Warm, dry. No rashes lesions or abrasions PSYCHIATRIC: Normal affect/mood, Course Vital Signs Vital signs: Vital Signs Temperature 98 F 10/17/24 11:49 Pulse Rate 60 10/17/24 11:49 Respiratory Rate 16 10/17/24 11:49 Blood Pressure 110/52 L 10/17/24 11:49 Pulse Oximetry 98 10/17/24 11:49 Oxygen Delivery Room Air 10/17/24 11:49 Temperature 98 F 10/17/24 11:49 Pulse Rate 60 10/17/24 16:32 Respiratory Rate 15 10/17/24 16:32 Blood Pressure 130/63 10/17/24 16:32 Pulse Oximetry 98 10/17/24 16:32 Oxygen Delivery Room Air 10/17/24 11:49 MDM - Recheck/Abnormal Lab/Rx MDM Narrative Medical decision making narrative: 74-year-old female who presents to the ED for abnormal labs. On initial evaluation, patient was in no acute distress, afebrile, hemodynamically stable. Heart and lungs clear. Abdomen soft and nontender. Labs were redrawn a creatinine was elevated at 3.3 from her baseline 1.7. AST and ALT were [address] abdomen/pelvis was obtained to rule out any masses and there was no acute process. Given this acute renal failure, patient will require admission for further evaluation. I discussed the case with Nephrology, Dr. Novoa will see the patient as consult. I discussed the case with hospitalist who will admit the patient. Family was agreeable to this plan. Differential Diagnosis Differential diagnosis: Likely other (cancer, renal failure, hepatic failure, electrolyte abnormality, dehydration) Medical Records Attestation: I reviewed the patient's medical records. Lab Data Attestation: I reviewed the patient's lab results. 10/17/24 13:34 10/17/24 13:34 Labs: Lab Results 08/27/25 08/27/25 Range/Units 13:34 14:17 WBC 10.0 (4.5-10.0) K/mm3 RBC 4.15 L (4.2-5.4) M/mm3 Hgb 11.7 L (12.0-15.0) g/dL Hct 37.4 (37.0-47.0) % MCV 90.1 (80-100) fl MCH 28.2 (26-34) pg MCHC 31.3 L (32-36) g/dl RDW 15.4 H (11.5-14.5) % Plt Count 176 (150-375) k/mm3 MPV 10.3 (7.4-10.4) fl Immature Gran % (Auto) 0.3 (0-0.5) % Neut % (Auto) 75.4 H (45.5-73.1) % Lymph % (Auto) 15.0 L (18.3-44.2) % [place] % (Auto) 9.1 H (2.6-8.5) % Eos % (Auto) 0.0 (0-4.4) % Baso % (Auto) 0.2 (0.2-1.2) % Lymph # (Auto) 1.49 (0.9-3.2) K/mm3 [place] # (Auto) 0.9 H (0.1-0.6) K/mm3 Eos # (Auto) 0.0 (0-0.3) K/mm3 Baso # (Auto) 0.0 (0.0-0.1) K/mm3 Abs Immat Gran (auto) 0.03 (0.00-0.031) K/mm3 Absolute Neuts (auto) 7.5 H (1.3-6.7) K/mm3 Absolute Nucleated RBC 0.000 (0.0-0.012) K/mm3 Nucleated RBC % 0.0 (0.0-0.2) % Sodium 139 (137-145) mmol/L Potassium 4.2 (3.4-5.0) mmol/L Chloride 113 H (98-107) mmol/L Carbon Dioxide 15 L (22-30) mmol/L Anion Gap 11 (4-12) mmol/L BUN 47 H D (7-17) mg/dL Creatinine 3.77 H (0.7-1.0) mg/dL Estim Creat Clear Calc 9 ml/min Estimated GFR 12 L (59 - ) Glucose 119 H (65-110) mg/dL Calcium 9.2 (8.4-10.2) mg/dL Total Bilirubin 0.3 (0.2-1.3) mg/dL AST 571 H (14-36) U/L ALT 437 H (6-35) U/L Alkaline Phosphatase 86 (38-126) U/L NT-Pro-B Natriuret Pep 667 H (19.9-100) pg/mL Total Protein 6.3 (6.3-8.2) g/dL Albumin 3.7 (3.5-5.1) g/dL Urine Color Yellow (Yellow) Urine Appearance Turbid H (Clear) Urine pH 5.5 (5.0-9.0) Ur Specific [place] 1.016 (1.001-1.035) Urine Protein 2+ H (Negative) mg/dL Urine Glucose (UA) 3+ H (Negative) mg/dL Urine Ketones Negative (Negative) mg/dL Ur Blood (Man) 3+ H (Negative) Urine Nitrate Negative (Negative) Urine Bilirubin Negative (Negative) Urine Urobilinogen 0.2 (<2.0) mg/dL Add Ur Microanalysis Reviewed Leukocyte Esterase Rfl 1+ H (Negative) GIOVANNY/UL Urine RBC 3-5 H (0-2) /hpf Urine WBC 21-50 H (0-3) /hpf Ur Squamous Epith Cells None seen (Few) /hpf Urine Bacteria None seen /hpf Urine Casts 3-5 Hepatitis A IgM Ab Negative (Negative) Hep Bs Antigen Negative (Negative) Hep B Core IgM Ab Negative (Negative) Hepatitis C Ab Screen Negative (Negative) Imaging Data Radiologist's impression: Impressions Abdomen/Pelvis CT 10/17/24 13:24 IMPRESSION: 1. No acute intra-abdominal/pelvic process. Chest X-Ray 10/17/24 16:45 Impression: No acute cardiopulmonary abnormality. ECG Data EKG #1: Attestation: I personally reviewed and interpreted this ECG as follows: ECG completion date: 10/17/24 ECG completion time: 13:39 Interpretation: Sinus bradycardia rate of 59, normal axis, normal intervals, no acute ST or T- wave changes Discharge Plan Discharge Clinical Impression: Transaminitis Acute renal failure Qualifiers: Acute renal failure type: unspecified Qualified Code(s): N17.9 - Acute kidney failure, unspecified Anemia Qualifiers: Anemia type: unspecified type Qualified Code(s): D64.9 - Anemia, unspecified Patient Disposition: Still a Patient Condition: Stable
--- OUTSIDE RECORDS SUMMARY | 2024-10-17 13:24 | XMS_ITS | Clinical Summary ---
Author Organization [facility] [address] Address [address] [place] [address] Care Team Providers Care Power Washer Name Role Phone Keith Foreman MD Primary [...] (04/28/2021): Added automatically from request for surgery [id number] HTN (hypertension) 01/29/2021 Assessment & Plan (08/16/2024 11:45 AM CDT): Stable continue Coreg HLD (hyperlipidemia) 01/29/2021 Assessment & Plan (08/16/2024 11:45 AM CDT): Stable continue Crestor Stage 3 chronic kidney disease 01/29/2021 DM (diabetes mellitus) 01/29/2021 Hypothyroid 01/29/2021 Anxiety 01/29/2021 Depression 01/29/2021 Vitamin D deficiency 01/29/2021 Neuropathy 01/29/2021 Stenosis of left subclavian artery 01/27/2021 Overview (01/27/2021): Added automatically from request for surgery [id number] Small bowel obstruction 06/17/2020 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 04/16/2020 Overview (04/16/2020): Added automatically from request for surgery [id number] Osteoarthritis 03/15/2014 Resolved Problems Problem Noted Date Diagnosed Date Resolved Date Iron deficiency anemia 06/18/202001/29 DANETTE (acute kidney injury) ([facility]) 06/18/2020 01/29/2021 Vocal fold paralysis, 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 1 04/01/2020 Overview (04/02/2020): Added automatically from request for surgery [id number] Dysphonia 02/27/2020 01/29/2021 Overview (02/27/2020): Added automatically from request for surgery [id number] Dysphagia 02/27/2020 01/29/2021 Overview (02/27/2020): Added automatically from request for surgery [id number] Arthralgia of multiple joints 03/17/2014 01/29/2021 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 Vascular at [address] [place] [address] Alton Ely MD Bilateral carotid artery stenosis (Primary Dx) 08/13/2024 7:51 PM CDT - 08/14/2024 Emergency [facility] Emergency Department [address] [place] [address] Barry Soliman MD Chest pain, unspecified type (Primary Dx); Other insomnia; Anxiety about health Discharge Disposition: Discharge to home or self care 08/01/2024 9:00 AM CDT Ancillary Procedure [facility] Cardiology at [address] [place] [phone] Precordial pain 07/27/2024 11:00 AM CDT Ancillary Procedure [facility] Vascular and Vein Surgery at [address] [place] [phone] Stenosis of left subclavian artery; Status post angioplasty with stent 07/27/2024 Results Follow-Up [facility] Cardiology [address] [facility] [address] [place] [phone] Salinas Jose MD US Arterial Doppler Upper Extremity Bilateral, NM MPI SPECT (Rest and/or Stress) Multiple Studies 07/25/2024 10:30 AM CDT Office Visit 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 Gender Identity Not on file Sexual Orientation [...] history exists Medical Devices Implanted Type Area Spindle Setter Device Identifier Shelf Expiration Date Model / Serial / Lot Medtronic Inc Visi-Pro 7mm 27mm 135cm Radiopaque Balloon Expand Radial Strength - [id number] Implanted:Qty: 1 on 05/08/2020 by Salinas Jose MD at [facility] Stent Left: Subclavian Medtronic Inc 04/15/2022 [id number] / / [id number] Daig Rao [id number] Device Closure Angio-Seal Vip Bondek-Plus Polyglyd L70 Cm Od6 Fr Odsec.035 In Vascular - [id number] Implanted:Qty: 1 on 05/08/2020 by Salinas Jose MD at [facility] Right: Groin Deanao [employer] Rao 01/20/2021 [id number] / / [id number] Albin Peripheral Vascular [id number] Lifestream 7mm 26mm 80cm Balloon Expandable Low Profile Cover - [id number] Implanted:Qty: 1 on 05/29/2021 by Salinas Jose MD at [facility] Peripheral Vascular 01/20/2022 [id number] / / Procedures Procedure Name Priority Date/Time Associated Diagnosis Comments POCT GLUCOSE DEVICE Routine 08/13/2024 1 0:22 PM CDT ANZARIO QUALITATIVE WITH REFLEX TO NAZARIO QUANTITATIVE STAT [...] DEVIC E Final Result Performing Organization Address City/State/[facility] Co de Phone Number [facility] [place] 1 [facility] [place] [address] * NAZARIO ab ql w/rflx [...] last revised on 2019. Testing performed by: [facility], [address] [place] [address] Blood 08/13/2024 10:1 8 PM CDT 08/14/2024 10:09 AM CDT us Barry Soliman MD LAB BLOOD ORDERABLES Final Result LAURI GUSMAN ([place]) 1 [facility] [place] [address] * CT Cervical Spine WO [...] Ravinder Arnold M.D. KT: PB Report ID: [id number] Reading Location: [id number] Procedure Note Ravinder Arnold MD - 08/13/2024 [...] Ravinder Arnold M.D. KT: PB Report ID: [id number] Reading Location: [id number] us Barry Soliman MD IMG CT PROCEDURES [...] Ravinder Arnold M.D. KT: PB Report ID: [id number] Reading Location: [id number] Procedure Note Ravinder Arnold MD - 08/13/2024 [...] Ravinder Arnold M.D. KT: KT Report ID: [id number] Reading Location: [place] [address] Barry Soliman MD IMG CT PROCEDURES Final Res ult * Troponin T high-sensitivity 4-hour (08/13/2024 8:15 PM CDT) Trop T hs 13 <=14 ng/L Comment: Interpretive Data For further hscTnT resources including the diagnostic algorithm and an aid in interpretation, copy and paste this link: https://nrl.SpiceCSM.org/show/hsTrop Current Interpretive Data last revised 2019. Trop T hs delta 0 ng/L [facility] ER [facility] ([place]) Trop T hs interp Insignificant [facility] ([place]) Blood 08/13/2024 8:15 PM CDT 08/13/2024 8:18 PM CDT Barry Soliman MD LAB BLOOD ORDERABLES Final Result LAURI GUSMAN ([place]) 1 [facility] [place] [address] * Troponin T high-sensitivity 2-hour (08/13/2024 5:36 PM CDT) Trop T hs 13 <=14 ng/L Comment: Interpretive Data For further hscTnT resources including the diagnostic algorithm and an aid in interpretation, copy and paste this link: https://nrl.SpiceCSM.org/show/hsTrop Current Interpretive Data last revised 2019. Trop T hs delta 0 ng/L [facility] ([place]) Trop T hs interp Insignificant [facility] ([place]) Blood 08/13/2024 5:36 PM CDT 08/13/2024 5:39 PM CDT us Barry Soliman MD LAB BLOOD ORDERABLES Final Result LAURI [facility] [place] [facility] [place] [address] * XR Chest PA Lateral 2 Views [...] Ravinder Arnold M.D. KT: PB Report ID: [id number] Reading Location: [id number] Procedure Note Ravinder Arnold MD - 08/13/2024 [...] Ravinder Arnold M.D. KT: PB Report ID: [id number] Reading Location: [place] [address] us Barry Soliman MD IMG XR PROCEDURES [...] LAB BLOOD ORDERABLES Final Result [facility] [place]) 1 [facility] [place] [address] * (ABNORMAL) eGFR (08/13/2024 3:52 [...] LAB BLOOD ORDERABLES Final Result JEFRYNER [facility] ([place]) 1 [facility] [place] [address] * (ABNORMAL) Differential, auto (08/13/2024 3:52 PM [...] BLOOD ORDERABLES Final Result Performing Organization Address City/[facility]/ZIP Co de Phone Number LAURI GUSMAN ([place]) 1 [facility] [place] [address] * Thyroid Function Linch (08/13/2024 3:52 PM CDT) Pathologist [facility] TSH 3.63 0.30 - 4.20 mcIUnit/mL Blood 08/13/2024 3:52 PM CDT 08/13/2024 10:17 PM CDT Barry Soliman MD LAB BLOOD ORDERABLES Final Result Performing Organization Address City/[facility]/ZIP Co de Phone Number LAURI UGSMAN ([place]) 1 [facility] [place] [address] * (ABNORMAL) CBC with auto differential (08/13/2024 [...] RDW SD 44.8 35.7 - 48.1 fL [facility] NRBC abs 0.00 0.00 - 0.01 K/cumm [facility] ([place]) Blood Venous blood specimen / Unknown 08/13/2024 3:52 PM CDT 08/13/2024 3:55 PM CDT Barry Soliman MD LAB BLOOD ORDERABLES Final Result LAURI GUSMAN ([place]) 1 [facility] [place] [address] * Erythrocyte sedimentation rate (08/13/2024 3:52 PM CDT) Pathologist [facility] Erythrocyte sedimentation rate 7 1 - 30 mm/hr Blood 08/13/2024 3:52 PM CDT 08/13/2024 10:17 PM CDT Barry Soliman MD LAB BLOOD ORDERABLES Final Result LAURI GUSMAN ([place]) 1 [facility] [place] [address] * Rheumatoid factor (08/13/2024 3:52 PM CDT) Rheumatoid factor, quant <10 <=15 IUnits/mL Comment:Testing performed by : [facility], [address] [place] [address], [place] [address] Blood 08/13/2024 3:52 PM CDT 08/14/2024 9:28 AM CDT Barry Soliman MD LAB BLOOD ORDERABLES Final Result [facility] ([place]) 1 [facility] [place] [address] * (ABNORMAL) Comprehensive metabolic panel (08/13/2024 3:52 [...] ORDERABLES Final Result [facility]URI [facility] ([place]) 1 [facility] [place] [address] * NM MPI SPECT (Rest and/or Stress) Multiple Studies (08/01/2024 11:44 AM CDT) Anatomical Region Laterality Modality Body N/A Electrocardiogra phy 08/01/2024 10:1 0 AM CDT Narrative 08/01/2024 2:09 PM CDT [facility] Cardiology [address] [facility] [address] [address] [address] [facility] [address], [place] [address] [address] [place] [address] P:[phone] P:[phone] MPI Imaging Report Patient Name: SHAHZAD HERRERA L : 1950 Study Date: 08/01/2024 10:10:00 AM Gender: F Tech: [facility] Location: [facility] Provider: SALINAS JOSE Height(Cm): 157 BSA: Weight(Kg): 68.95 BMI: 27.97 Order Provider: SALINAS JOSE PHYSICIAN: Primary Care Physician: Dr. Foreman. [facility] Physician: Salinas Jose M.D., OliverAFranchescaCFranchescaCFranchesca Stress Supervision: [...] calculated. Electronically Signed By: Blayne Tran MD, [facility] 08/01/2024 1:29:06 PM CDT Electronically Signed By: Blayne Tran MD, [facility] 08/01/2024 1:29:06 PM CDT Procedure Note Blayne Tran MD - 08/01/2024 [facility] Cardiology [address], [place] [address] [address] [facility] [address], [place] [address], [place] [address] P:[phone] P:[phone] MPI Imaging Report Patient Name: SHAHZAD HERRERA L : 1950 Study Date: 08/01/2024 10:10:00 AM Gender: F Tech: [facility] Location: [facility] Provider: SALINAS JOSE Height(Cm): 157 BSA: Weight(Kg): 68.95 BMI: 27.97 Order Provider: SALINAS JOSE PHYSICIAN: Primary Care Physician: Dr. Foreman. [facility] Physician: Salinas Jose M.D., F.A.C.C. Stress Supervision: [...] calculated. Electronically Signed By: Blayne Tran MD, [facility] 08/01/2024 1:29:06 PM CDT Electronically Signed By: Blayne Tran MD, [facility] 08/01/2024 1:29:06 PM CDT us [facility] Final Result * US Arterial Doppler Upper Extremity Bilateral (07/27/2024 11:43 AM CDT) Anatomical Region Laterality Modality Vascular Bilateral Ultrasound 07/27/2024 11:0 2 AM CDT Narrative 07/27/2024 12:09 PM CDT Vascular & Vein Surgery [facility] [place] [address] Upper Extremity Arterial Report Patient Name: SHAHZAD HERRERA L : 1950 (74y 6m) Gender: F Study Date: 07/27/2024 11:02:00 AM Broke Beater Machine Operator: Valery Alejandro RVT Location: [facility] Order Provider: SALINAS JOSE Quality: Adequate Ref Provider: SALINAS JOSE PROCEDURES: Arterial Report: A non-invasive vascular physiologic study of the bilateral upper extremity arteries was performed using CW Doppler. 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 HISTORY: HTN. HLD. DM. [...] MD 07/27/2024 12:08:17 PM CDT Procedure Note Altno Ely MD - 07/27/2024 Vascular & Vein Surgery [address] [place] [address]. [place] [address] Upper Extremity Arterial Report Patient Name: SHAHZAD HERRERA L : 1950 (74y 6m) Gender: F Study Date: 07/27/2024 11:02:00 AM Broke Beater Machine Operator: Valery Alejandro RVT Location: [facility] Order Provider: SALINAS JOSE Quality: Adequate Ref Provider: SALINAS JOSE PROCEDURES: Arterial Report: A non-invasive vascular physiologic study of thebilateral upper extremity arteries was performed using CW Doppler. 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 HISTORY: HTN. HLD. DM. [...] Ely MD 07/27/2024 12:08:17 PM CDT Result [facility] Salinas Jose MD IM US PROCEDURES Final Result * POCT lipid panel (07/25/2024 10:44 AM CDT) [facility] Signature Cholesterol, POC 128 <200 MG/DL HDL, [...] 3 Months Insurance UHC MEDICARE ADVANTAGE [facility] Address: [place] [address] [facility] Address: [place] [address] UHC MEDICARE ADVANTAGE [facility] Address: [address] [address] [place] [address] Advance Directives For more information, please contact: [phone] * Full Code (Latest Code Status on File) Date Activated Date Inactivated Comments 06/17/2020 1:01 PM 06/21/2020 7:49 PM Care Teams Power Washer Relationship Specialty Start Date End Date Keith Foreman MD [address] [facility] [address] [place] [address] PCP - General 06/09/17 Margo Leon Occupational Therapist Occupational Therapy 08/26/17
--- OUTSIDE RECORDS SUMMARY | 2024-10-17 13:24 | XMS_ITS | Clinical Summary ---
Author Organization [facility] Address [address], [place] [address] Phone Care Team Providers Care Endoscopy Support Specialist Name Role Phone Keith Foreman MD Primary Care Provider [phone] Allergies Active Allergy Reactions Criticality Noted Date Comments Ciprofloxacin Nausea And Vomiting,Vomiting Low 08/29/2009 Penicillins Rash,Unknown Medium 08/29/2009 Moderate, immediate reactions: PCN allergy form completed. Has taken PCN on 08/2019 without rash. Medications aspirin 325 MG tablet 1 at dinner with niacin 05/29/2014 Active ergocalciferol (VITAMIN D-2) 51256 units capsule 1 capsule (50,000 units) orally [...] on file Legal Sex Female 8:31 AM [facility] [place] Gender Identity Not on file Sexual Orientation [...] (#1) 2024 12/24/2020 Insurance [employer] MEDICARE Care Teams Endoscopy Support Specialist Relationship Specialty Start Date End Date Keith Foreman MD [address] [facility] [address] [place] [address] PCP - General Internal Medicine 05/10/18
--- OUTSIDE RECORDS SUMMARY | 2024-10-17 13:24 | XMS_ITS | Clinical Summary ---
Author Organization [facility] [employer] Address [address] [facility] [place] [address] Care Team Providers Care Card Mounter Name Role Phone Robert Donaldson Source Comments [facility] [employer],non-owned Affiliates and Associated Physician Practices is amultiple site organization consisting of ambulatory clinics and hospital sitesin [place], [place], [place] and [place]. This disclosure is being madepursuant to the Care Everywhere program and may not contain all information available regarding this patient. Last updated 17.[facility] [employer] Allergies Active Allergy Reactions Criticality Noted Date Comments Penicillins Rash Low 11/16/2010 Medications * Be aware that medications may not be up to date on this document. Alwaysverify current medications with the patient. levothyroxine (SYNTHROID) 75 MCG tablet once daily. Active lovastatin (MEVACOR) 20 MG tablet 20 mg at bedtime. Active estradiol (ESTRACE) 1 MG tablet once daily. Active vitamin D2 (ERGOCALCIFEROL) 40122 UNIT capsule every 7 days. 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 Gender Identity Not on file Sexual Orientation Not on file Last Filed Vital Signs Vital Sign Reading Time Taken Comments Blood Pressure 90/46 02/17/2011 3:50 PM SENIOR ENLISTED ADVISOR Pulse 63 02/17/2011 3:50 PM SENIOR ENLISTED ADVISOR Temperature 36.8 C (98.3 F) 02/17/2011 3:50 PM SENIOR ENLISTED ADVISOR Respiratory Rate 18 02/17/2011 3:50 PM SENIOR ENLISTED ADVISOR Oxygen Saturation 97% 02/17/2011 3:50 PM SENIOR ENLISTED ADVISOR Inhaled Oxygen Concentration - - Weight 70.3 kg (155 lb) 03/24/2011 10:09 AM SENIOR ENLISTED ADVISOR Height 160 cm (5' 3) 03/24/2011 10:09 AM SENIOR ENLISTED ADVISOR Body Mass Index 27.46 03/24/2011 10:09 AM SENIOR ENLISTED ADVISOR Plan of Treatment Health Maintenance Due Date [...] to complete this topic Insurance MEDICARE [facility] [facility] MANAGED MEDICARE ADV [facility] Advance Directives * FULL RESUSCITATION (Latest Code Status on File) Date Activated Date Inactivated Comments 01/30/2011 4:53 PM 02/18/2011 5:21 AM * FULL RESUSCITATION Date Activated Date Inactivated Comments 01/30/2011 4:24 PM 01/30/2011 4:53 PM * FULL RESUSCITATION Date Activated Date Inactivated Comments 12/08/2010 2:39 PM 12/09/2010 11:23 PM Care Teams Card Mounter Relationship Specialty Start Date End Date Robert Donaldson [address] [place] [address] Orthopedic 11/16/10
[2024-10-17 13:43] LABS: Hematocrit 37.4 % (37.0-47.0); Hemoglobin 11.7 g/dL (12.0-15.0); Immature Granulocyte Percent A 0.3 % (0-0.5); Lymphocytes Absolute Auto 1.49 K/mm3 (0.9-3.2); Mean Corpuscular HGB Conc 31.3 g/dl (32-36); Mean Corpuscular Hemoglobin 28.2 pg (26-34); Mean Corpuscular Volume 90.1 fl (80-100); Nucleated Red Blood Cells Absolute Auto 0.000 K/mm3 (0.0-0.012); Nucleated Red Blood Cells Perc 0.0 % (0.0-0.2); Platelet Count Result 176 k/mm3 (150-375); Red Blood Count 4.15 M/mm3 (4.2-5.4); White Blood Count 10.0 K/mm3 (4.5-10.0)
[2024-10-17 14:11] LABS: Alanine Aminotransferase 437 U/L (6-35); Albumin Level 3.7 g/dL (3.5-5.1); Alkaline Phosphatase 86 U/L (38-126); Anion Gap 11 mmol/L (4-12); Aspartate Amino Transferase 571 U/L (14-36); Bilirubin,Total 0.3 mg/dL (0.2-1.3); Blood Urea Nitrogen 47 mg/dL (7-17); Calcium 9.2 mg/dL (8.4-10.2); Carbon Dioxide 15 mmol/L (22-30); Chloride 113 mmol/L (98-107); Estimated CRCL calculation 9 ml/min; Estimated Glomerular Filt Rate 12; Glucose 119 mg/dL (65-110); Potassium 4.2 mmol/L (3.4-5.0); Sodium 139 mmol/L (137-145); Total Protein 6.3 g/dL (6.3-8.2)
[2024-10-17 14:37] LABS: Add Urine Microscopic? YES; Appearance Urine Turbid (Clear); Glucose Urine UA 3+ mg/dL (Negative); Leukocyte Esterase Ur 1+ LEU/UL (Negative); Need Manual Microscopic Reviewed; Nitrate Urine Negative (Negative); Specific Grav Ur 1.016 (1.001-1.035)
[2024-10-17] MEDS: SODIUM CHLORIDE 0.9% IV 1,000 ML 999 ML IV CONT (15:20)
[2024-10-17 15:33] LABS: NT Pro B Type Natriuretic Pept 667 pg/mL (19.9-100)
[2024-10-17 16:32] VITALS: BP 130/63; PULSE 60; RESP 15; O2SAT 98
[2024-10-17 16:41] LABS: Hepatitis B Surface Antigen Negative (Negative)
[2024-10-17 16:46] LABS: HAV RESULT Negative (Negative); Hepatitis B Core IgM Result Negative (Negative)
--- OUTSIDE RECORDS SUMMARY | 2024-10-17 17:27 | XMS_ITS | Clinical Summary ---
Author Organization [facility] Address [address], [address] [address] Phone Care Team Providers Care Optical Instrument Inspector Name Role Phone Keith Foreman MD Primary Care Provider Delphine Hahn MD Unavailable [phone] Phil Rosales MD Unavailable [phone] Lino Castaneda DO Unavailable [phone] Allergies Active Allergy Reactions Criticality Noted [...] to Health Maintenance Insurance MEDICARE Care Teams Optical Instrument Inspector Relationship Specialty Start Date End Date Keith Foreman MD [address] [place] [address] PCP - General Family Medicine 07/31/19 Delphine Hahn MD [address] [place] [address] Obstetrics & Gynecology 09/13/19 Phil Rosales MD [address] [place] [address] Consulting Physician Nephrology 09/13/19 Lino Castaneda, [address] [address] Consulting Physician Gastroenterology 09/13/19
--- OUTSIDE RECORDS SUMMARY | 2024-10-17 17:27 | XMS_ITS | Encounter Summary ---
Author Organization [facility] Address [address] [place] [address] Care Team Providers Care College President Name Role Phone Keith Foreman MD Primary Care Provider [phone] Salinas Brothers MD Unavailable Encounter Details Date Type Department Care Team (Late st Contact Info) Description 11/02/2019 Prep for Procedure [facility] Pre-Admission [place] [address] Alexey Zelaya MD [address] [place] [address] Social History Tobacco Use Types Packs/Day [...] DETECTED NOT DETECTED 11/03/2019 8:51 PM CDT [facility] Comment: A Not Detected (negative) test [...] providers and patients using the following websites: https://www.[employer].Medical Connections/home/Covid-19/HCP/QuestIVD/fact- sheet.html https://www.[employer].Medical Connections/home/Covid-19/Patients/ QuestIVD/fact-sheet.html This test has been authorized by the FDA under an Emergency Use Authorization (EUA) for use by authorized laboratories. Due to the current public health emergency, [facility] is receiving a high volume of samples [...] about COVID-19 can be found at the [facility] website: www.MyDealBoard.com.Medical Connections/Covid19. Test performed at [facility] [address] [address] Director: NHAN SALCEDO DO,MPH FIRST TEST NO 11/02/2019 2:[address] [facility] EMPLOYED IN HEALTHCARE NO 11/02/2019 2:[address] [facility] SYMPTOMATIC DEFINED BY CDC NO 11/02/2019 2:[address] [facility] DATE OF SYMPTOM ONSET UNKNOWN 11/02/2019 2:[address] [facility] HOSPITALIZATION STATUS NO 11/02/2019 2:[address] [facility] PATIENT IN ICU NO 11/02/2019 2:[address] [facility] RESIDENT OF [facility] NO 11/02/2019 2:[address] [facility] UNKNOWN 11/02/2019 2:[address] [facility] PATIENT'S RACE WHITE OR 11/02/2019 2:[address] [facility] ETHNICITY NONHISPANIC 11/02/2019 2:[address] [facility] SOURCE (QST) NASOPHARYNGEAL SWAB 11/02/2019 2:[address] [facility] NASOPHARYNGEAL SWAB / Unknown 11/02/2019 12:35 PM CDT us Alexey Zelaya MD MICROBIOLOGY - GENERAL ORDERABLE S Final Result [facility] [address] [place] [address], [facility] [address] [place], [place] [address] documented in this encounter Visit Diagnoses Diagnosis Preop examination- Primary Preoperative examination, unspecified documented in this encounter Additional Health Concerns Infection Onset Date Last Indicated Resolved Time COVID-19 Rule Out 11/02/2019 11/02/2019 11/03/2019 8:51 PM CDT documented as of this encounter Care Teams College President Relationship Specialty Start Date End Date Keith Foreman MD [address] [place] [address] PCP - General FAMILY PRACTICE 10/30/19 Salinas Brothers MD [address] [place] [address] CARDIOVASCULAR DISEASE 10/30/19 documented as of this encounter
--- OUTSIDE RECORDS SUMMARY | 2024-10-17 17:27 | XMS_ITS | Clinical Summary ---
Author Organization [facility] Address [address] [address] Phone Care Team Providers Care Forestry Professor Name Role Phone Keith Foreman MD Primary Care Provider [phone] Allergies Active Allergy Reactions Criticality Noted Date Comments Ciprofloxacin Nausea And Vomiting,Vomiting Low 08/29/2009 Penicillins Rash,Unknown Medium 08/29/2009 Moderate, immediate reactions: PCN allergy form completed. Has taken PCN on 08/2019 without rash. Medications aspirin 325 MG tablet 1 at dinner with niacin 05/29/2014 Active ergocalciferol (VITAMIN D-2) 55324 units capsule 1 capsule (50,000 units) orally [...] on file Legal Sex Female 8:31 AM [facility] Gender Identity Not on file [...] 12/24/2020 Insurance [employer] MEDICARE Care Teams Forestry Professor Relationship Specialty Start Date End Date Keith Foreman MD [address] [place] [address] PCP - General Internal Medicine 05/10/18
--- OUTSIDE RECORDS SUMMARY | 2024-10-17 17:27 | XMS_ITS | Clinical Summary ---
Author Organization [facility] Sear[facility] Address [address] [place] [address] Care Team Providers Care Strings Teacher Name Role Phone Robert Donaldson Source Comments [facility],non-owned Affiliates and Associated Physician Practices is amultiple site organization consisting of ambulatory clinics and hospital sitesin [place], [place], [place] and [place]. This disclosure is being madepursuant to the Care Everywhere program and may not contain all information available regarding this patient. Last updated 17.[facility] Allergies Active Allergy Reactions Criticality Noted Date Comments Penicillins Rash Low 11/16/2010 Medications * Be aware that medications may not be up to date on this document. Alwaysverify current medications with the patient. levothyroxine (SYNTHROID) 75 MCG tablet once daily. Active lovastatin (MEVACOR) 20 MG tablet 20 mg at bedtime. Active estradiol (ESTRACE) 1 MG tablet once daily. Active vitamin D2 (ERGOCALCIFEROL) 58766 UNIT capsule every 7 days. Active carvedilol [...] on file Legal Sex Female 5:51 AM GANDY DANCER Gender Identity Not on file Sexual Orientation Not on file Last Filed Vital Signs Vital Sign Reading Time Taken Comments Blood Pressure 90/46 02/17/2011 3:50 PM GANDY DANCER Pulse 63 02/17/2011 3:50 PM GANDY DANCER Temperature 36.8 C (98.3 F) 02/17/2011 3:50 PM GANDY DANCER Respiratory Rate 18 02/17/2011 3:50 PM GANDY DANCER Oxygen Saturation 97% 02/17/2011 3:50 PM GANDY DANCER Inhaled Oxygen Concentration - - Weight 70.3 kg (155 lb) 03/24/2011 10:09 AM GANDY DANCER Height 160 cm (5' 3) 03/24/2011 10:09 AM GANDY DANCER Body Mass Index 27.46 03/24/2011 10:09 AM GANDY DANCER Plan of Treatment Health Maintenance Due Date [...] to complete this topic Insurance MEDICARE [facility] MANAGED MEDICARE ADV [facility] Advance Directives * FULL RESUSCITATION (Latest Code Status on File) Date Activated Date Inactivated Comments 01/30/2011 4:53 PM 02/18/2011 5:21 AM * FULL RESUSCITATION Date Activated Date Inactivated Comments 01/30/2011 4:24 PM 01/30/2011 4:53 PM * FULL RESUSCITATION Date Activated Date Inactivated Comments 12/08/2010 2:39 PM 12/09/2010 11:23 PM Care Teams Strings Teacher Relationship Specialty Start Date End Date Robert Donaldson [address] [place] [address] Orthopedic 11/16/10
--- OUTSIDE RECORDS SUMMARY | 2024-10-17 17:27 | XMS_ITS | Clinical Summary ---
Author Organization [facility] Address [address] [place] [address] Care Team Providers Care Tankage Supervisor Name Role Phone Keith Foreman MD Primary Care Provider [phone] Salinas Brothers MD Unavailable Allergies Active Allergy [...] A M CDT Height 158.8 cm (5' 2.5) 11/05/2019 12:40 PM CD T Body Mass Index 27.74 11/05/2019 12:40 PM CDT Plan of Treatment Health Maintenance Due Date Last Done Comments Hepatitis C 01/22/1966 DTaP, Tdap and Td Vaccines ( 1 - Tdap) 01/22/1967 Zoster Vaccines (1 of 2) 01/22/1998 Annual Medicare Wellness Visit 01/22/2013 Dexa Scan (General) 01/22/2013 Pneumococcal Vaccine: 50+ Years (2 of 2 - PPSV23) 02/01/2017 02/02/2016, 01/22/2013 RSV Immunization or 60+ Years (1 - 1-dose 75+ series) 01/22/2023 COVID-19 Vaccine ( - 2023-2 5 season) 2023 Meningococcal B Vaccine Aged Out No l onger eligible based on patient's age to complete this topic Meningococcal Vaccine Aged Out No connor roland eligible based on patient's age to complete this topic RSV Immunizations Under 20 Months Aged Out No longer eligible b ased on patient's age to complete this topic Medical Devices Implanted Type Area Telecommunications Specialist Device Identifier Shelf Expiration Date Model / Serial / Lot Patch Cv Thk.36mm; Ulthn; Taper 6x.3in Knit; - [id number] Implanted:Qty: 1 on 11/05/2019 by Alexey Zelaya MD at [facility] Left: Carotid [employer] 07/21/2024 [id number] / / [id number] Description:LEFT CAROTID ART SOLIS Insurance MEDICARE [facility] Advance Directives * Full Code (Latest Code Status on File) Date Activated Date Inactivated Comments 11/06/2019 12:25 PM 11/07/2019 12:06 PM Care Teams Tankage Supervisor Relationship Specialty Start Date End Date Keith Foreman MD [address] [place] [address] PCP - General FAMILY PRACTICE 10/30/19 Salinas Brothers MD [address] [place] [address] CARDIOVASCULAR DISEASE 10/30/19
--- OUTSIDE RECORDS SUMMARY | 2024-10-17 17:29 | XMS_ITS | Clinical Summary ---
Author Organization [facility] [address] Address [address] [place] [address] Care Team Providers Care Training And Development Coordinator Name Role Phone Keith Foreman MD Primary [...] (04/28/2021): Added automatically from request for surgery [id number] HTN (hypertension) 01/29/2021 Assessment & Plan (08/16/2024 11:45 AM CDT): Stable continue Coreg HLD (hyperlipidemia) 01/29/2021 Assessment & Plan (08/16/2024 11:45 AM CDT): Stable continue Crestor Stage 3 chronic kidney disease 01/29/2021 DM (diabetes mellitus) 01/29/2021 Hypothyroid 01/29/2021 Anxiety 01/29/2021 Depression 01/29/2021 Vitamin D deficiency 01/29/2021 Neuropathy 01/29/2021 Stenosis of left subclavian artery 01/27/2021 Overview (01/27/2021): Added automatically from request for surgery [id number] Small bowel obstruction 06/17/2020 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 04/16/2020 Overview (04/16/2020): Added automatically from request for surgery [id number] Osteoarthritis 03/15/2014 Resolved Problems Problem Noted Date Diagnosed Date Resolved Date Iron deficiency anemia 06/18/202001/29 DANETTE (acute kidney injury) ([facility]) 06/18/2020 01/29/2021 Vocal fold paralysis, 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 1 04/01/2020 Overview (04/02/2020): Added automatically from request for surgery [id number] Dysphonia 02/27/2020 01/29/2021 Overview (02/27/2020): Added automatically from request for surgery [id number] Dysphagia 02/27/2020 01/29/2021 Overview (02/27/2020): Added automatically from request for surgery [id number] Arthralgia of multiple joints 03/17/2014 01/29/2021 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 Encounters Date Type Department Care Team Description 08/15/2024 9:45 AM CDT Office Visit [facility] at [address] [place] [address] Alton Ely MD Bilateral carotid artery stenosis (Primary Dx); History of left-sided carotid endarterectomy; Mixed hyperlipidemia; Primary hypertension 08/15/2024 Orders Only [facility] at [address] [place] [address] Alton Ely MD Bilateral carotid artery stenosis (Primary Dx) 08/13/2024 7:51 PM CDT - 08/14/2024 Emergency [facility] Emergency Department [address] [place] [address] Barry Soliman MD Chest pain, unspecified type (Primary Dx); Other insomnia; Anxiety about health Discharge Disposition: Discharge to home or self care 08/01/2024 9:00 AM CDT Ancillary Procedure [facility] at [address] [place] [phone] Precordial pain 07/27/2024 11:00 AM CDT Ancillary Procedure [facility] and Vein Surgery at [address] [place] [phone] Stenosis of left subclavian artery; Status post angioplasty with stent 07/27/2024 Results Follow-Up [facility] [address] [facility] [address] [place] [phone] Salinas Jose MD US Arterial Doppler Upper Extremity Bilateral, NM MPI SPECT (Rest and/or Stress) Multiple Studies 07/25/2024 10:30 AM CDT Office Visit [facility] [address] [place] [phone] Salinas Jose MD Precordial pain (Primary Dx); [...] on file 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 Gender Identity Not on file Sexual Orientation [...] history exists Medical Devices Implanted Type Area Ross Furnace Operator Device Identifier Shelf Expiration Date Model / Serial / Lot Medtronic Inc Visi-Pro 7mm 27mm 135cm Radiopaque Balloon Expand Radial Strength - [id number] Implanted:Qty: 1 on 05/08/2020 by Salinas Jose MD at [facility] Stent Left: Subclavian [employer] Inc 04/15/2022 [id number] / / [id number] Daig Rao [id number] Device Closure Angio-Seal Vip Bondek-Plus Polyglyd L70 Cm Od6 Fr Odsec.035 In Vascular - [id number] Implanted:Qty: 1 on 05/08/2020 by Salinas Jose MD at [facility] Right: Groin [employer] 01/20/2021 [id number] / / [id number] Vulcan Peripheral Vascular [id number] Lifestream 7mm 26mm 80cm Balloon Expandable Low Profile Cover - [id number] Implanted:Qty: 1 on 05/29/2021 by Salinas Jose MD at [facility] Peripheral Vascular 01/20/2022 [id number] / / Procedures Procedure Name Priority [...] DEVIC E Final Result Performing Organization Address City/State/[facility] Co de Phone Number [facility] [place] 1 [facility] [place] [address] * NAZARIO ab ql w/rflx [...] last revised on 2019. Testing performed by: [facility], [address] [place]., [address] Blood 08/13/2024 10:1 8 PM CDT 08/14/2024 10:09 AM CDT us Barry Soliman MD LAB BLOOD ORDERABLES Final Result LAURI GUSMAN ([place]) 1 [facility] [place] [address] * CT Cervical Spine WO [...] Ravinder Arnold M.D. KT: PB Report ID: [id number] Reading Location: [id number] Procedure Note Ravinder Arnold MD - 08/13/2024 [...] Ravinder Arnold M.D. KT: PB Report ID: [id number] Reading Location: [id number] us Barry Soliman MD IMG CT PROCEDURES [...] Ravinder Arnold M.D. KT: PB Report ID: [id number] Reading Location: [id number] Procedure Note Ravinder Arnold MD - 08/13/2024 [...] Ravinder Arnold M.D. KT: KT Report ID: [id number] Reading Location: [place] [address] Barry Soliman MD IMG CT PROCEDURES Final Res ult * Troponin T high-sensitivity 4-hour (08/13/2024 8:15 PM CDT) Trop T hs 13 <=14 ng/L Comment: Interpretive Data For further hscTnT resources including the diagnostic algorithm and an aid in interpretation, copy and paste this link: https://nrl.[employer]ango[employer].org/show/hsTrop Current Interpretive Data last revised 2019. Trop T hs delta 0 ng/L [facility] ER [facility] ([place]) Trop T hs interp Insignificant [facility] ([place]) Blood 08/13/2024 8:15 PM CDT 08/13/2024 8:18 PM CDT Barry Soliman MD LAB BLOOD ORDERABLES Final Result LAURI GUSMAN ([place]) 1 [facility] [place] [address] * Troponin T high-sensitivity 2-hour (08/13/2024 5:36 PM CDT) Trop T hs 13 <=14 ng/L Comment: Interpretive Data For further hscTnT resources including the diagnostic algorithm and an aid in interpretation, copy and paste this link: https://nrl.[employer]ango[employer].org/show/hsTrop Current Interpretive Data last revised 2019. Trop T hs delta 0 ng/L [facility] ([place]) Trop T hs interp Insignificant [facility] ([place]) Blood 08/13/2024 5:36 PM CDT 08/13/2024 5:39 PM CDT us Barry Soliman MD LAB BLOOD ORDERABLES Final Result [facility] [place]) 5 [facility] [place] [address] * XR Chest PA Lateral 2 Views [...] Ravinder Arnold M.D. KT: PB Report ID: [id number] Reading Location: [id number] Procedure Note Ravinder Arnold MD - 08/13/2024 [...] Ravinder Arnold M.D. KT: PB Report ID: [id number] Reading Location: [place] [address] us Barry Soliman MD IMG XR PROCEDURES [...] LAB BLOOD ORDERABLES Final Result [facility] [place]) 1 [facility] [place] [address] * (ABNORMAL) eGFR (08/13/2024 3:52 [...] LAB BLOOD ORDERABLES Final Result JE[facility]NER [facility] ([place]) 1 [facility] [place] [address] * (ABNORMAL) Differential, auto (08/13/2024 3:52 PM [...] BLOOD ORDERABLES Final Result Performing Organization Address City/[facility]/ZIP Co de Phone Number LAURI GUSMAN ([place]) 1 [facility] [place] [address] * Thyroid Function Tynan (08/13/2024 3:52 PM CDT) Pathologist [facility] TSH 3.63 0.30 - 4.20 mcIUnit/mL Blood 08/13/2024 3:52 PM CDT 08/13/2024 10:17 PM CDT Barry Soliman MD LAB BLOOD ORDERABLES Final Result Performing Organization Address City/[facility]/ZIP Co de Phone Number LAURI GUSMAN ([place]) 1 [facility] [place] [address] * (ABNORMAL) CBC with auto differential (08/13/2024 [...] RDW SD 44.8 35.7 - 48.1 fL [facility] ([place] NRBC abs 0.00 0.00 - 0.01 K/cumm [facility] ([place]) Blood Venous blood specimen / Unknown 08/13/2024 3:52 PM CDT 08/13/2024 3:55 PM CDT Baryr Soliman MD LAB BLOOD ORDERABLES Final Result LAURI GUSMAN ([place]) 1 [facility] [place] [address] * Erythrocyte sedimentation rate (08/13/2024 3:52 PM CDT) Pathologist [facility] Erythrocyte sedimentation rate 7 1 - 30 mm/hr Blood 08/13/2024 3:52 PM CDT 08/13/2024 10:17 PM CDT Barry Soliman MD LAB BLOOD ORDERABLES Final Result LAURI GUSMAN ([place]) 1 [facility] [place] [address] * Rheumatoid factor (08/13/2024 3:52 PM CDT) Rheumatoid factor, quant <10 <=15 IUnits/mL Comment:Testing performed by : [facility], [address] [place] [address], [place]., [address] Blood 08/13/2024 3:52 PM CDT 08/14/2024 9:28 AM CDT Barry Soliman MD LAB BLOOD ORDERABLES Final Result [facility] (SH[place]) 1 [facility] [place] [address] * (ABNORMAL) Comprehensive metabolic panel (08/13/2024 3:52 [...] ORDERABLES Final Result [facility] ([place]) 1 [facility] [place] [address] * NM MPI SPECT (Rest and/or Stress) Multiple Studies (08/01/2024 11:44 AM CDT) Anatomical Region Laterality Modality Body N/A Electrocardiogra phy 08/01/2024 10:1 0 AM CDT Narrative 08/01/2024 2:09 PM CDT [facility] [address] [facility] [address] [address] [address] [facility] [address], [place] [address] [address] [place] [address] P:[phone] P:[phone] MPI Imaging Report Patient Name: SHAHZAD HERRERA L : 1950 Study Date: 08/01/2024 10:10:00 AM Gender: F Tech: [facility] Location: [facility] Provider: SALINAS JOSE Height(Cm): 157 BSA: Weight(Kg): 68.95 BMI: 27.97 Order Provider: SALINAS JOSE PHYSICIAN: Primary Care Physician: Dr. Foreman. [facility] Physician: Salinas Jose M.D., OliverAFranchescaCFranchescaCFranchesca [...] calculated. Electronically Signed By: Blayne Tran MD, [facility] 08/01/2024 1:29:06 PM CDT Electronically Signed By: Blayne Tran MD, [facility] 08/01/2024 1:29:06 PM CDT Procedure Note Blayne rTan MD - 08/01/2024 [facility] [address], [place] [address] [address] [facility] [id number], [place] [address], [place] [address] P:[phone] P:[phone] MPI Imaging Report Patient Name: SHAHZAD HERRERA L : 1950 Study Date: 08/01/2024 10:10:00 AM Gender: F Tech: [facility] Location: [facility] Provider: SALINAS JOSE Height(Cm): 157 BSA: Weight(Kg): 68.95 BMI: 27.97 Order Provider: SALINAS JOSE PHYSICIAN: Primary Care Physician: Dr. Foreman. [facility] Physician: Salinas Jose M.D., F.A.C.C. [...] calculated. Electronically Signed By: Blayne Tran MD, [facility] 08/01/2024 1:29:06 PM CDT Electronically Signed By: Blayne Tran MD, [facility] 08/01/2024 1:29:06 PM CDT us Salinas Jose [facility] Final Result * US Arterial Doppler Upper Extremity Bilateral (07/27/2024 11:43 AM CDT) Anatomical Region Laterality Modality Vascular Bilateral Ultrasound 07/27/2024 11:0 2 AM CDT Narrative 07/27/2024 12:09 PM CDT Vascular & Vein Surgery [facility] [place] [address] Upper Extremity Arterial Report Patient Name: SHAHZAD HERRERA L : 1950 (74y 6m) Gender: F Study Date: 07/27/2024 11:02:00 AM Mortgage Loan Interviewer: Valery Alejandro RVT Location: [facility] Order Provider: SALINAS JOSE Quality: Adequate Ref Provider: SALINAS JOSE PROCEDURES: Arterial Report: A non-invasive vascular physiologic study of the bilateral upper extremity arteries was performed using CW Doppler. INDICATIONS: S/P BA/stent Lt SCA 05/29/21 S/P BA Lt SCA 04/24/21 S/P VICE PRESIDENT RESIDENTIAL SOLAR SALES/stent Lt SCA 05/08/20. HISTORY: HTN. HLD. DM. [...] MD - 07/27/2024 Vascular & Vein Surgery [address] [place] [address]. [place] [address] Upper Extremity Arterial Report Patient Name: SHAHZAD HERRERA L : 1950 (74y 6m) Gender: F Study Date: 07/27/2024 11:02:00 AM Mortgage Loan Interviewer: Valery Alejandro RVT Location: [facility] Order Provider: SALINAS JOSE Quality: Adequate Ref Provider: SALINAS JOSE PROCEDURES: Arterial Report: A non-invasive vascular physiologic study of thebilateral upper extremity arteries was performed using CW Doppler. INDICATIONS: S/P BA/stent Lt SCA 05/29/21 S/P BA Lt SCA 04/24/21 S/P VICE PRESIDENT RESIDENTIAL SOLAR SALES/stent Lt SCA 05/08/20. HISTORY: HTN. HLD. DM. [...] Ely MD 07/27/2024 12:08:17 PM CDT Result [facility] Salinas Jose MD IM US PROCEDURES Final Result * POCT lipid panel (07/25/2024 10:44 AM CDT) [facility] Signature Cholesterol, POC 128 <200 MG/DL HDL, [...] Last 3 Months Insurance UHC MEDICARE [facility]AGE [facility] Address: [place] [address] [facility] Address: [place] [address] [employer] MEDICARE [facility] Address: [address] [address] [place] [address] Advance Directives For more information, please contact: [phone] * Full Code (Latest Code Status on File) Date Activated Date Inactivated Comments 06/17/2020 1:01 PM 06/21/2020 7:49 PM Care Teams Training And Development Coordinator Relationship Specialty Start Date End Date Keith Foreman MD [address] [facility] [place] [address] PCP - General 06/09/17 Margo Leon Occupational Therapist Occupational Therapy 08/26/17
[2024-10-17 18:14] VITALS: BMI 22.9
[2024-10-17 18:44] VITALS: BP 123/59; PULSE 59; RESP 18; TEMP 36.5; O2SAT 100
--- NOTE | 2024-10-17 20:17 | PM.IMHP ---
H&P: HPI History of Present Illness Date/Time: 10/18/24 06:00 Chief Complaint: Abnormal labs Narrative: This is a 74-year-old female patient with a past medical history diabetes, hypertension insomnia, hyperlipidemia, GERD, chronic pain and CAD who is admitted to the hospital for hep panel renal failure. She has a history stage IIIB/IV CKD due to hypertension and diabetes and follows with Dr. Rosales in the clinic. No history of liver failure. Patient had labs drawn for her upcoming clinic appointment next week and she received notification from physician to go to the emergency department immediately due to significantly worsened labs. In the ER patient was given 1 L normal saline and admitted for nephrology consult for DANETTE on CKD as well as new transaminitis. Patient reported that she was asymptomatic had no complaints whatsoever and did not understand why her labs were bad requiring admission. Overnight was reviewing labs and noted 3+ blood in the urine but only 3-5 RBCs. With renal failure and liver failure accompanying this finding as well as a previous allergy to atorvastatin causing muscle pain and home medication list including high-dose rosuvastatin, added CK level to pre-existing labs with a result of greater than 16,000. Overnight patient received 2 L of IV fluids and recheck of labs this morning shows some downtrending of CK, serum creatinine and liver enzymes. Upon further questioning of patient she did experience diffuse muscle aches over the last week and a half but she attributed this to a fall in her yard due to a branch down. Nephrology has been consulted. IV fluids have been ordered. Review of Systems Review of Systems: All systems reviewed & are unremarkable except as noted in HPI and below PMFSH Past Medical History Medical History CKD (chronic kidney disease) stage 4, GFR 15-29 ml/min COVID-19 Arthritis Fracture of metatarsal bone of left foot Fx metatarsal-closed Subclavian artery stenosis, left s/p stent Facial paralysis on left side Sleep apnea HTN (hypertension) GERD (gastroesophageal reflux disease) Hypothyroid Adenomatous colon polyp Carotid artery disease Cerebral atherosclerosis Mixed hyperlipidemia DM renal manif type II UTI (urinary tract infection) Mild episode of recurrent major depressive disorder Surgical History Surgical History S/P carotid endarterectomy L-sided History of bilateral tubal ligation S/P carpal tunnel release S/P cholecystectomy S/P tonsillectomy Status post Kevin fundoplication S/P discectomy S/P hysterectomy Family History Family History Father Family history of obesity Hypertension Family history of allergic disorder Cerebrovascular accident Family history of diabetes mellitus in first degree relative Family history of primary malignant neoplasm of liver Patient's father is Diabetes mellitus Family history of cardiovascular disease Mother Family history of obesity Hypertension Family history of osteoarthritis Patient's mother is in good health Sibling Hypertension Patient's brother is in good health Family history of diabetes mellitus in first degree relative Family history of lymphoma Diabetes mellitus Family history of cardiovascular disease Grandparent Asthma Carcinoma of colon Social History Social History Social History: The patient is and has 2 children. She retired from [employer] Code status full code Smoking status: Never smoker Alcohol intake: former Drinks per week: 3 Alcohol use details: STATES VERY SELDOME DRANK AND JUST STOPPED 2021~ Substance use: never Substance use type: does not use Do You Feel Safe in your Home?: Yes Lack of Transportation: No Lack of Food: Never True Current Housing: I Have Housing Concerned About Future Housing: No Difficulty Paying Gas/Electric Bills: No Difficulty Paying for Meds: No Currently Unemployed: No Education: Trade/Vocational Certificate Difficulty w/ Childcare or Family Care: No Living arrangements: with family Occupation/Education: retired Gender identity (if verbalized by the patient): Female Sexual Orientation (if Verbalized by the Patient): Straight or Heterosexual Spiritual care concerns: No Meds Home Medications and Allergies Home Medications ?Medication ?Instructions ?Recorded ?Confirmed ?Type melatonin 10 mg capsule 10 mg PO HS PRN sleep 12/28/18 10/17/24 History lancets #200 ea 02/29/20 10/17/24 Rx blood-glucose meter (Blood Glucose #1 ea 03/06/20 10/17/24 Rx Monitoring kit) aspirin 81 mg tablet,delayed 81 mg PO HS 01/21/22 10/17/24 History release metformin 1,000 mg tablet 1,000 mg PO DAILY #90 tabs 03/12/24 10/17/24 Rx empagliflozin 10 mg tablet 10 mg PO DAILY #30 tabs 05/29/24 10/17/24 Rx (Jardiance) carvedilol 6.25 mg tablet 6.25 mg PO Q12H #180 tabs 06/07/24 10/17/24 Rx rosuvastatin 40 mg tablet 40 mg PO DAILY #90 tabs 07/02/24 10/17/24 Rx gabapentin 600 mg tablet 600 mg PO QHS #90 tabs 07/31/24 10/17/24 Rx omeprazole 40 mg capsule,delayed 40 mg PO DAILY #90 caps 08/16/24 10/17/24 Rx release blood sugar diagnostic (Contour #100 ea 08/17/24 10/17/24 Rx Next Test Strips) blood-glucose meter (Contour Meter #1 ea 08/17/24 10/17/24 Rx kit) icosapent ethyl 1 gram capsule 2 g (2 x 1 gram) PO BID #120 caps 08/23/24 10/17/24 Rx (Vascepa) ergocalciferol (vitamin D2) 1,250 See Rx Instructions .Route 09/03/24 10/17/24 Rx mcg (50,000 unit) capsule .COMPLEX #10 caps sertraline 50 mg tablet 50 mg PO DAILY #30 tabs 09/18/24 10/17/24 Rx trazodone 50 mg tablet 50 mg PO QHS PRN sleep #30 tabs 09/18/24 10/17/24 Rx buspirone 10 mg tablet See Rx Instructions .Route 09/24/24 10/17/24 Rx .COMPLEX #90 tabs levothyroxine 75 mcg tablet 75 mcg PO DAILY #30 tabs 10/02/24 10/17/24 Rx buprenorphine 7.5 mcg/hour weekly 1 patch transdermal Q7D 28 days #4 10/11/24 10/17/24 Rx transdermal patch ea clopidogrel 75 mg tablet 75 mg PO DAILY 10/17/24 10/17/24 History midodrine 5 mg tablet 5 mg PO DAILY 10/17/24 10/17/24 History Allergies Allergy/AdvReac Type Severity Reaction Status Date / Time alendronate sodium Allergy Severe TONGUE Verified 10/17/24 11:53 SWELLING Penicillins Allergy Severe Hives - Verified 10/17/24 11:53 AGE 18 atorvastatin Allergy Intermediate Muscle Pain Verified 10/17/24 11:53 fenofibrate Allergy Intermediate Muscle Pain Verified 10/17/24 11:53 gemfibrozil Allergy Intermediate Muscle Pain Verified 10/17/24 11:53 rosuvastatin AdvReac Severe Rhabdomyolysis/Hepatorenal Verified 10/18/24 08:05 failure [id number] Reductase AdvReac Severe Rhabdomyolysis/Hepatorenal Verified 10/18/24 08:05 Inhibitor Failure Vital Signs Vital Signs - 24 hr 10/17/24 11:49 10/17/24 16:32 10/17/24 18:44 Temperature 36.6 C 36.5 C Pulse Rate 60 60 59 L Respiratory Rate 16 15 18 Blood Pressure 110/52 L 130/63 123/59 L Pulse Oximetry 98 98 100 Oxygen Delivery Room Air 10/17/24 20:00 Temperature Pulse Rate Respiratory Rate Blood Pressure Pulse Oximetry Oxygen Delivery Room Air Exam Narrative: APPEARANCE: No acute distress, nontoxic, resting in bed EYES: EOMI HEENT: Normocephalic, atraumatic RESPIRATORY: No respiratory distress Clear to auscultation bilaterally with no rhonchi wheezing or rales. CARDIOVASCULAR: Regular rate and rhythm without murmurs rubs or gallops. ABDOMINAL: Soft, nontender, nondistended, no rebound or guarding MUSCULOSKELETAL: Moves all extremities. No clubbing, cyanosis or edema. NEURO: Awake and alert. Following commands, speech normal, no focal deficits SKIN:: Warm, dry. No rashes lesions or abrasions PSYCHIATRIC: Normal affect/mood, H&P: Results Labs Labs: Short CBC 10/17/24 Range/Units 13:34 WBC 10.0 (4.5-10.0) K/mm3 Hgb 11.7 L (12.0-15.0) g/dL Hct 37.4 (37.0-47.0) % Plt Count 176 (150-375) k/mm3 BMP 10/17/24 13:34 Sodium 139 Potassium 4.2 Chloride 113 H Carbon Dioxide 15 L BUN 47 H D Creatinine 3.77 H Glucose 119 H Calcium 9.2 Liver Function 10/17/24 Range/Units 13:34 Total Bilirubin 0.3 (0.2-1.3) mg/dL AST 571 H (14-36) U/L ALT 437 H (6-35) U/L Alkaline Phosphatase 86 (38-126) U/L Albumin 3.7 (3.5-5.1) g/dL Urine 08/27/25 Range/Units 14:17 Urine Color Yellow (Yellow) Urine Appearance Turbid H (Clear) Urine pH 5.5 (5.0-9.0) Ur Specific [place] 1.016 (1.001-1.035) Urine Protein 2+ H (Negative) mg/dL Urine Glucose (UA) 3+ H (Negative) mg/dL Pulse Oximetry SpO2 results: 98-100% on room air Attestation: I personally reviewed and interpreted this pulse oximetry as follows: Interpretation: No need for supplemental oxygenation at this time ECG Attestation: I personally reviewed and interpreted this ECG as follows: ECG completion date: 10/17/24 ECG completion time: 13:39 Prior ECG tracings: not available for review Interpretation: Sinus bradycardia rate of 59 DE interval 180 QRS duration 88 QTC 431 QRS axis 8? no STEMI or acute ischemic changes Imaging CT scan - abdomen: Radiologist's impression: EXAMINATION: CT abdomen pelvis wo con DATE: 10/17/2024 13:23 INDICATION: Renal failure, liver failure and weight loss. TECHNIQUE: Computed tomography (CT) of the abdomen and pelvis was performed without intravenous contrast. Automated exposure control and iterative reconstruction technique were employed. The dose-length product was 463.33 mGy-cm. COMPARISON: None FINDINGS: Mild dependent atelectasis in bilateral lower lobes. Heart size is normal. No pericardial or pleural effusion. Mild dilation the common bile duct measuring up to 11 mm in diameter likely related to prior cholecystectomy. Liver is normal with no evident intrahepatic biliary ductal dilation. Spleen, pancreas, left kidney and bilateral adrenal glands are normal. 3.3 cm right renal cyst. There is mild colonic diverticulosis with a sigmoid predominance. There is no adjacent inflammatory change to suggest diverticulitis. Small bowel and appendix are normal. Bladder is normal. The uterus is not identified and has likely been surgically resected. No free intraperitoneal gas or fluid. No pathologically enlarged abdominal or pelvic lymphadenopathy. L5 spondylolysis with bilateral pars interarticularis defects and 7 mm anterolisthesis on S1. Severe lumbar spondylosis with prominent sclerotic Modic type III degenerative endplate changes at L2-L3. IMPRESSION: 1. No acute intra-abdominal/pelvic process. Reviewed, dictated and finalized at location A. Chest x-ray: Radiologist's impression: EXAMINATION: XR chest 2V, 10/17/2024 16:34 CDT HISTORY: cough, poss mass COMPARISON: No comparisons available. Technique: 2 views obtained. Findings: The lungs are clear, no effusion. No pneumothorax. Heart is normal size. Mediastinal and hilar contours are within normal limits. Bony thorax no acute abnormality. Impression: No acute cardiopulmonary abnormality. Reviewed, dictated and finalized at location A. Assessment and Plan Assessment and plan (1) Rhabdomyolysis due to statin therapy: Code(s): M62.82 - Rhabdomyolysis; T46.6X5A - Adverse effect of antihyperlipidemic and antiarteriosclerotic drugs, initial encounter Status: Acute Assessment and Plan: -Asymptomatic significant worsening of kidney disease and new transaminitis found on labs in the clinic -Labs worse on arrival to ER than in the outpatient setting the day before -Patient notes only vague muscle aches after falling in the yard on a branch about 10 days ago.j -No other symptoms at all -Prior intolerance to statins and cholesterol medications -Home medication rosuvastatin 40 mg -Given new liver failure and significant DANETTE on CKD, checked a CK level with results >16,000 -No noted urinary changes or fluid retention, no dyspnea -UA with 3+ blood but only 3-5 RBCs (2) Hepatorenal failure: Code(s): K76.7 - Hepatorenal syndrome Status: Acute Assessment and Plan: -See above (3) DM renal manif type II: Code(s): E11.29 - Type 2 diabetes mellitus with other diabetic kidney complication Status: Chronic Assessment and Plan: -A1c 5.9 -ACHS fingerstick glucose with low dose SSI, continue Jardiance, hold metformin -Hold gabapentin due to DANETTE on CKD (4) Type 2 diabetes with nephropathy: Code(s): E11.21 - Type 2 diabetes mellitus with diabetic nephropathy Status: Chronic Assessment and Plan: -A1c 5.9 -ACHS fingerstick glucose with low dose SSI, continue Jardiance, hold metformin -Hold gabapentin due to DANETTE on CKD (5) Chronic pain: Code(s): G89.29 - Other chronic pain Status: Chronic Assessment and Plan: -Buprenorphine patch prescribed (6) Hypertensive chronic kidney disease with stage 1 through stage 4 chronic kidney disease, or unspecified chronic kidney disease: Code(s): I12.9 - Hypertensive chronic kidney disease with stage 1 through stage 4 chronic kidney disease, or unspecified chronic kidney disease Status: Chronic Assessment and Plan: -BP controlled, continue home medications as tolerated (7) Acute kidney injury superimposed on CKD: Code(s): N17.9 - Acute kidney failure, unspecified; N18.9 - Chronic kidney disease, unspecified Status: Acute Assessment and Plan: -Baseline stage 3b/4 CKD, acutely stage 5 noted on admission -Related to rhabdomyolysis due to statin therapy (8) Mixed hyperlipidemia: Code(s): E78.2 - Mixed hyperlipidemia Status: Chronic Assessment and Plan: -lipid panel ordered -Stop rosuvastatin due to rhabdomyolysis (9) Abnormal urinalysis: Code(s): R82.90 - Unspecified abnormal findings in urine Status: Acute Assessment and Plan: -Leukocyte esterase 1+, 21-50 WBC, 3-5 RBC, 3+ blood (myoglobin) with 3+ glucose and 2+ protein -No dysuria or fever and WBC in blood normal -Defer treatment to urine culture results Quality VTE Prophylaxis VTE prophylaxis: pharmacologic ordered (heparin SQ) Hospitalist [facility] Advance Care Plan I have confirmed that the patient's Advanced Care Plan is present, code status is documented, or surrogate decision maker is listed in patient medical record.: Yes Medication Reconciliation I have utilized all available resources to obtain, update and review the patients current medications (includes all prescriptions, OTC, herbals, cannabis, and nutritional supplements).: Yes
[2024-10-17 21:02] LABS: Cholesterol 116 mg/dL (0-200); HDL Direct 37 mg/dL; Triglycerides 164 mg/dL (<150)
[2024-10-17 21:14] LABS: Hemoglobin A1C 5.9 % (<5.7)
[2024-10-17 21:32] LABS: Thyroid Stimulating Hormone Reflex 19.300 uIU/mL (0.465-4.68)
[2024-10-17 21:55] VITALS: BP 117/65; PULSE 59; RESP 16; TEMP 36.8; O2SAT 100
[2024-10-17 21:58] LABS: Free T4 Free Thyroxine Reflex 0.74 ng/dL (0.78-2.19)
[2024-10-17 22:17] LABS: Creatine Kinase > 16000 U/L (30-135)
[2024-10-17 23:49] VITALS: PULSE 74
[2024-10-17] MEDS: LACTATED RINGERS 1,000 ML 999 ML IV CONT (23:49)
[2024-10-17] MEDS: ASPIRIN 81 MG ENTERIC TABLET PO (23:49)
[2024-10-18] MEDS: LACTATED RINGERS 1,000 ML 500 ML IV CONT (00:50)
[2024-10-18 04:55] VITALS: BP 134/54; PULSE 56; RESP 14; TEMP 36.6; O2SAT 100
[2024-10-18 05:16] LABS: Urea Random Urine 145 MG/DL
[2024-10-18 05:26] LABS: Urine Eos QC 2nd Tech Confirmed
[2024-10-18 05:28] LABS: Hematocrit 34.8 % (37.0-47.0); Hemoglobin 10.8 g/dL (12.0-15.0); Immature Granulocyte Percent A 0.4 % (0-0.5); Lymphocytes Absolute Auto 1.88 K/mm3 (0.9-3.2); Mean Corpuscular HGB Conc 31.0 g/dl (32-36); Mean Corpuscular Hemoglobin 28.3 pg (26-34); Mean Corpuscular Volume 91.1 fl (80-100); Nucleated Red Blood Cells Absolute Auto 0.000 K/mm3 (0.0-0.012); Nucleated Red Blood Cells Perc 0.0 % (0.0-0.2); Platelet Count Result 154 k/mm3 (150-375); Red Blood Count 3.82 M/mm3 (4.2-5.4); White Blood Count 8.6 K/mm3 (4.5-10.0)
[2024-10-18] MEDS: LEVOTHYROXINE SODIUM 75 MCG TABLET PO (05:33)
[2024-10-18 05:43] LABS: Total Protein Urine Random 53 mg/dL; Ur Ttl Prot Creatinine Ratio 2.93 mg/mg (0-0.20)
[2024-10-18 05:46] LABS: Alanine Aminotransferase 345 U/L (6-35); Albumin Level 2.9 g/dL (3.5-5.1); Alkaline Phosphatase 63 U/L (38-126); Anion Gap 5 mmol/L (4-12); Aspartate Amino Transferase 416 U/L (14-36); Bilirubin,Total 0.2 mg/dL (0.2-1.3); Blood Urea Nitrogen 38 mg/dL (7-17); Calcium 8.8 mg/dL (8.4-10.2); Carbon Dioxide 18 mmol/L (22-30); Chloride 114 mmol/L (98-107); Cholesterol 102 mg/dL (0-200); Estimated CRCL calculation 11 ml/min; Estimated Glomerular Filt Rate 14; Glucose 108 mg/dL (65-110); HDL Direct 31 mg/dL; Magnesium 2.0 mg/dL (1.6-2.3); Potassium 4.0 mmol/L (3.4-5.0); Sodium 137 mmol/L (137-145); Total Protein 5.2 g/dL (6.3-8.2); Triglycerides 192 mg/dL (<150)
[2024-10-18 06:36] LABS: Creatine Kinase 13448 U/L (30-135)
[2024-10-18] MEDS: LACTATED RINGERS 1,000 ML 100 ML IV CONT ×2 (08:55→23:13)
[2024-10-18 08:59] VITALS: PULSE 60
[2024-10-18] MEDS: EMPAGLIFLOZIN 10 MG TABLET PO (09:00)
[2024-10-18] MEDS: SERTRALINE HCL 50 MG TABLET PO (09:00)
[2024-10-18] MEDS: CLOPIDOGREL BISULFATE 75 MG TABLET PO (09:00)
[2024-10-18] MEDS: PANTOPRAZOLE 40 MG TABLET PO ×2 (09:00→20:19)
--- NOTE | 2024-10-18 09:00 | P.PNIM_ITS ---
Progress Note: A&P Assessment and Plan (1) Rhabdomyolysis due to statin therapy: Code(s): M62.82 - Rhabdomyolysis; T46.6X5A - Adverse effect of antihyperlipidemic and antiarteriosclerotic drugs, initial encounter Status: Acute Assessment and Plan: -Asymptomatic significant worsening of kidney disease and new transaminitis found on labs in the clinic -Labs worse on arrival to ER than in the outpatient setting the day before -Patient notes only vague muscle aches after falling in the yard on a branch about 10 days ago.j -No other symptoms at all -Prior intolerance to statins and cholesterol medications -Home medication rosuvastatin 40 mg -Given new liver failure and significant DANETTE on CKD, checked a CK level with results >16,000 -No noted urinary changes or fluid retention, no dyspnea -UA with 3+ blood but only 3-5 RBCs continue IV fluids trend ck (2) Hepatorenal failure: Code(s): K76.7 - Hepatorenal syndrome Status: Acute Assessment and Plan: -See above (3) DM renal manif type II: Code(s): E11.29 - Type 2 diabetes mellitus with other diabetic kidney complication Status: Chronic Assessment and Plan: -A1c 5.9 -ACHS fingerstick glucose with low dose SSI, continue Jardiance, hold metformin -Hold gabapentin due to DANETTE on CKD (4) Type 2 diabetes with nephropathy: Code(s): E11.21 - Type 2 diabetes mellitus with diabetic nephropathy Status: Chronic Assessment and Plan: -A1c 5.9 -ACHS fingerstick glucose with low dose SSI, continue Jardiance, hold metformin -Hold gabapentin due to DANETTE on CKD (5) Chronic pain: Code(s): G89.29 - Other chronic pain Status: Chronic Assessment and Plan: -Buprenorphine patch prescribed (6) Hypertensive chronic kidney disease with stage 1 through stage 4 chronic kidney disease, or unspecified chronic kidney disease: Code(s): I12.9 - Hypertensive chronic kidney disease with stage 1 through stage 4 chronic kidney disease, or unspecified chronic kidney disease Status: Chronic Assessment and Plan: -BP controlled, continue home medications as tolerated (7) Acute kidney injury superimposed on CKD: Code(s): N17.9 - Acute kidney failure, unspecified; N18.9 - Chronic kidney disease, unspecified Status: Acute Assessment and Plan: -Baseline stage 3b/4 CKD, acutely stage 5 noted on admission -Related to rhabdomyolysis due to statin therapy (8) Mixed hyperlipidemia: Code(s): E78.2 - Mixed hyperlipidemia Status: Chronic Assessment and Plan: -lipid panel ordered -Stop rosuvastatin due to rhabdomyolysis (9) Abnormal urinalysis: Code(s): R82.90 - Unspecified abnormal findings in urine Status: Acute Assessment and Plan: -Leukocyte esterase 1+, 21-50 WBC, 3-5 RBC, 3+ blood (myoglobin) with 3+ glucose and 2+ protein -No dysuria or fever and WBC in blood normal -Defer treatment to urine culture results Time Spent With Patient Time with patient: 25 - 35 minutes Subjective Date/time seen: 10/18/24 09:00 Interval history: Retrieved from H/P: This is a 74-year-old female patient with a past medical history diabetes, hypertension insomnia, hyperlipidemia, GERD, chronic pain and CAD who is admitted to the hospital for hep panel renal failure. She has a history stage IIIB/IV CKD due to hypertension and diabetes and follows with Dr. Rosales in the clinic. No history of liver failure. Patient had labs drawn for her upcoming clinic appointment next week and she received notification from physician to go to the emergency department immediately due to significantly worsened labs. In the ER patient was given 1 L normal saline and admitted for nephrology consult for DANETTE on CKD as well as new transaminitis. Patient reported that she was asymptomatic had no complaints whatsoever and did not understand why her labs were bad requiring admission. Overnight was reviewing labs and noted 3+ blood in the urine but only 3-5 RBCs. With renal failure and liver failure accompanying this finding as well as a previous allergy to atorvastatin causing muscle pain and home medication list including high-dose rosuvastatin, added CK level to pre-existing labs with a result of greater than 16,000. Overnight patient received 2 L of IV fluids and recheck of labs this morning shows some downtrending of CK, serum creatinine and liver enzymes. Upon further questioning of patient she did experience diffuse muscle aches over the last week and a half but she attributed this to a fall in her yard due to a branch down. Nephrology has been consulted. IV fluids have been ordered. 10/18 Pt is seen and examined. nephrology consulted. Review of Systems Review of Systems: All systems reviewed & are unremarkable except as noted in HPI and below Exam Narrative: APPEARANCE: No acute distress, nontoxic, resting in bed EYES: EOMI HEENT: Normocephalic, atraumatic RESPIRATORY: No respiratory distress Clear to auscultation bilaterally with no rhonchi wheezing or rales. CARDIOVASCULAR: Regular rate and rhythm without murmurs rubs or gallops. ABDOMINAL: Soft, nontender, nondistended, no rebound or guarding MUSCULOSKELETAL: Moves all extremities. No clubbing, cyanosis or edema. NEURO: Awake and alert. Following commands, speech normal, no focal deficits SKIN:: Warm, dry. No rashes lesions or abrasions PSYCHIATRIC: Normal affect/mood, Objective Data Vital Signs Vital Signs: Vital Signs - 24 hr 10/17/24 11:49 10/17/24 16:32 10/17/24 18:44 Temperature 98 F 97.7 F Pulse Rate 60 60 59 L Respiratory Rate 16 15 18 Blood Pressure 110/52 L 130/63 123/59 L Pulse Oximetry 98 98 100 Oxygen Delivery Room Air 10/17/24 20:00 10/17/24 21:55 10/17/24 23:49 Temperature 98.3 F Pulse Rate 59 L 74 Respiratory Rate 16 Blood Pressure 117/65 Pulse Oximetry 100 Oxygen Delivery Room Air 10/18/24 04:55 Temperature 97.8 F Pulse Rate 56 L Respiratory Rate 14 Blood Pressure 134/54 L Pulse Oximetry 100 Oxygen Delivery Intake/Output Intake/Output: Intake & Output 10/15/24 10/16/24 10/17/24 10/18/24 23:59 23:59 23:59 23:59 Intake Total 1240 250 Output Total 1000 Balance 1240 -750 Meds/Results Medications: Active Medications Generic Name Dose Route Start Last Admin Trade Name Freq PRN Reason Stop Dose Admin Aspirin 81 mg 10/17/24 21:00 10/17/24 23:49 Aspirin 81 Mg Enteric Tablet PO 81 mg HS JUAN A Administration Buspirone HCl 10 mg 10/17/24 22:00 10/18/24 05:33 Buspirone Hcl 10 Mg Tablet PO 10 mg Q8HR JUAN A Administration Carvedilol 6.25 mg 10/17/24 21:00 10/17/24 23:49 Carvedilol 6.25 Mg Tablet PO 6.25 mg Q12HR JUAN A Administration Clopidogrel Bisulfate 75 mg 10/18/24 09:00 Clopidogrel Bisulfate 75 Mg Tablet PO DAILY JUAN A Dextrose 12.5 gm 10/17/24 20:19 Dextrose 50% 25 Gm/50 Ml Syringe IV PUSH PRN PRN Hypoglycemia Protocol Empagliflozin 10 mg 10/18/24 09:00 Empagliflozin 10 Mg Tablet PO DAILY JUAN A Glucagon 1 mg 10/17/24 20:19 Glucagon For Inj 1 Mg Vial IM PRN PRN Hypoglycemia Protocol Glucose 15 gm 10/17/24 20:19 Glucose Oral Gel 15 Gm Of Glucse In 37.5 Gm Tube PO PRN PRN Hypoglycemia Protocol Heparin Sodium (Porcine) 5,000 units 10/17/24 21:00 10/17/24 23:49 Heparin Sodium 5,000 Units/Ml Vial SUB-Q 5,000 units Q12HR JUAN A Administration Dextrose 1,000 mls @ 100 mls/hr 10/17/24 20:19 Dextrose 5% 1,000 Ml IVPB PRN PRN Hypoglycemia Protocol Lactated Ringer's 1,000 mls @ 100 mls/hr 10/18/24 07:45 10/18/24 08:55 Lr - Lactated Ringers Iv IV CONT 100 mls/hr .Q10H JUAN A Administration Insulin Aspart 2 - 5 units 10/18/24 08:00 Insulin Aspart (*Bkc) 100 Units/Ml SUB-Q TIDWM JUAN A Protocol Levothyroxine Sodium 75 mcg 10/18/24 06:30 10/18/24 05:33 Levothyroxine Sodium 75 Mcg Tablet PO 75 mcg DAILY@0630 JUAN A Administration Miscellaneous Information 0 each 10/17/24 00:01 10/18/24 08:00 Buprenorphine 7.5 Mcg/Hr Is Non-Formulary. We Stock Buprenorphine 5 Mcg/Hr Or Use Pt Own XX 11/16/24 00:00 Not Given CLARIFY JUAN A Non-Formulary Medication 1 patch 10/17/24 20:15 Buprenorphine TRANSDERM 11/16/24 20:14 Q7D JUAN A Pantoprazole Sodium 40 mg 10/18/24 09:00 Pantoprazole 40 Mg Tablet PO Q12HR JUAN A Sertraline HCl 50 mg 10/18/24 09:00 Sertraline Hcl 50 Mg Tablet PO DAILY JUAN A Trazodone HCl 50 mg 10/17/24 20:10 Trazodone Hcl 50 Mg Tablet PO QHS PRN Sleep Radiology Results: ITS Impressions Abdomen/Pelvis CT 10/17/24 13:24 IMPRESSION: 1. No acute intra-abdominal/pelvic process. Chest X-Ray 10/17/24 16:45 Impression: No acute cardiopulmonary abnormality. Labs Labs: Laboratory Results - last 24 hr 10/17/24 10/17/24 10/17/24 13:34 14:17 22:03 WBC 10.0 RBC 4.15 L Hgb 11.7 L Hct 37.4 MCV 90.1 MCH 28.2 MCHC 31.3 L RDW 15.4 H Plt Count 176 MPV 10.3 Immature Gran % (Auto) 0.3 Neut % (Auto) 75.4 H Lymph % (Auto) 15.0 L [place] % (Auto) 9.1 H Eos % (Auto) 0.0 Baso % (Auto) 0.2 Lymph # (Auto) 1.49 [place] # (Auto) 0.9 H Eos # (Auto) 0.0 Baso # (Auto) 0.0 Abs Immat Gran (auto) 0.03 Absolute Neuts (auto) 7.5 H Absolute Nucleated RBC 0.000 Nucleated RBC % 0.0 Sodium 139 Potassium 4.2 Chloride 113 H Carbon Dioxide 15 L Anion Gap 11 BUN 47 H D Creatinine 3.77 H Estim Creat Clear Calc 9 Estimated GFR 12 L Glucose 119 H POC Capillary Glucose 102 Hemoglobin A1c 5.9 H Calcium 9.2 Phosphorus Magnesium Total Bilirubin 0.3 AST 571 H ALT 437 H Alkaline Phosphatase 86 Total Creatine Kinase > 04129 H NT-Pro-B Natriuret Pep 667 H Total Protein 6.3 Albumin 3.7 Triglycerides 164 H Cholesterol 116 LDL Cholesterol Direct 45 HDL Direct 37 TSH (Reflex) 19.300 H Free T4 0.74 L Urine Color Yellow Urine Appearance Turbid H Urine pH 5.5 Ur Specific [place] 1.016 Urine Protein 2+ H Urine Glucose (UA) 3+ H Urine Ketones Negative Ur Blood (Man) 3+ H Urine Nitrate Negative Urine Bilirubin Negative Urine Urobilinogen 0.2 Add Ur Microanalysis Reviewed Leukocyte Esterase Rfl 1+ H Urine RBC 3-5 H Urine WBC 21-50 H Ur Squamous Epith Cells None seen Urine Bacteria None seen Urine Casts 3-5 Urine Eosinophils U Random Total Protein Ur Random Sodium Ur Random Urea Urine Total Volume Urine Creatinine Protein/Creat Ratio 2 Hepatitis A IgM Ab Negative Hep Bs Antigen Negative Hep B Core IgM Ab Negative Hepatitis C Ab Screen Negative 10/18/24 10/18/24 10/18/24 04:27 04:47 04:47 WBC 8.6 RBC 3.82 L Hgb 10.8 L Hct 34.8 L MCV 91.1 MCH 28.3 MCHC 31.0 L RDW 15.3 H Plt Count 154 MPV 11.1 H Immature Gran % (Auto) 0.4 Neut % (Auto) 68.3 Lymph % (Auto) 22.0 [place] % (Auto) 9.2 H Eos % (Auto) 0.0 Baso % (Auto) 0.1 L Lymph # (Auto) 1.88 [place] # (Auto) 0.8 H Eos # (Auto) 0.0 Baso # (Auto) 0.0 Abs Immat Gran (auto) 0.03 Absolute Neuts (auto) 5.8 Absolute Nucleated RBC 0.000 Nucleated RBC % 0.0 Sodium 137 Potassium 4.0 Chloride 114 H Carbon Dioxide 18 L Anion Gap 5 BUN 38 H Creatinine 3.19 H Estim Creat Clear Calc 11 Estimated GFR 14 L Glucose 108 POC Capillary Glucose Hemoglobin A1c Calcium 8.8 Phosphorus 3.9 Magnesium 2.0 Total Bilirubin 0.2 AST 416 H ALT 345 H Alkaline Phosphatase 63 Total Creatine Kinase 62837 H NT-Pro-B Natriuret Pep Total Protein 5.2 L Albumin 2.9 L Triglycerides 192 H Cholesterol 102 LDL Cholesterol Direct 38 HDL Direct 31 TSH (Reflex) Free T4 Urine Color Urine Appearance Urine pH Ur Specific [place] Urine Protein Urine Glucose (UA) Urine Ketones Ur Blood (Man) Urine Nitrate Urine Bilirubin Urine Urobilinogen Add Ur Microanalysis Leukocyte Esterase Rfl Urine RBC Urine WBC Ur Squamous Epith Cells Urine Bacteria Urine Casts Urine Eosinophils None seen U Random Total Protein 53 Cancelled Ur Random Sodium 45 Ur Random Urea 145 Urine Total Volume Cancelled Urine Creatinine 18.1 Protein/Creat Ratio 2 Hepatitis A IgM Ab Hep Bs Antigen Hep B Core IgM Ab Hepatitis C Ab Screen 10/18/24 04:47 WBC RBC Hgb Hct MCV MCH MCHC RDW Plt Count MPV Immature Gran % (Auto) Neut % (Auto) Lymph % (Auto) [place] % (Auto) Eos % (Auto) Baso % (Auto) Lymph # (Auto) [place] # (Auto) Eos # (Auto) Baso # (Auto) Abs Immat Gran (auto) Absolute Neuts (auto) Absolute Nucleated RBC Nucleated RBC % Sodium Potassium Chloride Carbon Dioxide Anion Gap BUN Creatinine Estim Creat Clear Calc Estimated GFR Glucose POC Capillary Glucose Hemoglobin A1c Calcium Phosphorus Magnesium Total Bilirubin AST ALT Alkaline Phosphatase Total Creatine Kinase NT-Pro-B Natriuret Pep Total Protein Albumin Triglycerides Cholesterol LDL Cholesterol Direct HDL Direct TSH (Reflex) Free T4 Urine Color Urine Appearance Urine pH Ur Specific [place] Urine Protein Urine Glucose (UA) Urine Ketones Ur Blood (Man) Urine Nitrate Urine Bilirubin Urine Urobilinogen Add Ur Microanalysis Leukocyte Esterase Rfl Urine RBC Urine WBC Ur Squamous Epith Cells Urine Bacteria Urine Casts Urine Eosinophils U Random Total Protein Ur Random Sodium Ur Random Urea Urine Total Volume Urine Creatinine Cancelled Protein/Creat Ratio 2 2.93 H Hepatitis A IgM Ab Hep Bs Antigen Hep B Core IgM Ab Hepatitis C Ab Screen Quality VTE Prophylaxis VTE prophylaxis: pharmacologic ordered (heparin SQ)
[2024-10-18 09:02] VITALS: RESP 16; O2SAT 100
--- NOTE | 2024-10-18 12:30 | P.CONNP_ITS ---
Assessment and Plan Assessment and plan (1) Acute kidney injury: Code(s): N17.9 - Acute kidney failure, unspecified Status: Acute Assessment and Plan: * as noted by recent outpatient labs and on admission * suspect due to rhabdomyolysis * evaluation to date noted: * renal ultrasound pending * CT of A/P with 3.3cm renal cyst * elevated CPK level * urine electrolytes non-prerenal * urine eosinophils negative * UA noted (culture pending) * + proteinuria * improvement noted with IVFs * follow trend of repeat labs and UOP (2) Chronic kidney disease, stage 3b: Code(s): N18.32 - Chronic kidney disease, stage 3b Status: Chronic Assessment and Plan: * baseline creatinine runs around 1.5 - 2.1mg/dl in the last year * this causes her to fluctuate between CKD stage 3b and stage 3 * due to hypertension (not an issue now), diabetes, vascular disease, and age (3) Rhabdomyolysis: Code(s): M62.82 - Rhabdomyolysis Status: Acute Assessment and Plan: * as noted by admission labs * CPK down trending * reports some muscle aches following a fall ~ 10 days prior to admission * due to statin use?? * statin on hold * allergy reported with atorvastatin * possible polymyosiitis or some other inflammatory myopathy?? * continue current therapy (4) Transaminitis: Code(s): R74.01 - Elevation of levels of liver transaminase levels Status: Acute Assessment and Plan: * presumably secondary to rhabomyolysis * follow trend of LFTs (5) Anemia: Qualifiers: Anemia type: unspecified type Qualified Code(s): D64.9 - Anemia, unspecified Code(s): D64.9 - Anemia, unspecified Status: Chronic Assessment and Plan: * probably related to DANETTE, CKD, and acute illness * suspect a dilutional component as well with IVFs * follow trend of H/H (6) HTN (hypertension): Code(s): I10 - Essential (primary) hypertension Status: Chronic Assessment and Plan: * reasonable control at this time * follow trend of hemodynamics (7) Chronic pain: Code(s): G89.29 - Other chronic pain Status: Chronic Assessment and Plan: * continue buprenorphine patch as prescribed (8) Diabetes: Code(s): E11.9 - Type 2 diabetes mellitus without complications Status: Chronic Assessment and Plan: * follow accu-cheks * glycemic control per hospitalist I will continue to follow the patient with you while she remains hospitalized and make further recommendations as deemed necessary. Thank you for allowing me to participate in the care of this patient. L History of Present Illness Reason for Consult Consult date: 10/18/24 Reason for consult: acute renal failure (on chronic kidney disease) Chief Complaint Chief complaint: Acute Renal Failure/Transaminitis History of Present Illness Narrative: The patient is a 74-year-old female a past medical history as outlined who presented to [facility] Emergency Room due to outpatient and normal labs. The patient had recent outpatient labs done in anticipation her scheduled follow-up office visits on the day prior to her presentation to the emergency room. These outpatient labs demonstrated evidence worsening of her known chronic kidney disease in association with significantly elevated LFTs/new transaminitis. Given these findings, her PCP instructed the patient to come to the emergency room for further assessment. Workup and evaluation emergency room demonstrated the patient to be hemodynamically stable and in no apparent distress. The patient stated that she felt reasonably well and had no specific complaints. She was somewhat surprised that she received a call from her physician stating her come to the ER since she feels reasonably well. Repeat labs done in the emergency room confirmed her acute kidney injury on top of her baseline chronic kidney disease in association with elevated liver function tests and they were actually somewhat worse in comparison to the day previously. She was initiated on IV fluids and subsequently admitted to the hospital for further evaluation and therapy. Add on labs done overnight to blood work done in emergency room demonstrated a significantly elevated CPK. However, she did not have a critical electrolyte abnormalities so she was continued on aggressive IV fluid resuscitation and she was noted to making urine in response to this intervention. Upon further questioning, the patient did report some diffuse muscle aches over the last week after a fall that she sustained in her yard. Renal consultation was requested due to her acute kidney injury/ acute renal failure top of her baseline chronic kidney disease in the context of rhabdomyolysis. The patient normally follows with Dr. Phil Rosales for management of her chronic kidney disease. Her creatinine has been fluctuating anywhere from 1.5-2.1 mg/dL causing her to fluctuate between chronic kidney disease stage IIIB and stage IV. The etiology of her chronic kidney disease is thought to be secondary to hypertension, diabetes, vascular disease, and age- related change based on outpatient evaluation. Her outpatient labs showed a creatinine of 3.83 mg/dL and repeat testing in emergency room showed a creatinine of 3.77 mg/dL. With IV fluid resuscitation, her creatinine has improved further by labs done this morning as has her CPK. Currently, at the time my evaluation, she appears to be in no acute distress. Review of Systems 2 Review of Systems: As per HPI. [facility] Past Medical History Medical History (Updated 10/19/24 @ 16:24 by Triston Novoa MD) CKD (chronic kidney disease) stage 4, GFR 15-29 ml/min COVID-19 Arthritis Fracture of metatarsal bone of left foot Fx metatarsal-closed Subclavian artery stenosis, left s/p stent Facial paralysis on left side Sleep apnea HTN (hypertension) GERD (gastroesophageal reflux disease) Hypothyroid Adenomatous colon polyp Carotid artery disease Cerebral atherosclerosis Mixed hyperlipidemia DM renal manif type II UTI (urinary tract infection) Mild episode of recurrent major depressive disorder Surgical History Surgical History S/P carotid endarterectomy L-sided History of bilateral tubal ligation S/P carpal tunnel release S/P cholecystectomy S/P tonsillectomy Status post Kevin fundoplication S/P discectomy S/P hysterectomy Family History Family History Father Family history of obesity Hypertension Family history of allergic disorder Cerebrovascular accident Family history of diabetes mellitus in first degree relative Family history of primary malignant neoplasm of liver Patient's father is Diabetes mellitus Family history of cardiovascular disease Mother Family history of obesity Hypertension Family history of osteoarthritis Patient's mother is in good health Sibling Hypertension Patient's brother is in good health Family history of diabetes mellitus in first degree relative Family history of lymphoma Diabetes mellitus Family history of cardiovascular disease Grandparent Asthma Carcinoma of colon Social History Social History Social History: The patient is and has 2 children. She retired from [employer] Code status full code Smoking status: Never smoker Alcohol intake: former Drinks per week: 3 Alcohol use details: STATES VERY SELDOME DRANK AND JUST STOPPED 2021~ Substance use: never Substance use type: does not use Do You Feel Safe in your Home?: Yes Lack of Transportation: No Lack of Food: Never True Current Housing: I Have Housing Concerned About Future Housing: No Difficulty Paying Gas/Electric Bills: No Difficulty Paying for Meds: No Currently Unemployed: No Education: Trade/Vocational Certificate Difficulty w/ Childcare or Family Care: No Living arrangements: with family Occupation/Education: retired Gender identity (if verbalized by the patient): Female Sexual Orientation (if Verbalized by the Patient): Straight or Heterosexual Spiritual care concerns: No Meds Home Medications and Allergies Home Medications ?Medication ?Instructions ?Recorded ?Confirmed ?Type melatonin 10 mg capsule 10 mg PO HS PRN sleep 10/17/24 History lancets #200 ea 02/29/20 10/17/24 Rx blood-glucose meter (Blood Glucose #1 ea 03/06/2009/22 Rx Monitoring kit) aspirin 81 mg tablet,delayed 81 mg PO HS 01/21/2209/22 History release metformin 1,000 mg tablet 1,000 mg PO DAILY #90 tabs 0 03/12/24 10/17/24 Rx empagliflozin 10 mg tablet 10 mg PO DAILY #30 tabs 10/1510/17/24 Rx (Jardiance) carvedilol 6.25 mg tablet 6.25 mg PO Q12H #180 tabs 10/17/24 Rx rosuvastatin 40 mg tablet 40 mg PO DAILY #90 tabs 06/2110/17/24 Rx gabapentin 600 mg tablet 600 mg PO QHS #90 tabs 07/3110/17/24 Rx omeprazole 40 mg capsule,delayed 40 mg PO DAILY #90 ca ps 08/16/24 10/17/24 Rx release blood sugar diagnostic (Contour #100 ea 08/17/2410/17 Rx Next Test Strips) blood-glucose meter (Contour Meter #1 ea 08/17/2409/22 Rx kit) icosapent ethyl 1 gram capsule 2 g (2 x 1 gram) PO BID #120 caps 08/23/24 10/17/24 Rx (Vascepa) ergocalciferol (vitamin D2) 1,250 See Rx Instructions .Route 09/03/24 10/17/24 Rx mcg (50,000 unit) capsule .COMPLEX #10 caps sertraline 50 mg tablet 50 mg PO DAILY #30 tabs 08/2210/17/24 Rx trazodone 50 mg tablet 50 mg PO QHS PRN sleep #30 t abs 09/18/24 10/17/24 Rx buspirone 10 mg tablet See Rx Instructions .Route 0 09/24/24 10/17/24 Rx .COMPLEX #90 tabs levothyroxine 75 mcg tablet 75 mcg PO DAILY #30 tabs 0 10/02/24 10/17/24 Rx buprenorphine 7.5 mcg/hour weekly 1 patch transdermal Q7D 28 days #4 10/11/24 10/17/24 Rx transdermal patch ea clopidogrel 75 mg tablet 75 mg PO DAILY 10/17/2409/22 History midodrine 5 mg tablet 5 mg PO DAILY 10/17/2410/17 History Allergies Allergy/AdvReac Type Severity Reaction Status Date / Time alendronate sodium Allergy Severe TONGUE Verified 10/17/24 11:53 SWELLING Penicillins Allergy Severe Hives - Verified 10/17/24 11:53 AGE 18 atorvastatin Allergy Intermediate Muscle Pain Verified 10/17/24 11:53 fenofibrate Allergy Intermediate Muscle Pain Verified 10/17/24 11:53 gemfibrozil Allergy Intermediate Muscle Pain Verified 10/17/24 11:53 rosuvastatin AdvReac Severe Rhabdomyolysis/Hepatorenal Verified 10/18/24 08:05 failure [id number] Reductase AdvReac Severe Rhabdomyolysis/Hepatorenal Verified 10/18/24 08:05 Inhibitor Failure Vital Signs Vital Signs Temp Pulse Resp BP Pulse Ox O2 Del Method 10/18/24 12:00 97.7 F 55 L 16 109/47 L 96 10/18/24 09:02 16 100 Room Air 10/18/24 08:59 60 10/18/24 04:55 97.8 F 56 L 14 134/54 L 100 10/17/24 23:49 74 10/17/24 21:55 98.3 F 59 L 16 117/65 100 10/17/24 20:00 Room Air 10/17/24 18:44 97.7 F 59 L 18 123/59 L 100 Exam 2 Narrative: GENERAL APPEARANCE: elderly but well developed well nourished female in no acute distress HEENT: normocephalic, atraumatic, normal conjunctiva and sclera, nares patient NECK: no lymphadenopathy, thyromegaly, or JVD MOUTH: normal lips, teeth, and gums CARDIOVASCULAR: RRR, normal S1 and S2, no rub RESPIRATORY: clear to auscultation bilaterally ABDOMEN: soft, nontender, nondistended, positive bowel sounds present EXTREMITIES: no evidence of cyanosis, clubbing, or edema NEUROLOGICAL: alert and oriented x 3; CN II - XII intact bilaterally; no focal deficits noted Results Lab Results 10/20/24 04:17 10/20/24 04:17 Lab results: Most recent lab results Calcium 8.8 mg/dL (8.4-10.2) 10/18/24 04:27 Phosphorus 3.9 mg/dL (2.5-4.5) 10/18/24 04:27 Magnesium 2.0 mg/dL (1.6-2.3) 10/18/24 04:27 Urine Creatinine 18.1 mg/dL 10/18/24 04:47 Urine Creatinine Cancelled 10/18/24 04:47
[2024-10-18 14:00] VITALS: BP 109/47; PULSE 55; RESP 16; TEMP 36.5; O2SAT 96
[2024-10-18 17:45] LABS: Alanine Aminotransferase 354 U/L (6-35); Albumin Level 3.3 g/dL (3.5-5.1); Alkaline Phosphatase 73 U/L (38-126); Anion Gap 6 mmol/L (4-12); Aspartate Amino Transferase 377 U/L (14-36); Bilirubin,Total 0.3 mg/dL (0.2-1.3); Blood Urea Nitrogen 36 mg/dL (7-17); Calcium 9.0 mg/dL (8.4-10.2); Carbon Dioxide 16 mmol/L (22-30); Chloride 114 mmol/L (98-107); Estimated CRCL calculation 11 ml/min; Estimated Glomerular Filt Rate 14; Glucose 101 mg/dL (65-110); Potassium 4.0 mmol/L (3.4-5.0); Sodium 136 mmol/L (137-145); Total Protein 5.8 g/dL (6.3-8.2)
[2024-10-18 18:22] LABS: Creatine Kinase 10913 U/L (30-135)
[2024-10-18 20:19] VITALS: PULSE 79
[2024-10-18] MEDS: ASPIRIN 81 MG ENTERIC TABLET PO (20:19)
[2024-10-18 20:43] VITALS: BP 126/51; PULSE 61; RESP 18; TEMP 36.9; O2SAT 98
[2024-10-19 04:11] VITALS: BP 167/56; PULSE 57; RESP 20; TEMP 36.4; O2SAT 99
[2024-10-19] MEDS: ACETAMINOPHEN 325 MG TABLET 650 MG PO (04:43)
[2024-10-19 04:56] LABS: Hematocrit 35.4 % (37.0-47.0); Hemoglobin 10.9 g/dL (12.0-15.0); Immature Granulocyte Percent A 0.5 % (0-0.5); Lymphocytes Absolute Auto 1.68 K/mm3 (0.9-3.2); Mean Corpuscular HGB Conc 30.8 g/dl (32-36); Mean Corpuscular Hemoglobin 28.2 pg (26-34); Mean Corpuscular Volume 91.7 fl (80-100); Nucleated Red Blood Cells Absolute Auto 0.000 K/mm3 (0.0-0.012); Nucleated Red Blood Cells Perc 0.0 % (0.0-0.2); Platelet Count Result 160 k/mm3 (150-375); Red Blood Count 3.86 M/mm3 (4.2-5.4); White Blood Count 8.0 K/mm3 (4.5-10.0)
[2024-10-19] MEDS: LEVOTHYROXINE SODIUM 75 MCG TABLET PO (05:00)
[2024-10-19 05:15] LABS: Alanine Aminotransferase 336 U/L (6-35); Albumin Level 3.2 g/dL (3.5-5.1); Alkaline Phosphatase 68 U/L (38-126); Anion Gap 4 mmol/L (4-12); Aspartate Amino Transferase 339 U/L (14-36); Bilirubin,Total 0.2 mg/dL (0.2-1.3); Blood Urea Nitrogen 37 mg/dL (7-17); Calcium 9.1 mg/dL (8.4-10.2); Carbon Dioxide 21 mmol/L (22-30); Chloride 115 mmol/L (98-107); Estimated CRCL calculation 11 ml/min; Estimated Glomerular Filt Rate 14; Glucose 98 mg/dL (65-110); Magnesium 1.9 mg/dL (1.6-2.3); Potassium 5.0 mmol/L (3.4-5.0); Sodium 140 mmol/L (137-145); Total Protein 5.5 g/dL (6.3-8.2)
[2024-10-19 05:56] LABS: Creatine Kinase 9510 U/L (30-135)
--- NOTE | 2024-10-19 07:49 | P.PNIM_ITS ---
Progress Note: A&P Assessment and Plan (1) Rhabdomyolysis due to statin therapy: Code(s): M62.82 - Rhabdomyolysis; T46.6X5A - Adverse effect of antihyperlipidemic and antiarteriosclerotic drugs, initial encounter Status: Acute Assessment and Plan: -Asymptomatic significant worsening of kidney disease and new transaminitis found on labs in the clinic -Labs worse on arrival to ER than in the outpatient setting the day before -Patient notes only vague muscle aches after falling in the yard on a branch about 10 days ago.j -No other symptoms at all -Prior intolerance to statins and cholesterol medications -Home medication rosuvastatin 40 mg -Given new liver failure and significant DANETTE on CKD, checked a CK level with results >16,000 -No noted urinary changes or fluid retention, no dyspnea -UA with 3+ blood but only 3-5 RBCs continue IV fluids trend ck --------- 10/19- [place] 9510 [place] [address] (2) Hepatorenal failure: Code(s): K76.7 - Hepatorenal syndrome Status: Acute Assessment and Plan: -See above (3) DM renal manif type II: Code(s): E11.29 - Type 2 diabetes mellitus with other diabetic kidney complication Status: Chronic Assessment and Plan: -A1c 5.9 -ACHS fingerstick glucose with low dose SSI, continue Jardiance, hold metformin -Hold gabapentin due to DANETTE on CKD (4) Type 2 diabetes with nephropathy: Code(s): E11.21 - Type 2 diabetes mellitus with diabetic nephropathy Status: Chronic Assessment and Plan: -A1c 5.9 -ACHS fingerstick glucose with low dose SSI, continue Jardiance, hold metformin -Hold gabapentin due to DANETTE on CKD (5) Chronic pain: Code(s): G89.29 - Other chronic pain Status: Chronic Assessment and Plan: -Buprenorphine patch prescribed (6) Hypertensive chronic kidney disease with stage 1 through stage 4 chronic kidney disease, or unspecified chronic kidney disease: Code(s): I12.9 - Hypertensive chronic kidney disease with stage 1 through stage 4 chronic kidney disease, or unspecified chronic kidney disease Status: Chronic Assessment and Plan: -BP controlled, continue home medications as tolerated (7) Acute kidney injury superimposed on CKD: Code(s): N17.9 - Acute kidney failure, unspecified; N18.9 - Chronic kidney disease, unspecified Status: Acute Assessment and Plan: -Baseline stage 3b/4 CKD, acutely stage 5 noted on admission -Related to rhabdomyolysis due to statin therapy (8) Mixed hyperlipidemia: Code(s): E78.2 - Mixed hyperlipidemia Status: Chronic Assessment and Plan: -lipid panel ordered -Stop rosuvastatin due to rhabdomyolysis (9) Abnormal urinalysis: Code(s): R82.90 - Unspecified abnormal findings in urine Status: Acute Assessment and Plan: -Leukocyte esterase 1+, 21-50 WBC, 3-5 RBC, 3+ blood (myoglobin) with 3+ glucose and 2+ protein -No dysuria or fever and WBC in blood normal -Defer treatment to urine culture results Time Spent With Patient Time with patient: 25 - 35 minutes Subjective Date/time seen: 10/19/24 07:49 Interval history: Retrieved from H/P: This is a 74-year-old female patient with a past medical history diabetes, hypertension insomnia, hyperlipidemia, GERD, chronic pain and CAD who is admitted to the hospital for hep panel renal failure. She has a history stage IIIB/IV CKD due to hypertension and diabetes and follows with Dr. Rosales in the clinic. No history of liver failure. Patient had labs drawn for her upcoming clinic appointment next week and she received notification from physician to go to the emergency department immediately due to significantly worsened labs. In the ER patient was given 1 L normal saline and admitted for nephrology consult for DANETTE on CKD as well as new transaminitis. Patient reported that she was asymptomatic had no complaints whatsoever and did not understand why her labs were bad requiring admission. Overnight was reviewing labs and noted 3+ blood in the urine but only 3-5 RBCs. With renal failure and liver failure accompanying this finding as well as a previous allergy to atorvastatin causing muscle pain and home medication list including high-dose rosuvastatin, added CK level to pre-existing labs with a result of greater than 16,000. Overnight patient received 2 L of IV fluids and recheck of labs this morning shows some downtrending of CK, serum creatinine and liver enzymes. Upon further questioning of patient she did experience diffuse muscle aches over the last week and a half but she attributed this to a fall in her yard due to a branch down. Nephrology has been consulted. IV fluids have been ordered. 10/18 Pt is seen and examined. nephrology consulted. 10/19 pt is seen and examined during morning rounds. She is resting in bed, calm, pain free. NO n/v/d. IV fluids infusing. Review of Systems Review of Systems: All systems reviewed & are unremarkable except as noted in HPI and below Exam Narrative: APPEARANCE: No acute distress, nontoxic, resting in bed EYES: EOMI HEENT: Normocephalic, atraumatic RESPIRATORY: No respiratory distress Clear to auscultation bilaterally with no rhonchi wheezing or rales. CARDIOVASCULAR: Regular rate and rhythm without murmurs rubs or gallops. ABDOMINAL: Soft, nontender, nondistended, no rebound or guarding MUSCULOSKELETAL: Moves all extremities. No clubbing, cyanosis or edema. NEURO: Awake and alert. Following commands, speech normal, no focal deficits SKIN:: Warm, dry. No rashes lesions or abrasions PSYCHIATRIC: Normal affect/mood, Objective Data Vital Signs Vital Signs: Vital Signs - 24 hr 10/18/24 08:59 10/18/24 09:02 10/18/24 14:00 Temperature 97.7 F Pulse Rate 60 55 L Respiratory Rate 16 16 Blood Pressure 109/47 L Pulse Oximetry 100 96 Oxygen Delivery Room Air 10/18/24 20:19 10/18/24 20:43 10/19/24 04:11 Temperature 98.4 F 97.6 F Pulse Rate 79 61 57 L Respiratory Rate 18 20 Blood Pressure 126/51 L 167/56 H Pulse Oximetry 98 99 Oxygen Delivery Intake/Output Intake/Output: Intake & Output 10/16/24 10/17/24 10/18/24 10/19/24 23:59 23:59 23:59 23:59 Intake Total 1240 1610 390 Output Total 2600 Balance 1240 -990 390 Meds/Results Medications: Active Medications Generic Name Dose Route Start Last Admin Trade Name Freq PRN Reason Stop Dose Admin Acetaminophen 650 mg 10/19/24 04:31 10/19/24 04:43 Acetaminophen 325 Mg Tablet PO 650 mg Q4H PRN Administration Headache Aspirin 81 mg 10/17/24 21:00 10/18/24 20:19 Aspirin 81 Mg Enteric Tablet PO 81 mg HS JUAN A Administration Buspirone HCl 10 mg 10/17/24 22:00 10/19/24 05:00 Buspirone Hcl 10 Mg Tablet PO 10 mg Q8HR JUAN A Administration Carvedilol 6.25 mg 10/17/24 21:00 10/18/24 20:19 Carvedilol 6.25 Mg Tablet PO 6.25 mg Q12HR JUAN A Administration Clopidogrel Bisulfate 75 mg 10/18/24 09:00 10/18/24 09:00 Clopidogrel Bisulfate 75 Mg Tablet PO 75 mg DAILY JUAN A Administration Dextrose 12.5 gm 10/17/24 20:19 Dextrose 50% 25 Gm/50 Ml Syringe IV PUSH PRN PRN Hypoglycemia Protocol Empagliflozin 10 mg 10/18/24 09:00 10/18/24 09:00 Empagliflozin 10 Mg Tablet PO 10 mg DAILY JUAN A Administration Glucagon 1 mg 10/17/24 20:19 Glucagon For Inj 1 Mg Vial IM PRN PRN Hypoglycemia Protocol Glucose 15 gm 10/17/24 20:19 Glucose Oral Gel 15 Gm Of Glucse In 37.5 Gm Tube PO PRN PRN Hypoglycemia Protocol Heparin Sodium (Porcine) 5,000 units 10/17/24 21:00 10/18/24 20:19 Heparin Sodium 5,000 Units/Ml Vial SUB-Q 5,000 units Q12HR JUAN A Administration Dextrose 1,000 mls @ 100 mls/hr 10/17/24 20:19 Dextrose 5% 1,000 Ml IVPB PRN PRN Hypoglycemia Protocol Lactated Ringer's 1,000 mls @ 100 mls/hr 10/18/24 07:45 10/18/24 23:13 Lr - Lactated Ringers Iv IV CONT 100 mls/hr .Q10H JUAN A Administration Insulin Aspart 2 - 5 units 10/18/24 08:00 10/18/24 17:02 Insulin Aspart (*Bkc) 100 Units/Ml SUB-Q Not Given TIDWM JUAN A Protocol Levothyroxine Sodium 75 mcg 10/18/24 06:30 10/19/24 05:00 Levothyroxine Sodium 75 Mcg Tablet PO 75 mcg DAILY@0630 JUAN A Administration Miscellaneous Information 0 each 10/17/24 00:01 10/18/24 08:00 Buprenorphine 7.5 Mcg/Hr Is Non-Formulary. We Stock Buprenorphine 5 Mcg/Hr Or Use Pt Own XX 11/16/24 00:00 Not Given CLARIFY JUAN A Non-Formulary Medication 1 patch 10/22/24 09:00 Buprenorphine TOPICAL 11/21/24 08:59 Mo@0900 JUAN A Pantoprazole Sodium 40 mg 10/18/24 09:00 10/18/24 20:19 Pantoprazole 40 Mg Tablet PO 40 mg Q12HR JUAN A Administration Sertraline HCl 50 mg 10/18/24 09:00 10/18/24 09:00 Sertraline Hcl 50 Mg Tablet PO 50 mg DAILY JUAN A Administration Trazodone HCl 50 mg 10/17/24 20:10 Trazodone Hcl 50 Mg Tablet PO QHS PRN Sleep Radiology Results: ITS Impressions Abdomen/Pelvis CT 10/17/24 13:24 IMPRESSION: 1. No acute intra-abdominal/pelvic process. Chest X-Ray 10/17/24 16:45 Impression: No acute cardiopulmonary abnormality. Renal Ultrasound 10/18/24 14:56 Impression: 1: Right renal cyst measuring 3.9 cm. Labs Labs: Laboratory Results - last 24 hr 10/18/24 10/18/24 10/18/24 08:22 12:07 16:57 WBC RBC Hgb Hct MCV MCH MCHC RDW Plt Count MPV Immature Gran % (Auto) Neut % (Auto) Lymph % (Auto) Christian % (Auto) Eos % (Auto) Baso % (Auto) Lymph # (Auto) Christian # (Auto) Eos # (Auto) Baso # (Auto) Abs Immat Gran (auto) Absolute Neuts (auto) Absolute Nucleated RBC Nucleated RBC % Sodium Potassium Chloride Carbon Dioxide Anion Gap BUN Creatinine Estim Creat Clear Calc Estimated GFR Glucose POC Capillary Glucose 90 186 H 89 Calcium Phosphorus Magnesium Total Bilirubin AST ALT Alkaline Phosphatase Total Creatine Kinase Total Protein Albumin 10/18/24 10/18/24 10/19/24 17:20 20:45 04:24 WBC 8.0 RBC 3.86 L Hgb 10.9 L Hct 35.4 L MCV 91.7 MCH 28.2 MCHC 30.8 L RDW 15.2 H Plt Count 160 MPV 10.6 H Immature Gran % (Auto) 0.5 Neut % (Auto) 67.8 Lymph % (Auto) 20.9 Christian % (Auto) 10.7 H Eos % (Auto) 0.0 Baso % (Auto) 0.1 L Lymph # (Auto) 1.68 Christian # (Auto) 0.9 H Eos # (Auto) 0.0 Baso # (Auto) 0.0 Abs Immat Gran (auto) 0.04 H Absolute Neuts (auto) 5.5 Absolute Nucleated RBC 0.000 Nucleated RBC % 0.0 Sodium 136 L 140 Potassium 4.0 5.0 Chloride 114 H 115 H Carbon Dioxide 16 L 21 L Anion Gap 6 4 BUN 36 H 37 H Creatinine 3.22 H 3.28 H Estim Creat Clear Calc 11 11 Estimated GFR 14 L 14 L Glucose 101 98 POC Capillary Glucose 121 H Calcium 9.0 9.1 Phosphorus 4.2 Magnesium 1.9 Total Bilirubin 0.3 0.2 AST 377 H 339 H ALT 354 H 336 H Alkaline Phosphatase 73 68 Total Creatine Kinase 25028 H 9510 H Total Protein 5.8 L 5.5 L Albumin 3.3 L 3.2 L Quality VTE Prophylaxis VTE prophylaxis: pharmacologic ordered (heparin SQ)
[2024-10-19 08:20] VITALS: PULSE 60; RESP 20; O2SAT 99
[2024-10-19] MEDS: CLOPIDOGREL BISULFATE 75 MG TABLET PO (08:20)
[2024-10-19] MEDS: EMPAGLIFLOZIN 10 MG TABLET PO (08:20)
[2024-10-19] MEDS: SERTRALINE HCL 50 MG TABLET PO (08:20)
[2024-10-19] MEDS: PANTOPRAZOLE 40 MG TABLET PO ×2 (08:20→21:19)
[2024-10-19] MEDS: LACTATED RINGERS 1,000 ML 100 ML IV CONT ×2 (09:20→19:05)
--- NOTE | 2024-10-19 12:33 | P.PNNP_ITS ---
Progress Note: A&P Assessment and Plan (1) Acute kidney injury: Code(s): N17.9 - Acute kidney failure, unspecified Status: Acute Assessment and Plan: * as noted by recent outpatient labs and on admission * suspect due to rhabdomyolysis * evaluation to date noted: * renal ultrasound pending * CT of A/P with 3.3cm renal cyst * elevated CPK level * urine electrolytes non-prerenal * urine eosinophils negative * UA noted (culture pending) * + proteinuria * improvement noted with IVFs * follow trend of repeat labs and UOP (2) Chronic kidney disease, stage 3b: Code(s): N18.32 - Chronic kidney disease, stage 3b Status: Chronic Assessment and Plan: * baseline creatinine runs around 1.5 - 2.1mg/dl in the last year * this causes her to fluctuate between CKD stage 3b and stage 3 * due to hypertension (not an issue now), diabetes, vascular disease, and age (3) Rhabdomyolysis: Code(s): M62.82 - Rhabdomyolysis Status: Acute Assessment and Plan: * as noted by admission labs * CPK down trending * reports some muscle aches following a fall 10 days prior to admission * due to statin use?? * statin on hold * allergy reported with atorvastatin * may need to consider ruling out inflammatory myopathy... * continue current therapy (4) Transaminitis: Code(s): R74.01 - Elevation of levels of liver transaminase levels Status: Acute Assessment and Plan: * presumably secondary to rhabomyolysis * follow trend of LFTs (5) HTN (hypertension): Code(s): I10 - Essential (primary) hypertension Status: Chronic Assessment and Plan: * reasonable control at this time * follow trend of hemodynamics (6) Anemia: Qualifiers: Anemia type: unspecified type Qualified Code(s): D64.9 - Anemia, unspecified Code(s): D64.9 - Anemia, unspecified Status: Chronic Assessment and Plan: * probably related to DANETTE, CKD, and acute illness * suspect a dilutional component as well with IVFs * follow trend of H/H (7) Chronic pain: Code(s): G89.29 - Other chronic pain Status: Chronic Assessment and Plan: * continue buprenorphine patch as prescribed (8) Diabetes: Code(s): E11.9 - Type 2 diabetes mellitus without complications Status: Chronic Assessment and Plan: * follow accu-cheks * glycemic control per hospitalist Will continue to follow. L Subjective Date/time seen: 10/19/24 12:33 Interval history: Follow-up for acute kidney injury/acute renal failure on chronic kidney disease. No apparent distress at the time of my visit; renal function/creatinine better with good urine output noted; CPK is trending down as well; no other acute issues/events overnight or earlier this morning; brother at bedside and we discussed the situation. Exam 2 Narrative: General: elderly but WD/WN female in NAD Heart: normal S1 and S2; no rub Lungs: clear to auscultation Abdomen: soft, nontender, nondistended, positive bowel sounds Extremities: no cyanosis or clubbing; no edema Skin: warm and dry Objective Data Vital Signs Vital Signs: Vital Signs Temp Pulse Resp BP Pulse Ox O2 Del Method 10/19/24 12:00 97.5 F L 54 L 16 158/70 H 100 10/19/24 08:20 60 20 99 Room Air 10/19/24 08:20 60 10/19/24 04:11 97.6 F 57 L 20 167/56 H 99 10/18/24 20:43 98.4 F 61 18 126/51 L 98 10/18/24 20:19 79 Intake/Output Intake/Output: Intake & Output 10/16/24 10/17/24 10/18/24 10/19/24 23:59 23:59 23:59 23:59 Intake Total 1240 1610 1870 Output Total 2600 Balance 1240 -990 1870 Meds/Results Medications: Active Medications Generic Name Dose Route Start Last Admin Trade Name Freq PRN Reason Stop Dose Admin Acetaminophen 650 mg 10/19/24 04:31 10/19/24 04:43 Acetaminophen 325 Mg Tablet PO 650 mg Q4H PRN Administration Headache Aspirin 81 mg 10/17/24 21:00 10/18/24 20:19 Aspirin 81 Mg Enteric Tablet PO 81 mg HS JUAN A Administration Buspirone HCl 10 mg 10/17/24 22:00 10/19/24 13:23 Buspirone Hcl 10 Mg Tablet PO 10 mg Q8HR JUAN A Administration Carvedilol 6.25 mg 10/17/24 21:00 10/19/24 08:20 Carvedilol 6.25 Mg Tablet PO 6.25 mg Q12HR JUAN A Administration Clopidogrel Bisulfate 75 mg 10/18/24 09:00 10/19/24 08:20 Clopidogrel Bisulfate 75 Mg Tablet PO 75 mg DAILY JUAN A Administration Dextrose 12.5 gm 10/17/24 20:19 Dextrose 50% 25 Gm/50 Ml Syringe IV PUSH PRN PRN Hypoglycemia Protocol Empagliflozin 10 mg 10/18/24 09:00 10/19/24 08:20 Empagliflozin 10 Mg Tablet PO 10 mg DAILY JUAN A Administration Glucagon 1 mg 10/17/24 20:19 Glucagon For Inj 1 Mg Vial IM PRN PRN Hypoglycemia Protocol Glucose 15 gm 10/17/24 20:19 Glucose Oral Gel 15 Gm Of Glucse In 37.5 Gm Tube PO PRN PRN Hypoglycemia Protocol Heparin Sodium (Porcine) 5,000 units 10/17/24 21:00 10/19/24 08:20 Heparin Sodium 5,000 Units/Ml Vial SUB-Q 5,000 units Q12HR JUAN A Administration Dextrose 1,000 mls @ 100 mls/hr 10/17/24 20:19 Dextrose 5% 1,000 Ml IVPB PRN PRN Hypoglycemia Protocol Lactated Ringer's 1,000 mls @ 100 mls/hr 10/18/24 07:45 10/19/24 09:20 Lr - Lactated Ringers Iv IV CONT 100 mls/hr .Q10H JUAN A Administration Insulin Aspart 2 - 5 units 10/18/24 08:00 10/19/24 11:35 Insulin Aspart (*Bkc) 100 Units/Ml SUB-Q Not Given TIDWM JUAN A Protocol Levothyroxine Sodium 75 mcg 10/18/24 06:30 10/19/24 05:00 Levothyroxine Sodium 75 Mcg Tablet PO 75 mcg DAILY@0630 JUAN A Administration Miscellaneous Information 0 each 10/17/24 00:01 10/18/24 08:00 Buprenorphine 7.5 Mcg/Hr Is Non-Formulary. We Stock Buprenorphine 5 Mcg/Hr Or Use Pt Own XX 11/16/24 00:00 Not Given CLARIFY JUAN A Non-Formulary Medication 1 patch 10/22/24 09:00 Buprenorphine TOPICAL 11/21/24 08:59 Mo@0900 [facility] Pantoprazole Sodium 40 mg 10/18/24 09:00 10/19/24 08:20 Pantoprazole 40 Mg Tablet PO 40 mg Q12HR JUAN A Administration Sertraline HCl 50 mg 10/18/24 09:00 10/19/24 08:20 Sertraline Hcl 50 Mg Tablet PO 50 mg DAILY JUAN A Administration Trazodone HCl 50 mg 10/17/24 20:10 Trazodone Hcl 50 Mg Tablet PO QHS PRN Sleep Radiology Results: ITS Impressions Abdomen/Pelvis CT 10/17/24 13:24 IMPRESSION: 1. No acute intra-abdominal/pelvic process. Chest X-Ray 10/17/24 16:45 Impression: No acute cardiopulmonary abnormality. Renal Ultrasound 10/18/24 14:56 Impression: 1: Right renal cyst measuring 3.9 cm. Labs Labs: Laboratory Tests 10/19/24 04:24 10/19/24 04:24 Calcium 9.1 Phosphorus 4.2 Magnesium 1.9 Total Bilirubin 0.2 AST 339 H ALT 336 H Alkaline Phosphatase 68 Total Creatine Kinase 9510 H Total Protein 5.5 L Albumin 3.2 L Microbiology 10/17/24 14:17 Urine Clean Catch - Final
[2024-10-19 14:00] VITALS: BP 158/70; PULSE 54; RESP 16; TEMP 36.4; O2SAT 100
[2024-10-19 20:52] LABS: Alanine Aminotransferase 358 U/L (6-35); Albumin Level 3.6 g/dL (3.5-5.1); Alkaline Phosphatase 68 U/L (38-126); Anion Gap 9 mmol/L (4-12); Aspartate Amino Transferase 364 U/L (14-36); Bilirubin,Total 0.3 mg/dL (0.2-1.3); Blood Urea Nitrogen 34 mg/dL (7-17); Calcium 9.1 mg/dL (8.4-10.2); Carbon Dioxide 18 mmol/L (22-30); Chloride 109 mmol/L (98-107); Estimated CRCL calculation 11 ml/min; Estimated Glomerular Filt Rate 15; Glucose 78 mg/dL (65-110); Potassium 3.4 mmol/L (3.4-5.0); Sodium 136 mmol/L (137-145); Total Protein 6.0 g/dL (6.3-8.2)
[2024-10-19 21:18] VITALS: BP 145/81; PULSE 60; RESP 16; TEMP 36.8; O2SAT 100
[2024-10-19 21:19] VITALS: PULSE 60
[2024-10-19] MEDS: ASPIRIN 81 MG ENTERIC TABLET PO (21:19)
[2024-10-19 21:24] LABS: Creatine Kinase 11715 U/L (30-135)
[2024-10-20 04:40] LABS: Hematocrit 32.0 % (37.0-47.0); Hemoglobin 10.1 g/dL (12.0-15.0); Immature Granulocyte Percent A 0.4 % (0-0.5); Lymphocytes Absolute Auto 1.42 K/mm3 (0.9-3.2); Mean Corpuscular HGB Conc 31.6 g/dl (32-36); Mean Corpuscular Hemoglobin 28.1 pg (26-34); Mean Corpuscular Volume 88.9 fl (80-100); Nucleated Red Blood Cells Absolute Auto 0.000 K/mm3 (0.0-0.012); Nucleated Red Blood Cells Perc 0.0 % (0.0-0.2); Platelet Count Result 163 k/mm3 (150-375); Red Blood Count 3.60 M/mm3 (4.2-5.4); White Blood Count 7.3 K/mm3 (4.5-10.0)
[2024-10-20 05:02] LABS: Alanine Aminotransferase 300 U/L (6-35); Albumin Level 2.9 g/dL (3.5-5.1); Alkaline Phosphatase 53 U/L (38-126); Anion Gap 5 mmol/L (4-12); Aspartate Amino Transferase 292 U/L (14-36); Bilirubin,Total 0.2 mg/dL (0.2-1.3); Blood Urea Nitrogen 36 mg/dL (7-17); Calcium 8.9 mg/dL (8.4-10.2); Carbon Dioxide 21 mmol/L (22-30); Chloride 113 mmol/L (98-107); Estimated CRCL calculation 11 ml/min; Estimated Glomerular Filt Rate 15; Glucose 103 mg/dL (65-110); Magnesium 1.7 mg/dL (1.6-2.3); Potassium 3.5 mmol/L (3.4-5.0); Sodium 139 mmol/L (137-145); Total Protein 5.1 g/dL (6.3-8.2)
[2024-10-20] MEDS: LEVOTHYROXINE SODIUM 75 MCG TABLET PO (05:34)
[2024-10-20 05:40] VITALS: BP 140/68; PULSE 65; RESP 14; TEMP 36.9; O2SAT 95
[2024-10-20 05:55] LABS: Creatine Kinase > 8000 U/L (30-135)
[2024-10-20] MEDS: LACTATED RINGERS 1,000 ML 100 ML IV CONT (06:22)
[2024-10-20 08:09] VITALS: O2SAT 97
[2024-10-20 08:16] VITALS: PULSE 65
[2024-10-20] MEDS: PANTOPRAZOLE 40 MG TABLET PO ×2 (08:16→21:28)
[2024-10-20] MEDS: EMPAGLIFLOZIN 10 MG TABLET PO (08:17)
[2024-10-20] MEDS: CLOPIDOGREL BISULFATE 75 MG TABLET PO (08:17)
[2024-10-20] MEDS: SERTRALINE HCL 50 MG TABLET PO (08:17)
--- NOTE | 2024-10-20 08:32 | PM.IMPN ---
Progress Note: A&P Assessment and Plan (1) Rhabdomyolysis due to statin therapy: Code(s): M62.82 - Rhabdomyolysis; T46.6X5A - Adverse effect of antihyperlipidemic and antiarteriosclerotic drugs, initial encounter Status: Acute Assessment and Plan: -Asymptomatic significant worsening of kidney disease and new transaminitis found on labs in the clinic -Labs worse on arrival to ER than in the outpatient setting the day before -Patient notes only vague muscle aches after falling in the yard on a branch about 10 days ago.j -No other symptoms at all -Prior intolerance to statins and cholesterol medications -Home medication rosuvastatin 40 mg -Given new liver failure and significant DANETTE on CKD, checked a CK level with results >16,000 -No noted urinary changes or fluid retention, no dyspnea -UA with 3+ blood but only 3-5 RBCs continue IV fluids trend ck --------- 10/19- CK 9510 [place] [id number] 10/20 ck trending down slowly, holding statin. r/o inflammatory myopathy- DR Rosales ordered serology (2) Hepatorenal failure: Code(s): K76.7 - Hepatorenal syndrome Status: Acute Assessment and Plan: -See above (3) DM renal manif type II: Code(s): E11.29 - Type 2 diabetes mellitus with other diabetic kidney complication Status: Chronic Assessment and Plan: -A1c 5.9 -ACHS fingerstick glucose with low dose SSI, continue Jardiance, hold metformin -Hold gabapentin due to DANETTE on CKD (4) Type 2 diabetes with nephropathy: Code(s): E11.21 - Type 2 diabetes mellitus with diabetic nephropathy Status: Chronic Assessment and Plan: -A1c 5.9 -ACHS fingerstick glucose with low dose SSI, continue Jardiance, hold metformin -Hold gabapentin due to DANETTE on CKD (5) Chronic pain: Code(s): G89.29 - Other chronic pain Status: Chronic Assessment and Plan: -Buprenorphine patch prescribed (6) Hypertensive chronic kidney disease with stage 1 through stage 4 chronic kidney disease, or unspecified chronic kidney disease: Code(s): I12.9 - Hypertensive chronic kidney disease with stage 1 through stage 4 chronic kidney disease, or unspecified chronic kidney disease Status: Chronic Assessment and Plan: -BP controlled, continue home medications as tolerated (7) Acute kidney injury superimposed on CKD: Code(s): N17.9 - Acute kidney failure, unspecified; N18.9 - Chronic kidney disease, unspecified Status: Acute Assessment and Plan: -Baseline stage 3b/4 CKD, acutely stage 5 noted on admission -Related to rhabdomyolysis due to statin therapy - trend cmp cr/bun 3.36 today nephrology following (8) Mixed hyperlipidemia: Code(s): E78.2 - Mixed hyperlipidemia Status: Chronic Assessment and Plan: -lipid panel ordered -Stop rosuvastatin due to rhabdomyolysis (9) Abnormal urinalysis: Code(s): R82.90 - Unspecified abnormal findings in urine Status: Acute Assessment and Plan: -Leukocyte esterase 1+, 21-50 WBC, 3-5 RBC, 3+ blood (myoglobin) with 3+ glucose and 2+ protein -No dysuria or fever and WBC in blood normal -Defer treatment to urine culture results Time Spent With Patient Time with patient: 25 - 35 minutes Subjective Date/time seen: 10/20/24 08:32 Interval history: This is a 74-year-old female patient with a past medical history diabetes, hypertension insomnia, hyperlipidemia, GERD, chronic pain and CAD who is admitted to the hospital for hep panel renal failure. She has a history stage IIIB/IV CKD due to hypertension and diabetes and follows with Dr. Rosales in the clinic. No history of liver failure. Patient had labs drawn for her upcoming clinic appointment next week and she received notification from physician to go to the emergency department immediately due to significantly worsened labs. In the ER patient was given 1 L normal saline and admitted for nephrology consult for DANETTE on CKD as well as new transaminitis. Patient reported that she was asymptomatic had no complaints whatsoever and did not understand why her labs were bad requiring admission. Overnight was reviewing labs and noted 3+ blood in the urine but only 3-5 RBCs. With renal failure and liver failure accompanying this finding as well as a previous allergy to atorvastatin causing muscle pain and home medication list including high-dose rosuvastatin, added CK level to pre-existing labs with a result of greater than 16,000. Overnight patient received 2 L of IV fluids and recheck of labs this morning shows some downtrending of CK, serum creatinine and liver enzymes. Upon further questioning of patient she did experience diffuse muscle aches over the last week and a half but she attributed this to a fall in her yard due to a branch down. Nephrology has been consulted. IV fluids have been ordered. 10/18 Pt is seen and examined. nephrology consulted. 10/19 pt is seen and examined during morning rounds. She is resting in bed, calm, pain free. NO n/v/d. IV fluids infusing. 10/20 no acute events renal ultrasound: Right renal cyst measuring 3.9 cm. Eating and drinking ok, no chest pain. Pt is in a good spirit but frustrated that gown is too big. appetite is ok,no n/v/d. Review of Systems Review of Systems: All systems reviewed & are unremarkable except as noted in HPI and below Exam Narrative: APPEARANCE: No acute distress, nontoxic, resting in bed EYES: EOMI HEENT: Normocephalic, atraumatic RESPIRATORY: No respiratory distress Clear to auscultation bilaterally with no rhonchi wheezing or rales. CARDIOVASCULAR: Regular rate and rhythm without murmurs rubs or gallops. ABDOMINAL: Soft, nontender, nondistended, no rebound or guarding MUSCULOSKELETAL: Moves all extremities. No clubbing, cyanosis or edema. NEURO: Awake and alert. Following commands, speech normal, no focal deficits SKIN:: Warm, dry. No rashes lesions or abrasions PSYCHIATRIC: Normal affect/mood, Objective Data Vital Signs Vital Signs: Vital Signs - 24 hr 10/19/24 14:00 10/19/24 20:00 10/19/24 21:18 Temperature 97.5 F L 98.2 F Pulse Rate 54 L 60 Respiratory Rate 16 16 Blood Pressure 158/70 H 145/81 H Pulse Oximetry 100 100 Oxygen Delivery Room Air 10/19/24 21:19 10/20/24 05:40 10/20/24 08:09 Temperature 98.5 F Pulse Rate 60 65 Respiratory Rate 14 Blood Pressure 140/68 Pulse Oximetry 95 97 Oxygen Delivery Room Air 10/20/24 08:16 Temperature Pulse Rate 65 Respiratory Rate Blood Pressure Pulse Oximetry Oxygen Delivery Intake/Output Intake/Output: Intake & Output 10/17/24 10/18/24 10/19/24 10/20/24 23:59 23:59 23:59 23:59 Intake Total 1240 1610 3085 1200 Output Total 2600 2000 Balance 1240 -990 1085 1200 Meds/Results Medications: Active Medications Generic Name Dose Route Start Last Admin Trade Name Freq PRN Reason Stop Dose Admin Acetaminophen 650 mg 10/19/24 04:31 10/19/24 04:43 Acetaminophen 325 Mg Tablet PO 650 mg Q4H PRN Administration Headache Aspirin 81 mg 10/17/24 21:00 10/19/24 21:19 Aspirin 81 Mg Enteric Tablet PO 81 mg HS JUAN A Administration Buspirone HCl 10 mg 10/17/24 22:00 10/20/24 05:34 Buspirone Hcl 10 Mg Tablet PO 10 mg Q8HR JUAN A Administration Calcium Carbonate 200 mg 10/19/24 21:45 Calcium Carbonate (Tums) 500 Mg (200 Mg Elemental) PO Q6H PRN Indigestion Carvedilol 6.25 mg 10/17/24 21:00 10/20/24 08:16 Carvedilol 6.25 Mg Tablet PO 6.25 mg Q12HR JUAN A Administration Clopidogrel Bisulfate 75 mg 10/18/24 09:00 10/20/24 08:17 Clopidogrel Bisulfate 75 Mg Tablet PO 75 mg DAILY JUAN A Administration Dextrose 12.5 gm 10/17/24 20:19 Dextrose 50% 25 Gm/50 Ml Syringe IV PUSH PRN PRN Hypoglycemia Protocol Empagliflozin 10 mg 10/18/24 09:00 10/20/24 08:17 Empagliflozin 10 Mg Tablet PO 10 mg DAILY JUAN A Administration Glucagon 1 mg 10/17/24 20:19 Glucagon For Inj 1 Mg Vial IM PRN PRN Hypoglycemia Protocol Glucose 15 gm 10/17/24 20:19 Glucose Oral Gel 15 Gm Of Glucse In 37.5 Gm Tube PO PRN PRN Hypoglycemia Protocol Heparin Sodium (Porcine) 5,000 units 10/17/24 21:00 10/20/24 08:17 Heparin Sodium 5,000 Units/Ml Vial SUB-Q 5,000 units Q12HR JUAN A Administration Dextrose 1,000 mls @ 100 mls/hr 10/17/24 20:19 Dextrose 5% 1,000 Ml IVPB PRN PRN Hypoglycemia Protocol Lactated Ringer's 1,000 mls @ 100 mls/hr 10/18/24 07:45 10/20/24 06:22 Lr - Lactated Ringers Iv IV CONT 100 mls/hr .Q10H JUAN A Administration Insulin Aspart 2 - 5 units 10/18/24 08:00 10/20/24 08:10 Insulin Aspart (*Bkc) 100 Units/Ml SUB-Q Not Given TIDWM [facility] Protocol Levothyroxine Sodium 75 mcg 10/18/24 06:30 10/20/24 05:34 Levothyroxine Sodium 75 Mcg Tablet PO 75 mcg DAILY@0630 JUAN A Administration Miscellaneous Information 0 each 10/17/24 00:01 10/19/24 19:06 Buprenorphine 7.5 Mcg/Hr Is Non-Formulary. We Stock Buprenorphine 5 Mcg/Hr Or Use Pt Own XX 11/16/24 00:00 Not Given CLARIFY [facility] Non-Formulary Medication 1 patch 10/22/24 09:00 Buprenorphine TOPICAL 11/21/24 08:59 Mo@0900 [facility] Pantoprazole Sodium 40 mg 10/18/24 09:00 10/20/24 08:16 Pantoprazole 40 Mg Tablet PO 40 mg Q12HR JUAN A Administration Sertraline HCl 50 mg 10/18/24 09:00 10/20/24 08:17 Sertraline Hcl 50 Mg Tablet PO 50 mg DAILY JUAN A Administration Trazodone HCl 50 mg 10/17/24 20:10 10/19/24 21:19 Trazodone Hcl 50 Mg Tablet PO 50 mg QHS PRN Administration Sleep Radiology Results: ITS Impressions Abdomen/Pelvis CT 10/17/24 13:24 IMPRESSION: 1. No acute intra-abdominal/pelvic process. Chest X-Ray 10/17/24 16:45 Impression: No acute cardiopulmonary abnormality. Renal Ultrasound 10/18/24 14:56 Impression: 1: Right renal cyst measuring 3.9 cm. Labs Labs: Laboratory Results - last 24 hr 10/19/24 10/19/24 10/19/24 11:31 16:43 16:56 WBC RBC Hgb Hct MCV MCH MCHC RDW Plt Count MPV Immature Gran % (Auto) Neut % (Auto) Lymph % (Auto) [place] % (Auto) Eos % (Auto) Baso % (Auto) Lymph # (Auto) [place] # (Auto) Eos # (Auto) Baso # (Auto) Abs Immat Gran (auto) Absolute Neuts (auto) Absolute Nucleated RBC Nucleated RBC % Sodium 136 L Potassium 3.4 Chloride 109 H Carbon Dioxide 18 L Anion Gap 9 BUN 34 H Creatinine 3.07 H Estim Creat Clear Calc 11 Estimated GFR 15 L Glucose 78 POC Capillary Glucose 90 78 Calcium 9.1 Phosphorus Magnesium Total Bilirubin 0.3 AST 364 H ALT 358 H Alkaline Phosphatase 68 Total Creatine Kinase 57512 H Total Protein 6.0 L Albumin 3.6 10/19/24 10/20/24 10/20/24 21:27 04:17 07:53 WBC 7.3 RBC 3.60 L Hgb 10.1 L Hct 32.0 L MCV 88.9 MCH 28.1 MCHC 31.6 L RDW 14.8 H Plt Count 163 MPV 10.8 H Immature Gran % (Auto) 0.4 Neut % (Auto) 71.1 Lymph % (Auto) 19.4 [place] % (Auto) 9.0 H Eos % (Auto) 0.0 Baso % (Auto) 0.1 L Lymph # (Auto) 1.42 [place] # (Auto) 0.7 H Eos # (Auto) 0.0 Baso # (Auto) 0.0 Abs Immat Gran (auto) 0.03 Absolute Neuts (auto) 5.2 Absolute Nucleated RBC 0.000 Nucleated RBC % 0.0 Sodium 139 Potassium 3.5 Chloride 113 H Carbon Dioxide 21 L Anion Gap 5 BUN 36 H Creatinine 3.09 H Estim Creat Clear Calc 11 Estimated GFR 15 L Glucose 103 POC Capillary Glucose 116 H 102 Calcium 8.9 Phosphorus 3.6 Magnesium 1.7 Total Bilirubin 0.2 AST 292 H ALT 300 H Alkaline Phosphatase 53 Total Creatine Kinase > 8000 H Total Protein 5.1 L Albumin 2.9 L Quality VTE Prophylaxis VTE prophylaxis: pharmacologic ordered (heparin SQ)
--- NOTE | 2024-10-20 10:27 | P.PNNP_ITS ---
Progress Note: A&P Assessment and Plan (1) Acute kidney injury: Code(s): N17.9 - Acute kidney failure, unspecified Status: Acute Assessment and Plan: * as noted by recent outpatient labs and on admission * CPK level is very high. * This all started with a fall and a wound and her dog actually licked the wound Before she knew it was there.. * suspect due to rhabdomyolysis * evaluation to date noted: * renal ultrasound pending * CT of A/P with 3.3cm renal cyst * elevated CPK level * urine electrolytes non-prerenal * urine eosinophils negative * UA noted (culture pending) * + proteinuria * improvement seems to have stalled. * CK level is still high at greater than 8000. * Bicarbonate level is low at 21 * last UA showed pH of 5.5 but that was 3 days ago. * Will change IV fluids to a bicarb drip to try to alkalinize the urine. * No sign of fluid overload so will increase the rate of the fluid administration a little bit (2) Chronic kidney disease, stage 3b: Code(s): N18.32 - Chronic kidney disease, stage 3b Status: Chronic Assessment and Plan: * baseline creatinine runs around 1.5 - 2.1mg/dl in the last year * this causes her to fluctuate between CKD stage 3b and stage 3 * due to hypertension (not an issue now), diabetes, vascular disease, and age (3) Rhabdomyolysis: Code(s): M62.82 - Rhabdomyolysis Status: Acute Assessment and Plan: * as noted by admission labs * CPK down trending but today's result is a little weird. * reports some muscle aches following a fall 10 days prior to admission * due to statin use?? * statin on hold * allergy reported with atorvastatin * may need to consider ruling out inflammatory myopathy. no prior history of rhabdo. * Will check serology * continue current therapy (4) Transaminitis: Code(s): R74.01 - Elevation of levels of liver transaminase levels Status: Acute Assessment and Plan: * presumably secondary to rhabomyolysis * LFTs are improving suggesting that the rhabdo is calming down (5) HTN (hypertension): Code(s): I10 - Essential (primary) hypertension Status: Chronic Assessment and Plan: * systolic 110-160 * patient is on her outpatient blood pressure medications, namely carvedilol. * Will increase the dose a little bit (6) Anemia: Qualifiers: Anemia type: unspecified type Qualified Code(s): D64.9 - Anemia, unspecified Code(s): D64.9 - Anemia, unspecified Status: Chronic Assessment and Plan: * probably related to DANETTE, CKD, and acute illness * suspect a dilutional component as well with IVFs * no need for ALVARO currently (7) Chronic pain: Code(s): G89.29 - Other chronic pain Status: Chronic Assessment and Plan: * continue buprenorphine patch as prescribed (8) Diabetes: Code(s): E11.9 - Type 2 diabetes mellitus without complications Status: Chronic Assessment and Plan: * follow accu-cheks * off metformin * glycemic control per hospitalist Will continue to follow. Subjective Date/time seen: 10/20/24 10:27 Interval history: Claire is feeling okay today. Eating well. No chest pain or shortness of breath Exam Narrative: General: elderly but WD/WN female in NAD Heart: normal S1 and S2; no rub or gallop Lungs: clear bilaterally Abdomen: soft, nontender, nondistended, positive bowel sounds Extremities: no cyanosis or clubbing; no edema Skin: no rash Objective Data Vital Signs Vital Signs: Vital Signs - 24 hr 10/19/24 14:00 10/19/24 20:00 10/19/24 21:18 Temperature 97.5 F L 98.2 F Pulse Rate 54 L 60 Respiratory Rate 16 16 Blood Pressure 158/70 H 145/81 H Pulse Oximetry 100 100 Oxygen Delivery Room Air 10/19/24 21:19 10/20/24 05:40 10/20/24 08:09 Temperature 98.5 F Pulse Rate 60 65 Respiratory Rate 14 Blood Pressure 140/68 Pulse Oximetry 95 97 Oxygen Delivery Room Air 10/20/24 08:15 10/20/24 08:16 Temperature Pulse Rate 65 Respiratory Rate Blood Pressure Pulse Oximetry Oxygen Delivery Room Air Intake/Output Intake/Output: Intake & Output 10/17/24 10/18/24 10/19/24 10/20/24 23:59 23:59 23:59 23:59 Intake Total 1240 1610 3085 1846 Output Total 2600 2000 Balance 1240 -990 1085 1846 Meds/Results Medications: Active Medications Generic Name Dose Route Start Last Admin Trade Name Freq PRN Reason Stop Dose Admin Acetaminophen 650 mg 10/19/24 04:31 10/19/24 04:43 Acetaminophen 325 Mg Tablet PO 650 mg Q4H PRN Administration Headache Aspirin 81 mg 10/17/24 21:00 10/19/24 21:19 Aspirin 81 Mg Enteric Tablet PO 81 mg HS JUAN A Administration Buspirone HCl 10 mg 10/17/24 22:00 10/20/24 05:34 Buspirone Hcl 10 Mg Tablet PO 10 mg Q8HR JUAN A Administration Calcium Carbonate 200 mg 10/19/24 21:45 Calcium Carbonate (Tums) 500 Mg (200 Mg Elemental) PO Q6H PRN Indigestion Carvedilol 6.25 mg 10/17/24 21:00 10/20/24 08:16 Carvedilol 6.25 Mg Tablet PO 6.25 mg Q12HR JUAN A Administration Clopidogrel Bisulfate 75 mg 10/18/24 09:00 10/20/24 08:17 Clopidogrel Bisulfate 75 Mg Tablet PO 75 mg DAILY JUAN A Administration Dextrose 12.5 gm 10/17/24 20:19 Dextrose 50% 25 Gm/50 Ml Syringe IV PUSH PRN PRN Hypoglycemia Protocol Empagliflozin 10 mg 10/18/24 09:00 10/20/24 08:17 Empagliflozin 10 Mg Tablet PO 10 mg DAILY JUAN A Administration Glucagon 1 mg 10/17/24 20:19 Glucagon For Inj 1 Mg Vial IM PRN PRN Hypoglycemia Protocol Glucose 15 gm 10/17/24 20:19 Glucose Oral Gel 15 Gm Of Glucse In 37.5 Gm Tube PO PRN PRN Hypoglycemia Protocol Heparin Sodium (Porcine) 5,000 units 10/17/24 21:00 10/20/24 08:17 Heparin Sodium 5,000 Units/Ml Vial SUB-Q 5,000 units Q12HR JUAN A Administration Dextrose 1,000 mls @ 100 mls/hr 10/17/24 20:19 Dextrose 5% 1,000 Ml IVPB PRN PRN Hypoglycemia Protocol Lactated Ringer's 1,000 mls @ 100 mls/hr 10/18/24 07:45 10/20/24 06:22 Lr - Lactated Ringers Iv IV CONT 100 mls/hr .Q10H JUAN A Administration Insulin Aspart 2 - 5 units 10/18/24 08:00 10/20/24 08:10 Insulin Aspart (*Bkc) 100 Units/Ml SUB-Q Not Given TIDWM JUAN A Protocol Levothyroxine Sodium 75 mcg 10/18/24 06:30 10/20/24 05:34 Levothyroxine Sodium 75 Mcg Tablet PO 75 mcg DAILY@0630 JUAN A Administration Miscellaneous Information 0 each 10/17/24 00:01 10/19/24 19:06 Buprenorphine 7.5 Mcg/Hr Is Non-Formulary. We Stock Buprenorphine 5 Mcg/Hr Or Use Pt Own XX 11/16/24 00:00 Not Given CLARIFY JUAN A Non-Formulary Medication 1 patch 10/22/24 09:00 Buprenorphine TOPICAL 11/21/24 08:59 Mo@0900 JUAN A Pantoprazole Sodium 40 mg 10/18/24 09:00 10/20/24 08:16 Pantoprazole 40 Mg Tablet PO 40 mg Q12HR JUAN A Administration Sertraline HCl 50 mg 10/18/24 09:00 10/20/24 08:17 Sertraline Hcl 50 Mg Tablet PO 50 mg DAILY JUAN A Administration Trazodone HCl 50 mg 10/17/24 20:10 10/19/24 21:19 Trazodone Hcl 50 Mg Tablet PO 50 mg QHS PRN Administration Sleep Radiology Results: ITS Impressions Abdomen/Pelvis CT 10/17/24 13:24 IMPRESSION: 1. No acute intra-abdominal/pelvic process. Chest X-Ray 10/17/24 16:45 Impression: No acute cardiopulmonary abnormality. Renal Ultrasound 10/18/24 14:56 Impression: 1: Right renal cyst measuring 3.9 cm. Labs Labs: Laboratory Results - last 24 hr 10/19/24 10/19/24 10/19/24 11:31 16:43 16:56 WBC RBC Hgb Hct MCV MCH MCHC RDW Plt Count MPV Immature Gran % (Auto) Neut % (Auto) Lymph % (Auto) [place] % (Auto) Eos % (Auto) Baso % (Auto) Lymph # (Auto) [place] # (Auto) Eos # (Auto) Baso # (Auto) Abs Immat Gran (auto) Absolute Neuts (auto) Absolute Nucleated RBC Nucleated RBC % Sodium 136 L Potassium 3.4 Chloride 109 H Carbon Dioxide 18 L Anion Gap 9 BUN 34 H Creatinine 3.07 H Estim Creat Clear Calc 11 Estimated GFR 15 L Glucose 78 POC Capillary Glucose 90 78 Calcium 9.1 Phosphorus Magnesium Total Bilirubin 0.3 AST 364 H ALT 358 H Alkaline Phosphatase 68 Total Creatine Kinase 85988 H Total Protein 6.0 L Albumin 3.6 10/19/24 10/20/24 10/20/24 21:27 04:17 07:53 WBC 7.3 RBC 3.60 L Hgb 10.1 L Hct 32.0 L MCV 88.9 MCH 28.1 MCHC 31.6 L RDW 14.8 H Plt Count 163 MPV 10.8 H Immature Gran % (Auto) 0.4 Neut % (Auto) 71.1 Lymph % (Auto) 19.4 [place] % (Auto) 9.0 H Eos % (Auto) 0.0 Baso % (Auto) 0.1 L Lymph # (Auto) 1.42 [place] # (Auto) 0.7 H Eos # (Auto) 0.0 Baso # (Auto) 0.0 Abs Immat Gran (auto) 0.03 Absolute Neuts (auto) 5.2 Absolute Nucleated RBC 0.000 Nucleated RBC % 0.0 Sodium 139 Potassium 3.5 Chloride 113 H Carbon Dioxide 21 L Anion Gap 5 BUN 36 H Creatinine 3.09 H Estim Creat Clear Calc 11 Estimated GFR 15 L Glucose 103 POC Capillary Glucose 116 H 102 Calcium 8.9 Phosphorus 3.6 Magnesium 1.7 Total Bilirubin 0.2 AST 292 H ALT 300 H Alkaline Phosphatase 53 Total Creatine Kinase > 8000 H Total Protein 5.1 L Albumin 2.9 L
[2024-10-20] MEDS: SODIUM BICARBONATE 8.4% 150 MEQ in WATER, STERILE FOR INJECTION 950 ML 125 MEQ IV CONT ×2 (11:27→19:45)
[2024-10-20 14:00] VITALS: BP 150/71; PULSE 58; RESP 16; TEMP 36.6; O2SAT 99
[2024-10-20 20:02] LABS: Alanine Aminotransferase 314 U/L (6-35); Albumin Level 3.2 g/dL (3.5-5.1); Alkaline Phosphatase 45 U/L (38-126); Anion Gap 4 mmol/L (4-12); Aspartate Amino Transferase 306 U/L (14-36); Bilirubin,Total 0.4 mg/dL (0.2-1.3); Blood Urea Nitrogen 37 mg/dL (7-17); Calcium 8.5 mg/dL (8.4-10.2); Carbon Dioxide 25 mmol/L (22-30); Chloride 107 mmol/L (98-107); Estimated CRCL calculation 13 ml/min; Estimated Glomerular Filt Rate 17; Glucose 114 mg/dL (65-110); Potassium 3.5 mmol/L (3.4-5.0); Sodium 136 mmol/L (137-145); Total Protein 5.7 g/dL (6.3-8.2)
[2024-10-20 20:57] LABS: Creatine Kinase 8602 U/L (30-135)
[2024-10-20 21:28] VITALS: PULSE 62
[2024-10-20] MEDS: CALCIUM CARBONATE (TUMS) 500 MG (200 MG ELEMENTAL) PO (21:28)
[2024-10-20] MEDS: ASPIRIN 81 MG ENTERIC TABLET PO (21:28)
[2024-10-20 21:31] VITALS: BP 151/75; PULSE 62; RESP 16; TEMP 37.2; O2SAT 96
[2024-10-21] MEDS: SODIUM BICARBONATE 8.4% 150 MEQ in WATER, STERILE FOR INJECTION 950 ML 125 MEQ IV CONT (03:59)
[2024-10-21 04:27] LABS: Add Urine Microscopic? YES; Appearance Urine Clear (Clear); Glucose Urine UA 1+ mg/dL (Negative); Leukocyte Esterase Ur Trace LEU/UL (Negative); Nitrate Urine Negative (Negative); Non Pathogenic Casts 0-2; Specific Grav Ur 1.007 (1.001-1.035)
[2024-10-21 04:30] VITALS: BP 149/67; PULSE 61; RESP 16; TEMP 36.9; O2SAT 95
[2024-10-21 04:46] LABS: Hematocrit 33.0 % (37.0-47.0); Hemoglobin 10.7 g/dL (12.0-15.0); Immature Granulocyte Percent A 0.4 % (0-0.5); Lymphocytes Absolute Auto 1.82 K/mm3 (0.9-3.2); Mean Corpuscular HGB Conc 32.4 g/dl (32-36); Mean Corpuscular Hemoglobin 28.3 pg (26-34); Mean Corpuscular Volume 87.3 fl (80-100); Nucleated Red Blood Cells Absolute Auto 0.000 K/mm3 (0.0-0.012); Nucleated Red Blood Cells Perc 0.0 % (0.0-0.2); Platelet Count Result 178 k/mm3 (150-375); Red Blood Count 3.78 M/mm3 (4.2-5.4); White Blood Count 8.4 K/mm3 (4.5-10.0)
[2024-10-21 05:05] LABS: Alanine Aminotransferase 308 U/L (6-35); Albumin Level 3.4 g/dL (3.5-5.1); Alkaline Phosphatase 58 U/L (38-126); Anion Gap 6 mmol/L (4-12); Aspartate Amino Transferase 309 U/L (14-36); Bilirubin,Total 0.3 mg/dL (0.2-1.3); Blood Urea Nitrogen 36 mg/dL (7-17); Calcium 8.5 mg/dL (8.4-10.2); Carbon Dioxide 32 mmol/L (22-30); Chloride 102 mmol/L (98-107); Estimated CRCL calculation 12 ml/min; Estimated Glomerular Filt Rate 16; Glucose 109 mg/dL (65-110); Magnesium 1.6 mg/dL (1.6-2.3); Potassium 2.9 mmol/L (3.4-5.0); Sodium 140 mmol/L (137-145); Total Protein 5.8 g/dL (6.3-8.2)
[2024-10-21 05:40] LABS: Creatine Kinase 8811 U/L (30-135)
[2024-10-21] MEDS: LEVOTHYROXINE SODIUM 75 MCG TABLET PO (06:27)
--- NOTE | 2024-10-21 08:28 | PM.IMPN ---
Progress Note: A&P Assessment and Plan (1) Rhabdomyolysis due to statin therapy: Code(s): M62.82 - Rhabdomyolysis; T46.6X5A - Adverse effect of antihyperlipidemic and antiarteriosclerotic drugs, initial encounter Status: Acute Assessment and Plan: -Asymptomatic significant worsening of kidney disease and new transaminitis found on labs in the clinic -Labs worse on arrival to ER than in the outpatient setting the day before -Patient notes only vague muscle aches after falling in the yard on a branch about 10 days ago.j -No other symptoms at all -Prior intolerance to statins and cholesterol medications -Home medication rosuvastatin 40 mg -Given new liver failure and significant DANETTE on CKD, checked a CK level with results >16,000 -No noted urinary changes or fluid retention, no dyspnea -UA with 3+ blood but only 3-5 RBCs continue IV fluids trend ck --------- 10/19- CK 9510 - [place] [address] 10/20 ck trending down slowly, holding statin. r/o inflammatory myopathy- DR Swan ordered serology 10/21 ck still >44979 (2) Hepatorenal failure: Code(s): K76.7 - Hepatorenal syndrome Status: Acute Assessment and Plan: -See above (3) DM renal manif type II: Code(s): E11.29 - Type 2 diabetes mellitus with other diabetic kidney complication Status: Chronic Assessment and Plan: -A1c 5.9 -ACHS fingerstick glucose with low dose SSI, continue Jardiance, hold metformin -Hold gabapentin due to DANETTE on CKD (4) Type 2 diabetes with nephropathy: Code(s): E11.21 - Type 2 diabetes mellitus with diabetic nephropathy Status: Chronic Assessment and Plan: -A1c 5.9 -ACHS fingerstick glucose with low dose SSI, continue Jardiance, hold metformin -Hold gabapentin due to DANETTE on CKD (5) Chronic pain: Code(s): G89.29 - Other chronic pain Status: Chronic Assessment and Plan: -Buprenorphine patch prescribed (6) Hypertensive chronic kidney disease with stage 1 through stage 4 chronic kidney disease, or unspecified chronic kidney disease: Code(s): I12.9 - Hypertensive chronic kidney disease with stage 1 through stage 4 chronic kidney disease, or unspecified chronic kidney disease Status: Chronic Assessment and Plan: -BP controlled, continue home medications as tolerated (7) Acute kidney injury superimposed on CKD: Code(s): N17.9 - Acute kidney failure, unspecified; N18.9 - Chronic kidney disease, unspecified Status: Acute Assessment and Plan: -Baseline stage 3b/4 CKD, acutely stage 5 noted on admission -Related to rhabdomyolysis due to statin therapy - trend cmp cr/bun 3.36 today nephrology following - stopping bicarb drip- switching to NS per DR Swan (8) Mixed hyperlipidemia: Code(s): E78.2 - Mixed hyperlipidemia Status: Chronic Assessment and Plan: -lipid panel ordered -Stop rosuvastatin due to rhabdomyolysis (9) Abnormal urinalysis: Code(s): R82.90 - Unspecified abnormal findings in urine Status: Acute Assessment and Plan: -Leukocyte esterase 1+, 21-50 WBC, 3-5 RBC, 3+ blood (myoglobin) with 3+ glucose and 2+ protein -No dysuria or fever and WBC in blood normal -Defer treatment to urine culture results (10) Hypokalemia: Code(s): E87.6 - Hypokalemia Status: Acute Assessment and Plan: Iv replacement ordered Time Spent With Patient Time with patient: 25 - 35 minutes Subjective Date/time seen: 10/21/24 08:28 Interval history: This is a 74-year-old female patient with a past medical history diabetes, hypertension insomnia, hyperlipidemia, GERD, chronic pain and CAD who is admitted to the hospital for hep panel renal failure. She has a history stage IIIB/IV CKD due to hypertension and diabetes and follows with Dr. Swan in the clinic. No history of liver failure. Patient had labs drawn for her upcoming clinic appointment next week and she received notification from physician to go to the emergency department immediately due to significantly worsened labs. In the ER patient was given 1 L normal saline and admitted for nephrology consult for DANETTE on CKD as well as new transaminitis. Patient reported that she was asymptomatic had no complaints whatsoever and did not understand why her labs were bad requiring admission. Overnight was reviewing labs and noted 3+ blood in the urine but only 3-5 RBCs. With renal failure and liver failure accompanying this finding as well as a previous allergy to atorvastatin causing muscle pain and home medication list including high-dose rosuvastatin, added CK level to pre-existing labs with a result of greater than 16,000. Overnight patient received 2 L of IV fluids and recheck of labs this morning shows some downtrending of CK, serum creatinine and liver enzymes. Upon further questioning of patient she did experience diffuse muscle aches over the last week and a half but she attributed this to a fall in her yard due to a branch down. Nephrology has been consulted. IV fluids have been ordered. 10/18 Pt is seen and examined. nephrology consulted. 10/19 pt is seen and examined during morning rounds. She is resting in bed, calm, pain free. NO n/v/d. IV fluids infusing. 10/20 no acute events renal ultrasound: Right renal cyst measuring 3.9 cm. Eating and drinking ok, no chest pain. Pt is in a good spirit but frustrated that gown is too big. appetite is ok,no n/v/d. Review of Systems Review of Systems: All systems reviewed & are unremarkable except as noted in HPI and below Exam Narrative: APPEARANCE: No acute distress, nontoxic, resting in bed EYES: EOMI HEENT: Normocephalic, atraumatic RESPIRATORY: No respiratory distress Clear to auscultation bilaterally with no rhonchi wheezing or rales. CARDIOVASCULAR: Regular rate and rhythm without murmurs rubs or gallops. ABDOMINAL: Soft, nontender, nondistended, no rebound or guarding MUSCULOSKELETAL: Moves all extremities. No clubbing, cyanosis or edema. NEURO: Awake and alert. Following commands, speech normal, no focal deficits SKIN:: Warm, dry. No rashes lesions or abrasions PSYCHIATRIC: Normal affect/mood, Objective Data Vital Signs Vital Signs: Vital Signs - 24 hr 10/20/24 14:00 10/20/24 20:00 10/20/24 21:28 Temperature 98 F Pulse Rate 58 L 62 Respiratory Rate 16 Blood Pressure 150/71 H Pulse Oximetry 99 Oxygen Delivery Room Air 10/20/24 21:31 10/21/24 04:30 Temperature 98.9 F 98.4 F Pulse Rate 62 61 Respiratory Rate 16 16 Blood Pressure 151/75 H 149/67 H Pulse Oximetry 96 95 Oxygen Delivery Intake/Output Intake/Output: Intake & Output 10/18/24 10/19/24 10/20/24 10/21/24 23:59 23:59 23:59 23:59 Intake Total 1610 3085 3093.5 1329.2 Output Total 2600 1999 Balance -990 1085 3093.5 1329.2 Meds/Results Medications: Active Medications Generic Name Dose Route Start Last Admin Trade Name Freq PRN Reason Stop Dose Admin Acetaminophen 650 mg 10/19/24 04:31 10/19/24 04:43 Acetaminophen 325 Mg Tablet PO 650 mg Q4H PRN Administration Headache Aspirin 81 mg 10/17/24 21:00 10/20/24 21:28 Aspirin 81 Mg Enteric Tablet PO 81 mg HS JUAN A Administration Buspirone HCl 10 mg 10/17/24 22:00 10/21/24 06:27 Buspirone Hcl 10 Mg Tablet PO 10 mg Q8HR JUAN A Administration Calcium Carbonate 200 mg 10/19/24 21:45 10/20/24 21:28 Calcium Carbonate (Tums) 500 Mg (200 Mg Elemental) PO 200 mg Q6H PRN Administration Indigestion Carvedilol 12.5 mg 10/20/24 21:00 10/20/24 21:28 Carvedilol 12.5 Mg Tablet PO 12.5 mg Q12HR JUAN A Administration Clopidogrel Bisulfate 75 mg 10/18/24 09:00 10/20/24 08:17 Clopidogrel Bisulfate 75 Mg Tablet PO 75 mg DAILY JUAN A Administration Dextrose 12.5 gm 10/17/24 20:19 Dextrose 50% 25 Gm/50 Ml Syringe IV PUSH PRN PRN Hypoglycemia Protocol Empagliflozin 10 mg 10/18/24 09:00 10/20/24 08:17 Empagliflozin 10 Mg Tablet PO 10 mg DAILY JUAN A Administration Glucagon 1 mg 10/17/24 20:19 Glucagon For Inj 1 Mg Vial IM PRN PRN Hypoglycemia Protocol Glucose 15 gm 10/17/24 20:19 Glucose Oral Gel 15 Gm Of Glucse In 37.5 Gm Tube PO PRN PRN Hypoglycemia Protocol Heparin Sodium (Porcine) 5,000 units 10/17/24 21:00 10/20/24 21:30 Heparin Sodium 5,000 Units/Ml Vial SUB-Q 5,000 units Q12HR JUAN A Administration Dextrose 1,000 mls @ 100 mls/hr 10/17/24 20:19 Dextrose 5% 1,000 Ml IVPB PRN PRN Hypoglycemia Protocol Sodium Bicarbonate 150 meq/ 1,100 mls @ 125 mls/hr 10/20/24 11:00 10/21/24 03:59 Sterile Water IV CONT 125 mls/hr .Q8H48M JUAN A Administration Potassium Chloride 40 meq/ 520 mls @ 130 mls/hr 10/21/24 08:26 Sodium Chloride IVPB 10/21/24 12:25 ONCE ONE Insulin Aspart 2 - 5 units 10/18/24 08:00 10/20/24 17:08 Insulin Aspart (*Bkc) 100 Units/Ml SUB-Q Not Given TIDWM [facility] Protocol Levothyroxine Sodium 75 mcg 10/18/24 06:30 10/21/24 06:27 Levothyroxine Sodium 75 Mcg Tablet PO 75 mcg DAILY@0630 JUAN A Administration Miscellaneous Information 0 each 10/17/24 00:01 10/19/24 19:06 Buprenorphine 7.5 Mcg/Hr Is Non-Formulary. We Stock Buprenorphine 5 Mcg/Hr Or Use Pt Own XX 11/16/24 00:00 Not Given CLARIFY JUAN A Non-Formulary Medication 1 patch 10/22/24 09:00 Buprenorphine TOPICAL 11/21/24 08:59 Mo@0900 JUAN A Pantoprazole Sodium 40 mg 10/18/24 09:00 10/20/24 21:28 Pantoprazole 40 Mg Tablet PO 40 mg Q12HR JUAN A Administration Sertraline HCl 50 mg 10/18/24 09:00 10/20/24 08:17 Sertraline Hcl 50 Mg Tablet PO 50 mg DAILY JUAN A Administration Trazodone HCl 50 mg 10/17/24 20:10 10/20/24 21:29 Trazodone Hcl 50 Mg Tablet PO 50 mg QHS PRN Administration Sleep Radiology Results: ITS Impressions Abdomen/Pelvis CT 10/17/24 13:24 IMPRESSION: 1. No acute intra-abdominal/pelvic process. Chest X-Ray 10/17/24 16:45 Impression: No acute cardiopulmonary abnormality. Renal Ultrasound 10/18/24 14:56 Impression: 1: Right renal cyst measuring 3.9 cm. Labs Labs: Laboratory Results - last 24 hr 10/20/24 10/20/24 10/20/24 10:50 11:55 17:03 WBC RBC Hgb Hct MCV MCH MCHC RDW Plt Count MPV Immature Gran % (Auto) Neut % (Auto) Lymph % (Auto) [place] % (Auto) Eos % (Auto) Baso % (Auto) Lymph # (Auto) [place] # (Auto) Eos # (Auto) Baso # (Auto) Abs Immat Gran (auto) Absolute Neuts (auto) Absolute Nucleated RBC Nucleated RBC % ESR 22 H Sodium Potassium Chloride Carbon Dioxide Anion Gap BUN Creatinine Estim Creat Clear Calc Estimated GFR Glucose POC Capillary Glucose 98 92 Calcium Phosphorus Magnesium Total Bilirubin AST ALT Alkaline Phosphatase Total Creatine Kinase Total Protein Albumin Urine Color Urine Appearance Urine pH Ur Specific [place] Urine Protein Urine Glucose (UA) Urine Ketones Ur Blood (Man) Urine Nitrate Urine Bilirubin Urine Urobilinogen Ur Leukocyte Esterase Urine RBC Urine WBC Ur Squamous Epith Cells Urine Bacteria Urine Casts 10/20/24 10/20/24 10/21/24 19:43 21:34 04:09 WBC RBC Hgb Hct MCV MCH MCHC RDW Plt Count MPV Immature Gran % (Auto) Neut % (Auto) Lymph % (Auto) [place] % (Auto) Eos % (Auto) Baso % (Auto) Lymph # (Auto) [place] # (Auto) Eos # (Auto) Baso # (Auto) Abs Immat Gran (auto) Absolute Neuts (auto) Absolute Nucleated RBC Nucleated RBC % ESR Sodium 136 L Potassium 3.5 Chloride 107 Carbon Dioxide 25 Anion Gap 4 BUN 37 H Creatinine 2.76 H Estim Creat Clear Calc 13 Estimated GFR 17 L Glucose 114 H POC Capillary Glucose 110 H Calcium 8.5 Phosphorus Magnesium Total Bilirubin 0.4 AST 306 H ALT 314 H Alkaline Phosphatase 45 Total Creatine Kinase 8602 H Total Protein 5.7 L Albumin 3.2 L Urine Color Yellow Urine Appearance Clear Urine pH 7.5 Ur Specific [place] 1.007 Urine Protein 1+ H Urine Glucose (UA) 1+ H Urine Ketones Negative Ur Blood (Man) 3+ H Urine Nitrate Negative Urine Bilirubin Negative Urine Urobilinogen 0.2 Ur Leukocyte Esterase Trace H Urine RBC 0-2 Urine WBC 6-10 H Ur Squamous Epith Cells None seen Urine Bacteria None seen Urine Casts 0-2 10/21/24 04:18 WBC 8.4 RBC 3.78 L Hgb 10.7 L Hct 33.0 L MCV 87.3 MCH 28.3 MCHC 32.4 RDW 14.7 H Plt Count 178 MPV 10.9 H Immature Gran % (Auto) 0.4 Neut % (Auto) 68.8 Lymph % (Auto) 21.7 Rains % (Auto) 8.9 H Eos % (Auto) 0.0 Baso % (Auto) 0.2 Lymph # (Auto) 1.82 Rains # (Auto) 0.8 H Eos # (Auto) 0.0 Baso # (Auto) 0.0 Abs Immat Gran (auto) 0.03 Absolute Neuts (auto) 5.8 Absolute Nucleated RBC 0.000 Nucleated RBC % 0.0 ESR Sodium 140 Potassium 2.9 L Chloride 102 Carbon Dioxide 32 H Anion Gap 6 BUN 36 H Creatinine 2.79 H Estim Creat Clear Calc 12 Estimated GFR 16 L Glucose 109 POC Capillary Glucose Calcium 8.5 Phosphorus 3.0 Magnesium 1.6 Total Bilirubin 0.3 AST 309 H ALT 308 H Alkaline Phosphatase 58 Total Creatine Kinase 8811 H Total Protein 5.8 L Albumin 3.4 L Urine Color Urine Appearance Urine pH Ur Specific [place] Urine Protein Urine Glucose (UA) Urine Ketones Ur Blood (Man) Urine Nitrate Urine Bilirubin Urine Urobilinogen Ur Leukocyte Esterase Urine RBC Urine WBC Ur Squamous Epith Cells Urine Bacteria Urine Casts Quality VTE Prophylaxis VTE prophylaxis: pharmacologic ordered (heparin SQ)
[2024-10-21] MEDS: POTASSIUM CHLORIDE INJ 40 MEQ in SODIUM CHLORIDE 0.9% IV 500 ML 130 MEQ IVPB (09:27)
[2024-10-21 09:29] VITALS: PULSE 58
[2024-10-21] MEDS: CLOPIDOGREL BISULFATE 75 MG TABLET PO (09:31)
[2024-10-21] MEDS: PANTOPRAZOLE 40 MG TABLET PO ×2 (09:31→20:28)
[2024-10-21] MEDS: EMPAGLIFLOZIN 10 MG TABLET PO (09:31)
[2024-10-21] MEDS: SERTRALINE HCL 50 MG TABLET PO (09:31)
--- NOTE | 2024-10-21 11:56 | P.PNNP_ITS ---
Progress Note: A&P Assessment and Plan (1) Acute kidney injury: Code(s): N17.9 - Acute kidney failure, unspecified Status: Acute Assessment and Plan: * as noted by recent outpatient labs and on admission * CPK level is very high. * This all started with a fall and a wound and her dog actually licked the wound Before she knew it was there.. * suspect due to rhabdomyolysis * evaluation to date noted: * renal ultrasound pending * CT of A/P with 3.3cm renal cyst * elevated CPK level * urine electrolytes non-prerenal * urine eosinophils negative * UA noted (culture pending) * + proteinuria * improvement seems to have stalled. * CK level is still high at 8811. Liver enzymes are about the same. * Bicarbonate level is low at 21 * UA today showed a pH of 7.5. So she is adequately alkalinized. * Her bicarbonate level is up to 32 now. * Will switch to saline to continue hydration in order to clear the CK. (2) Chronic kidney disease, stage 3b: Code(s): N18.32 - Chronic kidney disease, stage 3b Status: Chronic Assessment and Plan: * baseline creatinine runs around 1.5 - 2.1mg/dl in the last year * this causes her to fluctuate between CKD stage 3b and stage 3 * due to hypertension (not an issue now), diabetes, vascular disease, and age (3) Rhabdomyolysis: Code(s): M62.82 - Rhabdomyolysis Status: Acute Assessment and Plan: * as noted by admission labs * CPK down trending but today's result is a little weird. * reports some muscle aches following a fall 10 days prior to admission * due to statin use?? * statin on hold * allergy reported with atorvastatin * considering inflammatory myopathy. no prior history of rhabdo. * Serology pending * continue current therapy (4) Transaminitis: Code(s): R74.01 - Elevation of levels of liver transaminase levels Status: Acute Assessment and Plan: * presumably secondary to rhabomyolysis (5) HTN (hypertension): Code(s): I10 - Essential (primary) hypertension Status: Chronic Assessment and Plan: * systolic 110-160 * patient is on her outpatient blood pressure medications, namely carvedilol. * dose increased yesterday (6) Anemia: Qualifiers: Anemia type: unspecified type Qualified Code(s): D64.9 - Anemia, unspecified Code(s): D64.9 - Anemia, unspecified Status: Chronic Assessment and Plan: * probably related to DANETTE, CKD, and acute illness * suspect a dilutional component as well with IVFs * no need for ALVARO currently (7) Chronic pain: Code(s): G89.29 - Other chronic pain Status: Chronic Assessment and Plan: * continue buprenorphine patch as prescribed (8) Diabetes: Code(s): E11.9 - Type 2 diabetes mellitus without complications Status: Chronic Assessment and Plan: * follow accu-cheks * off metformin * glycemic control per hospitalist Will continue to follow. Subjective Date/time seen: 10/21/24 11:56 Interval history: patient feels blah today. No shortness of breath Exam Narrative: General: elderly but WD/WN female in NAD Heart: normal S1 and S2; no rub or gallop Lungs: clear bilaterally Abdomen: soft, nontender, nondistended, positive bowel sounds Extremities: no cyanosis or clubbing; no edema Skin: no rash Objective Data Vital Signs Vital Signs: Vital Signs - 24 hr 10/20/24 14:00 10/20/24 20:00 10/20/24 21:28 Temperature 98 F Pulse Rate 58 L 62 Respiratory Rate 16 Blood Pressure 150/71 H Pulse Oximetry 99 Oxygen Delivery Room Air 10/20/24 21:31 10/21/24 04:30 10/21/24 09:29 Temperature 98.9 F 98.4 F Pulse Rate 62 61 58 L Respiratory Rate 16 16 Blood Pressure 151/75 H 149/67 H Pulse Oximetry 96 95 Oxygen Delivery 10/21/24 09:30 Temperature Pulse Rate Respiratory Rate Blood Pressure Pulse Oximetry Oxygen Delivery Room Air Intake/Output Intake/Output: Intake & Output 10/18/24 10/19/24 10/20/24 10/21/24 23:59 23:59 23:59 23:59 Intake Total 1610 3085 3093.5 1329.2 Output Total 2600 1999 Balance -990 1085 3093.5 1329.2 Meds/Results Medications: Active Medications Generic Name Dose Route Start Last Admin Trade Name Freq PRN Reason Stop Dose Admin Acetaminophen 650 mg 10/19/24 04:31 10/19/24 04:43 Acetaminophen 325 Mg Tablet PO 650 mg Q4H PRN Administration Headache Aspirin 81 mg 10/17/24 21:00 10/20/24 21:28 Aspirin 81 Mg Enteric Tablet PO 81 mg HS JUAN A Administration Buspirone HCl 10 mg 10/17/24 22:00 10/21/24 06:27 Buspirone Hcl 10 Mg Tablet PO 10 mg Q8HR JUAN A Administration Calcium Carbonate 200 mg 10/19/24 21:45 10/20/24 21:28 Calcium Carbonate (Tums) 500 Mg (200 Mg Elemental) PO 200 mg Q6H PRN Administration Indigestion Carvedilol 12.5 mg 10/20/24 21:00 10/21/24 09:29 Carvedilol 12.5 Mg Tablet PO 12.5 mg Q12HR JUAN A Administration Clopidogrel Bisulfate 75 mg 10/18/24 09:00 10/21/24 09:31 Clopidogrel Bisulfate 75 Mg Tablet PO 75 mg DAILY JUAN A Administration Dextrose 12.5 gm 10/17/24 20:19 Dextrose 50% 25 Gm/50 Ml Syringe IV PUSH PRN PRN Hypoglycemia Protocol Empagliflozin 10 mg 10/18/24 09:00 10/21/24 09:31 Empagliflozin 10 Mg Tablet PO 10 mg DAILY JUAN A Administration Glucagon 1 mg 10/17/24 20:19 Glucagon For Inj 1 Mg Vial IM PRN PRN Hypoglycemia Protocol Glucose 15 gm 10/17/24 20:19 Glucose Oral Gel 15 Gm Of Glucse In 37.5 Gm Tube PO PRN PRN Hypoglycemia Protocol Heparin Sodium (Porcine) 5,000 units 10/17/24 21:00 10/21/24 09:31 Heparin Sodium 5,000 Units/Ml Vial SUB-Q 5,000 units Q12HR JUAN A Administration Dextrose 1,000 mls @ 100 mls/hr 10/17/24 20:19 Dextrose 5% 1,000 Ml IVPB PRN PRN Hypoglycemia Protocol Sodium Bicarbonate 150 meq/ 1,100 mls @ 125 mls/hr 10/20/24 11:00 10/21/24 03:59 Sterile Water IV CONT 125 mls/hr .Q8H48M JUAN A Administration Potassium Chloride 40 meq/ 520 mls @ 130 mls/hr 10/21/24 08:26 10/21/24 09:27 Sodium Chloride IVPB 10/21/24 12:25 130 mls/hr ONCE ONE Administration Insulin Aspart 2 - 5 units 10/18/24 08:00 10/21/24 09:20 Insulin Aspart (*Bkc) 100 Units/Ml SUB-Q Not Given TIDWM [facility] Protocol Levothyroxine Sodium 75 mcg 10/18/24 06:30 10/21/24 06:27 Levothyroxine Sodium 75 Mcg Tablet PO 75 mcg DAILY@0630 JUAN A Administration Miscellaneous Information 0 each 10/17/24 00:01 10/19/24 19:06 Buprenorphine 7.5 Mcg/Hr Is Non-Formulary. We Stock Buprenorphine 5 Mcg/Hr Or Use Pt Own XX 11/16/24 00:00 Not Given CLARIFY [facility] Non-Formulary Medication 1 patch 10/22/24 09:00 Buprenorphine TOPICAL 11/21/24 08:59 Mo@0900 [facility] Pantoprazole Sodium 40 mg 10/18/24 09:00 10/21/24 09:31 Pantoprazole 40 Mg Tablet PO 40 mg Q12HR JUAN A Administration Sertraline HCl 50 mg 10/18/24 09:00 10/21/24 09:31 Sertraline Hcl 50 Mg Tablet PO 50 mg DAILY JUAN A Administration Trazodone HCl 50 mg 10/17/24 20:10 10/20/24 21:29 Trazodone Hcl 50 Mg Tablet PO 50 mg QHS PRN Administration Sleep Radiology Results: ITS Impressions Abdomen/Pelvis CT 10/17/24 13:24 IMPRESSION: 1. No acute intra-abdominal/pelvic process. Chest X-Ray 10/17/24 16:45 Impression: No acute cardiopulmonary abnormality. Renal Ultrasound 10/18/24 14:56 Impression: 1: Right renal cyst measuring 3.9 cm. Labs Labs: Laboratory Results - last 24 hr 10/20/24 10/20/24 10/20/24 11:55 17:03 19:43 WBC RBC Hgb Hct MCV MCH MCHC RDW Plt Count MPV Immature Gran % (Auto) Neut % (Auto) Lymph % (Auto) [place] % (Auto) Eos % (Auto) Baso % (Auto) Lymph # (Auto) [place] # (Auto) Eos # (Auto) Baso # (Auto) Abs Immat Gran (auto) Absolute Neuts (auto) Absolute Nucleated RBC Nucleated RBC % Sodium 136 L Potassium 3.5 Chloride 107 Carbon Dioxide 25 Anion Gap 4 BUN 37 H Creatinine 2.76 H Estim Creat Clear Calc 13 Estimated GFR 17 L Glucose 114 H POC Capillary Glucose 98 92 Calcium 8.5 Phosphorus Magnesium Total Bilirubin 0.4 AST 306 H ALT 314 H Alkaline Phosphatase 45 Total Creatine Kinase 8602 H Total Protein 5.7 L Albumin 3.2 L Urine Color Urine Appearance Urine pH Ur Specific [place] Urine Protein Urine Glucose (UA) Urine Ketones Ur Blood (Man) Urine Nitrate Urine Bilirubin Urine Urobilinogen Ur Leukocyte Esterase Urine RBC Urine WBC Ur Squamous Epith Cells Urine Bacteria Urine Casts 10/20/24 10/21/24 10/21/24 21:34 04:09 04:18 WBC 8.4 RBC 3.78 L Hgb 10.7 L Hct 33.0 L MCV 87.3 MCH 28.3 MCHC 32.4 RDW 14.7 H Plt Count 178 MPV 10.9 H Immature Gran % (Auto) 0.4 Neut % (Auto) 68.8 Lymph % (Auto) 21.7 [place] % (Auto) 8.9 H Eos % (Auto) 0.0 Baso % (Auto) 0.2 Lymph # (Auto) 1.82 [place] # (Auto) 0.8 H Eos # (Auto) 0.0 Baso # (Auto) 0.0 Abs Immat Gran (auto) 0.03 Absolute Neuts (auto) 5.8 Absolute Nucleated RBC 0.000 Nucleated RBC % 0.0 Sodium 140 Potassium 2.9 L Chloride 102 Carbon Dioxide 32 H Anion Gap 6 BUN 36 H Creatinine 2.79 H Estim Creat Clear Calc 12 Estimated GFR 16 L Glucose 109 POC Capillary Glucose 110 H Calcium 8.5 Phosphorus 3.0 Magnesium 1.6 Total Bilirubin 0.3 AST 309 H ALT 308 H Alkaline Phosphatase 58 Total Creatine Kinase 8811 H Total Protein 5.8 L Albumin 3.4 L Urine Color Yellow Urine Appearance Clear Urine pH 7.5 Ur Specific [place] 1.007 Urine Protein 1+ H Urine Glucose (UA) 1+ H Urine Ketones Negative Ur Blood (Man) 3+ H Urine Nitrate Negative Urine Bilirubin Negative Urine Urobilinogen 0.2 Ur Leukocyte Esterase Trace H Urine RBC 0-2 Urine WBC 6-10 H Ur Squamous Epith Cells None seen Urine Bacteria None seen Urine Casts 0-2 10/21/24 08:33 WBC RBC Hgb Hct MCV MCH MCHC RDW Plt Count MPV Immature Gran % (Auto) Neut % (Auto) Lymph % (Auto) [place] % (Auto) Eos % (Auto) Baso % (Auto) Lymph # (Auto) [place] # (Auto) Eos # (Auto) Baso # (Auto) Abs Immat Gran (auto) Absolute Neuts (auto) Absolute Nucleated RBC Nucleated RBC % Sodium Potassium Chloride Carbon Dioxide Anion Gap BUN Creatinine Estim Creat Clear Calc Estimated GFR Glucose POC Capillary Glucose 113 H Calcium Phosphorus Magnesium Total Bilirubin AST ALT Alkaline Phosphatase Total Creatine Kinase Total Protein Albumin Urine Color Urine Appearance Urine pH Ur Specific [place] Urine Protein Urine Glucose (UA) Urine Ketones Ur Blood (Man) Urine Nitrate Urine Bilirubin Urine Urobilinogen Ur Leukocyte Esterase Urine RBC Urine WBC Ur Squamous Epith Cells Urine Bacteria Urine Casts
[2024-10-21 14:00] VITALS: BP 138/61; PULSE 60; RESP 16; TEMP 36.4; O2SAT 98
[2024-10-21] MEDS: SODIUM CHLORIDE 0.9% IV 1,000 ML 100 ML IV CONT (14:45)
--- NOTE | 2024-10-21 17:14 | PHAR ---
PT'S HOME MED BUPRENORPHINE 7.5 MCG/HR WEEKLY TRANSDERMAL PATCH QTY: 1 VERIFIED BY PHARMACY
[2024-10-21 18:33] LABS: Creatine Kinase 7872 U/L (30-135)
[2024-10-21 18:35] LABS: Alanine Aminotransferase 302 U/L (6-35); Albumin Level 3.4 g/dL (3.5-5.1); Alkaline Phosphatase 55 U/L (38-126); Anion Gap 6 mmol/L (4-12); Aspartate Amino Transferase 295 U/L (14-36); Bilirubin,Total 0.4 mg/dL (0.2-1.3); Blood Urea Nitrogen 31 mg/dL (7-17); Calcium 8.3 mg/dL (8.4-10.2); Carbon Dioxide 32 mmol/L (22-30); Chloride 103 mmol/L (98-107); Estimated CRCL calculation 13 ml/min; Estimated Glomerular Filt Rate 17; Glucose 108 mg/dL (65-110); Potassium 3.0 mmol/L (3.4-5.0); Sodium 141 mmol/L (137-145); Total Protein 5.7 g/dL (6.3-8.2)
[2024-10-21 19:53] VITALS: BP 141/67; PULSE 60; RESP 17; TEMP 36.7; O2SAT 100
[2024-10-21 20:00] VITALS: PULSE 68; RESP 18; O2SAT 100
[2024-10-21] MEDS: ASPIRIN 81 MG ENTERIC TABLET PO (20:23)
[2024-10-21 20:27] VITALS: PULSE 60
[2024-10-21] MEDS: CALCIUM CARBONATE (TUMS) 500 MG (200 MG ELEMENTAL) PO (20:28)
[2024-10-21] MEDS: ACETAMINOPHEN 325 MG TABLET 650 MG PO (20:28)
[2024-10-22] MEDS: SODIUM CHLORIDE 0.9% IV 1,000 ML 100 ML IV CONT ×3 (01:04→21:59)
[2024-10-22] MEDS: MAGNESIUM SULF 4 GM/WATER100ML 4 GM/100 ML BAG IVPB (03:20)
[2024-10-22 04:39] LABS: Hematocrit 34.0 % (37.0-47.0); Hemoglobin 10.9 g/dL (12.0-15.0); Immature Granulocyte Percent A 0.6 % (0-0.5); Lymphocytes Absolute Auto 1.50 K/mm3 (0.9-3.2); Mean Corpuscular HGB Conc 32.1 g/dl (32-36); Mean Corpuscular Hemoglobin 28.3 pg (26-34); Mean Corpuscular Volume 88.3 fl (80-100); Nucleated Red Blood Cells Absolute Auto 0.000 K/mm3 (0.0-0.012); Nucleated Red Blood Cells Perc 0.0 % (0.0-0.2); Platelet Count Result 188 k/mm3 (150-375); Red Blood Count 3.85 M/mm3 (4.2-5.4); White Blood Count 8.4 K/mm3 (4.5-10.0)
[2024-10-22 05:00] LABS: Alanine Aminotransferase 306 U/L (6-35); Albumin Level 3.6 g/dL (3.5-5.1); Alkaline Phosphatase 57 U/L (38-126); Anion Gap 9 mmol/L (4-12); Aspartate Amino Transferase 321 U/L (14-36); Bilirubin,Total 0.6 mg/dL (0.2-1.3); Blood Urea Nitrogen 29 mg/dL (7-17); Calcium 8.4 mg/dL (8.4-10.2); Carbon Dioxide 25 mmol/L (22-30); Chloride 105 mmol/L (98-107); Estimated CRCL calculation 13 ml/min; Estimated Glomerular Filt Rate 18; Glucose 104 mg/dL (65-110); Magnesium 1.5 mg/dL (1.6-2.3); Potassium 2.9 mmol/L (3.4-5.0); Sodium 139 mmol/L (137-145); Total Protein 6.1 g/dL (6.3-8.2)
[2024-10-22 05:14] VITALS: BP 162/77; PULSE 68; RESP 18; TEMP 37.1; O2SAT 100
[2024-10-22] MEDS: POTASSIUM CHLORIDE 20 MEQ ER TABLET 40 MEQ PO (05:31)
[2024-10-22] MEDS: LEVOTHYROXINE SODIUM 75 MCG TABLET PO (05:32)
[2024-10-22] MEDS: ACETAMINOPHEN 325 MG TABLET 650 MG PO (05:32)
[2024-10-22 05:47] LABS: Creatine Kinase 9634 U/L (30-135)
[2024-10-22] MEDS: POTASSIUM CHLORIDE INJ 40 MEQ in SODIUM CHLORIDE 0.9% IV 500 ML 130 MEQ IVPB (06:15)
--- NOTE | 2024-10-22 06:35 | PC.NURSE ---
This Nurse spoke with Dr. Camarena about the pts low magnesium and low potassium levels at 0300. Orders were given to give a mag rider and k rider. Pt is receiving medications at this time through two separate IVs. Labs will be rechecked at 1300 today.
--- NOTE | 2024-10-22 06:43 | PM.EVENT ---
Event Note Event Note Event Note: Nursing staff notify me the patient is having severe cramping in her feet and calves. Patient's labs were not back yet for the morning. But I gave orders that if the patient's potassium was less than 3 for the patient to get 40 p.o. potassium and 40 IV potassium. I also requested a phosphorus be added to the patient's morning labs. The patient's magnesium level from the prior day was low at 1.6. I did order for g magnesium sulfate rider even other magnesium level had not yet returned. When I reviewed the patient's chart her magnesium was lower at 1.5. Phosphorus that had been added to the patient's labs also came back low so I ordered a dose of K-Phos. I have changed the patient's diet from a renal dialysis diet to a consistent carbohydrate diet since clearly she does not need a low-potassium low phosphorus diet at this time. Repeat labs have been ordered for 13:00 to ensure the patient labs are no longer low.
[2024-10-22] MEDS: CLOPIDOGREL BISULFATE 75 MG TABLET PO (09:16)
[2024-10-22 09:17] VITALS: PULSE 72
[2024-10-22] MEDS: SERTRALINE HCL 50 MG TABLET PO (09:17)
[2024-10-22] MEDS: EMPAGLIFLOZIN 10 MG TABLET PO (09:18)
[2024-10-22] MEDS: PANTOPRAZOLE 40 MG TABLET PO ×2 (09:18→20:43)
[2024-10-22] MEDS: BUPRENORPHINE 7.5 MCG/HR 1 EACH TOPICAL (09:19)
--- NOTE | 2024-10-22 09:28 | P.PNNP_ITS ---
Progress Note: A&P Assessment and Plan (1) Acute kidney injury: Code(s): N17.9 - Acute kidney failure, unspecified Status: Acute Assessment and Plan: * as noted by recent outpatient labs and on admission * CPK level is very high. * This all started with a fall and a wound and her dog actually licked the wound Before she knew it was there.. * suspect due to rhabdomyolysis * evaluation to date noted: * renal ultrasound pending * CT of A/P with 3.3cm renal cyst * elevated CPK level * urine electrolytes non-prerenal * urine eosinophils negative * UA noted (culture pending) * + proteinuria * creatinine seems to improved a little bit to 2.6. * CK level is still high at Over 9000. * Bicarbonate level Is better at 20 T 5. * UA today showed a pH of 7.5. So she is adequately alkalinized. * Her bicarbonate level is up to 32 now. * Patient continues on normal saline [id number]/hour. * Intake/ output is not being done. Will recheck a weight and ask that output be measured * (2) Chronic kidney disease, stage 3b: Code(s): N18.32 - Chronic kidney disease, stage 3b Status: Chronic Assessment and Plan: * baseline creatinine runs around 1.5 - 2.1mg/dl in the last year * this causes her to fluctuate between CKD stage 3b and stage 3 * due to hypertension (not an issue now), diabetes, vascular disease, and age (3) Rhabdomyolysis: Code(s): M62.82 - Rhabdomyolysis Status: Acute Assessment and Plan: * as noted by admission labs * CPK down trending but today's result is a little weird. * reports some muscle aches following a fall 10 days prior to admission * due to statin use?? * statin on hold * allergy reported with atorvastatin * considering inflammatory myopathy. No extremity sign of dermatomyositis. no prior history of rhabdo. * Sed rate is only 22. Other serology pending * continue IV fluids. (4) Transaminitis: Code(s): R74.01 - Elevation of levels of liver transaminase levels Status: Acute Assessment and Plan: * presumably secondary to rhabomyolysis * bilirubin and alkaline phosphatase are normal so I do not think she has liver failure. (5) HTN (hypertension): Code(s): I10 - Essential (primary) hypertension Status: Chronic Assessment and Plan: * systolic 110-160 * patient is on her outpatient blood pressure medications, namely carvedilol. * will increase the dose again to 25 (6) Anemia: Qualifiers: Anemia type: unspecified type Qualified Code(s): D64.9 - Anemia, unspecified Code(s): D64.9 - Anemia, unspecified Status: Chronic Assessment and Plan: * probably related to DANETTE, CKD, and acute illness * suspect a dilutional component as well with IVFs * Hemoglobin has stabilized in the high 10s * no need for ALVARO currently (7) Chronic pain: Code(s): G89.29 - Other chronic pain Status: Chronic Assessment and Plan: * the patient has not had her buprenorphine patch as prescribed * all the cramps she is having may be due to the lack of the patch. (8) Diabetes: Code(s): E11.9 - Type 2 diabetes mellitus without complications Status: Chronic Assessment and Plan: * follow accu-cheks * off metformin * glycemic control per hospitalist Will continue to follow. Subjective Date/time seen: 10/22/24 09:28 Interval history: Claire is sitting up in a chair she has nausea. No chest pain or shortness of breath she has not had her transdermal patch weekly and is in a lot of pain. Exam Narrative: General: elderly but WD/WN female in NAD Heart: normal S1 and S2; no rub or gallop Lungs: clear bilaterally Abdomen: soft, nontender, nondistended, positive bowel sounds Extremities: no cyanosis or clubbing; no edema. Predict changes in the hands. No findings in fingernails and beds of dermatomyositis Skin: no rash Or subcu nodules Objective Data Vital Signs Vital Signs: Vital Signs - 24 hr 10/21/24 09:29 10/21/24 09:30 10/21/24 14:00 Temperature 97.6 F Pulse Rate 58 L 60 Respiratory Rate 16 Blood Pressure 138/61 Pulse Oximetry 98 Oxygen Delivery Room Air 10/21/24 19:53 10/21/24 20:00 10/21/24 20:27 Temperature 98.1 F Pulse Rate 60 68 60 Respiratory Rate 17 18 Blood Pressure 141/67 H Pulse Oximetry 100 100 Oxygen Delivery Room Air 10/22/24 05:14 10/22/24 09:17 Temperature 98.7 F Pulse Rate 68 72 Respiratory Rate 18 Blood Pressure 162/77 H Pulse Oximetry 100 Oxygen Delivery Intake/Output Intake/Output: Intake & Output 10/19/24 10/20/24 10/21/24 10/22/24 23:59 23:59 23:59 23:59 Intake Total 3085 3093.5 1971.2 1000 Output Total 2000 Balance 1085 3093.5 1971.2 1000 Meds/Results Medications: Active Medications Generic Name Dose Route Start Last Admin Trade Name Freq PRN Reason Stop Dose Admin Acetaminophen 650 mg 10/19/24 04:31 10/22/24 05:32 Acetaminophen 325 Mg Tablet PO 650 mg Q4H PRN Administration Headache Aspirin 81 mg 10/17/24 21:00 10/21/24 20:23 Aspirin 81 Mg Enteric Tablet PO 81 mg HS JUAN A Administration Buspirone HCl 10 mg 10/17/24 22:00 10/22/24 05:32 Buspirone Hcl 10 Mg Tablet PO 10 mg Q8HR JUAN A Administration Calcium Carbonate 200 mg 10/19/24 21:45 10/21/24 20:28 Calcium Carbonate (Tums) 500 Mg (200 Mg Elemental) PO 200 mg Q6H PRN Administration Indigestion Carvedilol 12.5 mg 10/20/24 21:00 10/22/24 09:17 Carvedilol 12.5 Mg Tablet PO 12.5 mg Q12HR JUAN A Administration Clopidogrel Bisulfate 75 mg 10/18/24 09:00 10/22/24 09:16 Clopidogrel Bisulfate 75 Mg Tablet PO 75 mg DAILY JUAN A Administration Dextrose 12.5 gm 10/17/24 20:19 Dextrose 50% 25 Gm/50 Ml Syringe IV PUSH PRN PRN Hypoglycemia Protocol Empagliflozin 10 mg 10/18/24 09:00 10/22/24 09:18 Empagliflozin 10 Mg Tablet PO 10 mg DAILY JUAN A Administration Glucagon 1 mg 10/17/24 20:19 Glucagon For Inj 1 Mg Vial IM PRN PRN Hypoglycemia Protocol Glucose 15 gm 10/17/24 20:19 Glucose Oral Gel 15 Gm Of Glucse In 37.5 Gm Tube PO PRN PRN Hypoglycemia Protocol Heparin Sodium (Porcine) 5,000 units 10/17/24 21:00 10/22/24 09:19 Heparin Sodium 5,000 Units/Ml Vial SUB-Q 5,000 units Q12HR JUAN A Administration Dextrose 1,000 mls @ 100 mls/hr 10/17/24 20:19 Dextrose 5% 1,000 Ml IVPB PRN PRN Hypoglycemia Protocol Sodium Chloride 1,000 mls @ 100 mls/hr 10/21/24 14:40 10/22/24 01:04 Normal Saline Iv IV CONT 100 mls/hr .Q10H JUAN A Administration Insulin Aspart 2 - 5 units 10/18/24 08:00 10/22/24 09:13 Insulin Aspart (*Bkc) 100 Units/Ml SUB-Q Not Given TIDWM JUAN A Protocol Levothyroxine Sodium 75 mcg 10/18/24 06:30 10/22/24 05:32 Levothyroxine Sodium 75 Mcg Tablet PO 75 mcg DAILY@0630 JUAN A Administration Non-Formulary ( 1 each 10/22/24 09:00 10/22/24 09:19 Buprenorphine 7.5 TOPICAL 11/21/24 08:59 1 each Mcg/Hour Transdermal Mo@0900 JUAN A Administration Patch, Transdermal Weekly) Pantoprazole Sodium 40 mg 10/18/24 09:00 10/22/24 09:18 Pantoprazole 40 Mg Tablet PO 40 mg Q12HR JUAN A Administration Sertraline HCl 50 mg 10/18/24 09:00 10/22/24 09:17 Sertraline Hcl 50 Mg Tablet PO 50 mg DAILY JUAN A Administration Trazodone HCl 50 mg 10/17/24 20:10 10/21/24 21:35 Trazodone Hcl 50 Mg Tablet PO 50 mg QHS PRN Administration Sleep Radiology Results: ITS Impressions Abdomen/Pelvis CT 10/17/24 13:24 IMPRESSION: 1. No acute intra-abdominal/pelvic process. Chest X-Ray 10/17/24 16:45 Impression: No acute cardiopulmonary abnormality. Renal Ultrasound 10/18/24 14:56 Impression: 1: Right renal cyst measuring 3.9 cm. Labs Labs: Laboratory Results - last 24 hr 08/10/21/24 10/21/24 12:06 16:50 17:43 WBC RBC Hgb Hct MCV MCH MCHC RDW Plt Count MPV Immature Gran % (Auto) Neut % (Auto) Lymph % (Auto) [place] % (Auto) Eos % (Auto) Baso % (Auto) Lymph # (Auto) [place] # (Auto) Eos # (Auto) Baso # (Auto) Abs Immat Gran (auto) Absolute Neuts (auto) Absolute Nucleated RBC Nucleated RBC % Sodium 141 Potassium 3.0 L Chloride 103 Carbon Dioxide 32 H Anion Gap 6 BUN 31 H Creatinine 2.73 H Estim Creat Clear Calc 13 Estimated GFR 17 L Glucose 108 POC Capillary Glucose 101 99 Calcium 8.3 L Phosphorus Magnesium Total Bilirubin 0.4 AST 295 H ALT 302 H Alkaline Phosphatase 55 Total Creatine Kinase 7872 H Total Protein 5.7 L Albumin 3.4 L 10/21/24 10/22/24 10/22/24 19:50 03:50 07:29 WBC 8.4 RBC 3.85 L Hgb 10.9 L Hct 34.0 L MCV 88.3 MCH 28.3 MCHC 32.1 RDW 14.6 H Plt Count 188 MPV 10.8 H Immature Gran % (Auto) 0.6 H Neut % (Auto) 74.2 H Lymph % (Auto) 17.9 L [place] % (Auto) 7.2 Eos % (Auto) 0.0 Baso % (Auto) 0.1 L Lymph # (Auto) 1.50 [place] # (Auto) 0.6 Eos # (Auto) 0.0 Baso # (Auto) 0.0 Abs Immat Gran (auto) 0.05 H Absolute Neuts (auto) 6.2 Absolute Nucleated RBC 0.000 Nucleated RBC % 0.0 Sodium 139 Potassium 2.9 L Chloride 105 Carbon Dioxide 25 Anion Gap 9 BUN 29 H Creatinine 2.60 H Estim Creat Clear Calc 13 Estimated GFR 18 L Glucose 104 POC Capillary Glucose 113 H 104 Calcium 8.4 Phosphorus 1.7 L Magnesium 1.5 L Total Bilirubin 0.6 AST 321 H ALT 306 H Alkaline Phosphatase 57 Total Creatine Kinase 9634 H Total Protein 6.1 L Albumin 3.6
--- NOTE | 2024-10-22 09:41 | P.PNIM_ITS ---
Progress Note: A&P Assessment and Plan (1) Rhabdomyolysis due to statin therapy: Code(s): M62.82 - Rhabdomyolysis; T46.6X5A - Adverse effect of antihyperlipidemic and antiarteriosclerotic drugs, initial encounter Status: Acute Assessment and Plan: -Asymptomatic significant worsening of kidney disease and new transaminitis found on labs in the clinic -Labs worse on arrival to ER than in the outpatient setting the day before -Patient notes only vague muscle aches after falling in the yard on a branch about 10 days ago.j -No other symptoms at all -Prior intolerance to statins and cholesterol medications -Home medication rosuvastatin 40 mg -Given new liver failure and significant DANETTE on CKD, checked a CK level with results >16,000 -No noted urinary changes or fluid retention, no dyspnea -UA with 3+ blood but only 3-5 RBCs continue IV fluids trend ck --------- 10/19- CK 9510 - down from 57759 10/20 ck trending down slowly, holding statin. r/o inflammatory myopathy- DR Swan ordered serology 10/21 ck still >06049 10/22 ck is still high but improved today - continue IV 0.9 ns at 100 ml/h (2) Hepatorenal failure: Code(s): K76.7 - Hepatorenal syndrome Status: Acute Assessment and Plan: -See above (3) DM renal manif type II: Code(s): E11.29 - Type 2 diabetes mellitus with other diabetic kidney complication Status: Chronic Assessment and Plan: -A1c 5.9 -ACHS fingerstick glucose with low dose SSI, continue Jardiance, hold metformin -Hold gabapentin due to DANETTE on CKD (4) Type 2 diabetes with nephropathy: Code(s): E11.21 - Type 2 diabetes mellitus with diabetic nephropathy Status: Chronic Assessment and Plan: -A1c 5.9 -ACHS fingerstick glucose with low dose SSI, continue Jardiance, hold metformin -Hold gabapentin due to DANETTE on CKD (5) Chronic pain: Code(s): G89.29 - Other chronic pain Status: Chronic Assessment and Plan: -Buprenorphine patch prescribed (6) Hypertensive chronic kidney disease with stage 1 through stage 4 chronic kidney disease, or unspecified chronic kidney disease: Code(s): I12.9 - Hypertensive chronic kidney disease with stage 1 through stage 4 chronic kidney disease, or unspecified chronic kidney disease Status: Chronic Assessment and Plan: -BP controlled, continue home medications as tolerated (7) Acute kidney injury superimposed on CKD: Code(s): N17.9 - Acute kidney failure, unspecified; N18.9 - Chronic kidney disease, unspecified Status: Acute Assessment and Plan: -Baseline stage 3b/4 CKD, acutely stage 5 noted on admission -Related to rhabdomyolysis due to statin therapy - trend cmp cr/bun 3. today nephrology following - stopping bicarb drip- switching to NS per DR Swan 10/22- ns at 100 ml/h cr slightly improved (8) Mixed hyperlipidemia: Code(s): E78.2 - Mixed hyperlipidemia Status: Chronic Assessment and Plan: -lipid panel ordered -Stop rosuvastatin due to rhabdomyolysis (9) Abnormal urinalysis: Code(s): R82.90 - Unspecified abnormal findings in urine Status: Acute Assessment and Plan: -Leukocyte esterase 1+, 21-50 WBC, 3-5 RBC, 3+ blood (myoglobin) with 3+ glucose and 2+ protein -No dysuria or fever and WBC in blood normal -Defer treatment to urine culture results (10) Hypokalemia: Code(s): E87.6 - Hypokalemia Status: Acute Assessment and Plan: Iv replacement ordered Plan zofran ordered for nausea continue protonix Time Spent With Patient Time with patient: 25 - 35 minutes Subjective Date/time seen: 10/22/24 09:41 Interval history: Pt is seen and examined. She is nauseated but no vomiting. Pain patch is on -so pain is under control. Review of Systems Review of Systems: All systems reviewed & are unremarkable except as noted in HPI and below Exam Narrative: APPEARANCE: No acute distress, nontoxic, resting in bed EYES: EOMI HEENT: Normocephalic, atraumatic RESPIRATORY: No respiratory distress Clear to auscultation bilaterally with no r honchi wheezing or rales. CARDIOVASCULAR: Regular rate and rhythm without murmurs rubs or gallops. ABDOMINAL: Soft, nontender, nondistended, no rebound or guarding MUSCULOSKELETAL: Moves all extremities. No clubbing, cyanosis or edema. NEURO: Awake and alert. Following commands, speech normal, no focal deficits SKIN:: Warm, dry. No rashes lesions or abrasions PSYCHIATRIC: Normal affect/mood, Objective Data Vital Signs Vital Signs: Vital Signs - 24 hr 10/21/24 14:00 10/21/24 19:53 10/21/24 20:00 Temperature 97.6 F 98.1 F Pulse Rate 60 60 68 Respiratory Rate 16 17 18 Blood Pressure 138/61 141/67 H Pulse Oximetry 98 100 100 Oxygen Delivery Room Air 10/21/24 20:27 10/22/24 05:14 10/22/24 09:17 Temperature 98.7 F Pulse Rate 60 68 72 Respiratory Rate 18 Blood Pressure 162/77 H Pulse Oximetry 100 Oxygen Delivery Intake/Output Intake/Output: Intake & Output 10/19/24 10/20/24 10/21/24 10/22/24 23:59 23:59 23:59 23:59 Intake Total 3085 3093.5 1971.2 1000 Output Total 1999 Balance 1085 3093.5 1971.2 1000 Meds/Results Medications: Active Medications Generic Name Dose Route Start Last Admin Trade Name Freq PRN Reason Stop Dose Admin Acetaminophen 650 mg 10/19/24 04:31 10/22/24 05:32 Acetaminophen 325 Mg Tablet PO 650 mg Q4H PRN Administration Headache Aspirin 81 mg 10/17/24 21:00 10/21/24 20:23 Aspirin 81 Mg Enteric Tablet PO 81 mg HS JUAN A Administration Buspirone HCl 10 mg 10/17/24 22:00 10/22/24 05:32 Buspirone Hcl 10 Mg Tablet PO 10 mg Q8HR JUAN A Administration Calcium Carbonate 200 mg 10/19/24 21:45 10/21/24 20:28 Calcium Carbonate (Tums) 500 Mg (200 Mg Elemental) PO 200 mg Q6H PRN Administration Indigestion Carvedilol 12.5 mg 10/20/24 21:00 10/22/24 09:17 Carvedilol 12.5 Mg Tablet PO 12.5 mg Q12HR JUAN A Administration Clopidogrel Bisulfate 75 mg 10/18/24 09:00 10/22/24 09:16 Clopidogrel Bisulfate 75 Mg Tablet PO 75 mg DAILY JUAN A Administration Dextrose 12.5 gm 10/17/24 20:19 Dextrose 50% 25 Gm/50 Ml Syringe IV PUSH PRN PRN Hypoglycemia Protocol Empagliflozin 10 mg 10/18/24 09:00 10/22/24 09:18 Empagliflozin 10 Mg Tablet PO 10 mg DAILY JUAN A Administration Glucagon 1 mg 10/17/24 20:19 Glucagon For Inj 1 Mg Vial IM PRN PRN Hypoglycemia Protocol Glucose 15 gm 10/17/24 20:19 Glucose Oral Gel 15 Gm Of Glucse In 37.5 Gm Tube PO PRN PRN Hypoglycemia Protocol Heparin Sodium (Porcine) 5,000 units 10/17/24 21:00 10/22/24 09:19 Heparin Sodium 5,000 Units/Ml Vial SUB-Q 5,000 units Q12HR JUAN A Administration Dextrose 1,000 mls @ 100 mls/hr 10/17/24 20:19 Dextrose 5% 1,000 Ml IVPB PRN PRN Hypoglycemia Protocol Sodium Chloride 1,000 mls @ 100 mls/hr 10/21/24 14:40 10/22/24 01:04 Normal Saline Iv IV CONT 100 mls/hr .Q10H JUAN A Administration Insulin Aspart 2 - 5 units 10/18/24 08:00 10/22/24 09:13 Insulin Aspart (*Bkc) 100 Units/Ml SUB-Q Not Given TIDWM JUAN A Protocol Levothyroxine Sodium 75 mcg 10/18/24 06:30 10/22/24 05:32 Levothyroxine Sodium 75 Mcg Tablet PO 75 mcg DAILY@0630 JUAN A Administration Non-Formulary ( 1 each 10/22/24 09:00 10/22/24 09:19 Buprenorphine 7.5 TOPICAL 11/21/24 08:59 1 each Mcg/Hour Transdermal Mo@0900 JUAN A Administration Patch, Transdermal Weekly) Pantoprazole Sodium 40 mg 10/18/24 09:00 10/22/24 09:18 Pantoprazole 40 Mg Tablet PO 40 mg Q12HR JUAN A Administration Sertraline HCl 50 mg 10/18/24 09:00 10/22/24 09:17 Sertraline Hcl 50 Mg Tablet PO 50 mg DAILY JUAN A Administration Trazodone HCl 50 mg 10/17/24 20:10 10/21/24 21:35 Trazodone Hcl 50 Mg Tablet PO 50 mg QHS PRN Administration Sleep Radiology Results: ITS Impressions Abdomen/Pelvis CT 10/17/24 13:24 IMPRESSION: 1. No acute intra-abdominal/pelvic process. Chest X-Ray 10/17/24 16:45 Impression: No acute cardiopulmonary abnormality. Renal Ultrasound 10/18/24 14:56 Impression: 1: Right renal cyst measuring 3.9 cm. Labs Labs: Laboratory Results - last 24 hr 10/21/24 10/21/24 10/21/24 12:06 16:50 17:43 WBC RBC Hgb Hct MCV MCH MCHC RDW Plt Count MPV Immature Gran % (Auto) Neut % (Auto) Lymph % (Auto) [place] % (Auto) Eos % (Auto) Baso % (Auto) Lymph # (Auto) [place] # (Auto) Eos # (Auto) Baso # (Auto) Abs Immat Gran (auto) Absolute Neuts (auto) Absolute Nucleated RBC Nucleated RBC % Sodium 141 Potassium 3.0 L Chloride 103 Carbon Dioxide 32 H Anion Gap 6 BUN 31 H Creatinine 2.73 H Estim Creat Clear Calc 13 Estimated GFR 17 L Glucose 108 POC Capillary Glucose 101 99 Calcium 8.3 L Phosphorus Magnesium Total Bilirubin 0.4 AST 295 H ALT 302 H Alkaline Phosphatase 55 Total Creatine Kinase 7872 H Total Protein 5.7 L Albumin 3.4 L 10/21/24 10/22/24 10/22/24 19:50 03:50 07:29 WBC 8.4 RBC 3.85 L Hgb 10.9 L Hct 34.0 L MCV 88.3 MCH 28.3 MCHC 32.1 RDW 14.6 H Plt Count 188 MPV 10.8 H Immature Gran % (Auto) 0.6 H Neut % (Auto) 74.2 H Lymph % (Auto) 17.9 L [place] % (Auto) 7.2 Eos % (Auto) 0.0 Baso % (Auto) 0.1 L Lymph # (Auto) 1.50 [place] # (Auto) 0.6 Eos # (Auto) 0.0 Baso # (Auto) 0.0 Abs Immat Gran (auto) 0.05 H Absolute Neuts (auto) 6.2 Absolute Nucleated RBC 0.000 Nucleated RBC % 0.0 Sodium 139 Potassium 2.9 L Chloride 105 Carbon Dioxide 25 Anion Gap 9 BUN 29 H Creatinine 2.60 H Estim Creat Clear Calc 13 Estimated GFR 18 L Glucose 104 POC Capillary Glucose 113 H 104 Calcium 8.4 Phosphorus 1.7 L Magnesium 1.5 L Total Bilirubin 0.6 AST 321 H ALT 306 H Alkaline Phosphatase 57 Total Creatine Kinase 9634 H Total Protein 6.1 L Albumin 3.6 Quality VTE Prophylaxis VTE prophylaxis: pharmacologic ordered (heparin SQ)
[2024-10-22] MEDS: ONDANSETRON INJ 4 MG/2 ML VIAL IV PUSH (13:15)
[2024-10-22 13:40] LABS: Magnesium 2.8 mg/dL (1.6-2.3); Potassium 3.2 mmol/L (3.4-5.0)
[2024-10-22 14:00] VITALS: BP 120/58; PULSE 55; RESP 16; TEMP 36.4; O2SAT 100
[2024-10-22 18:00] LABS: Alanine Aminotransferase 306 U/L (6-35); Albumin Level 3.5 g/dL (3.5-5.1); Alkaline Phosphatase 54 U/L (38-126); Anion Gap 8 mmol/L (4-12); Aspartate Amino Transferase 291 U/L (14-36); Bilirubin,Total 0.3 mg/dL (0.2-1.3); Blood Urea Nitrogen 25 mg/dL (7-17); Calcium 8.3 mg/dL (8.4-10.2); Carbon Dioxide 26 mmol/L (22-30); Chloride 107 mmol/L (98-107); Estimated CRCL calculation 15 ml/min; Estimated Glomerular Filt Rate 20; Glucose 101 mg/dL (65-110); Potassium 3.1 mmol/L (3.4-5.0); Sodium 141 mmol/L (137-145); Total Protein 5.8 g/dL (6.3-8.2)
[2024-10-22 18:27] LABS: Creatine Kinase 9183 U/L (30-135)
[2024-10-22 20:05] VITALS: BP 146/48; PULSE 56; RESP 18; TEMP 36.8; O2SAT 100
[2024-10-22 20:43] VITALS: PULSE 56
[2024-10-22] MEDS: ASPIRIN 81 MG ENTERIC TABLET PO (20:43)
[2024-10-23] VITALS (7 sets, daily range): BP systolic 117–153; BP diastolic 51–67; PULSE 50–82; RESP 16–18; TEMP 36.4–36.8; O2SAT 98–100
[2024-10-23 04:47] LABS: Hematocrit 28.6 % (37.0-47.0); Hemoglobin 8.9 g/dL (12.0-15.0); Immature Granulocyte Percent A 0.6 % (0-0.5); Lymphocytes Absolute Auto 1.46 K/mm3 (0.9-3.2); Mean Corpuscular HGB Conc 31.1 g/dl (32-36); Mean Corpuscular Hemoglobin 28.5 pg (26-34); Mean Corpuscular Volume 91.7 fl (80-100); Nucleated Red Blood Cells Absolute Auto 0.000 K/mm3 (0.0-0.012); Nucleated Red Blood Cells Perc 0.0 % (0.0-0.2); Platelet Count Result 131 k/mm3 (150-375); Red Blood Count 3.12 M/mm3 (4.2-5.4); White Blood Count 6.6 K/mm3 (4.5-10.0)
[2024-10-23 05:11] LABS: Magnesium 2.3 mg/dL (1.6-2.3)
[2024-10-23] MEDS: POTASSIUM CHLORIDE 20 MEQ PACKET (FOR LIQUID) 40 MEQ PO (08:55)
[2024-10-23] MEDS: PANTOPRAZOLE 40 MG TABLET PO ×2 (08:55→20:02)
[2024-10-23] MEDS: LEVOTHYROXINE SODIUM 75 MCG TABLET PO (08:56)
[2024-10-23] MEDS: SERTRALINE HCL 50 MG TABLET PO (08:56)
[2024-10-23] MEDS: CLOPIDOGREL BISULFATE 75 MG TABLET PO (08:56)
[2024-10-23] MEDS: EMPAGLIFLOZIN 10 MG TABLET PO (08:56)
[2024-10-23] MEDS: SODIUM CHLORIDE 0.9% IV 1,000 ML 100 ML IV CONT (08:56)
--- NOTE | 2024-10-23 09:27 | P.PNNP_ITS ---
Progress Note: A&P Assessment and Plan (1) Acute kidney injury: Code(s): N17.9 - Acute kidney failure, unspecified Status: Acute Assessment and Plan: * slow improvement noted * as noted by recent outpatient labs and on admission * suspect due to rhabdomyolysis * evaluation to date noted: * renal ultrasound pending * CT of A/P with 3.3cm renal cyst * elevated CPK level * urine electrolytes non-prerenal * urine eosinophils negative * UA noted (culture pending) * + proteinuria * improvement noted with IVFs * follow trend of repeat labs and UOP (2) Chronic kidney disease, stage 3b: Code(s): N18.32 - Chronic kidney disease, stage 3b Status: Chronic Assessment and Plan: * baseline creatinine runs around 1.5 - 2.1mg/dl in the last year * this causes her to fluctuate between CKD stage 3b and stage 3 * due to hypertension (not an issue now), diabetes, vascular disease, and age (3) Rhabdomyolysis: Code(s): M62.82 - Rhabdomyolysis Status: Acute Assessment and Plan: * as noted by admission labs * CPK down trending * reports some muscle aches following a fall 10 days prior to admission * due to statin use?? * statin on hold * allergy reported with atorvastatin * serologies regarding inflammatory myopathies pending (but normal ESR) * continue current therapy (4) Transaminitis: Code(s): R74.01 - Elevation of levels of liver transaminase levels Status: Acute Assessment and Plan: * presumably secondary to rhabomyolysis * follow trend of LFTs (5) HTN (hypertension): Code(s): I10 - Essential (primary) hypertension Status: Chronic Assessment and Plan: * reasonable control at this time * chronic pain issues maybe contributing... * follow trend of hemodynamics (6) Anemia: Qualifiers: Anemia type: unspecified type Qualified Code(s): D64.9 - Anemia, unspecified Code(s): D64.9 - Anemia, unspecified Status: Chronic Assessment and Plan: * probably related to DANETTE, CKD, and acute illness * suspect a dilutional component as well with IVFs * follow trend of H/H (7) Chronic pain: Code(s): G89.29 - Other chronic pain Status: Chronic Assessment and Plan: * continue buprenorphine patch as prescribed (8) Diabetes: Code(s): E11.9 - Type 2 diabetes mellitus without complications Status: Chronic Assessment and Plan: * follow accu-cheks * glycemic control per hospitalist Will continue to follow. L Subjective Date/time seen: 10/23/24 09:27 Interval history: Follow-up for acute kidney injury/acute renal failure on chronic kidney disease. Chart reviewed since last seen -- renal function/creatinine as well as CPK are trending down albeit slowly (and CPK did fluctuate some over the last few days; no apparent distress noted at the time of my visit; sitting up in chair at the time of my visit; asking about when she can go home. Exam 2 Narrative: General: elderly but WD/WN female in NAD Heart: normal S1 and S2; no rub Lungs: clear to auscultation Abdomen: soft, nontender, nondistended, positive bowel sounds Extremities: no cyanosis or clubbing; no edema Skin: warm and intact Objective Data Vital Signs Vital Signs: Vital Signs Temp Pulse Resp BP Pulse Ox O2 Del Method 10/23/24 08:56 81 16 100 Room Air 10/23/24 08:55 81 10/23/24 08:53 97.5 F L 82 16 153/51 H 100 10/23/24 03:53 97.7 F 57 L 18 117/57 L 98 10/22/24 20:43 56 L 10/22/24 20:35 Room Air 10/22/24 20:05 98.2 F 56 L 18 146/48 H 100 10/22/24 14:00 97.6 F 55 L 16 120/58 L 100 Intake/Output Intake/Output: Intake & Output 10/20/24 10/21/24 10/22/24 10/23/24 23:59 23:59 23:59 23:59 Intake Total 3093.5 1971.2 2873.3 1000 Balance 3093.5 1971.2 2873.3 1000 Meds/Results Medications: Active Medications Generic Name Dose Route Start Last Admin Trade Name Freq PRN Reason Stop Dose Admin Acetaminophen 650 mg 10/19/24 04:31 10/22/24 05:32 Acetaminophen 325 Mg Tablet PO 650 mg Q4H PRN Administration Headache Aspirin 81 mg 10/17/24 21:00 10/22/24 20:43 Aspirin 81 Mg Enteric Tablet PO 81 mg HS JUAN A Administration Buspirone HCl 10 mg 10/17/24 22:00 10/23/24 08:56 Buspirone Hcl 10 Mg Tablet PO 10 mg Q8HR JUAN A Administration Calcium Carbonate 200 mg 10/19/24 21:45 10/21/24 20:28 Calcium Carbonate (Tums) 500 Mg (200 Mg Elemental) PO 200 mg Q6H PRN Administration Indigestion Carvedilol 12.5 mg 10/20/24 21:00 10/23/24 08:55 Carvedilol 12.5 Mg Tablet PO 12.5 mg Q12HR JUAN A Administration Clopidogrel Bisulfate 75 mg 10/18/24 09:00 10/23/24 08:56 Clopidogrel Bisulfate 75 Mg Tablet PO 75 mg DAILY JUAN A Administration Dextrose 12.5 gm 10/17/24 20:19 Dextrose 50% 25 Gm/50 Ml Syringe IV PUSH PRN PRN Hypoglycemia Protocol Empagliflozin 10 mg 10/18/24 09:00 10/23/24 08:56 Empagliflozin 10 Mg Tablet PO 10 mg DAILY JUAN A Administration Glucagon 1 mg 10/17/24 20:19 Glucagon For Inj 1 Mg Vial IM PRN PRN Hypoglycemia Protocol Glucose 15 gm 10/17/24 20:19 Glucose Oral Gel 15 Gm Of Glucse In 37.5 Gm Tube PO PRN PRN Hypoglycemia Protocol Heparin Sodium (Porcine) 5,000 units 10/17/24 21:00 10/23/24 08:56 Heparin Sodium 5,000 Units/Ml Vial SUB-Q 5,000 units Q12HR JUAN A Administration Dextrose 1,000 mls @ 100 mls/hr 10/17/24 20:19 Dextrose 5% 1,000 Ml IVPB PRN PRN Hypoglycemia Protocol Sodium Chloride 1,000 mls @ 100 mls/hr 10/21/24 14:40 10/23/24 08:56 Normal Saline Iv IV CONT 100 mls/hr .Q10H JUAN A Administration Insulin Aspart 2 - 5 units 10/18/24 08:00 10/23/24 12:01 Insulin Aspart (*Bkc) 100 Units/Ml SUB-Q Not Given TIDWM JUAN A Protocol Levothyroxine Sodium 75 mcg 10/18/24 06:30 10/23/24 08:56 Levothyroxine Sodium 75 Mcg Tablet PO 75 mcg DAILY@0630 JUAN A Administration Non-Formulary ( 1 each 10/22/24 09:00 10/22/24 09:19 Buprenorphine 7.5 TOPICAL 11/21/24 08:59 1 each Mcg/Hour Transdermal Mo@0900 JUAN A Administration Patch, Transdermal Weekly) Ondansetron HCl 4 mg 10/22/24 12:53 10/22/24 13:15 Ondansetron Inj 4 Mg/2 Ml Vial IV PUSH 4 mg Q4H PRN Administration Nausea And Vomiting Pantoprazole Sodium 40 mg 10/18/24 09:00 10/23/24 08:55 Pantoprazole 40 Mg Tablet PO 40 mg Q12HR JUAN A Administration Potassium Chloride 40 meq 10/23/24 09:00 10/23/24 08:55 Potassium Chloride 20 Meq Packet (For Liquid) PO 40 meq DAILY JUAN A Administration Potassium Chloride 20 meq 10/23/24 17:00 Potassium Chloride 20 Meq Er Tablet PO 10/23/24 17:01 ONCE ONE Sertraline HCl 50 mg 10/18/24 09:00 10/23/24 08:56 Sertraline Hcl 50 Mg Tablet PO 50 mg DAILY JUAN A Administration Trazodone HCl 50 mg 10/17/24 20:10 10/22/24 21:59 Trazodone Hcl 50 Mg Tablet PO 50 mg QHS PRN Administration Sleep Radiology Results: ITS Impressions Abdomen/Pelvis CT 10/17/24 13:24 IMPRESSION: 1. No acute intra-abdominal/pelvic process. Chest X-Ray 10/17/24 16:45 Impression: No acute cardiopulmonary abnormality. Renal Ultrasound 10/18/24 14:56 Impression: 1: Right renal cyst measuring 3.9 cm. Labs Labs: Laboratory Tests 10/23/24 04:10 10/23/24 04:10 Calcium 8.1 L Phosphorus 3.8 Magnesium 2.3 Total Bilirubin 0.2 AST 220 H ALT 255 H Alkaline Phosphatase 55 Total Creatine Kinase [employer] Total Protein 5.3 L Albumin 3.1 L
[2024-10-23 10:48] LABS: Alanine Aminotransferase 255 U/L (6-35); Albumin Level 3.1 g/dL (3.5-5.1); Alkaline Phosphatase 55 U/L (38-126); Anion Gap 6 mmol/L (4-12); Aspartate Amino Transferase 220 U/L (14-36); Bilirubin,Total 0.2 mg/dL (0.2-1.3); Blood Urea Nitrogen 22 mg/dL (7-17); Calcium 8.1 mg/dL (8.4-10.2); Carbon Dioxide 21 mmol/L (22-30); Chloride 110 mmol/L (98-107); Estimated CRCL calculation 15 ml/min; Estimated Glomerular Filt Rate 21; Glucose 97 mg/dL (65-110); Potassium 3.0 mmol/L (3.4-5.0); Sodium 137 mmol/L (137-145); Total Protein 5.3 g/dL (6.3-8.2)
--- NOTE | 2024-10-23 13:24 | PC.NURSE ---
On 10/23/24, the student, [Lisette Hamilton], provided care and completed [facility] documentation on this patient. I have reviewed the student's documentation and agree with the findings.
--- NOTE | 2024-10-23 14:14 | PM.IMPN ---
Progress Note: A&P Assessment and Plan (1) Rhabdomyolysis due to statin therapy: Code(s): M62.82 - Rhabdomyolysis; T46.6X5A - Adverse effect of antihyperlipidemic and antiarteriosclerotic drugs, initial encounter Status: Acute Assessment and Plan: -Asymptomatic significant worsening of kidney disease and new transaminitis found on labs in the clinic -Labs worse on arrival to ER than in the outpatient setting the day before -Patient notes only vague muscle aches after falling in the yard on a branch about 10 days ago.j -No other symptoms at all -Prior intolerance to statins and cholesterol medications -Home medication rosuvastatin 40 mg -Given new liver failure and significant DANETTE on CKD, checked a CK level with results >16,000 -No noted urinary changes or fluid retention, no dyspnea -UA with 3+ blood but only 3-5 RBCs continue IV fluids trend ck --------- 10/19- CK 9510 - [place] [address] 10/20 ck trending down slowly, holding statin. r/o inflammatory myopathy- DR Swan ordered serology 10/21 ck still >82405 10/22 ck is still high but improved today - continue IV 0.9 ns at 100 ml/h trend CK slowly downtredning (2) Hepatorenal failure: Code(s): K76.7 - Hepatorenal syndrome Status: Acute Assessment and Plan: -See above (3) DM renal manif type II: Code(s): E11.29 - Type 2 diabetes mellitus with other diabetic kidney complication Status: Chronic Assessment and Plan: -A1c 5.9 -ACHS fingerstick glucose with low dose SSI, continue Jardiance, hold metformin -Hold gabapentin due to DANETTE on CKD (4) Type 2 diabetes with nephropathy: Code(s): E11.21 - Type 2 diabetes mellitus with diabetic nephropathy Status: Chronic Assessment and Plan: -A1c 5.9 -ACHS fingerstick glucose with low dose SSI, continue Jardiance, hold metformin -Hold gabapentin due to DANETTE on CKD (5) Chronic pain: Code(s): G89.29 - Other chronic pain Status: Chronic Assessment and Plan: -Buprenorphine patch prescribed (6) Hypertensive chronic kidney disease with stage 1 through stage 4 chronic kidney disease, or unspecified chronic kidney disease: Code(s): I12.9 - Hypertensive chronic kidney disease with stage 1 through stage 4 chronic kidney disease, or unspecified chronic kidney disease Status: Chronic Assessment and Plan: -BP controlled, continue home medications as tolerated (7) Acute kidney injury superimposed on CKD: Code(s): N17.9 - Acute kidney failure, unspecified; N18.9 - Chronic kidney disease, unspecified Status: Acute Assessment and Plan: -Baseline stage 3b/4 CKD, acutely stage 5 noted on admission -Related to rhabdomyolysis due to statin therapy - trend cmp cr/bun 3. today nephrology following - stopping bicarb drip- switching to NS per DR Swan 10/22- ns at 100 ml/h cr slightly improved 10/23 cr.bun slowly improving anticipate discharge in the next couple of days if continue to improve (8) Mixed hyperlipidemia: Code(s): E78.2 - Mixed hyperlipidemia Status: Chronic Assessment and Plan: -lipid panel ordered -Stop rosuvastatin due to rhabdomyolysis (9) Abnormal urinalysis: Code(s): R82.90 - Unspecified abnormal findings in urine Status: Acute Assessment and Plan: -Leukocyte esterase 1+, 21-50 WBC, 3-5 RBC, 3+ blood (myoglobin) with 3+ glucose and 2+ protein -No dysuria or fever and WBC in blood normal -Defer treatment to urine culture results (10) Hypokalemia: Code(s): E87.6 - Hypokalemia Status: Acute Assessment and Plan: Iv replacement ordered monitor closely Plan zofran ordered for nausea continue protonix Time Spent With Patient Time with patient: Greater than 35 minutes Subjective Date/time seen: 10/23/24 14:14 Interval history: Pt is seen and examined. She is nauseated but no vomiting. Pain patch is on -so pain is under control. renal ultrasound today Review of Systems Review of Systems: All systems reviewed & are unremarkable except as noted in HPI and below Exam Narrative: APPEARANCE: No acute distress, nontoxic, resting in bed, pain is well controlled, in good mood-wants to go home EYES: EOMI HEENT: Normocephalic, atraumatic RESPIRATORY: No respiratory distress Clear to auscultation bilaterally with no rhonchi wheezing or rales. CARDIOVASCULAR: Regular rate and rhythm without murmurs rubs or gallops. ABDOMINAL: Soft, nontender, nondistended, no rebound or guarding MUSCULOSKELETAL: Moves all extremities. No clubbing, cyanosis or edema. NEURO: Awake and alert. Following commands, speech normal, no focal deficits SKIN:: Warm, dry. No rashes lesions or abrasions PSYCHIATRIC: Normal affect/mood, Const: General: comfortable Objective Data Vital Signs Vital Signs: Vital Signs - 24 hr 10/22/24 20:05 10/22/24 20:35 10/22/24 20:43 Temperature 98.2 F Pulse Rate 56 L 56 L Respiratory Rate 18 Blood Pressure 146/48 H Pulse Oximetry 100 Oxygen Delivery Room Air 10/23/24 03:53 10/23/24 08:53 10/23/24 08:55 Temperature 97.7 F 97.5 F L Pulse Rate 57 L 82 81 Respiratory Rate 18 16 Blood Pressure 117/57 L 153/51 H Pulse Oximetry 98 100 Oxygen Delivery 10/23/24 08:56 Temperature Pulse Rate 81 Respiratory Rate 16 Blood Pressure Pulse Oximetry 100 Oxygen Delivery Room Air Intake/Output Intake/Output: Intake & Output 10/20/24 10/21/24 10/22/24 10/23/24 23:59 23:59 23:59 23:59 Intake Total 3093.5 1971.2 2873.3 1360 Balance 3093.5 1971.2 2873.3 1360 Meds/Results Medications: Active Medications Generic Name Dose Route Start Last Admin Trade Name Freq PRN Reason Stop Dose Admin Acetaminophen 650 mg 10/19/24 04:31 10/22/24 05:32 Acetaminophen 325 Mg Tablet PO 650 mg Q4H PRN Administration Headache Aspirin 81 mg 10/17/24 21:00 10/22/24 20:43 Aspirin 81 Mg Enteric Tablet PO 81 mg HS JUAN A Administration Buspirone HCl 10 mg 10/17/24 22:00 10/23/24 13:03 Buspirone Hcl 10 Mg Tablet PO 10 mg Q8HR JUAN A Administration Calcium Carbonate 200 mg 10/19/24 21:45 10/21/24 20:28 Calcium Carbonate (Tums) 500 Mg (200 Mg Elemental) PO 200 mg Q6H PRN Administration Indigestion Carvedilol 12.5 mg 10/20/24 21:00 10/23/24 08:55 Carvedilol 12.5 Mg Tablet PO 12.5 mg Q12HR JUAN A Administration Clopidogrel Bisulfate 75 mg 10/18/24 09:00 10/23/24 08:56 Clopidogrel Bisulfate 75 Mg Tablet PO 75 mg DAILY JUAN A Administration Dextrose 12.5 gm 10/17/24 20:19 Dextrose 50% 25 Gm/50 Ml Syringe IV PUSH PRN PRN Hypoglycemia Protocol Empagliflozin 10 mg 10/18/24 09:00 10/23/24 08:56 Empagliflozin 10 Mg Tablet PO 10 mg DAILY JUAN A Administration Glucagon 1 mg 10/17/24 20:19 Glucagon For Inj 1 Mg Vial IM PRN PRN Hypoglycemia Protocol Glucose 15 gm 10/17/24 20:19 Glucose Oral Gel 15 Gm Of Glucse In 37.5 Gm Tube PO PRN PRN Hypoglycemia Protocol Heparin Sodium (Porcine) 5,000 units 10/17/24 21:00 10/23/24 08:56 Heparin Sodium 5,000 Units/Ml Vial SUB-Q 5,000 units Q12HR JUAN A Administration Dextrose 1,000 mls @ 100 mls/hr 10/17/24 20:19 Dextrose 5% 1,000 Ml IVPB PRN PRN Hypoglycemia Protocol Sodium Chloride 1,000 mls @ 100 mls/hr 10/21/24 14:40 10/23/24 08:56 Normal Saline Iv IV CONT 100 mls/hr .Q10H JUAN A Administration Potassium Chloride 40 meq/ 520 mls @ 130 mls/hr 10/23/24 14:13 Sodium Chloride IVPB 10/23/24 18:12 ONCE ONE Insulin Aspart 2 - 5 units 10/18/24 08:00 10/23/24 12:01 Insulin Aspart (*Bkc) 100 Units/Ml SUB-Q Not Given TIDWM [facility] Protocol Levothyroxine Sodium 75 mcg 10/18/24 06:30 10/23/24 08:56 Levothyroxine Sodium 75 Mcg Tablet PO 75 mcg DAILY@0630 JUAN A Administration Non-Formulary ( 1 each 10/22/24 09:00 10/22/24 09:19 Buprenorphine 7.5 TOPICAL 11/21/24 08:59 1 each Mcg/Hour Transdermal Mo@0900 JUAN A Administration Patch, Transdermal Weekly) Ondansetron HCl 4 mg 10/22/24 12:53 10/22/24 13:15 Ondansetron Inj 4 Mg/2 Ml Vial IV PUSH 4 mg Q4H PRN Administration Nausea And Vomiting Pantoprazole Sodium 40 mg 10/18/24 09:00 10/23/24 08:55 Pantoprazole 40 Mg Tablet PO 40 mg Q12HR JUAN A Administration Potassium Chloride 40 meq 10/23/24 09:00 10/23/24 08:55 Potassium Chloride 20 Meq Packet (For Liquid) PO 40 meq DAILY JUAN A Administration Potassium Chloride 20 meq 10/23/24 17:00 Potassium Chloride 20 Meq Er Tablet PO 10/23/24 17:01 ONCE ONE Sertraline HCl 50 mg 10/18/24 09:00 10/23/24 08:56 Sertraline Hcl 50 Mg Tablet PO 50 mg DAILY JUAN A Administration Trazodone HCl 50 mg 10/17/24 20:10 10/22/24 21:59 Trazodone Hcl 50 Mg Tablet PO 50 mg QHS PRN Administration Sleep Radiology Results: ITS Impressions Abdomen/Pelvis CT 10/17/24 13:24 IMPRESSION: 1. No acute intra-abdominal/pelvic process. Chest X-Ray 10/17/24 16:45 Impression: No acute cardiopulmonary abnormality. Renal Ultrasound 10/18/24 14:56 Impression: 1: Right renal cyst measuring 3.9 cm. Labs Labs: Laboratory Results - last 24 hr 10/22/24 10/22/24 10/22/24 16:32 17:25 20:13 WBC RBC Hgb Hct MCV MCH MCHC RDW Plt Count MPV Immature Gran % (Auto) Neut % (Auto) Lymph % (Auto) [place] % (Auto) Eos % (Auto) Baso % (Auto) Lymph # (Auto) [place] # (Auto) Eos # (Auto) Baso # (Auto) Abs Immat Gran (auto) Absolute Neuts (auto) Absolute Nucleated RBC Nucleated RBC % Sodium 141 Potassium 3.1 L Chloride 107 Carbon Dioxide 26 Anion Gap 8 BUN 25 H Creatinine 2.33 H Estim Creat Clear Calc 15 Estimated GFR 20 L Glucose 101 POC Capillary Glucose 96 102 Calcium 8.3 L Phosphorus Magnesium Total Bilirubin 0.3 AST 291 H ALT 306 H Alkaline Phosphatase 54 Total Creatine Kinase 9183 H Total Protein 5.8 L Albumin 3.5 10/23/24 10/23/24 10/23/24 04:10 07:08 11:39 WBC 6.6 RBC 3.12 L Hgb 8.9 L Hct 28.6 L MCV 91.7 MCH 28.5 MCHC 31.1 L RDW 15.1 H Plt Count 131 L MPV 11.1 H Immature Gran % (Auto) 0.6 H Neut % (Auto) 67.9 Lymph % (Auto) 22.0 [place] % (Auto) 9.2 H Eos % (Auto) 0.0 Baso % (Auto) 0.3 Lymph # (Auto) 1.46 [place] # (Auto) 0.6 Eos # (Auto) 0.0 Baso # (Auto) 0.0 Abs Immat Gran (auto) 0.04 H Absolute Neuts (auto) 4.5 Absolute Nucleated RBC 0.000 Nucleated RBC % 0.0 Sodium 137 Potassium 3.0 L Chloride 110 H Carbon Dioxide 21 L Anion Gap 6 BUN 22 H Creatinine 2.26 H Estim Creat Clear Calc 15 Estimated GFR 21 L Glucose 97 POC Capillary Glucose 96 80 Calcium 8.1 L Phosphorus 3.8 Magnesium 2.3 Total Bilirubin 0.2 AST 220 H ALT 255 H Alkaline Phosphatase 55 Total Creatine Kinase Total Protein 5.3 L Albumin 3.1 L Quality VTE Prophylaxis VTE prophylaxis: pharmacologic ordered (heparin SQ)
[2024-10-23] MEDS: POTASSIUM CHLORIDE INJ 40 MEQ in SODIUM CHLORIDE 0.9% IV 500 ML 130 MEQ IVPB (15:55)
[2024-10-23] MEDS: POTASSIUM CHLORIDE 20 MEQ ER TABLET PO (16:00)
[2024-10-23] MEDS: ASPIRIN 81 MG ENTERIC TABLET PO (20:02)
[2024-10-23] MEDS: ONDANSETRON INJ 4 MG/2 ML VIAL IV PUSH (20:06)
[2024-10-23 21:25] LABS: Potassium 3.8 mmol/L (3.4-5.0)
[2024-10-24 03:49] VITALS: BP 133/48; PULSE 63; RESP 18; TEMP 37; O2SAT 96
[2024-10-24 04:55] LABS: Hematocrit 31.6 % (37.0-47.0); Hemoglobin 9.8 g/dL (12.0-15.0); Immature Granulocyte Percent A 0.4 % (0-0.5); Lymphocytes Absolute Auto 1.64 K/mm3 (0.9-3.2); Mean Corpuscular HGB Conc 31.0 g/dl (32-36); Mean Corpuscular Hemoglobin 28.4 pg (26-34); Mean Corpuscular Volume 91.6 fl (80-100); Nucleated Red Blood Cells Absolute Auto 0.000 K/mm3 (0.0-0.012); Nucleated Red Blood Cells Perc 0.0 % (0.0-0.2); Platelet Count Result 149 k/mm3 (150-375); Red Blood Count 3.45 M/mm3 (4.2-5.4); White Blood Count 6.9 K/mm3 (4.5-10.0)
[2024-10-24] MEDS: LEVOTHYROXINE SODIUM 75 MCG TABLET PO (04:58)
[2024-10-24 05:08] LABS: Alanine Aminotransferase 242 U/L (6-35); Albumin Level 3.4 g/dL (3.5-5.1); Alkaline Phosphatase 59 U/L (38-126); Anion Gap 7 mmol/L (4-12); Aspartate Amino Transferase 149 U/L (14-36); Bilirubin,Total 0.3 mg/dL (0.2-1.3); Blood Urea Nitrogen 20 mg/dL (7-17); Calcium 9.0 mg/dL (8.4-10.2); Carbon Dioxide 23 mmol/L (22-30); Chloride 111 mmol/L (98-107); Estimated CRCL calculation 16 ml/min; Estimated Glomerular Filt Rate 22; Glucose 93 mg/dL (65-110); Magnesium 1.9 mg/dL (1.6-2.3); Potassium 4.0 mmol/L (3.4-5.0); Sodium 141 mmol/L (137-145); Total Protein 5.9 g/dL (6.3-8.2)
[2024-10-24 05:20] LABS: Creatine Kinase 2764 U/L (30-135)
[2024-10-24] MEDS: SODIUM CHLORIDE 0.9% IV 1,000 ML 100 ML IV CONT (07:29)
--- NOTE | 2024-10-24 08:12 | P.PNIM_ITS ---
Progress Note: A&P Assessment and Plan (1) Rhabdomyolysis due to statin therapy: Code(s): M62.82 - Rhabdomyolysis; T46.6X5A - Adverse effect of antihyperlipidemic and antiarteriosclerotic drugs, initial encounter Status: Acute Assessment and Plan: -Asymptomatic significant worsening of kidney disease and new transaminitis found on labs in the clinic -Labs worse on arrival to ER than in the outpatient setting the day before -Patient notes only vague muscle aches after falling in the yard on a branch about 10 days ago.j -No other symptoms at all -Prior intolerance to statins and cholesterol medications -Home medication rosuvastatin 40 mg -Given new liver failure and significant DANETTE on CKD, checked a CK level with results >16,000 -No noted urinary changes or fluid retention, no dyspnea -UA with 3+ blood but only 3-5 RBCs continue IV fluids trend ck --------- 10/19- CK 9510 - [place] [id number] 10/20 ck trending down slowly, holding statin. r/o inflammatory myopathy- DR Swan ordered serology 10/21 ck still >32109 10/22 ck is still high but improved today - continue IV 0.9 ns at 100 ml/h trend CK slowly downtredning (2) Hepatorenal failure: Code(s): K76.7 - Hepatorenal syndrome Status: Acute Assessment and Plan: -See above (3) DM renal manif type II: Code(s): E11.29 - Type 2 diabetes mellitus with other diabetic kidney complication Status: Chronic Assessment and Plan: -A1c 5.9 -ACHS fingerstick glucose with low dose SSI, continue Jardiance, hold metformin -Hold gabapentin due to DANETTE on CKD (4) Type 2 diabetes with nephropathy: Code(s): E11.21 - Type 2 diabetes mellitus with diabetic nephropathy Status: Chronic Assessment and Plan: -A1c 5.9 -ACHS fingerstick glucose with low dose SSI, continue Jardiance, hold metformin -Hold gabapentin due to DANETTE on CKD (5) Chronic pain: Code(s): G89.29 - Other chronic pain Status: Chronic Assessment and Plan: -Buprenorphine patch prescribed (6) Hypertensive chronic kidney disease with stage 1 through stage 4 chronic kidney disease, or unspecified chronic kidney disease: Code(s): I12.9 - Hypertensive chronic kidney disease with stage 1 through stage 4 chronic kidney disease, or unspecified chronic kidney disease Status: Chronic Assessment and Plan: -BP controlled, continue home medications as tolerated (7) Acute kidney injury superimposed on CKD: Code(s): N17.9 - Acute kidney failure, unspecified; N18.9 - Chronic kidney disease, unspecified Status: Acute Assessment and Plan: -Baseline stage 3b/4 CKD, acutely stage 5 noted on admission -Related to rhabdomyolysis due to statin therapy - trend cmp cr/bun 3. today nephrology following - stopping bicarb drip- switching to NS per DR Swan 10/22- ns at 100 ml/h cr slightly improved 10/23 cr.bun slowly improving anticipate discharge in the next couple of days if continue to improve (8) Mixed hyperlipidemia: Code(s): E78.2 - Mixed hyperlipidemia Status: Chronic Assessment and Plan: -lipid panel ordered -Stop rosuvastatin due to rhabdomyolysis (9) Abnormal urinalysis: Code(s): R82.90 - Unspecified abnormal findings in urine Status: Acute Assessment and Plan: -Leukocyte esterase 1+, 21-50 WBC, 3-5 RBC, 3+ blood (myoglobin) with 3+ glucose and 2+ protein -No dysuria or fever and WBC in blood normal -Defer treatment to urine culture results (10) Hypokalemia: Code(s): E87.6 - Hypokalemia Status: Acute Assessment and Plan: Iv replacement ordered monitor closely Subjective Date/time seen: 10/24/24 08:12 Interval history: 74-year-old female patient with a past medical history diabetes, hypertension insomnia, hyperlipidemia, GERD, chronic pain and CAD who is admitted to the hospital for hep panel renal failure. She has a history stage IIIB/IV CKD due to hypertension and diabetes and follows with Dr. Swan in the clinic. No history of liver failure. Patient had labs drawn for her upcoming clinic appointment next week and she received notification from physician to go to the emergency department immediately due to significantly worsened labs. Review of Systems Review of Systems: All systems reviewed & are unremarkable except as noted in HPI and below Exam Narrative: AF General: well nourished, well-developed female in no acute respiratory distress who is nontoxic appearing, lying semi recumbent in bed. HEENT: Normocephalic. Atraumatic. Pupils equal round reactive to light. E xtraocular movement intact. Sclera clear and anicteric. Nares patent. No oral lesions. Moist mucous membranes. Tongue is midline. Palate manjinder symmetrically. No facial asymmetry. Neck: Neck was supple. No dominant adenopathy, thyromegaly or masses. 2+ carotid upstrokes without bruits. Chest: Lungs are clear to auscultation bilaterlly. No wheezes or crackles. CV: Heart was regular rate and rhythm. S1-S2. No murmurs, gallops, or rubs. Abd: Abdomen was soft. Nontender. Nondistended. Postive bowel sounds. No organomegaly or masses. Ext: No clubbing, cyanosis, or edema. 2+ DP pulses bilaterally. Neuro: Patient is alert and oriented x4. Strenth is 5/5 in both upper and lower extremities. Cranial nerves 2-12 are intact. Speech is clear. Psych: Normal nood and affect. Patient is pleasant and cooperative. Skin: Warm and dry. No rashes noted. Objective Data Vital Signs Vital Signs: Vital Signs - 24 hr 10/23/24 08:53 10/23/24 08:55 10/23/24 08:56 Temperature 97.5 F L Pulse Rate 82 81 81 Respiratory Rate 16 16 Blood Pressure 153/51 H Pulse Oximetry 100 100 Oxygen Delivery Room Air 10/23/24 15:55 10/23/24 20:00 10/23/24 20:47 Temperature 98.2 F 98.3 F Pulse Rate 50 L 50 L 55 L Respiratory Rate 18 18 18 Blood Pressure 152/56 H 128/67 Pulse Oximetry 99 99 100 Oxygen Delivery Room Air 10/24/24 03:49 Temperature 98.6 F Pulse Rate 63 Respiratory Rate 18 Blood Pressure 133/48 L Pulse Oximetry 96 Oxygen Delivery Intake/Output Intake/Output: Intake & Output 10/21/24 10/22/24 10/23/24 10/24/24 23:59 23:59 23:59 23:59 Intake Total 1971.2 2873.3 2820 240 Balance 1971.2 2873.3 2820 240 Meds/Results Medications: Active Medications Generic Name Dose Route Start Last Admin Trade Name Freq PRN Reason Stop Dose Admin Acetaminophen 650 mg 10/19/24 04:31 10/22/24 05:32 Acetaminophen 325 Mg Tablet PO 650 mg Q4H PRN Administration Headache Aspirin 81 mg 10/17/24 21:00 10/23/24 20:02 Aspirin 81 Mg Enteric Tablet PO 81 mg HS JUAN A Administration Buspirone HCl 10 mg 10/17/24 22:00 10/24/24 04:58 Buspirone Hcl 10 Mg Tablet PO 10 mg Q8HR JUAN A Administration Calcium Carbonate 200 mg 10/19/24 21:45 10/21/24 20:28 Calcium Carbonate (Tums) 500 Mg (200 Mg Elemental) PO 200 mg Q6H PRN Administration Indigestion Carvedilol 12.5 mg 10/20/24 21:00 10/23/24 20:02 Carvedilol 12.5 Mg Tablet PO 12.5 mg Q12HR JUAN A Administration Clopidogrel Bisulfate 75 mg 10/18/24 09:00 10/23/24 08:56 Clopidogrel Bisulfate 75 Mg Tablet PO 75 mg DAILY JUAN A Administration Dextrose 12.5 gm 10/17/24 20:19 Dextrose 50% 25 Gm/50 Ml Syringe IV PUSH PRN PRN Hypoglycemia Protocol Empagliflozin 10 mg 10/18/24 09:00 10/23/24 08:56 Empagliflozin 10 Mg Tablet PO 10 mg DAILY JUAN A Administration Glucagon 1 mg 10/17/24 20:19 Glucagon For Inj 1 Mg Vial IM PRN PRN Hypoglycemia Protocol Glucose 15 gm 10/17/24 20:19 Glucose Oral Gel 15 Gm Of Glucse In 37.5 Gm Tube PO PRN PRN Hypoglycemia Protocol Heparin Sodium (Porcine) 5,000 units 10/17/24 21:00 10/23/24 20:02 Heparin Sodium 5,000 Units/Ml Vial SUB-Q 5,000 units Q12HR JUAN A Administration Dextrose 1,000 mls @ 100 mls/hr 10/17/24 20:19 Dextrose 5% 1,000 Ml IVPB PRN PRN Hypoglycemia Protocol Sodium Chloride 1,000 mls @ 100 mls/hr 10/21/24 14:40 10/24/24 07:29 Normal Saline Iv IV CONT 100 mls/hr .Q10H JUAN A Administration Insulin Aspart 2 - 5 units 10/18/24 08:00 10/23/24 18:02 Insulin Aspart (*Bkc) 100 Units/Ml SUB-Q Not Given TIDWM [facility] Protocol Levothyroxine Sodium 75 mcg 10/18/24 06:30 10/24/24 04:58 Levothyroxine Sodium 75 Mcg Tablet PO 75 mcg DAILY@0630 [facility] Administration Non-Formulary ( 1 each 10/22/24 09:00 10/22/24 09:19 Buprenorphine 7.5 TOPICAL 11/21/24 08:59 1 each Mcg/Hour Transdermal Mo@0900 [facility] Administration Patch, Transdermal Weekly) Ondansetron HCl 4 mg 10/22/24 12:53 10/23/24 20:06 Ondansetron Inj 4 Mg/2 Ml Vial IV PUSH 4 mg Q4H PRN Administration Nausea And Vomiting Pantoprazole Sodium 40 mg 10/18/24 09:00 10/23/24 20:02 Pantoprazole 40 Mg Tablet PO 40 mg Q12HR JUAN A Administration Potassium Chloride 40 meq 10/23/24 09:00 10/23/24 08:55 Potassium Chloride 20 Meq Packet (For Liquid) PO 40 meq DAILY JUAN A Administration Sertraline HCl 50 mg 10/18/24 09:00 10/23/24 08:56 Sertraline Hcl 50 Mg Tablet PO 50 mg DAILY JUAN A Administration Trazodone HCl 50 mg 10/17/24 20:10 10/23/24 20:09 Trazodone Hcl 50 Mg Tablet PO 50 mg QHS PRN Administration Sleep Radiology Results: ITS Impressions Abdomen/Pelvis CT 10/17/24 13:24 IMPRESSION: 1. No acute intra-abdominal/pelvic process. Chest X-Ray 10/17/24 16:45 Impression: No acute cardiopulmonary abnormality. Renal Ultrasound 10/18/24 14:56 Impression: 1: Right renal cyst measuring 3.9 cm. Abdomen Ultrasound 10/23/24 14:27 IMPRESSION: 1: Fatty infiltration of the liver. Labs Labs: Laboratory Results - last 24 hr 10/20/24 10/23/24 10/23/24 10:50 04:10 11:39 WBC RBC Hgb Hct MCV MCH MCHC RDW Plt Count MPV Immature Gran % (Auto) Neut % (Auto) Lymph % (Auto) [place] % (Auto) Eos % (Auto) Baso % (Auto) Lymph # (Auto) [place] # (Auto) Eos # (Auto) Baso # (Auto) Abs Immat Gran (auto) Absolute Neuts (auto) Absolute Nucleated RBC Nucleated RBC % Sodium 137 Potassium 3.0 L Chloride 110 H Carbon Dioxide 21 L Anion Gap 6 BUN 22 H Creatinine 2.26 H Estim Creat Clear Calc 15 Estimated GFR 21 L Glucose 97 POC Capillary Glucose 80 Calcium 8.1 L Phosphorus Magnesium Total Bilirubin 0.2 AST 220 H ALT 255 H Alkaline Phosphatase 55 Total Creatine Kinase Total Protein 5.3 L Albumin 3.1 L ALFREDO-1 Antibody <0.2 10/23/24 10/23/24 10/23/24 16:45 20:52 20:58 WBC RBC Hgb Hct MCV MCH MCHC RDW Plt Count MPV Immature Gran % (Auto) Neut % (Auto) Lymph % (Auto) [place] % (Auto) Eos % (Auto) Baso % (Auto) Lymph # (Auto) [place] # (Auto) Eos # (Auto) Baso # (Auto) Abs Immat Gran (auto) Absolute Neuts (auto) Absolute Nucleated RBC Nucleated RBC % Sodium Potassium 3.8 Chloride Carbon Dioxide Anion Gap BUN Creatinine Estim Creat Clear Calc Estimated GFR Glucose POC Capillary Glucose 76 94 Calcium Phosphorus Magnesium Total Bilirubin AST ALT Alkaline Phosphatase Total Creatine Kinase Total Protein Albumin ALFREDO-1 Antibody 10/24/24 10/24/24 04:30 07:58 WBC 6.9 RBC 3.45 L Hgb 9.8 L Hct 31.6 L MCV 91.6 MCH 28.4 MCHC 31.0 L RDW 15.3 H Plt Count 149 L MPV 10.6 H Immature Gran % (Auto) 0.4 Neut % (Auto) 67.9 Lymph % (Auto) 23.8 [place] % (Auto) 7.8 Eos % (Auto) 0.0 Baso % (Auto) 0.1 L Lymph # (Auto) 1.64 [place] # (Auto) 0.5 Eos # (Auto) 0.0 Baso # (Auto) 0.0 Abs Immat Gran (auto) 0.03 Absolute Neuts (auto) 4.7 Absolute Nucleated RBC 0.000 Nucleated RBC % 0.0 Sodium 141 Potassium 4.0 Chloride 111 H Carbon Dioxide 23 Anion Gap 7 BUN 20 H Creatinine 2.21 H Estim Creat Clear Calc 16 Estimated GFR 22 L Glucose 93 POC Capillary Glucose 77 Calcium 9.0 Phosphorus 3.7 Magnesium 1.9 Total Bilirubin 0.3 AST 149 H ALT 242 H Alkaline Phosphatase 59 Total Creatine Kinase 2764 H Total Protein 5.9 L Albumin 3.4 L ALFREDO-1 Antibody Quality VTE Prophylaxis VTE prophylaxis: pharmacologic ordered (heparin SQ)
[2024-10-24 08:21] VITALS: BP 151/54; PULSE 52; RESP 16; TEMP 36.3; O2SAT 99
[2024-10-24] MEDS: POTASSIUM CHLORIDE 20 MEQ PACKET (FOR LIQUID) 40 MEQ PO (08:24)
[2024-10-24] MEDS: SERTRALINE HCL 50 MG TABLET PO (08:25)
[2024-10-24] MEDS: EMPAGLIFLOZIN 10 MG TABLET PO (08:25)
[2024-10-24] MEDS: CLOPIDOGREL BISULFATE 75 MG TABLET PO (08:25)
[2024-10-24] MEDS: PANTOPRAZOLE 40 MG TABLET PO (08:25)
[2024-10-24 08:33] VITALS: PULSE 58; RESP 16; O2SAT 99
--- NOTE | 2024-10-24 11:02 | PCNWS ---
Weekly nutritional screen. Patient is tolerating current diet with adequate intake. No weight loss reported. No nutritional needs at this time.
--- NOTE | 2024-10-24 13:23 | P.PNNP_ITS ---
Progress Note: A&P Assessment and Plan (1) Acute kidney injury: Code(s): N17.9 - Acute kidney failure, unspecified Status: Acute Assessment and Plan: * slow improvement noted (if not close to baseline) * as noted by recent outpatient labs and on admission * suspect due to rhabdomyolysis * evaluation to date noted: * renal ultrasound pending * CT of A/P with 3.3cm renal cyst * elevated CPK level * urine electrolytes non-prerenal * urine eosinophils negative * UA noted (urine culture negative) * + proteinuria * improvement noted with IVFs * follow trend of repeat labs and UOP (2) Chronic kidney disease, stage 3b: Code(s): N18.32 - Chronic kidney disease, stage 3b Status: Chronic Assessment and Plan: * baseline creatinine runs around 1.5 - 2.1mg/dl in the last year * this causes her to fluctuate between CKD stage 3b and stage 4 * due to hypertension, diabetes, vascular disease, and age (3) Rhabdomyolysis: Code(s): M62.82 - Rhabdomyolysis Status: Acute Assessment and Plan: * as noted by admission labs * CPK down trending * reports some muscle aches following a fall 10 days prior to admission * due to statin use?? * statin on hold * allergy reported with atorvastatin * serologies regarding inflammatory myopathies pending (but ESR only mildly elevated) * continue current therapy (4) Transaminitis: Code(s): R74.01 - Elevation of levels of liver transaminase levels Status: Acute Assessment and Plan: * presumably secondary to rhabomyolysis * follow trend of LFTs (5) HTN (hypertension): Code(s): I10 - Essential (primary) hypertension Status: Chronic Assessment and Plan: * reasonable control at this time * chronic pain issues maybe contributing... * follow trend of hemodynamics (6) Anemia: Qualifiers: Anemia type: unspecified type Qualified Code(s): D64.9 - Anemia, unspecified Code(s): D64.9 - Anemia, unspecified Status: Chronic Assessment and Plan: * probably related to DANETTE, CKD, and acute illness * suspect a dilutional component as well with IVFs * follow trend of H/H (7) Chronic pain: Code(s): G89.29 - Other chronic pain Status: Chronic Assessment and Plan: * continue buprenorphine patch as prescribed (8) Diabetes: Code(s): E11.9 - Type 2 diabetes mellitus without complications Status: Chronic Assessment and Plan: * follow accu-cheks * glycemic control per hospitalist Discussed with hospitalist -- not opposed to discharge from renal standpoint; plan repeat outpatient labs to ensure kidney function and liver function is improving. She already has a follow-up appointment scheduled with Dr. Rosales in early November. Will continue to follow. L Subjective Date/time seen: 10/24/24 13:23 Interval history: Follow-up for acute kidney injury/acute renal failure on chronic kidney disease. Renal function/creatinine as well as CPK downtrending/improving with ongoing therapy in association with good urine output; overall, she states she feels quite well and denies any acute complaints; no issues/events overnight or earlier this morning. Exam 2 Narrative: General: elderly but WD/WN female in NAD Heart: normal S1 and S2; no rub Lungs: clear to auscultation Abdomen: soft, nontender, nondistended, positive bowel sounds Extremities: no cyanosis or clubbing; no edema Skin: no rash or nodules Objective Data Vital Signs Vital Signs: Vital Signs Temp Pulse Resp BP Pulse Ox O2 Del Method 10/24/24 11:51 Room Air 10/24/24 08:33 58 L 16 99 Room Air 10/24/24 08:33 58 L 10/24/24 08:21 97.4 F L 52 L 16 151/54 H 99 10/24/24 03:49 98.6 F 63 18 133/48 L 96 10/23/24 20:47 98.3 F 55 L 18 128/67 100 10/23/24 20:00 50 L 18 99 Room Air 10/23/24 15:55 98.2 F 50 L 18 152/56 H 99 Intake/Output Intake/Output: Intake & Output 10/21/24 10/22/24 10/23/24 10/24/24 23:59 23:59 23:59 23:59 Intake Total 1971.2 2873.3 2820 720 Balance 1971.2 2873.3 2820 720 Meds/Results Medications: Active Medications Generic Name Dose Route Start Last Admin Trade Name Freq PRN Reason Stop Dose Admin Acetaminophen 650 mg 10/19/24 04:31 10/22/24 05:32 Acetaminophen 325 Mg Tablet PO 650 mg Q4H PRN Administration Headache Aspirin 81 mg 10/17/24 21:00 10/23/24 20:02 Aspirin 81 Mg Enteric Tablet PO 81 mg HS JUAN A Administration Buspirone HCl 10 mg 10/17/24 22:00 10/24/24 13:03 Buspirone Hcl 10 Mg Tablet PO 10 mg Q8HR JUAN A Administration Calcium Carbonate 200 mg 10/19/24 21:45 10/21/24 20:28 Calcium Carbonate (Tums) 500 Mg (200 Mg Elemental) PO 200 mg Q6H PRN Administration Indigestion Carvedilol 12.5 mg 10/20/24 21:00 10/24/24 08:33 Carvedilol 12.5 Mg Tablet PO 12.5 mg Q12HR JUAN A Administration Clopidogrel Bisulfate 75 mg 10/18/24 09:00 10/24/24 08:25 Clopidogrel Bisulfate 75 Mg Tablet PO 75 mg DAILY JUAN A Administration Dextrose 12.5 gm 10/17/24 20:19 Dextrose 50% 25 Gm/50 Ml Syringe IV PUSH PRN PRN Hypoglycemia Protocol Empagliflozin 10 mg 10/18/24 09:00 10/24/24 08:25 Empagliflozin 10 Mg Tablet PO 10 mg DAILY JUAN A Administration Glucagon 1 mg 10/17/24 20:19 Glucagon For Inj 1 Mg Vial IM PRN PRN Hypoglycemia Protocol Glucose 15 gm 10/17/24 20:19 Glucose Oral Gel 15 Gm Of Glucse In 37.5 Gm Tube PO PRN PRN Hypoglycemia Protocol Heparin Sodium (Porcine) 5,000 units 10/17/24 21:00 10/24/24 08:26 Heparin Sodium 5,000 Units/Ml Vial SUB-Q 5,000 units Q12HR JUAN A Administration Dextrose 1,000 mls @ 100 mls/hr 10/17/24 20:19 Dextrose 5% 1,000 Ml IVPB PRN PRN Hypoglycemia Protocol Sodium Chloride 1,000 mls @ 100 mls/hr 10/21/24 14:40 10/24/24 07:29 Normal Saline Iv IV CONT 100 mls/hr .Q10H JUAN A Administration Insulin Aspart 2 - 5 units 10/18/24 08:00 10/24/24 12:52 Insulin Aspart (*Bkc) 100 Units/Ml SUB-Q Not Given TIDWM [facility] Protocol Levothyroxine Sodium 75 mcg 10/18/24 06:30 10/24/24 04:58 Levothyroxine Sodium 75 Mcg Tablet PO 75 mcg DAILY@0630 JUAN A Administration Non-Formulary ( 1 each 10/22/24 09:00 10/22/24 09:19 Buprenorphine 7.5 TOPICAL 11/21/24 08:59 1 each Mcg/Hour Transdermal Mo@0900 JUAN A Administration Patch, Transdermal Weekly) Ondansetron HCl 4 mg 10/22/24 12:53 10/23/24 20:06 Ondansetron Inj 4 Mg/2 Ml Vial IV PUSH 4 mg Q4H PRN Administration Nausea And Vomiting Pantoprazole Sodium 40 mg 10/18/24 09:00 10/24/24 08:25 Pantoprazole 40 Mg Tablet PO 40 mg Q12HR JUAN A Administration Potassium Chloride 40 meq 10/23/24 09:00 10/24/24 08:24 Potassium Chloride 20 Meq Packet (For Liquid) PO 40 meq DAILY JUAN A Administration Sertraline HCl 50 mg 10/18/24 09:00 10/24/24 08:25 Sertraline Hcl 50 Mg Tablet PO 50 mg DAILY JUAN A Administration Trazodone HCl 50 mg 10/17/24 20:10 10/23/24 20:09 Trazodone Hcl 50 Mg Tablet PO 50 mg QHS PRN Administration Sleep Radiology Results: ITS Impressions Abdomen/Pelvis CT 10/17/24 13:24 IMPRESSION: 1. No acute intra-abdominal/pelvic process. Chest X-Ray 10/17/24 16:45 Impression: No acute cardiopulmonary abnormality. Renal Ultrasound 10/18/24 14:56 Impression: 1: Right renal cyst measuring 3.9 cm. Abdomen Ultrasound 10/23/24 14:27 IMPRESSION: 1: Fatty infiltration of the liver. Labs Labs: Laboratory Tests 10/24/24 04:30 10/24/24 04:30 Calcium 9.0 Phosphorus 3.7 Magnesium 1.9 Total Bilirubin 0.3 AST 149 H ALT 242 H Alkaline Phosphatase 59 Total Creatine Kinase 2764 H Total Protein 5.9 L Albumin 3.4 L
--- NOTE | 2024-10-24 13:43 | P.DS_ITS ---
DS: Admitting Diagnosis Discharge Date 10/24/2024 Admitting Diagnosis rhabdomyolysis due to statin therapy hepatorenal failure dm chronic pain htn ckd danette on ckd hld abnormal ua hypokalemia DS: Discharge Diagnosis Discharge Diagnosis (1) Rhabdomyolysis due to statin therapy: Code(s): M62.82 - Rhabdomyolysis; T46.6X5A - Adverse effect of antihyperlipidemic and antiarteriosclerotic drugs, initial encounter Status: Acute (2) Hepatorenal failure: Code(s): K76.7 - Hepatorenal syndrome Status: Acute (3) DM renal manif type II: Code(s): E11.29 - Type 2 diabetes mellitus with other diabetic kidney complication Status: Chronic (4) Type 2 diabetes with nephropathy: Code(s): E11.21 - Type 2 diabetes mellitus with diabetic nephropathy Status: Chronic (5) Chronic pain: Code(s): G89.29 - Other chronic pain Status: Chronic (6) Hypertensive chronic kidney disease with stage 1 through stage 4 chronic kidney disease, or unspecified chronic kidney disease: Code(s): I12.9 - Hypertensive chronic kidney disease with stage 1 through stage 4 chronic kidney disease, or unspecified chronic kidney disease Status: Chronic (7) Acute kidney injury superimposed on CKD: Code(s): N17.9 - Acute kidney failure, unspecified; N18.9 - Chronic kidney disease, unspecified Status: Acute (8) Mixed hyperlipidemia: Code(s): E78.2 - Mixed hyperlipidemia Status: Chronic (9) Abnormal urinalysis: Code(s): R82.90 - Unspecified abnormal findings in urine Status: Acute (10) Hypokalemia: Code(s): E87.6 - Hypokalemia Status: Acute DS: Summary Hospital Course Reason for hospitalization: rhabdomyolysis due to statin therapy hepatorenal failure dm chronic pain htn ckd danette on ckd hld abnormal ua hypokalemia Hospital Course: 74-year-old female patient with a past medical history 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 Rosales), diabetes, hypertension insomnia, hyperlipidemia, GERD, chronic pain and CAD who is admitted to the hospital for hepatorenal failure. No history of liver failure. Patient had labs drawn for her upcoming clinic appointment and she received notification from physician to go to the emergency department due to significantly worsened labs. On admission patient was noted to have an abnormal ua however denied any uti like symptoms thus treatment was deferred. Urine culture negative. Patient was noted to have DANETTE on CKD and transaminitis with a significantly elevated CK concerning for rhabdomyolysis induced hepatorenal failure. Patient started on IV fluids. Patient states she did have a fall where she tripped over a stick in her yard however she denies injury including head strike and LOC and was able to immediately get back up. PT evaluated and no therapy needed. Concern for statin induced rhabdo thus statin since placed on hold. Nephrology consulted. Concern for possible polymyositis or some other inflammatory myopathy for which labs were drawn and pending. Throughout admission patients CK, creatinine and LFTs continued to downtrend. On discharge patient stated she felt back to her baseline function and denied any muscle aches/pain/weakness. Discussed patient with Dr. Novoa, nephrology who is agreeable to discharge at this time as patients renal function is downtrending and almost back to baseline. Will have patient obtain a repeat CK and CMP to reassess CK level as well as hepatorenal function. Patient has no complaints at time of discharge denying chest pain, shortness a breath, palpitations, nausea/vomiting, abdominal pain. Patient discharged home in a stable condition. She is to follow up with her primary care provider in 1 week and Nephrology as scheduled. Status at Discharge Functional status at discharge: independent ambulation Time Spent with Patient Time attestation: Total time spent providing and/or coordinating discharge services: Time spent: Greater than 30 minutes Exam Narrative: AF HR 58 RR 16 Spo2 99 BP 151/54 General: female in no acute respiratory distress who is nontoxic appearing, sitting up in chair HEENT: Normocephalic. Atraumatic. Extraocular movement intact. Sclera clear and anicteric.No facial asymmetry. Chest: Lungs are clear to auscultation bilaterally. No wheezes or crackles. CV: Heart was regular rate and rhythm. Abd: Abdomen was soft. Nontender. Nondistended. Positive bowel sounds. Ext: No clubbing, cyanosis, or edema. DP pulses bilaterally. Neuro: Patient is alert and oriented x4. Strength is 5/5 in both upper and lower extremities. Speech is clear. DS: Data Data Completed and Pending Completed studies during hospitalization: abdomen us renal us chest xr abdomen/pelvis ct Labs on day of discharge: Labs from last 24 hours 10/24/24 10/24/24 10/24/24 11:25 07:58 04:30 WBC 6.9 RBC 3.45 L Hgb 9.8 L Hct 31.6 L MCV 91.6 MCH 28.4 MCHC 31.0 L RDW 15.3 H Plt Count 149 L MPV 10.6 H Immature Gran % (Auto) 0.4 Neut % (Auto) 67.9 Lymph % (Auto) 23.8 Hemphill % (Auto) 7.8 Eos % (Auto) 0.0 Baso % (Auto) 0.1 L Lymph # (Auto) 1.64 Hemphill # (Auto) 0.5 Eos # (Auto) 0.0 Baso # (Auto) 0.0 Abs Immat Gran (auto) 0.03 Absolute Neuts (auto) 4.7 Absolute Nucleated RBC 0.000 Nucleated RBC % 0.0 Sodium 141 Potassium 4.0 Chloride 111 H Carbon Dioxide 23 Anion Gap 7 BUN 20 H Creatinine 2.21 H Estim Creat Clear Calc 16 Estimated GFR 22 L Glucose 93 POC Capillary Glucose 94 77 Calcium 9.0 Phosphorus 3.7 Magnesium 1.9 Total Bilirubin 0.3 AST 149 H ALT 242 H Alkaline Phosphatase 59 Total Creatine Kinase 2764 H Total Protein 5.9 L Albumin 3.4 L ALFREDO-1 Antibody 10/23/24 10/23/24 10/23/24 20:58 20:52 16:45 WBC RBC Hgb Hct MCV MCH MCHC RDW Plt Count MPV Immature Gran % (Auto) Neut % (Auto) Lymph % (Auto) Hemphill % (Auto) Eos % (Auto) Baso % (Auto) Lymph # (Auto) Hemphill # (Auto) Eos # (Auto) Baso # (Auto) Abs Immat Gran (auto) Absolute Neuts (auto) Absolute Nucleated RBC Nucleated RBC % Sodium Potassium 3.8 Chloride Carbon Dioxide Anion Gap BUN Creatinine Estim Creat Clear Calc Estimated GFR Glucose POC Capillary Glucose 94 76 Calcium Phosphorus Magnesium Total Bilirubin AST ALT Alkaline Phosphatase Total Creatine Kinase Total Protein Albumin ALFREDO-1 Antibody 10/20/24 10:50 WBC RBC Hgb Hct MCV MCH MCHC RDW Plt Count MPV Immature Gran % (Auto) Neut % (Auto) Lymph % (Auto) Hemphill % (Auto) Eos % (Auto) Baso % (Auto) Lymph # (Auto) Hemphill # (Auto) Eos # (Auto) Baso # (Auto) Abs Immat Gran (auto) Absolute Neuts (auto) Absolute Nucleated RBC Nucleated RBC % Sodium Potassium Chloride Carbon Dioxide Anion Gap BUN Creatinine Estim Creat Clear Calc Estimated GFR Glucose POC Capillary Glucose Calcium Phosphorus Magnesium Total Bilirubin AST ALT Alkaline Phosphatase Total Creatine Kinase Total Protein Albumin ALFREDO-1 Antibody <0.2 Discharge Plan Discharge Attending physician on discharge: Sherrell Gale Consulting providers: Triston Novoa; Kianna Haines Discharging Clinician: Kianna Haines Anticipated Discharge Date/Time: 10/24/24 13:28 Patient Disposition: Home Activity: as tolerated Diet: as tolerated Discharge Instructions: Discharge disposition: Patient admitted to the hospital for rhabdomyolysis likely due to the statin therapy Continue to hold the statin until follow-up with primary care provider Due to patient's rhabdomyolysis she developed an acute kidney injury and was evaluated by Nephrology The kidney injury continues to improve, follow-up with nephrology as scheduled Patient also developed elevated liver enzymes secondary to the rhabdomyolysis which have been down trending Obtain a blood draw to reassess these levels as well as a CK in 5 days 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 as well as your primary care provider Maintain adequate hydration status Return new or worsening muscle pain, reduced urine output, or new swelling occurs Monitor blood pressures Take caution while standing, rising, or moving Change positions slowly taking a break between each position change If you standing feel dizzy sit back down and take a break Encouraged to continue with yearly vaccinations Return to the emergency department if he developed sudden shortness of breath, chest pain, nausea, vomiting, upset stomach or intractable diarrhea Return to the emergency department if you develop fever greater than 100.5 Follow-up with the primary care physician within 1-2 weeks Thank you for [facility] for your healthcare needs Patient Instructions: Rhabdomyolysis (DC) Patient Language: Icelandic Stand Alone Forms: General Discharge Information Follow-up/Referrals: Keith Foreman MD [Primary Care Provider, Family Practice] - 1 Week Phil Rosales MD [Physician, Nephrology] - Call for Appointment Discharge Medications: New potassium chloride 20 mEq Packet 40 meq PO DAILY Qty: 10 0RF Continued melatonin 10 mg capsule 10 mg PO HS PRN (Reason: sleep) aspirin 81 mg tablet,delayed release (DR/EC) 81 mg PO HS (DME) Contour Next Test Strips Strip See Rx Instructions .ROUTE .MEDSUPPLY Qty: 100 10RF Rx Instructions: As directed to check blood sugar once daily (DME) blood-glucose meter [Contour Meter] Kit See Rx Instructions .ROUTE .MEDSUPPLY Qty: 1 0RF Rx Instructions: test daily buprenorphine 7.5 mcg/hour patch weekly 1 patch transdermal Q7D 28 Days Qty: 4 0RF Rx Instructions: Apply 1 patch to clean, dry, intact skin of the upper body. Remove, discard and replace every 7 days. Rotate site with each new placement. call clinic at the time of the last patch placement for refills clopidogrel 75 mg tablet 75 mg PO DAILY midodrine 5 mg tablet 5 mg PO DAILY Rx Instructions: do not give last dose of day after 6PM or within 4 hrs of bedtime (DME) lancets Misc See Rx Instructions .ROUTE .MEDSUPPLY Qty: 200 5RF Rx Instructions: As directed to check blood sugar once daily (DME) blood-glucose meter [Blood Glucose Monitoring] Kit See Rx Instructions .ROUTE .MEDSUPPLY Qty: 1 0RF Rx Instructions: Use As directed to check blood sugar metformin 1,000 mg tablet 1,000 mg PO DAILY Qty: 90 3RF Rx Instructions: TAKE 1 TABLET BY MOUTH ONCE DAILY carvedilol 6.25 mg tablet 6.25 mg PO Q12H Qty: 180 2RF Rx Instructions: must administer with a meal/food gabapentin 600 mg tablet 600 mg PO QHS Qty: 90 3RF omeprazole 40 mg capsule,delayed release(DR/EC) 40 mg PO DAILY Qty: 90 2RF icosapent ethyl [Vascepa] 1 gram capsule 2 g PO BID Qty: 120 3RF ergocalciferol (vitamin D2) 1,250 mcg (50,000 unit) capsule See Rx Instructions .ROUTE .COMPLEX Qty: 10 0RF Dose Instruction: TAKE 1 CAPSULE BY MOUTH EVERY 2 WEEKS Patient Comments: Took on Rx Instructions: TAKE 1 CAPSULE BY MOUTH EVERY 2 WEEKS buspirone 10 mg tablet See Rx Instructions .ROUTE .COMPLEX Qty: 90 0RF Dose Instruction: TAKE 1 TABLET BY MOUTH THREE TIMES DAILY Rx Instructions: TAKE 1 TABLET BY MOUTH THREE TIMES DAILY levothyroxine 75 mcg tablet 75 mcg PO DAILY Qty: 30 5RF Jardiance 10 mg tablet See Rx Instructions .ROUTE .COMPLEX Qty: 30 5RF Dose Instruction: TAKE 1 TABLET BY MOUTH DAILY Rx Instructions: TAKE 1 TABLET BY MOUTH DAILY trazodone 50 mg tablet See Rx Instructions .ROUTE .COMPLEX Qty: 45 1RF Dose Instruction: TAKE ONE-HALF TO ONE TABLET BY MOUTH EVERY NIGHT AT BEDTIME NEEDED FOR SLEEP Rx Instructions: TAKE ONE-HALF TO ONE TABLET BY MOUTH EVERY NIGHT AT BEDTIME NEEDED FOR SLEEP sertraline 50 mg tablet 50 mg PO DAILY Qty: 30 1RF Held rosuvastatin 40 mg tablet 40 mg PO DAILY Qty: 90 3RF Hold Instructions: Resume on 11/21/24. Hold until follow up with PCP. Other Ambulatory Orders: Creatine Kinase (Routine) Timeframe: 5 Days Location: Determined by Patient Ordered By: Kianna Haines Comprehensive Metabolic Panel (Routine) Timeframe: 5 Days Location: Determined by Patient Ordered By: Kianna Haines Date of admission: 10/18/24 10:00 Primary Care Provider: Keith Foreman Admitting Provider: Naren Casey Attending physician on admission: Naren Casey Condition: Stable Hospitalist MIPS Heart Failure (Exclusion) Patient has history of Heart Transplant or Left Ventricular Assistive Device?: No IF YES, STOP HERE Heart Failure (Qualifier) Patient has current or prior documentation of LVEF less than or equal to 40%, or mod/servere depressed LVSF?: No IF NO, STOP HERE
[2024-10-24 15:09] LABS: ANA by IFA Rfx Titer/Pattern Negative (.)
== END 2024-10-24 16:40 | disposition home or self-care (01) | DRG 557 ==
LOC: ANHED 13:14 → ANH2MED 17:27
PROVIDERS: Internal Medicine; Internal Medicine Nephrology; Nurse Practitioner; Admitting Provider General Practice; Emergency Provider Student in an Organized Health Care Education/Training Program; PCP Family Medicine; Visit Provider Student in an Organized Health Care Education/Training Program
DX: M62.82 Rhabdomyolysis (principal); K76.7 Hepatorenal syndrome; N17.9 Acute kidney failure, unspecified; N18.4 Chronic kidney disease, stage 4 (severe); I12.9 Hypertensive chronic kidney disease with stage 1 through stage 4 chronic kidney disease, or unspecified chronic kidney disease; E11.22 Type 2 diabetes mellitus with diabetic chronic kidney disease; D63.1 Anemia in chronic kidney disease; E87.6 Hypokalemia; G89.29 Other chronic pain; T46.6X5A Adverse effect of antihyperlipidemic and antiarteriosclerotic drugs, initial encounter; R82.90 Unspecified abnormal findings in urine; E78.2 Mixed hyperlipidemia; W01.198A Fall on same level from slipping, tripping and stumbling with subsequent striking against other object, initial encounter; E03.9 Hypothyroidism, unspecified; I67.2 Cerebral atherosclerosis; I77.9 Disorder of arteries and arterioles, unspecified; K21.9 Gastro-esophageal reflux disease without esophagitis; M19.90 Unspecified osteoarthritis, unspecified site; G47.00 Insomnia, unspecified; I25.10 Atherosclerotic heart disease of native coronary artery without angina pectoris; G47.30 Sleep apnea, unspecified; F10.91 Alcohol use, unspecified, in remission; Z79.84 Long term (current) use of oral hypoglycemic drugs; Z90.49 Acquired absence of other specified parts of digestive tract; Z86.16 Personal history of COVID-19; Z86.59 Personal history of other mental and behavioral disorders; Z79.82 Long term (current) use of aspirin; Z95.5 Presence of coronary angioplasty implant and graft
CPT/HCPCS: 36415; 71046; 74176; 76705; 76770; 80053; 80061; 80074; 81001; 82550; 82570; 82948; 83036; 83735; 83880; 84100; 84132; 84156; 84300; 84439; 84443; 84540; 85025; 85652; 85999; 86038; 86235; 87086; 93005; 96360; 96361; 97161; 99285; A9270; G0378; J1644; J2405; J3475; J3480; J7030; J7040; J7120